=== PATIENT | male | born 1975 | race Caucasian/White ===

== ENCOUNTER 2016-11-26 16:53 | Inpatient (IN) ==
[2016-11-26] MEDS ORDERED: methylPREDNISolone SOD SUC 125 MG/2 ML VIAL IV STA (19:00)
[2016-11-26] MEDS ORDERED: ALBUTEROL 2.5 MG/3 ML NEB RESP TX SCH (19:00)
[2016-11-26] MEDS ORDERED: FUROSEMIDE 100 MG/10 ML VIAL IV STA (19:00)
--- NOTE | 2016-11-26 19:11 | Emergency Department Note ---
IHenrry Kasabria, am scribing for, and in the presence of, Terry Arana MD 19:08. Yasmeen Gutierrez Charles R, MD, personally performed the services described in this documentation, ascribed by Jo Sales in my presence, and it is both accurate and complete 911 . Arrival - Arrival Chief Complaint: Upper Respiratory Stated Complaint: head and coughing up blood ED Nursing Triage Note: C/o shortness of breath, wheezing, cough, congestion- onset three weeks ago. Reports that he noticed some blood streaks in his sputum also. Mode of Arrival: Ambulatory Limitations: No Limitations Source: Patient Time Seen by Provider: 11/26/16 18:41 - History of Present Illness HPI Narrative: Pt is a 41 y/o white male presenting to the ED with c/o cough, congestion, blood streaks in nasal drainage that onset three weeks ago. He states he was taking an antibiotic which cleared the congestion but one day later the congestion came back. He sees Dr. Avalos for his heart and is currently taking Lasix daily. He does have edema bilaterally to his lower extremities. Pt has a PMHx of HTN, CHF, COPD, and bronchitis. Pt was hospitalized three weeks ago and states his symptoms worsened when he was discharged. He denies fever, chills, nausea, vomiting, diarrhea, abdominal pain, and dysuria. Consistency: constant Severity: moderate Allergies/Adverse Reactions: Allergies Allergy/AdvReac Type Severity Reaction Status Date / Time levofloxacin [From Levaquin] AdvReac Cramping Verified 10/25/16 07:43 of the Muscles Home Medications: Home Medications Medication Instructions Recorded Confirmed Type Oxycodone HCl/Acetaminophen 10 mg PO QID PRN #30 tablet 03/24/15 11/26/16 Rx [Percocet 10-325 mg Tablet] Montelukast Tab [Singulair Tab] 10 mg PO DAILY 04/15/15 11/26/16 History Furosemide Tab [Lasix Tab] 80 mg PO BID PRN 02/01/16 11/26/16 History Temazepam [Restoril] 30 mg PO BEDTIME 02/01/16 11/26/16 History Potassium Chloride Cap/Tab [K Dur] 20 meq PO DAILY #100 tablet 09/23/16 Rx predniSONE TAB [PredniSONE] 5 mg PO BEDTIME tablet 09/23/16 11/26/16 Rx predniSONE TAB [PredniSONE] 10 mg PO DAILY tablet 09/23/16 11/26/16 Rx Lisinopril [Prinivil] 2.5 mg PO DAILY 10/25/16 11/26/16 History Azithromycin [Azithromycin Z Pack] 250 mg PO DIRECTED #1 tablet 10/27/16 Rx Cefdinir 300 mg PO Q12HR #12 capsule 10/27/16 11/26/16 Rx Metoprolol Tartrate 25 mg PO TID #90 tablet 10/27/16 11/26/16 Rx Spironolactone [Aldactone] 25 mg PO BID #60 tablet 10/27/16 11/26/16 Rx Review of System - Review of System 12 point system: reviewed and no additional remarkable complaints except as stated - Review of System Constitutional: Absent: chills, fever, weakness Eyes: Absent: vision change Head/Ears/Nose/Throat: Present: nasal drainage. Absent: earache, sore throat Respiratory: Present: cough Cardiovascular: Present: edema (pedal edema to BLE ). Absent: chest pain, dyspnea on exertion, syncope Gastrointestinal: Absent: abdominal pain, nausea, vomiting, diarrhea Genitourinary male: Absent: dysuria Musculoskeletal: Absent: arm pain, back pain, leg pain Skin: Absent: rash Neurological: Absent: headache, weakness, confusion, abnormal gait, vertigo Psychiatric: Absent: anxiety Endocrine: Absent: fatigue Allergic/Immunologic: Absent: facial swelling Medical,Surgical,& Family Hx - Medical History Cardio: History of: CHF, Hypertension, Valvular Heart Disease (3+ MR), Cardiovascular Problems No history of: Cerebrovascular Disease Psychological: History of: Anxiety Disorders No history of: Behavior Problems, Bipolar Disorder, Depression, Previous Suicide Attempt, Psychiatric/Substance Abuse Tx, Schizophrenia, Violent Behavior , Psychiatric Problems Endocrine: No history of: Diabetes Mellitus (IDDM), Diabetes Mellitus (NIDDM) Respiratory: History of: Asthma, Bronchitis, COPD, Pneumonia, Respiratory Problems Renal: No history of: Renal Failure, Renal Problems Gastrointestinal: No history of: Gastrointestinal Bleed, GI Problems Musculoskeletal: History of: Back/Neck Problems (herniated and bulging disks), Degenerative Disk Disease No history of: Amputation Hematology: No history of: Blood Transfusion Reaction Other: No history of: Anesthesia Reactions, Cancer, Skin Problems - Surgical History Cardiac Surgeries: Sugical HX of: Cardiac Catheterization Patient Denies: Femoral-Popliteal Bypass Graft, Cardiac Surgery, Carotid Endarterectomy, Internal Defibrillator, Vascular Access Devices Thoracic Surgeries: Patient denies;: Lobectomy Neurologic Surgeries: Patient denies: Neurologic Surgery HEENT Surgeries: Surgical HX of: Tonsilectomy & Adenoidectomy Patient denies: Carotid Endarterectomy, Eye Surgery, Thyroid Surgery Abdominal Surgeries: Surgical HX of: Abdominal Surgery, Appendectomy Patient denies: Splenectomy Orthopedic Surgeries: Surgical HX of;: Orthopedic Surgery (left knee/foot surgery), Spinal Surgery (nerve blocks and buchanan) - Family History Family History: Reports;: Family Anesthesia Reaction, Family Cancer (grandparent ), Family Diabetes (mother), Family Hypertension (father) Denies;: Family Heart Disease, Family Psychiatric Problems, Family Stroke - Social History Smoking Status: Former smoker Frequency of Alcohol Use: None Type of Drug Use: None Exam Vital Signs: Vital Signs Temperature 97.1 F L 11/26/16 17:28 Pulse Rate 134 H 11/26/16 20:23 Respiratory Rate 24 11/26/16 20:23 Blood Pressure 135/81 11/26/16 17:28 O2 Sat by Pulse Oximetry 96 11/26/16 20:23 - General General appearance: alert, in no apparent distress - Head Head exam: Present: atraumatic, normocephalic - Eye Eye exam: Present: normal appearance, PERRL, EOMI - ENT ENT exam: Present: mucous membranes moist, TM's normal bilaterally, normal external ear exam - Expanded ENT Exam Nose exam: other (boggy nasal ) Throat exam: Present: tonsillar erythema - Neck Neck exam: Present: normal inspection, full ROM, trachea midline. Absent: tenderness - Chest Chest inspection: Present: normal inspection, symmetric chest wall rise. Absent : tenderness - Respiratory Respiratory exam: Present: rales (at the bases bilaterally ), wheezes ( bilaterally ) - Cardiovascular Cardiovascular exam: Present: regular rate, normal heart sounds, murmur (4/6 systolic injection ) - Abdominal Exam Abdominal exam: Present: soft, normal bowel sounds. Absent: distention, tenderness - Extremities Exam Extremities exam: Present: full ROM, normal capillary refill, pedal edema (+2 pedal edema bilaterally ). Absent: tenderness, calf tenderness - Back Exam Back exam: Present: normal inspection, full ROM. Absent: tenderness - Neurological Exam Neurological exam: Present: alert, oriented X3, CN II-XII intact, normal gait, reflexes normal - Psychiatric Psychiatric exam: Present: normal affect, normal mood - Skin Skin exam: Present: warm, dry, intact, normal color. Absent: rash, diaphoresis Course - Consultations Consultation #1: Dr. Izaguirre will admit patient Time: 22:55 Results - Labs CBC & BMP: 11/26/16 19:18 11/26/16 19:18 Lab Results: I have reviewed the patients labs Critical Care Time Critical Care Time: Yes Total Critical Care Time: 90 Disposition Clinical Impression: Hypokalemia, Congestive heart failure, Acute on chronic diastolic CHF ( congestive heart failure), NYHA class 3, Elevated troponin, Acute dyspnea, Exertional dyspnea Case discussed with: patient Disposition: Still a Patient Condition: Guarded Time of Disposition: 22:56
[2016-11-26 19:32] LABS: Basophils % 0.2 % (0.0-0.8); Eosinophils # 0.2 10*3/uL (0.0-0.87); Eosinophils % 0.8 % (0.00-10.9); Hematocrit 33.9 VOL% (42.0-52.0); Hemoglobin 10.7 GM/DL (14.0-18.0); Immature Granulocytes % 0.4 %; Immature Granulocytes Absolute 0.08 #; Lymphocytes % 5.5 % (21.2-54.2); Mean Corpuscular HGB Conc 31.6 GM/DL (32-36); Mean Corpuscular Hemoglobin 27 PG (27-34); Mean Corpuscular Volume 84.5 FL (87-102); Mean Platelet Volume 9.3 FL (9.6-12.0); Monocytes % 5.6 % (1.7-12.7); Neutrophils # 15.6 10*3/uL (1.4-7.4); Neutrophils % 87.5 % (38.7-73.9); Platelet Count 350 T/CUMM (130-400); Red Blood Count 4.01 MC/CUMM (3.8-5.5); Red Cell Distribution Width 14.4 % (9.3-17.3); White Blood Count 17.9 T/CUMM (4-12)
[2016-11-26] MEDS ORDERED: FUROSEMIDE 40 MG/4 ML VIAL ONE (19:42)
[2016-11-26 19:43] LABS: PT Patient Result 10.4 SECS
[2016-11-26] MEDS ORDERED: methylPREDNISolone SOD SUC 125 MG/2 ML VIAL ONE (19:43)
--- NOTE | 2016-11-26 19:43 | XRay Report ---
Exam: XR chest 1V portable Indication: Shortness of breath, Cardiomegaly Comparison study: October 27, 2016 Findings: Cardiac silhouette is enlarged, similar to prior. Mediastinal contours appear within normal limits. There is mild central perihilar interstitial prominence as well as slight prominence of the upper lobe pulmonary vasculature suggestive of pulmonary edema changes. Minimal basilar opacities are also noted, prior may represent atelectasis or interstitial edema. There is no pneumothorax. There is no focal consolidation. Impression: Cardiomegaly with findings suggestive of interstitial pulmonary edema with probable basilar atelectasis. PROCEDURE INTERPRETED AT [facility] DEPARTMENT OF RADIOLOGY Final Report Signed by: Antonio Bradley
--- NOTE | 2016-11-26 19:52 | EKG Report ---
Stationary ECG Study [facility] ER Test Date: 11/26/2016 7:51:44 PM Pat Name: EMILY MEDELLIN Department: Room: Gender: M Roofer Apprentice: : 1975 Requested by: Terry Mckinley Order Number: [id number] Reading MD: FRANK TOLENTINO Intervals [place] Rate: 115 P: 57 MT: 166 QRS: 35 QRSD: 98 T: 209 QT: 350 QTc: 418 Interpretive Statements SINUS TACHYCARDIA POSSIBLE LEFT ATRIAL ENLARGEMENT LEFT VENTRICULAR HYPERTROPHY AND ST-T CHANGE Electronically Signed On 11-30-16 06:05:36 FINANCIAL ANALYSIS CONSULTANT by FRANK TOLENTINO [email or web address]
[2016-11-26 19:54] LABS: Albumin 3.8 G/DL (3.4-5.0); Bilirubin,Total 0.5 MG/DL (0.2-1.0); Calcium 8.6 MG/DL (8.5-10.1); Magnesium 2.5 MG/DL (1.8-2.4); Osmolality,Calculated 282.3 MOS/KG (273-304); Potassium 2.9 MMOL/L (3.5-5.1); Total Protein 7.6 G/DL (6.4-8.3)
[2016-11-26 19:57] LABS: Troponin I Only 0.094 NG/ML (0.00-0.045)
[2016-11-26] MEDS ORDERED: ONDANSETRON 4 MG/2 ML VIAL IV STA (21:00)
[2016-11-26] MEDS ORDERED: ONDANSETRON 4 MG/2 ML VIAL ONE (21:01)
[2016-11-26] MEDS ORDERED: POTASSIUM CHLORIDE 20 MEQ TABLET PO STA (21:19)
[2016-11-26] MEDS ORDERED: POTASSIUM CHLORIDE 20 MEQ TABLET PO ONE (21:36)
[2016-11-26] MEDS ORDERED: oxyCODONE/ACETAMINOPHEN 5-325 MG TABLET PO PRN (23:19)
[2016-11-26] MEDS ORDERED: BISACODYL 5 MG TABLET PO PRN (23:20)
[2016-11-26] MEDS ORDERED: ACETAMINOPHEN 325 MG TABLET PO PRN (23:20)
[2016-11-26] MEDS ORDERED: ONDANSETRON 4 MG/2 ML VIAL IV PRN (23:20)
--- NOTE | 2016-11-26 23:23 | Hospitalist History & Physical ---
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 Otherwise supportive care. Replete potassium, check magnesium Current Visit: No History of Present Illness Chief complaint: shortness of breath 1 week History of present illness: Mr. Ireland is a 41 year old male with hypertension, IHSS, chronic diastolic CHF, COPD, who is here with approximately 1 week of progressively worsening shortness of breath. He reports compliance with diuretics however this is been an issue for him in the past. He states he took Augmentin at home for about 5 days or so without much relief. He's had no fever or chills nausea vomiting or diarrhea. He denies chest pain. His symptoms are constant and progressive. He was recently discharged within the last month or 2 for roughly the same issue. Home Medications Medication Instructions Recorded Confirmed Type Oxycodone HCl/Acetaminophen 10 mg PO QID PRN #30 tablet 03/24/15 11/26/16 Rx [Percocet 10-325 mg Tablet] Montelukast Tab [Singulair Tab] 10 mg PO DAILY 04/15/15 11/26/16 History Furosemide Tab [Lasix Tab] 80 mg PO BID PRN 02/01/16 11/26/16 History Temazepam [Restoril] 30 mg PO BEDTIME 02/01/16 11/26/16 History Potassium Chloride Cap/Tab [K Dur] 20 meq PO DAILY #100 tablet 09/23/16 Rx predniSONE TAB [PredniSONE] 5 mg PO BEDTIME tablet 09/23/16 11/26/16 Rx predniSONE TAB [PredniSONE] 10 mg PO DAILY tablet 09/23/16 11/26/16 Rx Lisinopril [Prinivil] 2.5 mg PO DAILY 10/25/16 11/26/16 History Azithromycin [Azithromycin Z Pack] 250 mg PO DIRECTED #1 tablet 10/27/16 Rx Cefdinir 300 mg PO Q12HR #12 capsule 10/27/16 11/26/16 Rx Metoprolol Tartrate 25 mg PO TID #90 tablet 10/27/16 11/26/16 Rx Spironolactone [Aldactone] 25 mg PO BID #60 tablet 10/27/16 11/26/16 Rx Allergies Allergy/AdvReac Type Severity Reaction Status Date / Time levofloxacin [From Levaquin] AdvReac Cramping Verified 10/25/16 07:43 of the Muscles Medical,Surgical,& Family Hx - Medical History Cardio: History of: CHF, Hypertension, Valvular Heart Disease (3+ MR) No history of: Cerebrovascular Disease Psychological: History of: Anxiety Disorders No history of: Behavior Problems, Bipolar Disorder, Depression, Previous Suicide Attempt, Psychiatric/Substance Abuse Tx, Schizophrenia, Violent Behavior , Psychiatric Problems Endocrine: No history of: Diabetes Mellitus (IDDM), Diabetes Mellitus (NIDDM) Respiratory: History of: Asthma, Bronchitis, COPD, Pneumonia, Respiratory Problems Renal: No history of: Renal Failure, Renal Problems Gastrointestinal: No history of: Gastrointestinal Bleed, GI Problems Musculoskeletal: History of: Back/Neck Problems (herniated and bulging disks), Degenerative Disk Disease No history of: Amputation Hematology: No history of: Blood Transfusion Reaction Other: No history of: Anesthesia Reactions, Cancer, Skin Problems - Surgical History Cardiac Surgeries: Sugical HX of: Cardiac Catheterization Patient Denies: Femoral-Popliteal Bypass Graft, Cardiac Surgery, Carotid Endarterectomy, Internal Defibrillator, Vascular Access Devices Thoracic Surgeries: Patient denies;: Lobectomy Neurologic Surgeries: Patient denies: Neurologic Surgery HEENT Surgeries: Surgical HX of: Tonsilectomy & Adenoidectomy Patient denies: Carotid Endarterectomy, Eye Surgery, Thyroid Surgery Abdominal Surgeries: Surgical HX of: Abdominal Surgery, Appendectomy Patient denies: Splenectomy Orthopedic Surgeries: Surgical HX of;: Orthopedic Surgery (left knee/foot surgery), Spinal Surgery (nerve blocks and buchanan) - Family History Family History: Reports;: Family Anesthesia Reaction, Family Cancer (grandparent ), Family Diabetes (mother), Family Hypertension (father) Denies;: Family Heart Disease, Family Psychiatric Problems, Family Stroke - Social History Smoking Status: Former smoker Frequency of Alcohol Use: None Type of Drug Use: None Marital Status: Unknown Functional capacity: independent ambulation Review of systems: A 12 point review of systems is negative except as specified in the HPI Exam - Constitutional Vitals: Period Temp Pulse Resp BP Sys/Mackey Pulse Ox Last 24 Hr 97.1 F 99-134 20-26 135/81 93-96 Exam: EXAM: CONSTITUTIONAL: non toxic, NAD HEENT: NC, AT, OP benign, [place], EOMI CV: RRR + loud holosystolic murmur at the apex RESP: Scattered rales bilaterally, no wheezes GI: abd soft, NT, ND, +bowel sounds INTEGUMENTARY: no lesions or rash EXTREMITIES: Trace bilateral lower extremity edema NEURO: no focal deficits PSYCH: unremarkable, A/O x3 Results - Labs CBC & BMP: 11/27/16 01:56 11/27/16 01:56 Lab Results: I have reviewed the past 24 hour labs - EKG EKG shows: sinus rhythm - Diagnostic Findings Procedure: Chest x-ray: image reviewed by me, report reviewed by me
[2016-11-27] MEDS: oxyCODONE/ACETAMINOPHEN 5-325 MG TABLET PO PRN ×4 (01:40→20:56)
[2016-11-27 02:49] LABS: Basophils % 0.1 % (0.0-0.8); Hematocrit 30.7 VOL% (42.0-52.0); Hemoglobin 9.9 GM/DL (14.0-18.0); Immature Granulocytes % 0.5 %; Immature Granulocytes Absolute 0.07 #; Lymphocytes # 0.2 10*3/uL (1.4-4.0); Lymphocytes % 1.1 % (21.2-54.2); Mean Corpuscular HGB Conc 32.2 GM/DL (32-36); Mean Corpuscular Hemoglobin 27 PG (27-34); Mean Corpuscular Volume 82.5 FL (87-102); Monocytes # 0.2 10*3/uL (0.11-0.8); Monocytes % 1.2 % (1.7-12.7); Neutrophils % 97.1 % (38.7-73.9); Platelet Count 312 T/CUMM (130-400); Red Blood Count 3.72 MC/CUMM (3.8-5.5); Red Cell Distribution Width 14.6 % (9.3-17.3); White Blood Count 15.5 T/CUMM (4-12)
[2016-11-27 02:51] LABS: Albumin 3.4 G/DL (3.4-5.0); Bilirubin,Total 0.4 MG/DL (0.2-1.0); Calcium 8.7 MG/DL (8.5-10.1); Magnesium 2.2 MG/DL (1.8-2.4); Osmolality,Calculated 284.4 MOS/KG (273-304); Potassium 3.1 MMOL/L (3.5-5.1); Total Protein 6.6 G/DL (6.4-8.3)
[2016-11-27 04:28] LABS: Lymphocytes 2 % (20-55); Segmented Neutrophils 97 % (50-85); Total Cells Counted 100
[2016-11-27 04:29] LABS: Hypochromasia 1+; Platelet Estimate Normal
[2016-11-27 05:33] LABS: Troponin I Only 0.369 NG/ML (0.00-0.045)
[2016-11-27] MEDS: MONTELUKAST 10 MG TABLET PO SCH (08:39)
[2016-11-27] MEDS: LISINOPRIL 2.5 MG TABLET PO SCH (08:39)
[2016-11-27] MEDS: PANTOPRAZOLE 40 MG TABLET PO SCH (08:39)
[2016-11-27] MEDS: predniSONE 10 MG TABLET PO SCH (08:39)
[2016-11-27] MEDS: SPIRONOLACTONE 25 MG TABLET PO SCH ×2 (08:40→20:56)
[2016-11-27] MEDS: METOPROLOL TARTRATE 25 MG TABLET PO SCH ×3 (08:40→20:55)
[2016-11-27] MEDS: FUROSEMIDE 40 MG/4 ML VIAL IV SCH ×2 (08:40→16:38)
[2016-11-27] MEDS ORDERED: INFLUENZA VIRUS VACCINE 0.5 ML SYRINGE IM ONE (09:00)
[2016-11-27] MEDS ORDERED: POTASSIUM CHLORIDE 20 MEQ TABLET PO SCH (09:00)
[2016-11-27] MEDS ORDERED: ENOXAPARIN 40 MG/0.4 ML SYRINGE SUBCUT SCH (09:00)
--- NOTE | 2016-11-27 09:03 | XRay Report ---
Exam: XR chest 1V portable Indication: Shortness of breath, Cardiomegaly Comparison study: 11/26/2016 Findings: Cardiac silhouette is enlarged, similar to prior. Mild diffuse interstitial opacities appear similar to prior and may represent a degree of underlying scarring or interstitial edema changes. Basilar atelectasis is also suspected. There is no pneumothorax or focal consolidation. Impression: Cardiomegaly. Otherwise, no significant change. PROCEDURE INTERPRETED AT [facility] DEPARTMENT OF RADIOLOGY Final Report Signed by: Antonio Bradley
--- NOTE | 2016-11-27 13:43 | Hospitalist Progress Note ---
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 He has history of IHSS and has had hemoptysis in the past secondary to pulmonary hemorrhage. He was taking some Augmentin which apparently had for little while and then his symptoms got worse again many stop using it. He denies any significant chest pain but his troponin has bumped up after his first level was borderline. Assessment and plan for 11/27/2016: Hemoptysis probably from pulmonary hemorrhage from IHSS Congestive heart failure Hypokalemia Elevated troponin I'm consulting cardiology for his elevated troponin. We will also consult pulmonary and he normally follows with Dr. Aaron Martines. His potassium will be supplemented. Continue with diuresis. He did receive some steroids in the ER and we will continue his home dose of prednisone for now. Exam - Constitutional Vitals: Period Temp Pulse Resp BP Sys/Mackey Pulse Ox Last 24 Hr 97.2 F-98.1 F 84-108 16-20 98-128/43-77 90-98 Exam: Gen.: In no acute distress Head and neck: Pupils are reactive neck is supple Cardiovascular: S1-S2 with regular rate and rhythm Respiratory: Lungs are clear to auscultation and percussion Abdomen: Soft, bowel sounds are positive Extremities: mild edema Neuro: Grossly intact Results - Labs CBC & BMP: 11/27/16 01:56 11/27/16 01:56 Lab Results: I have reviewed the past 24 hour labs
[2016-11-27] MEDS: TEMAZEPAM 15 MG CAPSULE PO SCH (20:54)
[2016-11-27] MEDS: POTASSIUM CHLORIDE 20 MEQ TABLET PO SCH (20:55)
[2016-11-27] MEDS: predniSONE 5 MG TABLET PO SCH (20:55)
[2016-11-28] MEDS: oxyCODONE/ACETAMINOPHEN 5-325 MG TABLET PO PRN ×4 (02:52→21:35)
[2016-11-28 04:14] LABS: Basophils % 0.2 % (0.0-0.8); Eosinophils # 0.1 10*3/uL (0.0-0.87); Eosinophils % 0.6 % (0.00-10.9); Hematocrit 30.1 VOL% (42.0-52.0); Hemoglobin 9.7 GM/DL (14.0-18.0); Immature Granulocytes % 0.5 %; Immature Granulocytes Absolute 0.07 #; Mean Corpuscular HGB Conc 32.2 GM/DL (32-36); Mean Corpuscular Hemoglobin 27 PG (27-34); Mean Corpuscular Volume 83.4 FL (87-102); Mean Platelet Volume 9.3 FL (9.6-12.0); Monocytes # 0.9 10*3/uL (0.11-0.8); Neutrophils % 76.7 % (38.7-73.9); Platelet Count 293 T/CUMM (130-400); Red Blood Count 3.61 MC/CUMM (3.8-5.5); Red Cell Distribution Width 14.7 % (9.3-17.3); White Blood Count 13.1 T/CUMM (4-12)
[2016-11-28 04:20] LABS: Calcium 8.6 MG/DL (8.5-10.1); Magnesium 2.5 MG/DL (1.8-2.4); Potassium 3.4 MMOL/L (3.5-5.1)
--- NOTE | 2016-11-28 08:08 | Pulmonology Consult Note ---
Assessment and Plan (1) Acute on chronic diastolic CHF (congestive heart failure) Problem details: EF 60% by ECHO 09/19/16 Status: Acute Assessment and plan: Seems to have improved with Lasix. He's not had any further hemoptysis since admission. Current Visit: No (2) Hemoptysis Status: Acute Assessment and plan: This is felt to be due to pulmonary hypertension secondary to his heart failure. He's had multiple evaluations before. He reports blood coming from his nose. It may be worthwhile to have ENT evaluate that. 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 Current Visit: No History of Present Illness Chief complaint: dyspnea and hemoptysis History of present illness: Mr. Ireland is a 41 year old male has a history of idiopathic hypertrophic subaortic stenosis and chronic congestive heart failure. He's had multiple episodes of hemoptysis. He's had a full workup including multiple bronchoscopies and studies for vasculitis all of which is been negative. He was here last month having hemoptysis. He went home and then started back having bleeding from his nose as well as coughing up blood. He was admitted day before yesterday and has not had any further hemoptysis since here. He reportedly is taking his medication regularly including a beta sedrick and a diuretic. He's not on any anticoagulants at home. He has been evaluated in [facility] for this and he does not know if a specific finding. Dr. Martines follows him regularly and will see him tomorrow. At the present time he is not coughing up blood. Home Medications Medication Instructions Recorded Confirmed Type Oxycodone HCl/Acetaminophen 10 mg PO QID PRN #30 tablet 03/24/15 11/26/16 Rx [Percocet 10-325 mg Tablet] Montelukast Tab [Singulair Tab] 10 mg PO DAILY 04/15/15 11/26/16 History Furosemide Tab [Lasix Tab] 80 mg PO BID PRN 02/01/16 11/26/16 History Temazepam [Restoril] 30 mg PO BEDTIME 02/01/16 11/26/16 History Potassium Chloride Cap/Tab [K Dur] 20 meq PO DAILY #100 tablet 09/23/16 Rx predniSONE TAB [PredniSONE] 5 mg PO BEDTIME tablet 09/23/16 11/26/16 Rx predniSONE TAB [PredniSONE] 10 mg PO DAILY tablet 09/23/16 11/26/16 Rx Lisinopril [Prinivil] 2.5 mg PO DAILY 10/25/16 11/26/16 History Azithromycin [Azithromycin Z Pack] 250 mg PO DIRECTED #1 tablet 10/27/16 Rx Cefdinir 300 mg PO Q12HR #12 capsule 10/27/16 11/26/16 Rx Metoprolol Tartrate 25 mg PO TID #90 tablet 10/27/16 11/26/16 Rx Spironolactone [Aldactone] 25 mg PO BID #60 tablet 10/27/16 11/26/16 Rx Allergies Allergy/AdvReac Type Severity Reaction Status Date / Time levofloxacin [From Levaquin] AdvReac Cramping Verified 10/25/16 07:43 of the Muscles 12 point system: reviewed and no additional remarkable complaints except as stated - EENT Nose, mouth and throat: Present: epistaxis - Cardiovascular Cardiovascular: Present: dyspnea, dyspnea on exertion - Respiratory Respiratory: Present: cough, dyspnea, hemoptysis, dyspnea on exertion - Gastrointestinal Gastrointestinal: Present: dyspepsia - Genitourinary Genitourinary: Present: urinary frequency - Musculoskeletal Musculoskeletal: Present: arthralgias, back pain Exam (Pulmonay) H&P - Constitutional Vitals: Period Temp Pulse Resp BP Sys/Mackey Pulse Ox Last 24 Hr 96.7 F-97.9 F 61-96 16-20 101-131/51-60 95-99 Exam: Vital signs normal. HEENT: Pupils react to light. No blood in his nose or throat. Neck supple no bruits. Chest reveals minimal bibasilar crackles. Heart shows a grade 1/6 systolic murmur at the right base and left sternal border. Abdomen soft nontender no masses. Bowel sounds present. Extremities no clubbing cyanosis or edema. Calves nontender. Medical,Surgical,& Family Hx - Medical History Cardio: History of: CHF, Hypertension, Valvular Heart Disease (3+ MR), Cardiovascular Problems No history of: Cerebrovascular Disease Psychological: History of: Anxiety Disorders No history of: Behavior Problems, Bipolar Disorder, Depression, Previous Suicide Attempt, Psychiatric/Substance Abuse Tx, Schizophrenia, Violent Behavior , Psychiatric Problems Endocrine: No history of: Diabetes Mellitus (IDDM), Diabetes Mellitus (NIDDM) Respiratory: History of: Asthma, Bronchitis, COPD, Pneumonia, Respiratory Problems Renal: No history of: Renal Failure, Renal Problems Gastrointestinal: No history of: Gastrointestinal Bleed, GI Problems Musculoskeletal: History of: Back/Neck Problems (herniated and bulging disks), Degenerative Disk Disease No history of: Amputation Hematology: No history of: Blood Transfusion Reaction Other: No history of: Anesthesia Reactions, Cancer, Skin Problems - Surgical History Cardiac Surgeries: Sugical HX of: Cardiac Catheterization Patient Denies: Femoral-Popliteal Bypass Graft, Cardiac Surgery, Carotid Endarterectomy, Internal Defibrillator, Vascular Access Devices Thoracic Surgeries: Patient denies;: Lobectomy Neurologic Surgeries: Patient denies: Neurologic Surgery HEENT Surgeries: Surgical HX of: Tonsilectomy & Adenoidectomy Patient denies: Carotid Endarterectomy, Eye Surgery, Thyroid Surgery Abdominal Surgeries: Surgical HX of: Abdominal Surgery, Appendectomy Patient denies: Splenectomy Orthopedic Surgeries: Surgical HX of;: Orthopedic Surgery (left knee/foot surgery), Spinal Surgery (nerve blocks and buchanan) - Family History Family History: Reports;: Family Anesthesia Reaction, Family Cancer (grandparent ), Family Diabetes (mother), Family Hypertension (father) Denies;: Family Heart Disease, Family Psychiatric Problems, Family Stroke - Social History Smoking Status: Former smoker Frequency of Alcohol Use: None Type of Drug Use: None Results - Labs CBC & BMP: 11/28/16 03:41 11/28/16 03:41 Lab Results: I have reviewed the past 24 hour labs - Diagnostic Findings Procedure: Chest x-ray: image reviewed by me (cardiomegaly. Slightly increased interstitial markings and thickening of the right minor fissure. X-ray looks a little better today than yesterday after diuresis.)
[2016-11-28] MEDS: predniSONE 10 MG TABLET PO SCH (08:34)
[2016-11-28] MEDS: METOPROLOL TARTRATE 25 MG TABLET PO SCH ×3 (08:35→21:12)
[2016-11-28] MEDS: POTASSIUM CHLORIDE 20 MEQ TABLET PO SCH ×2 (08:35→21:12)
[2016-11-28] MEDS: SPIRONOLACTONE 25 MG TABLET PO SCH ×2 (08:36→21:12)
[2016-11-28] MEDS: MONTELUKAST 10 MG TABLET PO SCH (08:36)
[2016-11-28] MEDS: PANTOPRAZOLE 40 MG TABLET PO SCH (08:36)
[2016-11-28] MEDS: LISINOPRIL 2.5 MG TABLET PO SCH (08:36)
[2016-11-28] MEDS: FUROSEMIDE 40 MG/4 ML VIAL IV SCH ×2 (08:37→15:00)
--- NOTE | 2016-11-28 10:22 | Hospitalist Progress Note ---
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 Patient has history of recurrent pulmonary hemorrhage. No further epistaxis. He has lost 5 pounds and IV diuresis. Assessment and plan for 11/28/2016: Volume overload with congestive heart failure next Pulmonary hemorrhage IHSS Elevated troponin Still awaiting cardiology consultation. Continue Lasix intravenously today and switch to oral Lasix. He's had no further hemoptysis. Dr. Martines from pulmonary routinely follows him and will see him again tomorrow. Hopefully can be discharged home by Tuesday. Exam - Constitutional Vitals: Period Temp Pulse Resp BP Sys/Mackey Pulse Ox Last 24 Hr 96.7 F-99.3 F 61-96 16-20 101-131/51-60 95-99 Exam: Gen.: In no acute distress Head and neck: Pupils are reactive neck is supple Cardiovascular: S1-S2 with regular rate and rhythm Respiratory: Lungs are clear to auscultation and percussion Abdomen: Soft, bowel sounds are positive Extremities: mild edema Neuro: Grossly intact Results - Labs CBC & BMP: 11/28/16 03:41 11/28/16 03:41 Lab Results: I have reviewed the past 24 hour labs
--- NOTE | 2016-11-28 11:48 | Cardiology Consult Note ---
Assessment and Plan (1) Acute on chronic diastolic CHF (congestive heart failure), NYHA class 3 Status: Acute Assessment and plan: 1. 41-year-old overweight WF with hypertension, hypertrophic cardiomyopathy, who reports one week of increased dyspnea on exertion, with several mild episodes of hemoptysis, noted to have mildly elevated troponin at 0.3 despite having no chest pain 2. Multiple admissions noted in the last couple of years with similar complaints (shortness of breath and hemoptysis); his troponin was greater than 0.7 in 2015 during one admission 3. Last echocardiogram September 2016 showed severe hypertrophy with 80 mmHg LVOT gradient, and mild to moderate mitral regurgitation, and PAP of 50 mmHg 4. Reportedly turned down for surgery by [place]; he is clinically improving , but at some point may need to consider second opinion regarding surgery? Dr. Liam Avalos is his primary product safety coordinator, who has followed him; he is also been followed and seen many times by Dr. Aaron Martines 5. I do not suspect acute coronary syndrome, although he denies ever having a heart catheterization; his EKG is quite abnormal with LVH and LVO, but is unchanged from previous tracings. 6. Would continue beta sedrick and diuretic therapy 7. Resume and at 120 mg twice a day 8. 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 Ireland is a 41 year old male who is followed Dr. michael and Dr. Martines, with hypertrophic cardiomyopathy, has had several admissions in the last 2 years and several other ER visits with similar symptoms. He reports one week increased dyspnea on exertion, and then several episodes of mild hemoptysis as he's had in the past. He reports when he lays flat his oxygen level drops but he is "fine if he sits up". He was evaluated in [place] and apparently turned down for surgery. He is not had any chest pain. He had a mild troponin elevation to 0.3, nose consult to do evaluate. In reviewing his chart he had a troponin of greater than 0.7 and 2015. He reported that he briefly passed out in the emergency room. He reports his oxygen level drops with a "70s" when he lays flat sometimes. CC: Abelardo Shoemaker MD - Home Medications and Allergies Home Medications: Home Medications Medication Instructions Recorded Confirmed Type Oxycodone HCl/Acetaminophen 10 mg PO QID PRN #30 tablet 03/24/15 11/26/16 Rx [Percocet 10-325 mg Tablet] Montelukast Tab [Singulair Tab] 10 mg PO DAILY 04/15/15 11/26/16 History Furosemide Tab [Lasix Tab] 80 mg PO BID PRN 02/01/16 11/26/16 History Temazepam [Restoril] 30 mg PO BEDTIME 02/01/16 11/26/16 History Potassium Chloride Cap/Tab [K Dur] 20 meq PO DAILY #100 tablet 09/23/16 Rx predniSONE TAB [PredniSONE] 5 mg PO BEDTIME tablet 09/23/16 11/26/16 Rx predniSONE TAB [PredniSONE] 10 mg PO DAILY tablet 09/23/16 11/26/16 Rx Lisinopril [Prinivil] 2.5 mg PO DAILY 10/25/16 11/26/16 History Azithromycin [Azithromycin Z Pack] 250 mg PO DIRECTED #1 tablet 10/27/16 Rx Cefdinir 300 mg PO Q12HR #12 capsule 10/27/16 11/26/16 Rx Metoprolol Tartrate 25 mg PO TID #90 tablet 10/27/16 11/26/16 Rx Spironolactone [Aldactone] 25 mg PO BID #60 tablet 10/27/16 11/26/16 Rx Allergies/Adverse Reactions: Allergies Allergy/AdvReac Type Severity Reaction Status Date / Time levofloxacin [From Levaquin] AdvReac Cramping Verified 10/25/16 07:43 of the Muscles - Cardiovascular Cardiovascular: Present: as per HPI - Respiratory Respiratory: Present: as per HPI - Gastrointestinal Gastrointestinal: Absent: abdominal pain, diarrhea Medical,Surgical,& Family Hx - Medical History Cardio: History of: CHF, Hypertension, Valvular Heart Disease (3+ MR), Cardiovascular Problems No history of: Cerebrovascular Disease Psychological: History of: Anxiety Disorders No history of: Behavior Problems, Bipolar Disorder, Depression, Previous Suicide Attempt, Psychiatric/Substance Abuse Tx, Schizophrenia, Violent Behavior , Psychiatric Problems Endocrine: No history of: Diabetes Mellitus (IDDM), Diabetes Mellitus (NIDDM) Respiratory: History of: Asthma, Bronchitis, COPD, Pneumonia, Respiratory Problems Renal: No history of: Renal Failure, Renal Problems Gastrointestinal: No history of: Gastrointestinal Bleed, GI Problems Musculoskeletal: History of: Back/Neck Problems (herniated and bulging disks), Degenerative Disk Disease No history of: Amputation Hematology: No history of: Blood Transfusion Reaction Other: No history of: Anesthesia Reactions, Cancer, Skin Problems - Surgical History Cardiac Surgeries: Sugical HX of: Cardiac Catheterization Patient Denies: Femoral-Popliteal Bypass Graft, Cardiac Surgery, Carotid Endarterectomy, Internal Defibrillator, Vascular Access Devices Thoracic Surgeries: Patient denies;: Lobectomy Neurologic Surgeries: Patient denies: Neurologic Surgery HEENT Surgeries: Surgical HX of: Tonsilectomy & Adenoidectomy Patient denies: Carotid Endarterectomy, Eye Surgery, Thyroid Surgery Abdominal Surgeries: Surgical HX of: Abdominal Surgery, Appendectomy Patient denies: Splenectomy Orthopedic Surgeries: Surgical HX of;: Orthopedic Surgery (left knee/foot surgery), Spinal Surgery (nerve blocks and buchanan) - Family History Family History: Reports;: Family Anesthesia Reaction, Family Cancer (grandparent ), Family Diabetes (mother), Family Hypertension (father) Denies;: Family Heart Disease, Family Psychiatric Problems, Family Stroke - Social History Smoking Status: Former smoker Frequency of Alcohol Use: None Type of Drug Use: None Physical Examination Vital Signs Temp Pulse Resp BP Pulse Ox 97.1 F L 121 H 20 135/81 93 L 11/26/16 17:28 11/26/16 17:28 11/26/16 17:28 11/26/16 17:28 11/26/16 17:28 Result/EKG - Labs CBC & BMP: 11/28/16 03:41 11/28/16 03:41 Labs: Laboratory Results - last 24 hr 11/28/16 11/28/16 03:41 03:41 WBC 13.1 H RBC 3.61 L Hgb 9.7 L Hct 30.1 L MCV 83.4 L MCH 27 MCHC 32.2 RDW 14.7 Plt Count 293 MPV 9.3 L Neut % (Auto) 76.7 H Lymph % (Auto) 15.0 L [place] % (Auto) 7.0 Eos % (Auto) 0.6 Baso % (Auto) 0.2 Neut # (Auto) 10.0 H Lymph # (Auto) 2.0 [place] # (Auto) 0.9 H Eos # (Auto) 0.1 Baso # (Auto) 0.0 Immature Gran % 0.5 Nucleated RBC % 0.0 Immature Gran # 0.07 Nucleated RBCs # 0.00 Sodium 143 Potassium 3.4 L Chloride 102 Carbon Dioxide 30 Anion Gap 14.4 BUN 16 Creatinine 0.80 GFR Calculation 157 BUN/Creatinine Ratio 20.00 Glucose 100 Calculated Osmolality 285.0 Calcium 8.6 Magnesium 2.5 H
[2016-11-28] MEDS: VERAPAMIL SR 120 MG TABLET PO SCH ×2 (12:57→21:13)
[2016-11-28] MEDS: predniSONE 5 MG TABLET PO SCH (21:12)
[2016-11-28] MEDS: TEMAZEPAM 15 MG CAPSULE PO SCH (21:12)
[2016-11-29] MEDS: oxyCODONE/ACETAMINOPHEN 5-325 MG TABLET PO PRN ×2 (03:57→10:08)
[2016-11-29 05:57] LABS: Basophils # 0.1 10*3/uL (0.0-0.2); Basophils % 0.5 % (0.0-0.8); Eosinophils # 0.1 10*3/uL (0.0-0.87); Eosinophils % 1.3 % (0.00-10.9); Hematocrit 34.3 VOL% (42.0-52.0); Hemoglobin 10.7 GM/DL (14.0-18.0); Immature Granulocytes % 0.5 %; Immature Granulocytes Absolute 0.05 #; Lymphocytes # 1.8 10*3/uL (1.4-4.0); Lymphocytes % 16.5 % (21.2-54.2); Mean Corpuscular HGB Conc 31.2 GM/DL (32-36); Mean Corpuscular Hemoglobin 26 PG (27-34); Mean Corpuscular Volume 84.3 FL (87-102); Mean Platelet Volume 9.3 FL (9.6-12.0); Monocytes # 0.9 10*3/uL (0.11-0.8); Monocytes % 8.3 % (1.7-12.7); Neutrophils # 8.1 10*3/uL (1.4-7.4); Neutrophils % 72.9 % (38.7-73.9); Platelet Count 347 T/CUMM (130-400); Red Blood Count 4.07 MC/CUMM (3.8-5.5); Red Cell Distribution Width 14.3 % (9.3-17.3)
[2016-11-29 06:39] LABS: Calcium 8.8 MG/DL (8.5-10.1); Magnesium 2.6 MG/DL (1.8-2.4); Osmolality,Calculated 282.3 MOS/KG (273-304); Potassium 3.6 MMOL/L (3.5-5.1)
--- NOTE | 2016-11-29 08:08 | Pulmonology Progress Note ---
Pulmonary - PN: Subj Interval history: Sundeep is a 41-year-old white man that has a hypertrophic obstructive cardiomyopathy with chronic congestive heart failure. He said he was feeling a little worse last week and feels a little congested so he came in early. He felt like he couldn't go home from the emergency room but his O2 saturations dropped some. He has had some dark secretions but his shortness of breath is better. He says he is breathing comfortably now and feels like he is much better. Otherwise he's not having any new problems. Exam (Progress Note) - Constitutional Vitals: Period Temp Pulse Resp BP Sys/Mackey Pulse Ox Last 24 Hr 96.7 F-98.1 F 60-83 17-20 104-140/51-75 96-100 General appearance: no acute distress, over weight, other (he looks comfortable lying in bed now.) - Head Head exam: Present: normal inspection, normocephalic - Eye Eye exam: Present: EOMI. Absent: scleral icterus Pupils: Present: [place] - ENT ENT exam: Present: normal exam - Neck Neck exam: Present: normal inspection. Absent: lymphadenopathy, thyromegaly - Respiratory Respiratory exam: Present: clear to auscultation bilaterally, other (his lungs sound fairly clear now.). Absent: rales, wheezes - Cardiovascular Cardiovascular exam: Present: regular rate and rhythm, systolic murmur (he does have a 3-4/6 systolic murmur.). Absent: gallop - GI/Abdominal GI/Abdominal exam: Present: normal bowel sounds, soft. Absent: organomegaly, tenderness - Extremities Exam Extremities exam: Absent: calf tenderness, edema - Neurological Exam Neurological exam: Present: alert, oriented X3, CN II-XII intact - Psychiatric Psychiatric exam: Present: normal affect - Skin Skin exam: Present: warm, dry Results - Labs CBC & BMP: 11/29/16 05:13 11/29/16 05:13 - Diagnostic Findings Procedure: Chest x-ray: image reviewed by me, report reviewed by me (chest x- ray had minimal CHF.) Assessment and Plan (1) Pulmonary edema Status: Resolved Assessment and plan: The patient had mild pulmonary edema and is doing better now. He has diuresed fairly well. 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 Current Visit: No (3) Hemoptysis Status: Acute Assessment and plan: This is usually due to pulmonary edema and clears quickly. He is stable and can go home any time. Current Visit: No
[2016-11-29 08:28] VITALS: BP 104/56
--- NOTE | 2016-11-29 10:00 | Discharge Summary ---
Hospital Course - Hospital Course Hospital Course: 41-year-old white male with history of congestive heart failure hypertrophic cardiomyopathy and pulmonary edema and pulmonary hemorrhage in the past who presents with some hemoptysis and worsening heart failure with increasing weight. He was diuresed. He had no further hemoptysis during hospitalization. He was seen in consultation by Dr. Martines who is his regular student admissions clerk and he feels patient stable and at baseline and can be discharged home. He was also seen by cardiology. He has elevated troponin which sometimes have been chronic for him and he's had previously elevated troponin of 2.7. Cardiology does not feel any further intervention is needed they have recommended low-dose beta sedrick and actually patient is already on metoprolol 3 times a day.. Tolerate much beta blockers. Overall he's doing well and is being discharged home today. He'll continue to see Dr. Avalos from cardiology who is his regular channeler outsole. 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 (2) Hemoptysis Status: Acute (3) Lower extremity edema Status: Acute Discharge Plan - Discharge Data Condition at Discharge: Stable Discharge Diet: advance to your usual diet - Discharge Medications New Azithromycin Tab [Zithromax Tab] 500 mg PO DAILY #3 tablet Furosemide Tab [Lasix Tab] 40 mg PO BID DIURETIC #60 tablet Continue Oxycodone HCl/Acetaminophen [Percocet 10-325 mg Tablet] 10 mg PO QID PRN #30 tablet PRN Reason: Pain Montelukast Tab [Singulair Tab] 10 mg PO DAILY Temazepam [Restoril] 30 mg PO BEDTIME predniSONE TAB [PredniSONE] 5 mg PO BEDTIME tablet Potassium Chloride Cap/Tab [K Dur] 20 meq PO DAILY #100 tablet Spironolactone [Aldactone] 25 mg PO BID #60 tablet Metoprolol Tartrate 25 mg PO TID #90 tablet predniSONE TAB [PredniSONE] 10 mg PO DAILY tablet Lisinopril [Prinivil] 2.5 mg PO DAILY Discontinued Furosemide Tab [Lasix Tab] 80 mg PO BID PRN PRN Reason: Wheezing Azithromycin [Azithromycin Z Pack] 250 mg PO DIRECTED #1 tablet Cefdinir 300 mg PO Q12HR #12 capsule - Follow Up or Referral Follow Up: Danna obrien [Other] - 1 Week (Follow-up labs) - Forms/Instructions Additional Discharge Instructions: Keep appointment for Dr. Avalos and Dr. Aaron Martines as previously Exam - Constitutional Vitals: Period Temp Pulse Resp BP Sys/Mackey Pulse Ox Last 24 Hr 96.7 F-98.1 F 60-83 17-20 104-140/51-75 94-100 Discharge Results Procedures and tests throughout hospitalization: Pending Orders 11/30/16 04:00 Basic Metabolic Panel w/Mg IN AM 12/01/16 04:00 Basic Metabolic Panel w/Mg IN AM Labs on day of discharge: Labs from last 24 hours 11/29/16 11/29/16 05:13 05:13 WBC 11.0 RBC 4.07 Hgb 10.7 L Hct 34.3 L MCV 84.3 L MCH 26 L MCHC 31.2 L RDW 14.3 Plt Count 347 MPV 9.3 L Neut % (Auto) 72.9 Lymph % (Auto) 16.5 L [place] % (Auto) 8.3 Eos % (Auto) 1.3 Baso % (Auto) 0.5 Neut # (Auto) 8.1 H Lymph # (Auto) 1.8 [place] # (Auto) 0.9 H Eos # (Auto) 0.1 Baso # (Auto) 0.1 Immature Gran % 0.5 Nucleated RBC % 0.0 Immature Gran # 0.05 Nucleated RBCs # 0.00 Sodium 141 Potassium 3.6 Chloride 102 Carbon Dioxide 29 Anion Gap 13.6 BUN 17 Creatinine 0.80 GFR Calculation 155 BUN/Creatinine Ratio 21.00 H Glucose 95 Calculated Osmolality 282.3 Calcium 8.8 Magnesium 2.6 H DS: Provider Date of admission: 11/26/16 23:20 Primary care physician: . No PCP Attending physician on admission: Abelardo Shoemaker MD Consults: 11/27/16 13:33 Consult to Physician [CONS] Routine Comment: Consulting Provider: When should Consulting Provider be notified: In am Consult to Specialist Group: Cardiology When should Consulting Provider be notified: Now Consult Notification Comment: elevated cardiac enzymes with chf and IHSS 11/27/16 13:34 Consult to Physician [CONS] Routine Comment: Consulting Provider: When should Consulting Provider be notified: In am Consult to Specialist Group: Pulmonology When should Consulting Provider be notified: Now Consult Notification Comment: hemoptysis with hx of IHSS Discharging clinician: Abelardo Shoemaker MD
[2016-11-29] MEDS: FUROSEMIDE 40 MG/4 ML VIAL IV SCH (10:02)
[2016-11-29] MEDS: VERAPAMIL SR 120 MG TABLET PO SCH (10:11)
[2016-11-29] MEDS: POTASSIUM CHLORIDE 20 MEQ TABLET PO SCH (10:12)
[2016-11-29] MEDS: LISINOPRIL 2.5 MG TABLET PO SCH (10:12)
[2016-11-29] MEDS: PANTOPRAZOLE 40 MG TABLET PO SCH (10:12)
[2016-11-29] MEDS: METOPROLOL TARTRATE 25 MG TABLET PO SCH (10:12)
[2016-11-29] MEDS: predniSONE 10 MG TABLET PO SCH (10:13)
[2016-11-29] MEDS: MONTELUKAST 10 MG TABLET PO SCH (10:13)
[2016-11-29] MEDS: SPIRONOLACTONE 25 MG TABLET PO SCH (10:13)
--- NOTE | 2016-11-29 14:24 | Event Note ---
Dr. Barry contacted Dr. Yusuf Shukla at [facility], Congenital Heart. Dr. Shukla is agreeable to see patient in consult for evaluation/treatment of Hypertrophic Cardiomyopathy. Patient was discharged at the time of this note. I tried to contact the patient at the telephone number [email or web address] but no answer. I contacted RN for Dr. Avalos via email to S to assist with arranging this referral. (Patient is known to Dr. Avalos)
== END 2016-11-29 11:18 | disposition home or self-care (01) | DRG 292 ==
LOC: N.ED 16:53 → N.EDINP 23:20 → N.TELES 11-27 00:55
PROVIDERS: ADMIT Internal Medicine; ATTEND Internal Medicine

== ENCOUNTER 2017-05-24 20:22 | Inpatient (IN) ==
[2017-05-24] MEDS ORDERED: ONDANSETRON 4 MG/2 ML VIAL IV STA (21:54)
[2017-05-24] MEDS ORDERED: FUROSEMIDE 100 MG/10 ML VIAL IV STA (21:54)
[2017-05-24] MEDS ORDERED: MORPHINE 2 MG/1 ML SYRINGE IV STA (21:54)
[2017-05-24] MEDS ORDERED: methylPREDNISolone SOD SUC 125 MG/2 ML VIAL IV STA (21:54)
[2017-05-24] MEDS ORDERED: cefTRIAXone 1,000 MG in SODIUM CHLORIDE 0.9% 100 ML IV STA (21:54)
[2017-05-24] MEDS ORDERED: SODIUM CHLORIDE 0.9% 500 ML IV STA (21:54)
[2017-05-24] MEDS ORDERED: ALBUTEROL 2.5 MG/3 ML NEB RESP TX SCH (22:00)
--- NOTE | 2017-05-24 22:02 | Emergency Department Note ---
Elton Gutierrez Brooke, am scribing for, and in the presence of, Terry Arana MD 22 :01. Yasmeen Gutierrez Charles R, MD, personally performed the services described in this documentation, ascribed by Mya Conde in my presence, and it is both accurate and complete . Arrival - Arrival Chief Complaint: Upper Respiratory Stated Complaint: coughing and throwing up blood ED Nursing Triage Note: c/o coughing up blood since yesterday. pt states that he has been taking prednisone every two hours. pmhx chf. bilateral lower ext edema. denies sob. Mode of Arrival: Ambulatory Limitations: No Limitations Source: Patient, Family, RN Notes Reviewed Time Seen by Provider: 05/24/17 21:22 - History of Present Illness HPI Narrative: Patient is a 42 year old male who presents to the ED with c/o hematemesis that started around 1200 today. Patient has been seen several times with same complaint. He says the last time he came in with hematemesis, he was sent to [facility]. Family member states he was admitted to [facility] for two week and "they ran every test possible and couldn't find anything wrong." Patient says he has been taking Prednisone since being at [facility]. Patient has also had lower extremity edema and erythema. Family says he hasn't been able to walk because of the edema. Patient denies any current fever but Family says he did have fever "two days ago." He is not taking any blood thinners. Patient is not a smoker but does dip and vape. Patient says he has been vaping for he past "six or seven months." Patient has PMHx of CHF, HTN, valvular heart disease, anxiety, asthma, bronchitis, COPD, pneumonia, herniated/bulging disks, and degenerative disk disease. Patient does not have a Primary Care Provider. Patient has seen Dr. Martines, Machine Filler Shredder, and has another appointment next month. Onset (ago): hour(s) (10) Allergies/Adverse Reactions: Allergies Allergy/AdvReac Type Severity Reaction Status Date / Time levofloxacin [From Levaquin] AdvReac Cramping Verified 10/25/16 07:43 of the Muscles Home Medications: Home Medications Medication Instructions Recorded Confirmed Type Oxycodone HCl/Acetaminophen 10 mg PO QID PRN #30 tablet 03/24/15 05/24/17 Rx [Percocet 10-325 mg Tablet] Montelukast Tab [Singulair Tab] 10 mg PO DAILY 04/15/15 05/24/17 History Temazepam [Restoril] 30 mg PO BEDTIME 02/01/16 05/24/17 History Potassium Chloride Cap/Tab [K Dur] 20 meq PO DAILY #100 tablet 09/23/16 Rx predniSONE TAB [PredniSONE] 5 mg PO BEDTIME tablet 09/23/16 05/24/17 Rx predniSONE TAB [PredniSONE] 10 mg PO DAILY tablet 09/23/16 05/24/17 Rx Lisinopril [Prinivil] 2.5 mg PO DAILY 10/25/16 05/24/17 History Metoprolol Tartrate 25 mg PO TID #90 tablet 10/27/16 05/24/17 Rx Spironolactone [Aldactone] 25 mg PO BID #60 tablet 10/27/16 05/24/17 Rx Azithromycin Tab [Zithromax Tab] 500 mg PO DAILY #3 tablet 11/29/16 05/24/17 Rx Furosemide Tab [Lasix Tab] 40 mg PO BID DIURETIC #60 tablet 11/29/16 05/24/17 Rx Ondansetron Odt Tab [Zofran Odt] 4 mg PO Q8H #20 tablet 01/07/17 05/24/17 Rx Review of System - Review of System 12 point system: reviewed and no additional remarkable complaints except as stated - Review of System Constitutional: Absent: fever (2 days ago) Respiratory: Absent: respiratory distress Gastrointestinal: Present: hematemesis Skin: Absent: rash Medical,Surgical,& Family Hx - Medical History Cardio: History of: CHF, Hypertension, Valvular Heart Disease (3+ MR), 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) No history of: Cerebrovascular Disease Psychological: History of: Anxiety Disorders No history of: Behavior Problems, Bipolar Disorder, Depression, Previous Suicide Attempt, Psychiatric/Substance Abuse Tx, Schizophrenia, Violent Behavior , Psychiatric Problems Endocrine: No history of: Diabetes Mellitus (IDDM), Diabetes Mellitus (NIDDM) Respiratory: History of: Asthma, Bronchitis, COPD, Pneumonia, Respiratory Problems Renal: No history of: Renal Failure, Renal Problems Gastrointestinal: No history of: Gastrointestinal Bleed, GI Problems Musculoskeletal: History of: Back/Neck Problems (herniated and bulging disks), Degenerative Disk Disease No history of: Amputation Hematology: No history of: Blood Transfusion Reaction Other: No history of: Anesthesia Reactions, Cancer, Skin Problems - Surgical History Cardiac Surgeries: Sugical HX of: Cardiac Catheterization Patient Denies: Femoral-Popliteal Bypass Graft, Cardiac Surgery, Carotid Endarterectomy, Internal Defibrillator, Vascular Access Devices Thoracic Surgeries: Patient denies;: Lobectomy Neurologic Surgeries: Patient denies: Neurologic Surgery HEENT Surgeries: Surgical HX of: Tonsilectomy & Adenoidectomy Patient denies: Carotid Endarterectomy, Eye Surgery, Thyroid Surgery Abdominal Surgeries: Surgical HX of: Abdominal Surgery, Appendectomy Patient denies: Splenectomy Orthopedic Surgeries: Surgical HX of;: Orthopedic Surgery (left knee/foot surgery), Spinal Surgery (nerve blocks and buchanan) - Family History Family History: Reports;: Family Anesthesia Reaction, Family Cancer (grandparent ), Family Diabetes (mother), Family Hypertension (father) Denies;: Family Heart Disease, Family Psychiatric Problems, Family Stroke - Social History Smoking Status: Former smoker Frequency of Alcohol Use: None Type of Drug Use: None Exam Vital Signs: Vital Signs Temperature 98.3 F 05/24/17 22:42 Pulse Rate 90 05/24/17 22:42 Respiratory Rate 18 05/24/17 22:42 Blood Pressure 100/61 05/24/17 22:42 O2 Sat by Pulse Oximetry 90 L 05/24/17 22:15 - General General appearance: alert, in no apparent distress, other (Poor hygiene) - Head Head exam: Present: atraumatic, normocephalic - Eye Eye exam: Present: normal appearance, PERRL, EOMI - ENT ENT exam: Present: other (Actively spitting up blood.) - Neck Neck exam: Present: normal inspection - Chest Chest inspection: Present: normal inspection, symmetric chest wall rise - Respiratory Respiratory exam: Present: rales (bilateral bases), rhonchi (bilateral), wheezes (bilateral) - Cardiovascular Cardiovascular exam: Present: regular rate, normal rhythm, murmur (3 out of 6) - Abdominal Exam Abdominal exam: Present: distention, hypoactive bowel sounds. Absent: soft, tenderness - Extremities Exam Extremities exam: Present: pedal edema (1+ bilateral lower extremity edema), other (neurovascularly intact.) - Back Exam Back exam: Present: normal inspection - Neurological Exam Neurological exam: Present: alert, oriented X3 - Psychiatric Psychiatric exam: Present: normal affect, normal mood - Skin Skin exam: Present: warm, dry, intact. Absent: normal color (Lower left leg to forefoot erythema that blanches.) Course - Consultations Consultation #1: Hospitalist will admit patient Time: 22:59 Results - Labs CBC & BMP: 05/24/17 21:21 05/24/17 22:13 Lab Results: I have reviewed the patients labs Labs: Laboratory Tests 05/24/17 21:21 WBC 26.1 H RBC 4.18 Hgb 11.9 L Hct 33.7 L MCV 80.6 L MCH 29 MCHC 35.3 RDW 14.0 Plt Count 332 MPV 9.7 Neut % (Auto) 93.5 H Lymph % (Auto) 1.8 L [place] % (Auto) 3.9 Eos % (Auto) 0.1 Baso % (Auto) 0.1 Neut # (Auto) 24.4 H Lymph # (Auto) 0.5 L [place] # (Auto) 1.0 H Eos # (Auto) 0.0 Baso # (Auto) 0.0 Total Counted Pending Immature Gran % 0.6 Nucleated RBC % 0.0 Immature Gran # 0.15 Nucleated RBCs # 0.00 Immature Plt Fraction 0.0 Laboratory Tests 05/24/17 21:21 INR 1.0 PT Patient/Control Mix 11.1 D-Dimer, Quantitative 0.6 Laboratory Tests 05/24/17 05/24/17 05/24/17 21:21 21:21 22:13 Total Counted 100 Segmented Neutrophils 96 H Lymphocytes 3 L Eosinophils 1 Platelet Estimate Normal Sodium 125 L Potassium 2.7 L Chloride 83 L Carbon Dioxide 35 H Anion Gap 9.7 BUN 43 H Creatinine 1.60 H GFR Calculation 70 BUN/Creatinine Ratio 26.00 H Glucose 153 H Calculated Osmolality 264.5 L Calcium 9.1 Magnesium 2.2 Total Bilirubin 0.50 AST 37 ALT 46 Alkaline Phosphatase 106 Troponin I 0.309 H B-Natriuretic Peptide 557 H Total Protein 7.8 Albumin 3.6 Globulin 4.2 H Albumin/Globulin Ratio 0.8 L Critical Care Time Critical Care Time: Yes Total Critical Care Time: 60 Disposition Clinical Impression: Acute on chronic diastolic CHF (congestive heart failure), NYHA class 3, COPD with bronchitis, Obesity, IHSS (idiopathic hypertrophic subaortic stenosis), Hypertrophic obstructive cardiomyopathy with diastolic heart failure, Elevated troponin, Hypokalemia, Pulmonary edema, Acute dyspnea, Lower extremity edema, Congestive heart failure, Hyponatremia, Hemoptysis, unspecified, Renal insufficiency, Leukocytosis Case discussed with: patient, patient's family Disposition: Still a Patient Condition: Guarded Time of Disposition: 23:13
[2017-05-24 22:03] LABS: Basophils % 0.1 % (0.0-0.8); Eosinophils % 0.1 % (0.00-10.9); Hematocrit 33.7 VOL% (42.0-52.0); Hemoglobin 11.9 GM/DL (14.0-18.0); Immature Granulocytes % 0.6 %; Immature Granulocytes Absolute 0.15 #; Lymphocytes # 0.5 10*3/uL (1.4-4.0); Lymphocytes % 1.8 % (21.2-54.2); Mean Corpuscular HGB Conc 35.3 GM/DL (32-36); Mean Corpuscular Hemoglobin 29 PG (27-34); Mean Corpuscular Volume 80.6 FL (87-102); Mean Platelet Volume 9.7 FL (9.6-12.0); Monocytes % 3.9 % (1.7-12.7); Neutrophils # 24.4 10*3/uL (1.4-7.4); Neutrophils % 93.5 % (38.7-73.9); Platelet Count 332 T/CUMM (130-400); Red Blood Count 4.18 MC/CUMM (3.8-5.5); White Blood Count 26.1 T/CUMM (4-12)
[2017-05-24 22:16] LABS: D-Dimer 0.6 MG/L FEU; PT Patient Result 11.1 SECS
[2017-05-24] MEDS ORDERED: FUROSEMIDE 100 MG/10 ML VIAL ONE (22:21)
[2017-05-24] MEDS ORDERED: methylPREDNISolone SOD SUC 125 MG/2 ML VIAL ONE (22:21)
[2017-05-24] MEDS ORDERED: cefTRIAXone 1,000 MG VIAL ONE (22:21)
[2017-05-24] MEDS ORDERED: SODIUM CHLORIDE 0.9% 100 ML IV ONE (22:21)
[2017-05-24] MEDS ORDERED: ONDANSETRON 4 MG/2 ML VIAL ONE (22:21)
[2017-05-24] MEDS ORDERED: MORPHINE 2 MG/1 ML SYRINGE ONE (22:21)
[2017-05-24 22:27] LABS: Albumin 3.6 G/DL (3.4-5.0); Bilirubin,Total 0.5 MG/DL (0.2-1.0); Calcium 9.1 MG/DL (8.5-10.1); Magnesium 2.2 MG/DL (1.8-2.4); Osmolality,Calculated 264.5 MOS/KG (273-304); Potassium 2.7 MMOL/L (3.5-5.1); Total Protein 7.8 G/DL (6.4-8.3)
[2017-05-24 22:28] LABS: Troponin I Only 0.309 NG/ML (0.00-0.045)
[2017-05-24 22:52] LABS: Eosinophils 1 % (0-10); Lymphocytes 3 % (20-55); Platelet Estimate Normal; Segmented Neutrophils 96 % (50-85); Total Cells Counted 100
[2017-05-24] MEDS ORDERED: POTASSIUM CHLORIDE 20 MEQ TABLET PO STA (22:58)
[2017-05-24] MEDS ORDERED: POTASSIUM CHLORIDE 20 MEQ TABLET PO ONE (23:17)
[2017-05-24 23:35] LABS: ABG Base Excess 7.8 MMOL/L (-2.5-2.5); ABG HCO3 31.1 MMOL/L (20-26); ABG Oxygen Saturation 78.4 % (95-100); ABG PCO2 41.7 MM HG (35-48); ABG PH 7.491 (7.35-7.45); ABG TCO2 27.8 MMOL/L (23-27); Allen Test Positive
[2017-05-24 23:48] LABS: Apearance,Urine CLEAR (Clear); Bilirubin,Urine Negative (Negative); Blood, Urine Negative (Negative); Glucose,Urine (UA) Negative (Negative); Ketones,Urine Negative (Negative); Nitrite,Urine Negative (Negative); Protein,Urine Negative; RBC,Urine <1 /HPF (0-4); Urine Color Straw (Yellow); Urine Specific Gravity 1.006 (1.001-1.035); Urine Urobilinogen < 2.0 EU/DL (0.2-1.0); WBC,Urine 1 /HPF (0-6)
[2017-05-24 23:54] LABS: Barbiturates Screen,Urine Negative (Negative); Benzodiazepines Screen,Urine Positive (Negative); Cannabinoid Screen,Urine Positive (Negative); Opiate Screen,Urine Positive (Negative); Phencyclidine Screen,Urine Negative (Negative)
[2017-05-25] MEDS ORDERED: ALBUTEROL 2.5 MG/3 ML NEB RESP TX PRN (00:12)
[2017-05-25] MEDS ORDERED: ACETAMINOPHEN 325 MG TABLET PO PRN (00:12)
[2017-05-25] MEDS ORDERED: MAGNESIUM SULF RIDER 4 GM in PREMIX 1 EACH IV PRN (00:19)
[2017-05-25] MEDS ORDERED: MAGNESIUM SULF RIDER 2 GM in PREMIX 1 EACH IV PRN (00:19)
--- NOTE | 2017-05-25 00:33 | Hospitalist History & Physical ---
Assessment and Plan (1) Acute dyspnea Status: Acute Current Visit: Yes (2) Acute on chronic diastolic CHF (congestive heart failure), NYHA class 3 Status: Acute Current Visit: Yes (3) Elevated troponin Status: Acute Current Visit: Yes (4) Hemoptysis, unspecified Status: Acute Current Visit: Yes (5) Hypokalemia Status: Acute Current Visit: Yes (6) Hyponatremia Status: Acute Current Visit: Yes (7) Leukocytosis Status: Acute Current Visit: Yes (8) Lower extremity edema Status: Acute Current Visit: Yes (9) Pulmonary edema Status: Acute Current Visit: Yes (10) COPD with bronchitis Status: Chronic Current Visit: Yes (11) Diastolic dysfunction Status: Chronic Assessment and plan: We will admit patient our service. Patient has significant hemoptysis. My opinion patient should be monitored closely in the ICU. He periodically drops his O2 saturations. Since his x-ray looks like both pneumonia and congestive heart failure I am going to diurese him and treat him with antibiotics. Patient has hyponatremia, evaluate this with some urine studies and fluid restriction. Going to monitor his labs and repeat them in the morning. We will repeat and monitor some troponins. Will consult both pulmonary and cardiology for their evaluation of this patient. Continue home meds as appropriate. Current Visit: No History of Present Illness Chief complaint: Hemoptysis and lower extremity edema History of present illness: Mr. Ireland is a 42 year old male past medical history significant for recurrent hemoptysis, congestive heart failure and chronic back pain who reports a generally he is running himself down for the past 2 months. He started noticing that time ankle swelling that would go up and down. He said for the last few days it seems like the swelling has not gone down. He has had decreased urine output. Seems like his back is been hurting him more. Yesterday he started coughing up blood. He reports that he just feels really bad and really drained. He said previously when he was evaluated for home his hemoptysis he was transferred to [facility] and they were not able to determine a source. Patient sees Dr. Aaron Martines for pulmonology and Dr. Avalos for cardiology Home Medications Medication Instructions Recorded Confirmed Type Oxycodone HCl/Acetaminophen 10 mg PO QID PRN #30 tablet 03/24/15 05/24/17 Rx [Percocet 10-325 mg Tablet] Montelukast Tab [Singulair Tab] 10 mg PO DAILY 04/15/15 05/24/17 History Temazepam [Restoril] 30 mg PO BEDTIME 02/01/16 05/24/17 History Potassium Chloride Cap/Tab [K Dur] 20 meq PO DAILY #100 tablet 09/23/16 Rx predniSONE TAB [PredniSONE] 5 mg PO BEDTIME tablet 09/23/16 05/24/17 Rx predniSONE TAB [PredniSONE] 10 mg PO DAILY tablet 09/23/16 05/24/17 Rx Lisinopril [Prinivil] 2.5 mg PO DAILY 10/25/16 05/24/17 History Metoprolol Tartrate 25 mg PO TID #90 tablet 10/27/16 05/24/17 Rx Spironolactone [Aldactone] 25 mg PO BID #60 tablet 10/27/16 05/24/17 Rx Azithromycin Tab [Zithromax Tab] 500 mg PO DAILY #3 tablet 11/29/16 05/24/17 Rx Furosemide Tab [Lasix Tab] 40 mg PO BID DIURETIC #60 tablet 11/29/16 05/24/17 Rx Ondansetron Odt Tab [Zofran Odt] 4 mg PO Q8H #20 tablet 01/07/17 05/24/17 Rx Allergies Allergy/AdvReac Type Severity Reaction Status Date / Time levofloxacin [From Levaquin] AdvReac Cramping Verified 10/25/16 07:43 of the Muscles Medical,Surgical,& Family Hx - Medical History Cardio: History of: CHF, Hypertension, Valvular Heart Disease (3+ MR), 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) No history of: Cerebrovascular Disease Psychological: History of: Anxiety Disorders No history of: Behavior Problems, Bipolar Disorder, Depression, Previous Suicide Attempt, Psychiatric/Substance Abuse Tx, Schizophrenia, Violent Behavior , Psychiatric Problems Endocrine: No history of: Diabetes Mellitus (IDDM), Diabetes Mellitus (NIDDM) Respiratory: History of: Asthma, Bronchitis, COPD, Pneumonia, Respiratory Problems Renal: No history of: Renal Failure, Renal Problems Gastrointestinal: No history of: Gastrointestinal Bleed, GI Problems Musculoskeletal: History of: Back/Neck Problems (herniated and bulging disks), Degenerative Disk Disease No history of: Amputation Hematology: No history of: Blood Transfusion Reaction Other: No history of: Anesthesia Reactions, Cancer, Skin Problems - Surgical History Cardiac Surgeries: Sugical HX of: Cardiac Catheterization Patient Denies: Femoral-Popliteal Bypass Graft, Cardiac Surgery, Carotid Endarterectomy, Internal Defibrillator, Vascular Access Devices Thoracic Surgeries: Patient denies;: Lobectomy Neurologic Surgeries: Patient denies: Neurologic Surgery HEENT Surgeries: Surgical HX of: Tonsilectomy & Adenoidectomy Patient denies: Carotid Endarterectomy, Eye Surgery, Thyroid Surgery Abdominal Surgeries: Surgical HX of: Abdominal Surgery, Appendectomy Patient denies: Splenectomy Orthopedic Surgeries: Surgical HX of;: Orthopedic Surgery (left knee/foot surgery), Spinal Surgery (nerve blocks and buchanan) - Family History Family History: Reports;: Family Anesthesia Reaction, Family Cancer (grandparent ), Family Diabetes (mother), Family Hypertension (father) Denies;: Family Heart Disease, Family Psychiatric Problems, Family Stroke - Social History Smoking Status: Former smoker Frequency of Alcohol Use: None Type of Drug Use: None 12 point system: reviewed and no additional remarkable complaints except as stated Exam - Constitutional Vitals: Period Temp Pulse Resp BP Sys/Mackey Pulse Ox Last 24 Hr 98.3 F-98.4 F 90-112 18-28 100-131/61-71 89-94 General appearance: no acute distress, disheveled - Head Head exam: Present: normal inspection - Eye Eye exam: Present: EOMI Pupils: Present: [place] - ENT ENT exam: Present: normal exam - Neck Neck exam: Present: normal inspection - Respiratory Respiratory exam: Present: rales, rhonchi, wheezes - Cardiovascular Cardiovascular exam: Present: systolic murmur - GI/Abdominal GI/Abdominal exam: Present: distended, hypoactive bowel sounds - Extremities Exam Extremities exam: Present: edema - Neurological Exam Neurological exam: Present: alert, oriented X3 - Psychiatric Psychiatric exam: Present: flat affect - Skin Skin exam: Present: other (Has some erythema in his lower extremities) Results - Labs CBC & BMP: 05/24/17 21:21 05/24/17 22:13 Labs: Per my review of the x-ray it looks like he has both a congestive heart failure picture and a pneumonia.
[2017-05-25] MEDS: AZITHROMYCIN INJ 500 MG in SODIUM CHLORIDE 0.9% 250 ML IV SCH (01:32)
[2017-05-25] MEDS: predniSONE 5 MG TABLET PO SCH ×2 (01:34→20:39)
[2017-05-25] MEDS: ONDANSETRON 4 MG/2 ML VIAL IV PRN ×2 (01:35→17:29)
[2017-05-25] MEDS: ONDANSETRON ODT 4 MG TABLET PO SCH ×3 (01:35→17:30)
[2017-05-25 02:41] LABS: Protein/Creatinine Ratio,Urine 0.1 RATIO
[2017-05-25] MEDS: MORPHINE 2 MG/1 ML SYRINGE IV PRN (03:15)
[2017-05-25 06:53] LABS: Basophils % 0.1 % (0.0-0.8); Hematocrit 33.9 VOL% (42.0-52.0); Immature Granulocytes % 0.7 %; Immature Granulocytes Absolute 0.15 #; Lymphocytes # 0.3 10*3/uL (1.4-4.0); Lymphocytes % 1.6 % (21.2-54.2); Mean Corpuscular HGB Conc 35.4 GM/DL (32-36); Mean Corpuscular Hemoglobin 29 PG (27-34); Mean Corpuscular Volume 81.5 FL (87-102); Mean Platelet Volume 9.8 FL (9.6-12.0); Monocytes # 0.2 10*3/uL (0.11-0.8); Monocytes % 1.2 % (1.7-12.7); Neutrophils # 19.9 10*3/uL (1.4-7.4); Neutrophils % 96.4 % (38.7-73.9); Platelet Count 305 T/CUMM (130-400); Red Blood Count 4.16 MC/CUMM (3.8-5.5); Red Cell Distribution Width 13.9 % (9.3-17.3); White Blood Count 20.6 T/CUMM (4-12)
[2017-05-25 07:21] LABS: Band Neutrophils 1 % (0-10); Hypochromasia 1+; Lymphocytes 1 % (20-55); Microcytosis Slight; Platelet Estimate Adequate; Segmented Neutrophils 95 % (50-85); Total Cells Counted 100
[2017-05-25 07:33] LABS: Bilirubin,Total 0.5 MG/DL (0.2-1.0); Calcium 8.5 MG/DL (8.5-10.1); Osmolality,Calculated 272.9 MOS/KG (273-304); Total Protein 6.4 G/DL (6.4-8.3)
[2017-05-25 07:34] LABS: Troponin I Only 0.236 NG/ML (0.00-0.045)
--- NOTE | 2017-05-25 07:38 | XRay Report ---
XR chest 1V portable Indication: Shortness of breath. Chest one view: Comparison 11/27/2016. Multiple areas of alveolar consolidation are now present in both upper lobes and both lung bases. This represents progression of disease since prior examination. Cardiomegaly and normal mediastinal contour stable. Pleural spaces appear relatively clear. Obesity noted. Impression: Multilobar alveolar consolidation, either multifocal pneumonia, edema or ARDS. PROCEDURE INTERPRETED AT [facility] DEPARTMENT OF RADIOLOGY Final Report Signed by: Keith Thayer M.D.
[2017-05-25 07:42] LABS: Free T4 (Free Thyroxine) 1.22 NG/DL (0.76-1.46); Thyroid Stimulating Hormone 0.118 uIU/ml (0.358-3.74)
--- NOTE | 2017-05-25 07:57 | Pulmonology Consult Note ---
Assessment and Plan (1) Pulmonary edema Status: Resolved Assessment and plan: The patient comes in with hemoptysis and shortness of breath and has acute pulmonary edema. He is getting IV diuretics. He is comfortable on oxygen. 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 Current Visit: Yes (3) Hemoptysis Status: Acute Assessment and plan: His hemoptysis occurs when he has congestive heart failure. This usually clears fairly easily. He has had several negative bronchoscopies in the past. Current Visit: No (4) Acute respiratory failure with hypoxia Status: Acute Assessment and plan: The patient comes in hypoxemic and does require oxygen. This will improve when his heart failure improves. Current Visit: No (5) COPD with bronchitis Status: Chronic Assessment and plan: The patient probably does have a component of COPD and usually feels better when he is on steroids. Current Visit: Yes History of Present Illness Chief complaint: Shortness of breath History of present illness: Mr. Ireland is a 42 year old white male that has a long history of chronic cardiac and pulmonary problems. He has a history of having IHSS and goes into heart failure quite easily. He has been a smoker and may have a component of COPD. He does complain of bronchitis frequently. He actually has not been in in 6 months. He states that recently he has been having a little more ankle swelling and he feels rundown. He apparently has been taking care of his father that has been ill. Not sure about his weight. He says that he started coughing up some blood-tinged sputum and has developed much more shortness of breath. Now his x-ray looks like pulmonary edema. He is comfortable on a high FiO2. Home Medications Medication Instructions Recorded Confirmed Type Oxycodone HCl/Acetaminophen 10 mg PO QID PRN #30 tablet 03/24/15 05/24/17 Rx [Percocet 10-325 mg Tablet] Montelukast Tab [Singulair Tab] 10 mg PO DAILY 04/15/15 05/24/17 History Temazepam [Restoril] 30 mg PO BEDTIME 02/01/16 05/24/17 History Potassium Chloride Cap/Tab [K Dur] 20 meq PO DAILY #100 tablet 09/23/16 Rx predniSONE TAB [PredniSONE] 5 mg PO BEDTIME tablet 09/23/16 05/24/17 Rx predniSONE TAB [PredniSONE] 10 mg PO DAILY tablet 09/23/16 05/24/17 Rx Lisinopril [Prinivil] 2.5 mg PO DAILY 10/25/16 05/24/17 History Metoprolol Tartrate 25 mg PO TID #90 tablet 10/27/16 05/24/17 Rx Spironolactone [Aldactone] 25 mg PO BID #60 tablet 10/27/16 05/24/17 Rx Azithromycin Tab [Zithromax Tab] 500 mg PO DAILY #3 tablet 11/29/16 05/24/17 Rx Furosemide Tab [Lasix Tab] 40 mg PO BID DIURETIC #60 tablet 11/29/16 05/24/17 Rx Ondansetron Odt Tab [Zofran Odt] 4 mg PO Q8H #20 tablet 01/07/17 05/24/17 Rx Allergies Allergy/AdvReac Type Severity Reaction Status Date / Time [facility] [[facility]] AdvReac Cramping Verified 10/25/16 07:43 of the Muscles - Constitutional Constitutional: Present: fatigue, weight gain. Absent: chills, fever(s) - EENT Eyes: Absent: loss of vision Ears: Absent: decreased hearing Nose, mouth and throat: Absent: dysphagia, headache(s), sinus pressure, sore throat - Cardiovascular Cardiovascular: Present: dyspnea, edema, orthopnea, PND. Absent: chest pain at rest, chest pain with activity - Respiratory Respiratory: Present: cough, dyspnea, hemoptysis. Absent: pain on inspiration, change in phlegm color - Gastrointestinal Gastrointestinal: Absent: abdominal pain, change in bowel habits, dysphagia, heartburn, nausea, vomiting - Genitourinary Genitourinary: Absent: difficulty urinating, dysuria, hematuria, urinary frequency - Musculoskeletal Musculoskeletal: Present: arthralgias, back pain - Neurological Neurological: Absent: abnormal speech, focal weakness, paresthesias Exam (Pulmonay) H&P - Constitutional Vitals: Period Temp Pulse Resp BP Sys/Mackey Pulse Ox Last 24 Hr 97.3 F-98.4 F 77-112 18-28 100-153/61-87 89-100 General appearance: mild distress (He is comfortable on a nonrebreather at present.), over weight - Head Head exam: Present: normal inspection, normocephalic - Eye Eye exam: Present: EOMI. Absent: scleral icterus Pupils: Present: [place] - ENT ENT exam: Present: normal exam, other (No oral lesions) - Neck Neck exam: Present: normal inspection. Absent: lymphadenopathy, thyromegaly - Respiratory Respiratory exam: Present: rales, rhonchi - Cardiovascular Cardiovascular exam: Present: gallop, regular rate and rhythm, systolic murmur - GI/Abdominal GI/Abdominal exam: Present: normal bowel sounds, soft. Absent: organomegaly, tenderness - Extremities Exam Extremities exam: Present: edema (He does have mild ankle edema). 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) No history of: Cerebrovascular Disease Psychological: History of: Anxiety Disorders No history of: Behavior Problems, Bipolar Disorder, Depression, Previous Suicide Attempt, Psychiatric/Substance Abuse Tx, Schizophrenia, Violent Behavior , Psychiatric Problems Endocrine: No history of: Diabetes Mellitus (IDDM), Diabetes Mellitus (NIDDM) Respiratory: History of: Asthma, Bronchitis, COPD, Pneumonia, Respiratory Problems No history of: Intubation Renal: No history of: Renal Failure, Renal Problems Gastrointestinal: No history of: Gastrointestinal Bleed, GI Problems Musculoskeletal: History of: Back/Neck Problems (herniated and bulging disks), Degenerative Disk Disease No history of: Amputation Hematology: No history of: Blood Transfusion Reaction Other: No history of: Anesthesia Reactions, Cancer, Skin Problems - Surgical History Cardiac Surgeries: Sugical HX of: Cardiac Catheterization Patient Denies: Femoral-Popliteal Bypass Graft, Cardiac Surgery, Carotid Endarterectomy, Internal Defibrillator, Vascular Access Devices Thoracic Surgeries: Patient denies;: Lobectomy Neurologic Surgeries: Patient denies: Neurologic Surgery HEENT Surgeries: Surgical HX of: Tonsilectomy & Adenoidectomy Patient denies: Carotid Endarterectomy, Eye Surgery, Thyroid Surgery Abdominal Surgeries: Surgical HX of: Abdominal Surgery, Appendectomy Patient denies: Splenectomy Orthopedic Surgeries: Surgical HX of;: Orthopedic Surgery (left knee/foot surgery), Spinal Surgery (nerve blocks and buchanan) - Family History Family History: Reports;: Family Anesthesia Reaction, Family Cancer (grandparent ), Family Diabetes (mother), Family Hypertension (father) Denies;: Family Heart Disease, Family Psychiatric Problems, Family Stroke - Social History Smoking Status: Former smoker Frequency of Alcohol Use: None Type of Drug Use: None Results - Labs CBC & BMP: 05/25/17 06:48 05/25/17 06:48 Labs: His PO2 is 45 with a PCO2 of 41 and pH of 7.49 - Diagnostic Findings Procedure: Chest x-ray: image reviewed by me, report reviewed by me (Chest x- ray does suggest pulmonary edema)
[2017-05-25] MEDS ORDERED: predniSONE 10 MG TABLET PO SCH (09:00)
[2017-05-25] MEDS: FUROSEMIDE 40 MG/4 ML VIAL IV SCH ×2 (09:31→17:28)
[2017-05-25] MEDS: LISINOPRIL 2.5 MG TABLET PO SCH (09:32)
[2017-05-25] MEDS: SPIRONOLACTONE 25 MG TABLET PO SCH ×2 (09:32→20:38)
[2017-05-25] MEDS: MONTELUKAST 10 MG TABLET PO SCH (09:32)
[2017-05-25] MEDS: PANTOPRAZOLE 40 MG TABLET PO SCH (09:32)
[2017-05-25] MEDS: METOPROLOL TARTRATE 25 MG TABLET PO SCH ×3 (09:32→20:38)
[2017-05-25] MEDS: POTASSIUM CHLORIDE 20 MEQ TABLET PO PRN (09:32)
[2017-05-25] MEDS: oxyCODONE/ACETAMINOPHEN 5-325 MG TABLET PO PRN ×2 (09:43→19:18)
--- NOTE | 2017-05-25 10:44 | Cardiology Consult Note ---
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 Assessment and plan: SEE PLAN OF CARE LISTED BELOW Current Visit: Yes (6) Hemoptysis Status: Acute Assessment and plan: SEE PLAN OF CARE LISTED BELOW Current Visit: No (7) Pneumonia Status: Acute Assessment and plan: SEE PLAN OF CARE LISTED BELOW Current Visit: No (8) Lower extremity edema Status: Acute Assessment and plan: SEE PLAN OF CARE LISTED BELOW Current Visit: Yes (9) Acute on chronic diastolic CHF (congestive heart failure), NYHA class 3 Status: Acute Assessment and plan: SEE PLAN OF CARE LISTED BELOW Current Visit: Yes (10) COPD with bronchitis Status: Chronic Assessment and plan: SEE PLAN OF CARE LISTED BELOW Current Visit: Yes (11) History of noncompliance with medical treatment Status: Chronic Assessment and plan: SEE PLAN OF CARE LISTED BELOW Current Visit: No (12) Hypokalemia Status: Acute Assessment and plan: SEE PLAN OF CARE LISTED BELOW Current Visit: No (13) Elevated troponin Status: Chronic Assessment and plan: SEE PLAN OF CARE LISTED BELOW Current Visit: Yes (14) Leukocytosis Status: Acute Assessment and plan: SEE PLAN OF CARE LISTED BELOW Current Visit: Yes (15) Mitral regurgitation Status: Chronic Assessment and plan: SEE PLAN OF CARE LISTED BELOW Current Visit: Yes History of Present Illness - Data of Consult Patient: known to practice within the last 3 years Consult date: 05/25/17 Requesting Physician: Keith Candelaria - Consult Narrative Reason for consult: SOB, History of present illness: TELEVISION PRODUCER: DR. GUO PROFESSOR OF VIOLIN: DR. FOUZIA AYALA PCP: NONE Mr. Ireland, 42WM, with history of hypertrophic cardiomyopathy, recurrent bronchitis with frequent hemoptysis and diastolic CHF. Last seen in cardiology clinic February 03, 2017. Most recent echo September 18, 2016: EF 60%, grade 1 diastolic dysfunction, moderate MR with normal RV function and moderate TR PA pressure 50. There was an 80 mm gradient across the LVOT at rest. He has been sent to [place] for cardiac MRI twice but both times the procedure had to be canceled due to emergencies. He has been referred to Dr. Yusuf Shukla. He may benefit from a septal ablation. Patient has a history of long-standing cocaine abuse last using 2 weeks ago. Drug screen is positive for methamphetamines, marijuana and prescription drugs. Ironically, negative for cocaine. Patient presented to the ED of [facility] May 24, 2017 with complaints of hemoptysis, shortness of breath. He has been diagnosed with CAP, acute on chronic diastolic congestive heart failure (NYHA CLASS III). He is found to be tachycardic heart rate in the 110s. Troponins mildly elevated at 0.302-0.236, however, Patient has chronically elevated troponins in prior hospitalizations and the results remain flat. Patient denies chest pain, heaviness, tightness. He tells me he abruptly became short of breath with lower extremity swelling occurring yesterday. He has 2-3 pillow orthopnea which is improved overnight. On arrival, creatinine was elevated at 1.6 and this has improved to 1.3 overnight. Patient does have a leukocytosis with a left shift. Patient denies using methamphetamines and cannot understand why his drug test is positive. At first, he admitted to using cocaine approximately 2 weeks ago but then recounts his statement telling me he does not use drugs. Patient will be diuresed, closely monitoring his electrolytes. He is hypokalemic and I will verify he is on the potassium replacement protocol. May consider outpatient repeating of echocardiogram to evaluate his IHHS. Continue antibiotics. Continue follow his cardiac biomarkers. The troponin is mildly elevated, it is flat over the past several admissions. I will add CPK and CK- MB to future draws. I do not see an official EKG, therefore I will order for today. Reiterated the importance of abstaining from cocaine, methamphetamines and marijuana. Continue low-dose lisinopril, beta-blockade. Will further discuss with Dr. Summers and await additional recommendations. ASSESSMENT/PLAN: 1. ACUTE DIASTOLIC CHF - NYHA CLASS III. Prior Ef 60%. Continue diuresing, strict I&O and daily weights 2. IHHS - continue with beta blockade and MANAS inhibitor. In the past, patient has been referred to Dr. Yusuf Taylor for possible septal ablation but has not yet attended appointment 3. HYPERTENSION - continue beta-sedrick, MANAS inhibitor 4. CAP - continue current treatment with antibiotics 5. BRONCHITIS WITH HEMOPTYSIS - continue current treatment. When stable and no more hemoptysis, consider Lovenox. TEDs 6. COCAINE USE - greater than 5 minutes was spent today discussing the merits of cocaine cessation. 7. METHAMPHETAMINE, MARIJUANA USE - greater than 5 minutes was spent today discussing the merits of methamphetamine and marijuana cessation 8. HYPOKALEMIA - replace per protocol 9. MODERATE MR - echo outpatient 10. NON-COMPLIANCE - reiterated the importance of compliance CC: Anu Jacobson MD - Home Medications and Allergies Home Medications: Home Medications Medication Instructions Recorded Confirmed Type Oxycodone HCl/Acetaminophen 10 mg PO QID PRN #30 tablet 03/24/15 05/24/17 Rx [Percocet 10-325 mg Tablet] Montelukast Tab [Singulair Tab] 10 mg PO DAILY 04/15/15 05/24/17 History Temazepam [Restoril] 30 mg PO BEDTIME 02/01/16 05/24/17 History Potassium Chloride Cap/Tab [K Dur] 20 meq PO DAILY #100 tablet 09/23/16 Rx predniSONE TAB [PredniSONE] 5 mg PO BEDTIME tablet 09/23/16 05/24/17 Rx predniSONE TAB [PredniSONE] 10 mg PO DAILY tablet 09/23/16 05/24/17 Rx Lisinopril [Prinivil] 2.5 mg PO DAILY 10/25/16 05/24/17 History Metoprolol Tartrate 25 mg PO TID #90 tablet 10/27/16 05/24/17 Rx Spironolactone [Aldactone] 25 mg PO BID #60 tablet 10/27/16 05/24/17 Rx Azithromycin Tab [Zithromax Tab] 500 mg PO DAILY #3 tablet 11/29/16 05/24/17 Rx Furosemide Tab [Lasix Tab] 40 mg PO BID DIURETIC #60 tablet 11/29/16 05/24/17 Rx Ondansetron Odt Tab [Zofran Odt] 4 mg PO Q8H #20 tablet 01/07/17 05/24/17 Rx Allergies/Adverse Reactions: Allergies Allergy/AdvReac Type Severity Reaction Status Date / Time levofloxacin [From Levaquin] AdvReac Cramping Verified 10/25/16 07:43 of the Muscles Review of systems: REVIEW OF SYSTEMS: - Constitutional Constitutional: Present: Fatigue. Absent: syncope, anorexia, night sweats - EENT Eyes: Absent: blurry vision, loss of vision, diplopia Ears: Absent: decreased hearing, ear pain, ear discharge - Cardiovascular Cardiovascular: Denies chest pain with exertion or at rest. Acknowledges bilateral lower extremity edema. Denies palpitations. Absent: chest pain with deep breath, claudication - Respiratory Respiratory: Present: CUMMINGS, cough, hemoptysis, orthopnea. Absent: wheezing, change in phlegm color - Gastrointestinal Gastrointestinal: Denies: constipation. Absent: abdominal pain, hematemesis, hematochezia, melena, change in bowel habits, nausea - Genitourinary Genitourinary: Absent: difficulty urinating, dysuria, urinary hesitancy, flank pain - Musculoskeletal Musculoskeletal: Present: back pain Absent: joint swelling, muscle cramps, muscle weakness - Neurological Neurological: Present: normal gait without frequent falls. Absent: dizziness, hemiparesis - Psychiatric Psychiatric: Absent: anxiety, depression, difficulty concentrating - Endocrine Endocrine: Present: fatigue. Absent: cold intolerance, heat intolerance, polyuria, polyphagia, polydipsia - Hematologic/Lymphatic Hematologic/Lymphatic: Present: easy bruising. Absent: easy bleeding -Integumentary Integumentary: Absent: lesions, rashes, skin breakdown Medical,Surgical,& Family Hx - Medical History Cardio: History of: CHF, Hypertension, Valvular Heart Disease (3+ MR), 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) No history of: Cerebrovascular Disease, CAD Psychological: History of: Anxiety Disorders No history of: Behavior Problems, Bipolar Disorder, Depression, Previous Suicide Attempt, Psychiatric/Substance Abuse Tx, Schizophrenia, Violent Behavior , Psychiatric Problems Endocrine: No history of: Diabetes Mellitus (IDDM), Diabetes Mellitus (NIDDM) Respiratory: History of: Asthma, Bronchitis, COPD, Pneumonia, Respiratory Problems No history of: Intubation Renal: No history of: Renal Failure, Renal Problems Gastrointestinal: No history of: Gastrointestinal Bleed, GI Problems Musculoskeletal: History of: Back/Neck Problems (herniated and bulging disks), Degenerative Disk Disease No history of: Amputation Hematology: No history of: Blood Transfusion Reaction Other: No history of: Anesthesia Reactions, Cancer, Skin Problems - Surgical History Cardiac Surgeries: Sugical HX of: Cardiac Catheterization Patient Denies: Femoral-Popliteal Bypass Graft, Cardiac Surgery, Carotid Endarterectomy, Internal Defibrillator, Vascular Access Devices Thoracic Surgeries: Patient denies;: Lobectomy Neurologic Surgeries: Patient denies: Neurologic Surgery HEENT Surgeries: Surgical HX of: Tonsilectomy & Adenoidectomy Patient denies: Carotid Endarterectomy, Eye Surgery, Thyroid Surgery Abdominal Surgeries: Surgical HX of: Abdominal Surgery, Appendectomy Patient denies: Splenectomy Orthopedic Surgeries: Surgical HX of;: Orthopedic Surgery (left knee/foot surgery), Spinal Surgery (nerve blocks and buchanan) - Family History Family History: Reports;: Family Anesthesia Reaction, Family Cancer (grandparent ), Family Diabetes (mother), Family Hypertension (father) Denies;: Family Heart Disease, Family Psychiatric Problems, Family Stroke - Social History Smoking Status: Former smoker Frequency of Alcohol Use: None Type of Drug Use: None Physical Examination Vital Signs Temp Pulse Resp BP Pulse Ox 98.4 F 93 H 18 100/61 91 L 05/24/17 20:47 05/24/17 20:47 05/24/17 20:47 05/24/17 20:47 05/24/17 20:47 Exam: General: [Appears well with no apparent distress.] [Pleasant and cooperative. ] [Appears comfortable.] HEENT: [Poor dentition noted. PERRL, normocephalic, atraumatic. Mucous membranes moist. No jaundice noted. Conjunctiva moist and clear, sclerae anicteric] Neck: Difficult to assess for JVD due to habitus. No thyromegaly or lymphadenopathy noted. No carotid bruit appreciated Cardiac: [Regular rate and rhythm.] [II/ holosystolic murmur heard best at fifth intercostal space left] heave noted. Lungs: [Inspiratory crackles in the posterior and the bases. Oxygen in use via nasal cannula Abdomen: Soft, bowel sounds normoactive. Nontender and nondistended. No abdominal bruit or thrill noted. No masses noted. Musculoskeletal: No fluid collection. Decreased range of motion is noted. Extremities: No clubbing, cyanosis noted. [1+ bilateral lower extremity edema. ] Upper extremity pulses 2+. Lower extremity pulses 1+. Capillary refill less than 3 seconds. Skin: Cellulitis type changes of bilateral lower extremity. No skin breakdown appreciated. Neuro: Awake, alert and oriented 3. Moves all extremities well without hemiparesis or paralysis. No essential tremor is appreciated. Result/EKG - Labs CBC & BMP: 05/25/17 06:48 05/25/17 06:48 Lab Results: I have reviewed the past 24 hour labs Labs: Laboratory Results - last 24 hr 05/24/17 05/24/17 05/24/17 21:21 21:21 21:21 WBC 26.1 H RBC 4.18 Hgb 11.9 L Hct 33.7 L MCV 80.6 L MCH 29 MCHC 35.3 RDW 14.0 Plt Count 332 MPV 9.7 Neut % (Auto) 93.5 H Lymph % (Auto) 1.8 L [place] % (Auto) 3.9 Eos % (Auto) 0.1 Baso % (Auto) 0.1 Neut # (Auto) 24.4 H Lymph # (Auto) 0.5 L [place] # (Auto) 1.0 H Eos # (Auto) 0.0 Baso # (Auto) 0.0 Total Counted 100 Immature Gran % 0.6 Nucleated RBC % 0.0 Immature Gran # 0.15 Segmented Neutrophils 96 H Band Neutrophils Lymphocytes 3 L Monocytes Eosinophils 1 Nucleated RBCs # 0.00 Platelet Estimate Normal Immature Plt Fraction 0.0 Hypochromasia Microcytosis INR 1.0 PT Patient/Control Mix 11.1 D-Dimer, Quantitative 0.6 ABG pH ABG pCO2 ABG pO2 ABG HCO3 ABG Total CO2 ABG O2 Saturation ABG Base Excess FiO2 Sodium Potassium Chloride Carbon Dioxide Anion Gap BUN Creatinine GFR Calculation BUN/Creatinine Ratio Glucose Calculated Osmolality Calcium Magnesium Total Bilirubin AST ALT Alkaline Phosphatase Troponin I B-Natriuretic Peptide 557 H Total Protein Albumin Globulin Albumin/Globulin Ratio Free T4 TSH 3rd Generation Urine Color Urine Appearance Urine pH Ur Specific [place] Urine Protein Urine Glucose (UA) Urine Ketones Urine Blood Urine Nitrate Urine Bilirubin Urine Urobilinogen Urine Leukocytes Urine RBC Urine WBC Ur Culture Indicated? Urine Osmolality Ur Random Sodium Protein/Creatinin Ratio Urine Opiates Screen Ur Barbiturates Screen Ur Phencyclidine Scrn U Amphetamine/Methamph U Benzodiazepines Scrn U Cocaine Metab Screen U Cannabinoids Screen 05/24/17 05/24/17 05/24/17 21:45 21:45 22:13 WBC RBC Hgb Hct MCV MCH MCHC RDW Plt Count MPV Neut % (Auto) Lymph % (Auto) [place] % (Auto) Eos % (Auto) Baso % (Auto) Neut # (Auto) Lymph # (Auto) [place] # (Auto) Eos # (Auto) Baso # (Auto) Total Counted Immature Gran % Nucleated RBC % Immature Gran # Segmented Neutrophils Band Neutrophils Lymphocytes Monocytes Eosinophils Nucleated RBCs # Platelet Estimate Immature Plt Fraction Hypochromasia Microcytosis INR PT Patient/Control Mix D-Dimer, Quantitative ABG pH ABG pCO2 ABG pO2 ABG HCO3 ABG Total CO2 ABG O2 Saturation ABG Base Excess FiO2 Sodium 125 L Potassium 2.7 L Chloride 83 L Carbon Dioxide 35 H Anion Gap 9.7 BUN 43 H Creatinine 1.60 H GFR Calculation 70 BUN/Creatinine Ratio 26.00 H Glucose 153 H Calculated Osmolality 264.5 L Calcium 9.1 Magnesium 2.2 Total Bilirubin 0.50 AST 37 ALT 46 Alkaline Phosphatase 106 Troponin I 0.309 H B-Natriuretic Peptide Total Protein 7.8 Albumin 3.6 Globulin 4.2 H Albumin/Globulin Ratio 0.8 L Free T4 TSH 3rd Generation Urine Color Straw Urine Appearance Clear Urine pH 5.0 Ur Specific [place] 1.006 Urine Protein Negative Urine Glucose (UA) Negative Urine Ketones Negative Urine Blood Negative Urine Nitrate Negative Urine Bilirubin Negative Urine Urobilinogen < 2.0 H Urine Leukocytes Negative Urine RBC <1 Urine WBC 1 Ur Culture Indicated? Not indicated Urine Osmolality Ur Random Sodium Protein/Creatinin Ratio Urine Opiates Screen Positive H Ur Barbiturates Screen Negative Ur Phencyclidine Scrn Negative U Amphetamine/Methamph Positive H U Benzodiazepines Scrn Positive H U Cocaine Metab Screen Negative U Cannabinoids Screen Positive H 05/24/17 05/25/17 05/25/17 23:25 00:00 01:58 WBC RBC Hgb Hct MCV MCH MCHC RDW Plt Count MPV Neut % (Auto) Lymph % (Auto) [place] % (Auto) Eos % (Auto) Baso % (Auto) Neut # (Auto) Lymph # (Auto) [place] # (Auto) Eos # (Auto) Baso # (Auto) Total Counted Immature Gran % Nucleated RBC % Immature Gran # Segmented Neutrophils Band Neutrophils Lymphocytes Monocytes Eosinophils Nucleated RBCs # Platelet Estimate Immature Plt Fraction Hypochromasia Microcytosis INR PT Patient/Control Mix D-Dimer, Quantitative ABG pH 7.491 H ABG pCO2 41.7 ABG pO2 45.0 L ABG HCO3 31.1 H ABG Total CO2 27.8 H ABG O2 Saturation 78.4 L ABG Base Excess 7.8 H FiO2 28.00 Sodium Potassium Chloride Carbon Dioxide Anion Gap BUN Creatinine GFR Calculation BUN/Creatinine Ratio Glucose Calculated Osmolality Calcium Magnesium Total Bilirubin AST ALT Alkaline Phosphatase Troponin I B-Natriuretic Peptide Total Protein Albumin Globulin Albumin/Globulin Ratio Free T4 TSH 3rd Generation Urine Color Urine Appearance Urine pH Ur Specific [place] Urine Protein Urine Glucose (UA) Urine Ketones Urine Blood Urine Nitrate Urine Bilirubin Urine Urobilinogen Urine Leukocytes Urine RBC Urine WBC Ur Culture Indicated? Urine Osmolality 367 Ur Random Sodium 50.0 Protein/Creatinin Ratio 0.1 Urine Opiates Screen Ur Barbiturates Screen Ur Phencyclidine Scrn U Amphetamine/Methamph U Benzodiazepines Scrn U Cocaine Metab Screen U Cannabinoids Screen 05/25/17 05/25/17 05/25/17 04:22 06:48 06:48 WBC 20.6 H RBC 4.16 Hgb 12.0 L Hct 33.9 L MCV 81.5 L MCH 29 MCHC 35.4 RDW 13.9 Plt Count 305 MPV 9.8 Neut % (Auto) 96.4 H Lymph % (Auto) 1.6 L [place] % (Auto) 1.2 L Eos % (Auto) 0.0 Baso % (Auto) 0.1 Neut # (Auto) 19.9 H Lymph # (Auto) 0.3 L [place] # (Auto) 0.2 Eos # (Auto) 0.0 Baso # (Auto) 0.0 Total Counted 100 Immature Gran % 0.7 Nucleated RBC % 0.0 Immature Gran # 0.15 Segmented Neutrophils 95 H Band Neutrophils 1 Lymphocytes 1 L Monocytes 3 Eosinophils Nucleated RBCs # 0.00 Platelet Estimate Adequate Immature Plt Fraction 0.0 Hypochromasia 1+ Microcytosis Slight INR PT Patient/Control Mix D-Dimer, Quantitative ABG pH ABG pCO2 ABG pO2 ABG HCO3 ABG Total CO2 ABG O2 Saturation ABG Base Excess FiO2 Sodium 129 L Potassium 3.0 L Chloride 87 L Carbon Dioxide 32 Anion Gap 13.0 BUN 38 H Creatinine 1.30 GFR Calculation 91 BUN/Creatinine Ratio 29.00 H Glucose 212 H Calculated Osmolality 272.9 L Calcium 8.5 Magnesium Total Bilirubin 0.50 AST 27 ALT 39 Alkaline Phosphatase 104 Troponin I 0.258 H 0.236 H B-Natriuretic Peptide Total Protein 6.4 Albumin 3.0 L Globulin 3.4 Albumin/Globulin Ratio 0.8 L Free T4 TSH 3rd Generation Urine Color Urine Appearance Urine pH Ur Specific [place] Urine Protein Urine Glucose (UA) Urine Ketones Urine Blood Urine Nitrate Urine Bilirubin Urine Urobilinogen Urine Leukocytes Urine RBC Urine WBC Ur Culture Indicated? Urine Osmolality Ur Random Sodium Protein/Creatinin Ratio Urine Opiates Screen Ur Barbiturates Screen Ur Phencyclidine Scrn U Amphetamine/Methamph U Benzodiazepines Scrn U Cocaine Metab Screen U Cannabinoids Screen 05/25/17 06:48 WBC RBC Hgb Hct MCV MCH MCHC RDW Plt Count MPV Neut % (Auto) Lymph % (Auto) [place] % (Auto) Eos % (Auto) Baso % (Auto) Neut # (Auto) Lymph # (Auto) [place] # (Auto) Eos # (Auto) Baso # (Auto) Total Counted Immature Gran % Nucleated RBC % Immature Gran # Segmented Neutrophils Band Neutrophils Lymphocytes Monocytes Eosinophils Nucleated RBCs # Platelet Estimate Immature Plt Fraction Hypochromasia Microcytosis INR PT Patient/Control Mix D-Dimer, Quantitative ABG pH ABG pCO2 ABG pO2 ABG HCO3 ABG Total CO2 ABG O2 Saturation ABG Base Excess FiO2 Sodium Potassium Chloride Carbon Dioxide Anion Gap BUN Creatinine GFR Calculation BUN/Creatinine Ratio Glucose Calculated Osmolality Calcium Magnesium Total Bilirubin AST ALT Alkaline Phosphatase Troponin I B-Natriuretic Peptide Total Protein Albumin Globulin Albumin/Globulin Ratio Free T4 1.22 TSH 3rd Generation 0.118 L Urine Color Urine Appearance Urine pH Ur Specific [place] Urine Protein Urine Glucose (UA) Urine Ketones Urine Blood Urine Nitrate Urine Bilirubin Urine Urobilinogen Urine Leukocytes Urine RBC Urine WBC Ur Culture Indicated? Urine Osmolality Ur Random Sodium Protein/Creatinin Ratio Urine Opiates Screen Ur Barbiturates Screen Ur Phencyclidine Scrn U Amphetamine/Methamph U Benzodiazepines Scrn U Cocaine Metab Screen U Cannabinoids Screen - Diagnostic Findings Procedure: Chest x-ray: report reviewed by me - EKG EKG results: interpreted by me EKG shows: tachycardia, sinus rhythm
--- NOTE | 2017-05-25 12:58 | EKG Report ---
Stationary ECG Study [facility] Test Date: 05/25/2017 12:58:15 PM Pat Name: EMILY MEDELLIN Department: Room: 119 Gender: M [employer]: ANNA MARIE : 1975 Requested by: Carley Anna Order Number: [id number] Reading MD: CUCA TALAMANTES Intervals [place] Rate: 93 P: 66 [place]: 164 QRS: 48 QRSD: 100 T: 235 QT: 358 QTc: 409 Interpretive Statements SINUS RHYTHM LEFT VENTRICULAR HYPERTROPHY AND ST-T CHANGE Electronically Signed On 05-25-17 13:26:12 CDT by CUCA TALAMANTES [email or web address]
--- NOTE | 2017-05-25 14:34 | Hospitalist Progress Note ---
Assessment and Plan (1) Pulmonary edema Status: Acute Assessment and plan: Continue IV Lasix. Cardiology following. 2D echo pending. Current Visit: Yes Qualifiers: Chronicity: acute Qualified Code(s): J81.0 - Acute pulmonary edema (2) IHSS (idiopathic hypertrophic subaortic stenosis) Status: Chronic Current Visit: Yes (3) Hemoptysis Status: Acute Assessment and plan: Stable at this time. Monitor H&H. Current Visit: Yes (4) Diastolic dysfunction Status: Chronic Assessment and plan: Related to IHSS. Echo pending. Current Visit: Yes (5) Obesity Status: Chronic Current Visit: Yes Qualifiers: Obesity type: due to excess calories Hospitalist: Subjective Interval history: 42-year-old male admitted to the hospital last night with hypoxia and hemoptysis with evidence of congestive heart failure and questionable pneumonia. Patient seen and examined. No acute events overnight. Case discussed with nursing staff. Labs reviewed. Exam - Constitutional Vitals: Period Temp Pulse Resp BP Sys/Mackey Pulse Ox Last 24 Hr 97.3 F-98.4 F 76-112 16-28 100-153/61-87 89-100 Exam: Constitutional System: Mild distress. No tremulousness. Head: Normocephalic, atraumatic. Ears, Nose and Throat System: No pain or tenderness. No epistaxis or discharge Eyes System: Pupils equal, round, and reactive. Extraocular muscles intact. Neck: Supple, without adenopathy, No jugular venous distention. No thyromegaly, neck mass, or prior surgery apparent. Respiratory System: Chest rales bilaterally to auscultation. Cardiovascular System: Heart with regular rate and rhythm. Systolic murmur. GI System: Abdomen soft, nontender. Normo active bowel sounds present. Musculoskeletal System: limbs with no pedal edema. Full distal pulses. Neurological System: No discernable sensory deficit. No aphasia Psychiatric System: Conversation is rational Results - Labs CBC & BMP: 05/25/17 06:48 05/25/17 06:48 Lab Results: I have reviewed the past 24 hour labs - Diagnostic Findings Procedure: Chest x-ray: report reviewed by me, image reviewed by me
[2017-05-25] MEDS: cefTRIAXone 1,000 MG in SODIUM CHLORIDE 0.9% 100 ML IV SCH (21:33)
[2017-05-26] MEDS: ONDANSETRON 4 MG/2 ML VIAL IV PRN ×3 (00:30→22:01)
[2017-05-26] MEDS: ONDANSETRON ODT 4 MG TABLET PO SCH ×3 (00:31→16:23)
[2017-05-26] MEDS: AZITHROMYCIN INJ 500 MG in SODIUM CHLORIDE 0.9% 250 ML IV SCH (00:35)
[2017-05-26] MEDS: MORPHINE 2 MG/1 ML SYRINGE IV PRN ×2 (01:54→10:04)
[2017-05-26 05:35] LABS: Basophils % 0.1 % (0.0-0.8); Hemoglobin 11.4 GM/DL (14.0-18.0); Immature Granulocytes % 0.7 %; Immature Granulocytes Absolute 0.16 #; Lymphocytes # 0.8 10*3/uL (1.4-4.0); Lymphocytes % 3.4 % (21.2-54.2); Mean Corpuscular HGB Conc 34.5 GM/DL (32-36); Mean Corpuscular Hemoglobin 29 PG (27-34); Mean Corpuscular Volume 82.9 FL (87-102); Monocytes # 1.4 10*3/uL (0.11-0.8); Monocytes % 5.8 % (1.7-12.7); Neutrophils # 21.2 10*3/uL (1.4-7.4); Platelet Count 331 T/CUMM (130-400); Red Blood Count 3.98 MC/CUMM (3.8-5.5); White Blood Count 23.6 T/CUMM (4-12)
[2017-05-26 06:01] LABS: Magnesium 2.5 MG/DL (1.8-2.4); Osmolality,Calculated 273.2 MOS/KG (273-304)
[2017-05-26 06:20] LABS: Hypochromasia 1+; Lymphocytes 4 % (20-55); Platelet Estimate Adequate; Polychromasia Slight; Segmented Neutrophils 88 % (50-85); Total Cells Counted 100
--- NOTE | 2017-05-26 07:18 | XRay Report ---
XR chest 1V portable Indication: CHF. Chest one view: Comparison 2 days ago shows persistent cardiomegaly and fluffy bilateral alveolar opacifications diffusely. No new infiltrates are shown. Lung volumes are low. Impression: Continued CHF. PROCEDURE INTERPRETED AT [facility] DEPARTMENT OF RADIOLOGY Final Report Signed by: Keith Thayer M.D.
--- NOTE | 2017-05-26 07:50 | Pulmonology Progress Note ---
Pulmonary - PN: Subj Interval history: Sundeep is a 42-year-old white man with a hypertrophic cardiomyopathy and diastolic congestive heart failure. He also has been a smoker and has used multiple substances. He comes in with diffuse infiltrates and hemoptysis. He says he is diuresing fairly well although his weight went up. His O2 saturation is adequate on oxygen. He is still coughing up some blood-tinged sputum. He is not having any chest pain now. His chest x-ray may be slightly better but still has extensive bilateral changes. Exam (Progress Note) - Constitutional Vitals: Period Temp Pulse Resp BP Sys/Mackey Pulse Ox Last 24 Hr 97.5 F-97.8 F 71-98 16-24 124-147/63-89 92-100 Exam: General appearance: no distress (He is comfortable on a nonrebreather at present. He seems to be breathing comfortably with oxygen.), over weight - Head Head exam: Present: normal inspection, normocephalic - Eye Eye exam: Present: EOMI. Absent: scleral icterus Pupils: Present: [place] - ENT ENT exam: Present: normal exam, other (No oral lesions) - Neck Neck exam: Present: normal inspection. Absent: lymphadenopathy, thyromegaly - Respiratory Respiratory exam: Present: He has good breath sounds bilaterally but he does have some rhonchi and rales present. - Cardiovascular Cardiovascular exam: Present: gallop, regular rate and rhythm, systolic murmur - GI/Abdominal GI/Abdominal exam: Present: normal bowel sounds, soft. Absent: organomegaly, tenderness - Extremities Exam Extremities exam: Present: edema (He does have mild ankle edema). Absent: calf tenderness - Neurological Exam Neurological exam: Present: alert, oriented X3, CN II-XII intact - Psychiatric Psychiatric exam: Present: anxious - Skin Skin exam: Present: warm, dry Results - Labs CBC & BMP: 05/26/17 04:58 05/26/17 04:58 - Diagnostic Findings Procedure: Chest x-ray: image reviewed by me, report reviewed by me (Chest x- ray shows cardiomegaly with diffuse infiltrates consistent with pulmonary edema. ) Assessment and Plan (1) Pulmonary edema Status: Acute Assessment and plan: The patient comes in with hemoptysis and shortness of breath and has acute pulmonary edema. He is getting IV diuretics. He is comfortable on oxygen. He says he is voiding a good bit. 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 Current Visit: Yes (3) Hemoptysis Status: Acute Assessment and plan: His hemoptysis occurs when he has congestive heart failure. This usually clears fairly easily. He has had several negative bronchoscopies in the past. He does not appear toxic now. He has been checked for vasculitis and other problems. His hemoptysis clears when his pulmonary edema clears. Current Visit: Yes (4) Acute respiratory failure with hypoxia Status: Acute Assessment and plan: The patient comes in hypoxemic and does require oxygen. He says he is voiding frequently but we do not have accurate I's and O's. We will continue with diuresis. Current Visit: No (5) COPD with bronchitis Status: Chronic Assessment and plan: The patient probably does have a component of COPD and usually feels better when he is on steroids. Current Visit: Yes
[2017-05-26] MEDS: POTASSIUM CHLORIDE 20 MEQ TABLET PO PRN ×4 (07:57→14:51)
[2017-05-26] MEDS: FUROSEMIDE 40 MG/4 ML VIAL IV SCH ×2 (08:00→16:23)
[2017-05-26] MEDS: methylPREDNISolone SOD SUC 40 MG/1 ML VIAL IV SCH ×2 (08:03→16:26)
[2017-05-26 08:17] LABS: Troponin I Only 0.116 NG/ML (0.00-0.045)
[2017-05-26] MEDS: LISINOPRIL 2.5 MG TABLET PO SCH (09:02)
[2017-05-26] MEDS: AZITHROMYCIN 250 MG TABLET PO SCH (09:02)
[2017-05-26] MEDS: PANTOPRAZOLE 40 MG TABLET PO SCH (09:03)
[2017-05-26] MEDS: SPIRONOLACTONE 25 MG TABLET PO SCH ×2 (09:03→21:10)
[2017-05-26] MEDS: MONTELUKAST 10 MG TABLET PO SCH (09:03)
[2017-05-26] MEDS: oxyCODONE/ACETAMINOPHEN 5-325 MG TABLET PO PRN ×3 (09:03→21:10)
[2017-05-26] MEDS: METOPROLOL TARTRATE 25 MG TABLET PO SCH ×3 (09:03→21:10)
--- NOTE | 2017-05-26 10:37 | Physician Query Form ---
CLICK EDIT DOCUMENT TO SELECT QUERY ANSWER --> OK --> SIGN Anayeli Vergara RN Clinical Java Lead W) [phone] (f) [phone] [email or web address]: Make your selection(s) from the choices in EACH section by typing an "x" and enter comments in the comment section. Please use your independent medical judgment in providing your response. This request does not imply that any particular answer is desired or expected. CLINICAL INDICATORS: (Providers should not edit this section) Based on documentation of serum creatinine from 1.6 to 0.8. GFR form 70 to 148. Treated with NS bolus. Clarify which of the following most accurately represents the patient's renal status: (X ) Acute kidney injury (non-traumatic) ( ) Acute renal failure ( ) Acute renal failure with underlying Chronic Kidney Disease (CKD) - please provide stage below ( ) Acute renal failure with pathological renal lesion ( ) Acute renal failure with necrosis ( ) tubular ( ) medullary ( ) cortical ( ) CKD - please provide stage below ( ) End Stage Renal Disease ( ) Acute interstitial nephritis ( ) Hepatorenal syndrome ( ) Other, please specify: ( ) Clinically unable to determine Chronic Kidney Disease Stages Source: National Kidney Disease Foundation ( ) Stage I (eGFR > or = 90) ( ) Stage II (eGFR 60 - 89) ( ) Stage III (eGFR 30 - 59) ( ) Stage IV (eGFR 15 - 29) ( ) Stage V (eGFR < 15 or dialysis) COMMENTS: PLEASE ALSO DOCUMENT RESPONSE IN PROGRESS NOTES AND/OR DISCHARGE SUMMARY Use of terms such as suspected, likely, or probable (associated with a specific diagnosis that is being evaluated, monitored, or treated as if it exists) are acceptable and can be restated in the discharge summary if not ruled out. MTDD
--- NOTE | 2017-05-26 10:46 | Cardiology Progress Note ---
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 Assessment and plan: SEE PLAN OF CARE LISTED BELOW Current Visit: Yes (6) Hemoptysis Status: Acute Assessment and plan: SEE PLAN OF CARE LISTED BELOW Current Visit: Yes (7) Pneumonia Status: Acute Assessment and plan: SEE PLAN OF CARE LISTED BELOW Current Visit: No (8) Lower extremity edema Status: Acute Assessment and plan: SEE PLAN OF CARE LISTED BELOW Current Visit: Yes (9) Acute on chronic diastolic CHF (congestive heart failure), NYHA class 3 Status: Acute Assessment and plan: SEE PLAN OF CARE LISTED BELOW Current Visit: Yes (10) COPD with bronchitis Status: Chronic Assessment and plan: SEE PLAN OF CARE LISTED BELOW Current Visit: Yes (11) History of noncompliance with medical treatment Status: Chronic Assessment and plan: SEE PLAN OF CARE LISTED BELOW Current Visit: No (12) Hypokalemia Status: Acute Assessment and plan: SEE PLAN OF CARE LISTED BELOW Current Visit: No (13) Elevated troponin Status: Chronic Assessment and plan: SEE PLAN OF CARE LISTED BELOW Current Visit: Yes (14) Leukocytosis Status: Acute Assessment and plan: SEE PLAN OF CARE LISTED BELOW Current Visit: Yes (15) Mitral regurgitation Status: Chronic Assessment and plan: SEE PLAN OF CARE LISTED BELOW Current Visit: Yes Cardiology - PN: Subj Interval history: CONING MACHINE OPERATOR: DR. GUO HUMAN INTELLIGENCE: DR. FOUZIA AYALA PCP: NONE Mr. Ireland, 42WM, with history of hypertrophic cardiomyopathy, recurrent bronchitis with frequent hemoptysis and diastolic CHF. Last seen in cardiology clinic February 03, 2017. Most recent echo September 18, 2016: EF 60%, grade 1 diastolic dysfunction, moderate MR with normal RV function and moderate TR PA pressure 50. There was an 80 mm gradient across the LVOT at rest. He has been sent to [place] for cardiac MRI twice but both times the procedure had to be canceled due to emergencies. He has been referred to Dr. Yusuf Shukla. He may benefit from a septal ablation. Patient has a history of long-standing cocaine abuse last using 2 weeks ago. Drug screen is positive for methamphetamines, marijuana and prescription drugs. Ironically, negative for cocaine. Patient presented to the ED of [facility] May 24, 2017 with complaints of hemoptysis, shortness of breath. He has been diagnosed with CAP, acute on chronic diastolic congestive heart failure (NYHA CLASS III). He is found to be tachycardic heart rate in the 110s. Troponins mildly elevated at 0.302-0.236, however, Patient has chronically elevated troponins in prior hospitalizations and the results remain flat. Patient denies chest pain, heaviness, tightness. He tells me he abruptly became short of breath with lower extremity swelling occurring yesterday. He has 2-3 pillow orthopnea which is improved overnight. On arrival, creatinine was elevated at 1.6 and this has improved to 1.3 overnight. Patient does have a leukocytosis with a left shift. Patient denies using methamphetamines and cannot understand why his drug test is positive. At first, he admitted to using cocaine approximately 2 weeks ago but then recounts his statement telling me he does not use drugs. Patient will be diuresed, closely monitoring his electrolytes. He is hypokalemic and I will verify he is on the potassium replacement protocol. May consider outpatient repeating of echocardiogram to evaluate his IHHS. Continue antibiotics. Continue follow his cardiac biomarkers. The troponin is mildly elevated, it is flat over the past several admissions. I will add CPK and CK- MB to future draws. I do not see an official EKG, therefore I will order for today. Reiterated the importance of abstaining from cocaine, methamphetamines and marijuana. Continue low-dose lisinopril, beta-blockade. Will further discuss with Dr. Summers and await additional recommendations. MAY 26, 2017: Patient continues to be short of breath, WBCs elevated, neutrophils elevated. Not afebrile. Significant wheezing noted. He continues to produce frequent bloody sputum. Patient reports he is diuresing a significant amount though his output has not been reported well as he is emptying the urinal frequently. O2 saturations are stable. Denies chest pain. Vital signs are stable. Tolerating MANAS inhibitor, beta-blockade without difficulty. Will introduce Aspirin and/or Lovenox when his hemoptysis resolves. Hyponatremia has much improved as his sodium is 134 today. He is hypokalemic and we will replace additionally monitoring this closely. Will further discuss with Dr. Summers and await additional recommendations ASSESSMENT/PLAN: 1. ACUTE DIASTOLIC CHF - NYHA CLASS III. Prior EF 60%, no need to repeat echo at this time. Continue diuresing, strict I&O and daily weights 2. IHHS - continue with beta blockade and MANAS inhibitor. In the past, patient has been referred to Dr. Yusuf Doshi for possible septal ablation but has not yet attended appointment 3. HYPERTENSION - continue beta-sedrick, MANAS inhibitor 4. CAP - continue current treatment with antibiotics 5. BRONCHITIS WITH HEMOPTYSIS - continue current treatment. When stable and no more hemoptysis, consider Lovenox. TEDs 6. COCAINE USE - greater than 5 minutes was spent today discussing the merits of cocaine cessation. 7. METHAMPHETAMINE, MARIJUANA USE - greater than 5 minutes was spent today discussing the merits of methamphetamine and marijuana cessation 8. HYPOKALEMIA - replace per protocol 9. MODERATE MR - echo outpatient at discharge 10. NON-COMPLIANCE - reiterated the importance of compliance Exam (Progress Note) - Constitutional Vitals: Period Temp Pulse Resp BP Sys/Mackey Pulse Ox Last 24 Hr 97.5 F-97.8 F 71-98 16-24 124-147/63-89 92-100 Exam: General: [] [Pleasant and cooperative. ] [Appears comfortable.] HEENT: [PERRL, normocephalic, atraumatic. Mucous membranes moist. No jaundice noted. Conjunctiva moist and clear, sclerae anicteric] Neck: Unable to assess for JVD due to habitus. No thyromegaly or lymphadenopathy noted. No carotid bruit appreciated Cardiac: [Regular rate and rhythm.] [No obvious murmur rub or gallop.] Lungs: [Rhonchi noted throughout, wearing facemask at this time. No accessory muscle use to assist the respiratory pattern.] Abdomen: Soft, bowel sounds normoactive. Nondistended. No abdominal bruit or thrill noted. No masses noted. Musculoskeletal: No fluid collection. Decreased range of motion is noted. Extremities: No clubbing, cyanosis noted. [Trace bilateral lower extremity edema noted.] Upper extremity pulses 2+. Lower extremity pulses 2+. Capillary refill less than 3 seconds. Skin: Bilateral lower extremity reveals cellulitis type changes. No skin breakdown appreciated. Neuro: Awake, alert and oriented 3. Moves all extremities well without hemiparesis or paralysis. No essential tremor is appreciated. Result/EKG - Labs CBC & BMP: 05/26/17 04:58 05/26/17 04:58 Lab Results: I have reviewed the past 24 hour labs Labs: Laboratory Results - last 24 hr 05/26/17 05/26/17 05/26/17 04:58 04:58 07:06 WBC 23.6 H RBC 3.98 Hgb 11.4 L Hct 33.0 L MCV 82.9 L MCH 29 MCHC 34.5 RDW 14.0 Plt Count 331 MPV 10.0 Neut % (Auto) 90.0 H Lymph % (Auto) 3.4 L Polk % (Auto) 5.8 Eos % (Auto) 0.0 Baso % (Auto) 0.1 Neut # (Auto) 21.2 H Lymph # (Auto) 0.8 L [place]k # (Auto) 1.4 H Eos # (Auto) 0.0 Baso # (Auto) 0.0 Total Counted 100 Immature Gran % 0.7 Nucleated RBC % 0.0 Immature Gran # 0.16 Segmented Neutrophils 88 H Lymphocytes 4 L Monocytes 8 Nucleated RBCs # 0.00 Platelet Estimate Adequate Immature Plt Fraction 0.0 Polychromasia Slight Hypochromasia 1+ Sodium 134 L Potassium 3.0 L Chloride 89 L Carbon Dioxide 37 H Anion Gap 11.0 BUN 21 H D Creatinine 0.80 GFR Calculation 148 BUN/Creatinine Ratio 26.00 H Glucose 147 H Calculated Osmolality 273.2 Calcium 9.0 Magnesium 2.5 H Total Creatine Kinase 68 CK-MB (CK-2) 1.1 Troponin I 0.116 H D - Diagnostic Findings Procedure: Chest x-ray: report reviewed by me - EKG EKG results: interpreted by me EKG shows: sinus rhythm
--- NOTE | 2017-05-26 14:04 | Hospitalist Progress Note ---
Assessment and Plan (1) Pulmonary edema Status: Acute Assessment and plan: Continue IV Lasix. Cardiology following. 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 Monitor H&H. Current Visit: Yes (4) Diastolic dysfunction Status: Chronic Assessment and plan: Related to IHSS. Echo pending. Current Visit: Yes (5) Obesity Status: Chronic Current Visit: Yes Qualifiers: Obesity type: due to excess calories (6) Pneumonia Status: Acute Assessment and plan: Continue antibiotics. Pulmonary following. Current Visit: Yes Qualifiers: Laterality: unspecified laterality Lung location: unspecified part of lung Hospitalist: Subjective Interval history: Patient seen and examined. No acute events overnight. Case discussed with nursing staff. Labs reviewed. Continues to have hemoptysis. Breathing a little easier. 1. ACUTE DIASTOLIC CHF - NYHA CLASS III. Prior EF 60%, no need to repeat echo at this time. Continue diuresing, strict I&O and daily weights 2. IHHS - continue with beta blockade and MANAS inhibitor. In the past, patient has been referred to Dr. Yusuf Doshi for possible septal ablation but has not yet attended appointment 3. HYPERTENSION - continue beta-sedrick, MANAS inhibitor 4. CAP - continue current treatment with antibiotics 5. BRONCHITIS WITH HEMOPTYSIS - continue current treatment. When stable and no more hemoptysis, consider Lovenox. TEDs 6. COCAINE USE - greater than 5 minutes was spent today discussing the merits of cocaine cessation. 7. METHAMPHETAMINE, MARIJUANA USE - greater than 5 minutes was spent today discussing the merits of methamphetamine and marijuana cessation 8. HYPOKALEMIA - replace per protocol 9. MODERATE MR - echo outpatient at discharge 10. NON-COMPLIANCE - reiterated the importance of compliance Exam - Constitutional Vitals: Period Temp Pulse Resp BP Sys/Mackey Pulse Ox Last 24 Hr 97.5 F-97.8 F 71-98 16-24 124-147/63-89 95-100 Exam: Constitutional System: Mild distress. No tremulousness. Head: Normocephalic, atraumatic. Ears, Nose and Throat System: No pain or tenderness. No epistaxis or discharge Eyes System: Pupils equal, round, and reactive. Extraocular muscles intact. Neck: Supple, without adenopathy, No jugular venous distention. Respiratory System: Chest with rhonchi bilaterally to auscultation. Cardiovascular System: Heart with regular rate and rhythm. Systolic murmur. GI System: Abdomen soft, nontender. Normo active bowel sounds present. Musculoskeletal System: limbs with no pedal edema. Full distal pulses. Neurological System: No discernable sensory deficit. No aphasia Psychiatric System: Conversation is rational Results - Labs CBC & BMP: 05/26/17 04:58 05/26/17 04:58 Lab Results: I have reviewed the past 24 hour labs
[2017-05-26] MEDS ORDERED: ZALEPLON 5 MG CAPSULE PO PRN (16:46)
[2017-05-26] MEDS: BACITRACIN OINT 0.9 GM PACK TOP SCH (21:09)
[2017-05-26] MEDS: cefTRIAXone 1,000 MG in SODIUM CHLORIDE 0.9% 100 ML IV SCH (21:17)
[2017-05-27] MEDS: methylPREDNISolone SOD SUC 40 MG/1 ML VIAL IV SCH ×3 (01:44→15:42)
[2017-05-27] MEDS: POTASSIUM CHLORIDE 20 MEQ TABLET PO PRN (01:44)
[2017-05-27] MEDS: FUROSEMIDE 40 MG/4 ML VIAL IV SCH ×3 (01:44→15:45)
[2017-05-27] MEDS: ONDANSETRON ODT 4 MG TABLET PO SCH ×4 (01:45→23:39)
[2017-05-27] MEDS: MORPHINE 2 MG/1 ML SYRINGE IV PRN (04:07)
[2017-05-27] MEDS: ONDANSETRON 4 MG/2 ML VIAL IV PRN ×3 (04:07→15:40)
[2017-05-27 07:02] LABS: Basophils % 0.1 % (0.0-0.8); Hemoglobin 13.7 GM/DL (14.0-18.0); Immature Granulocytes % 0.9 %; Lymphocytes # 0.7 10*3/uL (1.4-4.0); Lymphocytes % 3.2 % (21.2-54.2); Mean Corpuscular HGB Conc 35.1 GM/DL (32-36); Mean Corpuscular Hemoglobin 29 PG (27-34); Mean Corpuscular Volume 82.5 FL (87-102); Mean Platelet Volume 10.9 FL (9.6-12.0); Monocytes # 1.2 10*3/uL (0.11-0.8); Monocytes % 5.1 % (1.7-12.7); NRBC # 0.02 10*3/uL; Neutrophils # 20.8 10*3/uL (1.4-7.4); Neutrophils % 90.7 % (38.7-73.9); Platelet Count 349 T/CUMM (130-400); Red Blood Count 4.73 MC/CUMM (3.8-5.5); Red Cell Distribution Width 13.6 % (9.3-17.3); White Blood Count 22.9 T/CUMM (4-12)
[2017-05-27 07:07] LABS: Calcium 9.3 MG/DL (8.5-10.1); Magnesium 2.3 MG/DL (1.8-2.4); Osmolality,Calculated 265.8 MOS/KG (273-304); Potassium 4.6 MMOL/L (3.5-5.1)
[2017-05-27 07:26] LABS: Lymphocytes 4 % (20-55); Segmented Neutrophils 91 % (50-85); Total Cells Counted 100
[2017-05-27 07:27] LABS: Giant Platelets Few; Hypochromasia Slight; Microcytosis Slight; Platelet Estimate Adequate
--- NOTE | 2017-05-27 07:35 | Pulmonology Progress Note ---
Pulmonary - PN: Subj Interval history: Sundeep is a 42-year-old white man with a hypertrophic cardiomyopathy and diastolic congestive heart failure. He also has been a smoker and has used multiple substances. He comes in with diffuse infiltrates and hemoptysis. His chest x-ray is consistent with heart failure. He has diuresed fairly well through the night and is feeling much better today. His hemoptysis is resolving and shortness of breath is better. He did have very good urine output. He has no fever. His blood pressure has been stable. His heart rate is better, down in the 60s. His chest x-ray is much improved. He can probably go to a regular room today. Exam (Progress Note) - Constitutional Vitals: Period Temp Pulse Resp BP Sys/Mackey Pulse Ox Last 24 Hr 97.5 F-98.2 F 63-100 10-29 120-163/47-92 90-100 Exam: General appearance: no distress (He is comfortable on facemask O2 and is breathing much better.), over weight - Head Head exam: Present: normal inspection, normocephalic - Eye Eye exam: Present: EOMI. Absent: scleral icterus Pupils: Present: [place] - ENT ENT exam: Present: normal exam, other (No oral lesions) - Neck Neck exam: Present: normal inspection. Absent: lymphadenopathy, thyromegaly - Respiratory Respiratory exam: Present: He has good breath sounds bilaterally and his lungs are much clearer with much less rhonchi and crackles. - Cardiovascular Cardiovascular exam: Present: gallop, regular rate and rhythm, systolic murmur - GI/Abdominal GI/Abdominal exam: Present: normal bowel sounds, soft. Absent: organomegaly, tenderness - Extremities Exam Extremities exam: Present: His leg swelling is going down he has no calf tenderness. - Neurological Exam Neurological exam: Present: alert, oriented X3, CN II-XII intact - Psychiatric Psychiatric exam: Present: He seems much more comfortable. - Skin Skin exam: Present: warm, dry Results - Labs CBC & BMP: 05/27/17 05:37 05/27/17 05:37 - Diagnostic Findings Procedure: Chest x-ray: image reviewed by me, report reviewed by me (Chest x- ray is much better with almost complete resolution of the pulmonary edema.) Assessment and Plan (1) Pulmonary edema Status: Acute Assessment and plan: The patient comes in with hemoptysis and shortness of breath and has acute pulmonary edema. He has diuresed well and his chest x-ray is much improved. His breathing is much better today. 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 CHF is clearing. Current Visit: Yes (3) Hemoptysis Status: Acute Assessment and plan: His hemoptysis occurs when he has congestive heart failure. This usually clears fairly easily. He has had several negative bronchoscopies in the past. He does not appear toxic now. He has been checked for vasculitis and other problems. His hemoptysis is about resolved now. Current Visit: Yes (4) Acute respiratory failure with hypoxia Status: Acute Assessment and plan: The patient comes in hypoxemic and does require oxygen. He is feeling much better after treatment and his breathing is much improved. He can move to telemetry from my standpoint. Current Visit: No (5) COPD with bronchitis Status: Chronic Assessment and plan: The patient probably does have a component of COPD and usually feels better when he is on steroids. His breathing is much better today. Current Visit: Yes
[2017-05-27] MEDS: AZITHROMYCIN 250 MG TABLET PO SCH (08:10)
[2017-05-27] MEDS: PANTOPRAZOLE 40 MG TABLET PO SCH (08:11)
[2017-05-27] MEDS: MONTELUKAST 10 MG TABLET PO SCH (08:11)
[2017-05-27] MEDS: oxyCODONE/ACETAMINOPHEN 5-325 MG TABLET PO PRN ×3 (08:11→22:50)
[2017-05-27] MEDS: SPIRONOLACTONE 25 MG TABLET PO SCH ×2 (08:11→20:44)
[2017-05-27] MEDS: LISINOPRIL 2.5 MG TABLET PO SCH (08:11)
[2017-05-27] MEDS: METOPROLOL TARTRATE 25 MG TABLET PO SCH ×3 (08:11→20:43)
--- NOTE | 2017-05-27 08:17 | Cardiology Progress Note ---
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 Assessment and plan: SEE PLAN OF CARE LISTED BELOW Current Visit: Yes (6) Hemoptysis Status: Acute Assessment and plan: SEE PLAN OF CARE LISTED BELOW Current Visit: Yes (7) Pneumonia Status: Acute Assessment and plan: SEE PLAN OF CARE LISTED BELOW Current Visit: Yes Qualifiers: Laterality: unspecified laterality Lung location: unspecified part of lung (8) Lower extremity edema Status: Acute Assessment and plan: SEE PLAN OF CARE LISTED BELOW Current Visit: Yes (9) Acute on chronic diastolic CHF (congestive heart failure), NYHA class 3 Status: Acute Assessment and plan: SEE PLAN OF CARE LISTED BELOW Current Visit: Yes (10) COPD with bronchitis Status: Chronic Assessment and plan: SEE PLAN OF CARE LISTED BELOW Current Visit: Yes (11) History of noncompliance with medical treatment Status: Chronic Assessment and plan: SEE PLAN OF CARE LISTED BELOW Current Visit: No (12) Hypokalemia Status: Acute Assessment and plan: SEE PLAN OF CARE LISTED BELOW Current Visit: No (13) Elevated troponin Status: Chronic Assessment and plan: SEE PLAN OF CARE LISTED BELOW Current Visit: Yes (14) Leukocytosis Status: Acute Assessment and plan: SEE PLAN OF CARE LISTED BELOW Current Visit: Yes (15) Mitral regurgitation Status: Chronic Assessment and plan: SEE PLAN OF CARE LISTED BELOW Current Visit: Yes Cardiology - PN: Subj Interval history: SCENE PAINTER: DR. GUO TROMBONE SLIDE ASSEMBLER: DR. FOUZIA AYALA PCP: NONE Mr. Ireland, 42WM, with history of hypertrophic cardiomyopathy, recurrent bronchitis with frequent hemoptysis and diastolic CHF. Last seen in cardiology clinic February 03, 2017. Most recent echo September 18, 2016: EF 60%, grade 1 diastolic dysfunction, moderate MR with normal RV function and moderate TR PA pressure 50. There was an 80 mm gradient across the LVOT at rest. He has been sent to [place] for cardiac MRI twice but both times the procedure had to be canceled due to emergencies. He has been referred to Dr. Yusuf Shukla. He may benefit from a septal ablation. Patient has a history of long-standing cocaine abuse last using 2 weeks ago. Drug screen is positive for methamphetamines, marijuana and prescription drugs. Ironically, negative for cocaine. Patient presented to the ED of [facility] May 24, 2017 with complaints of hemoptysis, shortness of breath. He has been diagnosed with CAP, acute on chronic diastolic congestive heart failure (NYHA CLASS III). He is found to be tachycardic heart rate in the 110s. Troponins mildly elevated at 0.302-0.236, however, Patient has chronically elevated troponins in prior hospitalizations and the results remain flat. Patient denies chest pain, heaviness, tightness. He tells me he abruptly became short of breath with lower extremity swelling occurring yesterday. He has 2-3 pillow orthopnea which is improved overnight. On arrival, creatinine was elevated at 1.6 and this has improved to 1.3 overnight. Patient does have a leukocytosis with a left shift. Patient denies using methamphetamines and cannot understand why his drug test is positive. At first, he admitted to using cocaine approximately 2 weeks ago but then recounts his statement telling me he does not use drugs. Patient will be diuresed, closely monitoring his electrolytes. He is hypokalemic and I will verify he is on the potassium replacement protocol. May consider outpatient repeating of echocardiogram to evaluate his IHHS. Continue antibiotics. Continue follow his cardiac biomarkers. The troponin is mildly elevated, it is flat over the past several admissions. I will add CPK and CK- MB to future draws. I do not see an official EKG, therefore I will order for today. Reiterated the importance of abstaining from cocaine, methamphetamines and marijuana. Continue low-dose lisinopril, beta-blockade. Will further discuss with Dr. Summers and await additional recommendations. MAY 26, 2017: Patient continues to be short of breath, WBCs elevated, neutrophils elevated. Not afebrile. Significant wheezing noted. He continues to produce frequent bloody sputum. Patient reports he is diuresing a significant amount though his output has not been reported well as he is emptying the urinal frequently. O2 saturations are stable. Denies chest pain. Vital signs are stable. Tolerating MANAS inhibitor, beta-blockade without difficulty. Will introduce Aspirin and/or Lovenox when his hemoptysis resolves. Hyponatremia has much improved as his sodium is 134 today. He is hypokalemic and we will replace additionally monitoring this closely. Will further discuss with Dr. Summers and await additional recommendations. MAY 27, 2017: This morning, patient appears to be improved. He is less orthopneic, oxygen concentration has been decreased this morning. Lungs sound better and he seems to be breathing easier. Denies chest pain, heaviness or tightness. Overnight, he has lost 2 kg according to daily weights. No arrhythmias noted. Will increase his MANAS inhibitor today as his blood pressure will allow for such. Continue diuresing. Will further discuss with Dr. Summers and await additional recommendations. ASSESSMENT/PLAN: 1. ACUTE DIASTOLIC CHF - NYHA CLASS III. Prior EF 60%, no need to repeat echo at this time. Continue diuresing, strict I&O and daily weights 2. IHHS - continue with beta blockade and MANAS inhibitor. In the past, patient has been referred to Dr. Yusuf Doshi for possible septal ablation but has not yet attended appointment 3. HYPERTENSION - continue beta-sedrick, MANAS inhibitor being increased today 4. CAP - continue current treatment with antibiotics 5. BRONCHITIS WITH HEMOPTYSIS - continue current treatment. When stable and no more hemoptysis, consider Lovenox. TEDs 6. COCAINE USE - greater than 5 minutes was spent today discussing the merits of cocaine cessation. 7. METHAMPHETAMINE, MARIJUANA USE - greater than 5 minutes was spent today discussing the merits of methamphetamine and marijuana cessation 8. HYPOKALEMIA - resolved. 9. MODERATE MR - echo outpatient at discharge 10. NON-COMPLIANCE - reiterated the importance of compliance Exam (Progress Note) - Constitutional Vitals: Period Temp Pulse Resp BP Sys/Mackey Pulse Ox Last 24 Hr 97.5 F-98.2 F 63-100 10- 120-163/47-92 90-100 Exam: General: [] [Pleasant and cooperative. ] [Appears comfortable.] HEENT: [PERRL, normocephalic, atraumatic. Mucous membranes moist. No jaundice noted. Conjunctiva moist and clear, sclerae anicteric] Neck: Unable to assess for JVD due to habitus. No thyromegaly or lymphadenopathy noted. No carotid bruit appreciated Cardiac: [Regular rate and rhythm.] [No obvious murmur rub or gallop.] Lungs: [Rhonchi noted throughout, wearing facemask at this time. No accessory muscle use to assist the respiratory pattern.] Abdomen: Soft, bowel sounds normoactive. Nondistended. No abdominal bruit or thrill noted. No masses noted. Musculoskeletal: No fluid collection. Decreased range of motion is noted. Extremities: No clubbing, cyanosis noted. [Trace bilateral lower extremity edema noted.] Upper extremity pulses 2+. Lower extremity pulses 2+. Capillary refill less than 3 seconds. Skin: Bilateral lower extremity reveals cellulitis type changes. No skin breakdown appreciated. Neuro: Awake, alert and oriented 3. Moves all extremities well without hemiparesis or paralysis. No essential tremor is appreciated. Result/EKG - Labs CBC & BMP: 05/27/17 05:37 05/27/17 05:37 Lab Results: I have reviewed the past 24 hour labs Labs: Laboratory Results - last 24 hr 05/26/17 05/26/17 05/27/17 07:06 21:38 05:37 WBC 22.9 H RBC 4.73 Hgb 13.7 L D Hct 39.0 L MCV 82.5 L MCH 29 MCHC 35.1 RDW 13.6 Plt Count 349 MPV 10.9 Neut % (Auto) 90.7 H Lymph % (Auto) 3.2 L Allen % (Auto) 5.1 Eos % (Auto) 0.0 Baso % (Auto) 0.1 Neut # (Auto) 20.8 H Lymph # (Auto) 0.7 L Allen # (Auto) 1.2 H Eos # (Auto) 0.0 Baso # (Auto) 0.0 Total Counted 100 Immature Gran % 0.9 Nucleated RBC % 0.1 Immature Gran # 0.20 Segmented Neutrophils 91 H Lymphocytes 4 L Monocytes 5 Nucleated RBCs # 0.02 Platelet Estimate Adequate Giant Platelets Few Immature Plt Fraction 4.1 Hypochromasia Slight Microcytosis Slight Sodium Potassium 3.5 Chloride Carbon Dioxide Anion Gap BUN Creatinine GFR Calculation BUN/Creatinine Ratio Glucose Calculated Osmolality Calcium Magnesium Total Creatine Kinase 68 CK-MB (CK-2) 1.1 Troponin I 0.116 H D 05/27/17 05:37 WBC RBC Hgb Hct MCV MCH MCHC RDW Plt Count MPV Neut % (Auto) Lymph % (Auto) Allen % (Auto) Eos % (Auto) Baso % (Auto) Neut # (Auto) Lymph # (Auto) Allen # (Auto) Eos # (Auto) Baso # (Auto) Total Counted Immature Gran % Nucleated RBC % Immature Gran # Segmented Neutrophils Lymphocytes Monocytes Nucleated RBCs # Platelet Estimate Giant Platelets Immature Plt Fraction Hypochromasia Microcytosis Sodium 130 L Potassium 4.6 Chloride 88 L Carbon Dioxide 31 Anion Gap 15.6 H BUN 26 H Creatinine 0.80 GFR Calculation 148 BUN/Creatinine Ratio 32.00 H Glucose 109 H Calculated Osmolality 265.8 L Calcium 9.3 Magnesium 2.3 Total Creatine Kinase CK-MB (CK-2) Troponin I - Diagnostic Findings Procedure: Chest x-ray: report reviewed by me - EKG EKG results: interpreted by me EKG shows: sinus rhythm
--- NOTE | 2017-05-27 08:18 | XRay Report ---
XR chest 1V portable Indication: Congestive heart failure Comparison: Chest x-ray dated May 26, 2017 Technique: Single frontal view of the chest. Findings: Continued cardiomegaly. Interval improved bilateral pulmonary edema. Visualized osseous and surrounding soft tissue structures appear grossly unchanged. IMPRESSION: As above. PROCEDURE INTERPRETED AT [facility] DEPARTMENT OF RADIOLOGY Final Report Signed by: Dr Luis Allison
[2017-05-27] MEDS: LISINOPRIL 5 MG TABLET PO SCH (09:34)
[2017-05-27] MEDS: BACITRACIN OINT 0.9 GM PACK TOP SCH (09:41)
--- NOTE | 2017-05-27 11:36 | Hospitalist Progress Note ---
Hospitalist: Subjective Interval history: 42-year-old WM with h/o hypertrophic cardiomyopathy and diastolic congestive heart failure was admitted with shortness of breath due to CHF exacerbation. He also has is a smoker and has problems with substance abuse. He also had hemoptysis that is mild and improving. He is feeling much better today. Exam - Constitutional Vitals: Period Temp Pulse Resp BP Sys/Mackey Pulse Ox Last 24 Hr 97.4 F-98.2 F 60-100 10-29 120-163/47-92 90-100 Exam: General: No Acute Distress HEENT: Normocephalic, atraumatic, Extra ocular movements intact Neck: Supple, No JVD Chest: Clear to auscultation B/L CV: S1 + S2 ejection systolic murmur Abd: soft, NT, Non-distended, BS + Ext: Mild edema Skin: No purpura, bruising or rash Rheumatologic: No Joint deformities Neurologic: Strength 5/5 all extremities, no gross sensory deficits Results - Labs CBC & BMP: 05/27/17 05:37 05/27/17 05:37 - Impressions Assessment and Plan (1) Pulmonary edema with mild hemoptysis Status: Acute Assessment and plan: Continue IV Lasix. Cardiology following. 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 Current Visit: Yes (4) Acute on chronic diastolic congestive heart failure Status: Acute Assessment and plan: Related to IHSS. Echo pending. Current Visit: Yes (5) Obesity Status: Chronic Current Visit: Yes Qualifiers: Obesity type: due to excess calories (6) Chronic COPD with bronchitis Status: Chronic Assessment and plan: The patient probably does have a component of COPD and usually feels better when he is on steroids. His breathing is much better today. Current Visit: Yes He is overall improved we will transfer to the floor today.
[2017-05-27] MEDS: cefTRIAXone 1,000 MG in SODIUM CHLORIDE 0.9% 100 ML IV SCH (22:54)
[2017-05-28] MEDS: BACITRACIN OINT 28.35 GM TUBE TOP SCH ×3 (00:11→20:11)
[2017-05-28] MEDS: methylPREDNISolone SOD SUC 40 MG/1 ML VIAL IV SCH ×4 (00:12→23:25)
[2017-05-28] MEDS: BACITRACIN OINT 0.9 GM PACK TOP SCH (01:15)
[2017-05-28 03:05] LABS: Hematocrit 36.8 VOL% (42.0-52.0); Immature Granulocytes % 0.6 %; Immature Granulocytes Absolute 0.13 #; Lymphocytes # 0.9 10*3/uL (1.4-4.0); Lymphocytes % 4.1 % (21.2-54.2); Mean Corpuscular HGB Conc 35.3 GM/DL (32-36); Mean Corpuscular Hemoglobin 29 PG (27-34); Mean Corpuscular Volume 80.9 FL (87-102); Mean Platelet Volume 9.8 FL (9.6-12.0); Monocytes # 1.1 10*3/uL (0.11-0.8); Monocytes % 5.2 % (1.7-12.7); Neutrophils % 90.1 % (38.7-73.9); Platelet Count 438 T/CUMM (130-400); Red Blood Count 4.55 MC/CUMM (3.8-5.5); Red Cell Distribution Width 13.5 % (9.3-17.3); White Blood Count 21.1 T/CUMM (4-12)
[2017-05-28 03:30] LABS: Band Neutrophils 1 % (0-10); Eosinophils 1 % (0-10); Lymphocytes 2 % (20-55); Platelet Estimate Normal; Segmented Neutrophils 93 % (50-85); Total Cells Counted 100
[2017-05-28 03:40] LABS: Calcium 9.8 MG/DL (8.5-10.1); Magnesium 2.5 MG/DL (1.8-2.4); Osmolality,Calculated 264.9 MOS/KG (273-304); Potassium 3.7 MMOL/L (3.5-5.1)
[2017-05-28] MEDS: ONDANSETRON 4 MG/2 ML VIAL IV PRN ×3 (05:26→18:13)
[2017-05-28] MEDS: oxyCODONE/ACETAMINOPHEN 5-325 MG TABLET PO PRN ×4 (05:29→23:24)
[2017-05-28] MEDS: SPIRONOLACTONE 25 MG TABLET PO SCH ×2 (08:25→20:12)
[2017-05-28] MEDS: LISINOPRIL 5 MG TABLET PO SCH (08:25)
[2017-05-28] MEDS: AZITHROMYCIN 250 MG TABLET PO SCH (08:25)
[2017-05-28] MEDS: PANTOPRAZOLE 40 MG TABLET PO SCH (08:25)
[2017-05-28] MEDS: MONTELUKAST 10 MG TABLET PO SCH (08:25)
[2017-05-28] MEDS: METOPROLOL TARTRATE 25 MG TABLET PO SCH ×3 (08:26→20:12)
[2017-05-28] MEDS: FUROSEMIDE 40 MG/4 ML VIAL IV SCH ×2 (08:26→15:53)
[2017-05-28] MEDS: ONDANSETRON ODT 4 MG TABLET PO SCH ×3 (08:26→23:30)
--- NOTE | 2017-05-28 12:28 | Cardiology Progress Note ---
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 Assessment and plan: SEE PLAN OF CARE LISTED BELOW Current Visit: Yes (6) Hemoptysis Status: Acute Assessment and plan: SEE PLAN OF CARE LISTED BELOW Current Visit: Yes (7) Pneumonia Status: Acute Assessment and plan: SEE PLAN OF CARE LISTED BELOW Current Visit: Yes Qualifiers: Laterality: unspecified laterality Lung location: unspecified part of lung (8) Lower extremity edema Status: Acute Assessment and plan: SEE PLAN OF CARE LISTED BELOW Current Visit: Yes (9) Acute on chronic diastolic CHF (congestive heart failure), NYHA class 3 Status: Acute Assessment and plan: SEE PLAN OF CARE LISTED BELOW Current Visit: Yes (10) COPD with bronchitis Status: Chronic Assessment and plan: SEE PLAN OF CARE LISTED BELOW Current Visit: Yes (11) History of noncompliance with medical treatment Status: Chronic Assessment and plan: SEE PLAN OF CARE LISTED BELOW Current Visit: No (12) Hypokalemia Status: Acute Assessment and plan: SEE PLAN OF CARE LISTED BELOW Current Visit: No (13) Elevated troponin Status: Chronic Assessment and plan: SEE PLAN OF CARE LISTED BELOW Current Visit: Yes (14) Leukocytosis Status: Acute Assessment and plan: SEE PLAN OF CARE LISTED BELOW Current Visit: Yes (15) Mitral regurgitation Status: Chronic Assessment and plan: SEE PLAN OF CARE LISTED BELOW Current Visit: Yes Cardiology - PN: Subj Interval history: TRADE EMBALMER: DR. GUO TRAFFIC WAREHOUSE SUPERVISOR: DR. FOUZIA AYALA PCP: NONE Mr. Ireland, 42WM, with history of hypertrophic cardiomyopathy, recurrent bronchitis with frequent hemoptysis and diastolic CHF. Last seen in cardiology clinic February 03, 2017. Most recent echo September 18, 2016: EF 60%, grade 1 diastolic dysfunction, moderate MR with normal RV function and moderate TR PA pressure 50. There was an 80 mm gradient across the LVOT at rest. He has been sent to [place] for cardiac MRI twice but both times the procedure had to be canceled due to emergencies. He has been referred to Dr. Yusuf Shukla. He may benefit from a septal ablation. Patient has a history of long-standing cocaine abuse last using 2 weeks ago. Drug screen is positive for methamphetamines, marijuana and prescription drugs. Ironically, negative for cocaine. Patient presented to the ED of [facility] May 24, 2017 with complaints of hemoptysis, shortness of breath. He has been diagnosed with CAP, acute on chronic diastolic congestive heart failure (NYHA CLASS III). He is found to be tachycardic heart rate in the 110s. Troponins mildly elevated at 0.302-0.236, however, Patient has chronically elevated troponins in prior hospitalizations and the results remain flat. Patient denies chest pain, heaviness, tightness. He tells me he abruptly became short of breath with lower extremity swelling occurring yesterday. He has 2-3 pillow orthopnea which is improved overnight. On arrival, creatinine was elevated at 1.6 and this has improved to 1.3 overnight. Patient does have a leukocytosis with a left shift. Patient denies using methamphetamines and cannot understand why his drug test is positive. At first, he admitted to using cocaine approximately 2 weeks ago but then recounts his statement telling me he does not use drugs. Patient will be diuresed, closely monitoring his electrolytes. He is hypokalemic and I will verify he is on the potassium replacement protocol. May consider outpatient repeating of echocardiogram to evaluate his IHHS. Continue antibiotics. Continue follow his cardiac biomarkers. The troponin is mildly elevated, it is flat over the past several admissions. I will add CPK and CK- MB to future draws. I do not see an official EKG, therefore I will order for today. Reiterated the importance of abstaining from cocaine, methamphetamines and marijuana. Continue low-dose lisinopril, beta-blockade. Will further discuss with Dr. Summers and await additional recommendations. MAY 26, 2017: Patient continues to be short of breath, WBCs elevated, neutrophils elevated. Not afebrile. Significant wheezing noted. He continues to produce frequent bloody sputum. Patient reports he is diuresing a significant amount though his output has not been reported well as he is emptying the urinal frequently. O2 saturations are stable. Denies chest pain. Vital signs are stable. Tolerating MANAS inhibitor, beta-blockade without difficulty. Will introduce Aspirin and/or Lovenox when his hemoptysis resolves. Hyponatremia has much improved as his sodium is 134 today. He is hypokalemic and we will replace additionally monitoring this closely. Will further discuss with Dr. Summers and await additional recommendations. MAY 27, 2017: This morning, patient appears to be improved. He is less orthopneic, oxygen concentration has been decreased this morning. Lungs sound better and he seems to be breathing easier. Denies chest pain, heaviness or tightness. Overnight, he has lost 2 kg according to daily weights. No arrhythmias noted. Will increase his MANAS inhibitor today as his blood pressure will allow for such. Continue diuresing. Will further discuss with Dr. Summers and await additional recommendations. MAY 28, 2017: Slow improvement noted. Breathing has improved. Blood pressure better controlled with increase of his MANAS inhibitor yesterday. Weight minimally changed overnight. At this time will continue her current plan of care. Will further discuss with Dr. Summers and await additional recommendations. ASSESSMENT/PLAN: 1. ACUTE DIASTOLIC CHF - NYHA CLASS III. Prior EF 60%, no need to repeat echo at this time. Continue diuresing, strict I&O and daily weights 2. IHHS - continue with beta blockade and MANAS inhibitor. In the past, patient has been referred to Dr. Yusuf Doshi for possible septal ablation but has not yet attended appointment 3. HYPERTENSION - continue beta-sedrick, MANAS inhibitor being increased yesterday and tolerating well. 4. CAP - continue current treatment with antibiotics 5. BRONCHITIS WITH HEMOPTYSIS - continue current treatment. When stable and no more hemoptysis, consider Lovenox. TEDs 6. COCAINE USE - greater than 5 minutes was spent today discussing the merits of cocaine cessation. 7. METHAMPHETAMINE, MARIJUANA USE - greater than 5 minutes was spent today discussing the merits of methamphetamine and marijuana cessation 8. HYPOKALEMIA - resolved. 9. MODERATE MR - echo outpatient at discharge 10. NON-COMPLIANCE - reiterated the importance of compliance Exam (Progress Note) - Constitutional Vitals: Period Temp Pulse Resp BP Sys/Mackey Pulse Ox Last 24 Hr 97.3 F-99.8 F 71-91 14-100 124-158/67-89 93-100 Exam: General: [] [Pleasant and cooperative. ] [Appears comfortable.] HEENT: [PERRL, normocephalic, atraumatic. Mucous membranes moist. No jaundice noted. Conjunctiva moist and clear, sclerae anicteric] Neck: Unable to assess for JVD due to habitus. No thyromegaly or lymphadenopathy noted. No carotid bruit appreciated Cardiac: [Regular rate and rhythm.] [No obvious murmur rub or gallop.] Lungs: [Rhonchi noted throughout, wearing facemask at this time. No accessory muscle use to assist the respiratory pattern.] Abdomen: Soft, bowel sounds normoactive. Nondistended. No abdominal bruit or thrill noted. No masses noted. Musculoskeletal: No fluid collection. Decreased range of motion is noted. Extremities: No clubbing, cyanosis noted. [Trace bilateral lower extremity edema noted.] Upper extremity pulses 2+. Lower extremity pulses 2+. Capillary refill less than 3 seconds. Skin: Bilateral lower extremity reveals cellulitis type changes. No skin breakdown appreciated. Neuro: Awake, alert and oriented 3. Moves all extremities well without hemiparesis or paralysis. No essential tremor is appreciated. Result/EKG - Labs CBC & BMP: 05/28/17 02:27 05/28/17 02:27 Lab Results: I have reviewed the past 24 hour labs Labs: Laboratory Results - last 24 hr 05/28/17 05/28/17 02:27 02:27 WBC 21.1 H RBC 4.55 Hgb 13.0 L Hct 36.8 L MCV 80.9 L MCH 29 MCHC 35.3 RDW 13.5 Plt Count 438 H D MPV 9.8 Neut % (Auto) 90.1 H Lymph % (Auto) 4.1 L Wake % (Auto) 5.2 Eos % (Auto) 0.0 Baso % (Auto) 0.0 Neut # (Auto) 19.0 H Lymph # (Auto) 0.9 L Wake # (Auto) 1.1 H Eos # (Auto) 0.0 Baso # (Auto) 0.0 Total Counted 100 Immature Gran % 0.6 Nucleated RBC % 0.0 Immature Gran # 0.13 Segmented Neutrophils 93 H Band Neutrophils 1 Lymphocytes 2 L Monocytes 3 Eosinophils 1 Nucleated RBCs # 0.00 Platelet Estimate Normal Immature Plt Fraction 0.0 Pappenheimer Bodies Adult Health Clinical Nurse Specialist Sodium 129 L Potassium 3.7 Chloride 86 L Carbon Dioxide 34 H Anion Gap 12.7 BUN 27 H Creatinine 0.90 GFR Calculation 141 BUN/Creatinine Ratio 30.00 H Glucose 129 H Calculated Osmolality 264.9 L Calcium 9.8 Magnesium 2.5 H - EKG EKG results: interpreted by me EKG shows: sinus rhythm
--- NOTE | 2017-05-28 14:10 | Hospitalist Progress Note ---
Assessment and Plan (1) Acute respiratory failure with hypoxia Status: Acute Assessment and plan: Due to diastolic heart failure and COPD with bronchitis. 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 Current Visit: Yes Hospitalist: Subjective Interval history: Patient is on too much oxygen today and needs to be titrated down. He does have a history of drug abuse and his drug screen on admission was positive for marijuana, benzos, amphetamines, opiates. Dr. Martines does not feel that he has pneumonia bit more COPD with bronchitis. I have DC'd his monitoring tech Exam - Constitutional Vitals: Period Temp Pulse Resp BP Sys/Mackey Pulse Ox Last 24 Hr 97.3 F-99.8 F 71-91 14-22 124-158/67-89 93-100 Exam: Heart Rate-[RRR] Lungs-[diminished with few crackles at bases ] GI-[+bs soft, NT] Ext-[some edema] Neuro [Motor 5/5], [alert and oriented times 3] psych [normal mood and affect] General [no acute distress] Results - Labs CBC & BMP: 05/28/17 02:27 05/28/17 02:27 Lab Results: I have reviewed the past 24 hour labs Labs: Blood cultures 2 negative no growth. - Diagnostic Findings Procedure: Chest x-ray: report reviewed by me (Cardiomegaly with improving pulmonary edema)
[2017-05-28] MEDS: ALBUTEROL/IPRATROPIUM 3 ML NEB RESP TX SCH (20:28)
[2017-05-28] MEDS: cefTRIAXone 1,000 MG in SODIUM CHLORIDE 0.9% 100 ML IV SCH (23:22)
[2017-05-29] MEDS: ALBUTEROL/IPRATROPIUM 3 ML NEB RESP TX SCH (01:24)
[2017-05-29] MEDS: oxyCODONE/ACETAMINOPHEN 5-325 MG TABLET PO PRN ×4 (05:41→23:44)
[2017-05-29 07:43] LABS: Basophils % 0.1 % (0.0-0.8); Hematocrit 41.4 VOL% (42.0-52.0); Hemoglobin 14.7 GM/DL (14.0-18.0); Immature Granulocytes Absolute 0.22 #; Lymphocytes # 1.2 10*3/uL (1.4-4.0); Lymphocytes % 5.1 % (21.2-54.2); Mean Corpuscular HGB Conc 35.5 GM/DL (32-36); Mean Corpuscular Hemoglobin 28 PG (27-34); Mean Corpuscular Volume 79.2 FL (87-102); Mean Platelet Volume 9.8 FL (9.6-12.0); Monocytes # 1.5 10*3/uL (0.11-0.8); Monocytes % 6.5 % (1.7-12.7); Neutrophils # 20.2 10*3/uL (1.4-7.4); Neutrophils % 87.3 % (38.7-73.9); Platelet Count 507 T/CUMM (130-400); Red Blood Count 5.23 MC/CUMM (3.8-5.5); Red Cell Distribution Width 13.2 % (9.3-17.3); White Blood Count 23.1 T/CUMM (4-12)
[2017-05-29] MEDS: ALBUTEROL 2.5 MG/3 ML NEB RESP TX SCH ×3 (07:50→19:22)
[2017-05-29 08:12] LABS: Calcium 9.5 MG/DL (8.5-10.1); Magnesium 2.5 MG/DL (1.8-2.4); Osmolality,Calculated 260.2 MOS/KG (273-304); Potassium 3.6 MMOL/L (3.5-5.1)
[2017-05-29] MEDS: METOPROLOL TARTRATE 25 MG TABLET PO SCH ×3 (08:37→20:29)
[2017-05-29] MEDS: MONTELUKAST 10 MG TABLET PO SCH (08:37)
[2017-05-29] MEDS: PANTOPRAZOLE 40 MG TABLET PO SCH (08:37)
[2017-05-29] MEDS: methylPREDNISolone SOD SUC 40 MG/1 ML VIAL IV SCH (08:37)
[2017-05-29] MEDS: ONDANSETRON ODT 4 MG TABLET PO SCH ×3 (08:37→23:45)
[2017-05-29] MEDS: AZITHROMYCIN 250 MG TABLET PO SCH (08:37)
[2017-05-29] MEDS: SPIRONOLACTONE 25 MG TABLET PO SCH (08:37)
[2017-05-29] MEDS: LISINOPRIL 5 MG TABLET PO SCH (08:37)
[2017-05-29] MEDS: FUROSEMIDE 40 MG/4 ML VIAL IV SCH (08:38)
[2017-05-29] MEDS: BACITRACIN OINT 28.35 GM TUBE TOP SCH ×2 (08:38→20:29)
[2017-05-29 08:59] LABS: Hypochromasia 1+; Lymphocytes 11 % (20-55); Microcytosis 1+; Platelet Estimate Increased; Segmented Neutrophils 84 % (50-85); Total Cells Counted 100
--- NOTE | 2017-05-29 09:37 | Pulmonology Progress Note ---
Pulmonary - PN: Subj Interval history: Patient previously with pulmonary edema from heart failure and substance abuse. Dr Martines was following last week. Patient reports that he is "100% better" today. Breathing is back to baseline. He is still couging up some sputum which has a little dark blood tinged to it, consistent with old blood. No other new pulmonary complaints Exam (Progress Note) - Constitutional Vitals: Period Temp Pulse Resp BP Sys/Mackey Pulse Ox Last 24 Hr 97.0 F-98.4 F 80-103 18-20 126-148/61-85 94-100 General appearance: normal weight, no acute distress - Head Head exam: Present: normal inspection - Respiratory Respiratory exam: Present: clear to auscultation bilaterally. Absent: accessory muscle use, chest wall tenderness, wheezes Results - Labs CBC & BMP: 05/29/17 06:37 05/29/17 06:37 Lab Results: I have reviewed the past 24 hour labs Assessment and Plan (1) Pulmonary edema Status: Acute Assessment and plan: Clinically appears improved. No recs at this time. Continue current treatments. Dr martines to resume care tomorrow Current Visit: Yes Qualifiers: Chronicity: acute Qualified Code(s): J81.0 - Acute pulmonary edema
--- NOTE | 2017-05-29 11:31 | Hospitalist Progress Note ---
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 Current Visit: Yes (6) Hyponatremia Status: Acute Assessment and plan: worsening due to lasix and spironolactone, which I have discontinued. free water restriction, check serum osmo,urine osmo Current Visit: Yes Hospitalist: Subjective Interval history: Patient continues to be in denial about his drug use. He reports not taking amphetamines despite his positive drug screen. I also have told him that Dr. Martines feels that he had more of a COPD exacerbation due to bronchitis but patient says that he believes he had pneumonia. Patient is down to a nasal cannula today and should be stable for discharge tomorrow Exam - Constitutional Vitals: Period Temp Pulse Resp BP Sys/Mackey Pulse Ox Last 24 Hr 97.0 F-98.4 F 80-103 18-20 126-148/61-85 94-100 Exam: Heart Rate-[RRR] Lungs-[clear] GI-[+bs soft, NT] Ext-[some edema] Neuro [Motor 5/5], [alert and oriented times 3] psych [normal mood and affect] General [no acute distress] Results - Labs CBC & BMP: 05/29/17 06:37 05/29/17 06:37 Lab Results: I have reviewed the past 24 hour labs
[2017-05-29] MEDS: ENOXAPARIN 40 MG/0.4 ML SYRINGE SUBCUT SCH (12:13)
[2017-05-29] MEDS: ONDANSETRON 4 MG/2 ML VIAL IV PRN (12:13)
--- NOTE | 2017-05-29 21:18 | Cardiology Progress Note ---
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 Exam (Progress Note) - Constitutional Vitals: Period Temp Pulse Resp BP Sys/Mackey Pulse Ox Last 24 Hr 97.0 F-98.4 F 60-96 16-20 116-149/51-85 95-100 Exam: no JVD or neck bruit. Lungs are clear to auscultation Cardiac: Regular rhythm and rate with normal S2 and S2. 3/6 systolic ejection murmur along the left lower sternal border. Abdomen: Without organomegaly Spine/extremities: No clubbing, cyanosis, or edema. Neurononfocal Psychno vegetative signs of depression or anxiety. Result/EKG - Labs CBC & BMP: 05/29/17 06:37 05/29/17 06:37 Lab Results: I have reviewed the past 24 hour labs Labs: Laboratory Results - last 24 hr 05/29/17 05/29/17 06:37 06:37 WBC 23.1 H RBC 5.23 Hgb 14.7 Hct 41.4 L MCV 79.2 L MCH 28 MCHC 35.5 RDW 13.2 Plt Count 507 H MPV 9.8 Neut % (Auto) 87.3 H Lymph % (Auto) 5.1 L [place] % (Auto) 6.5 Eos % (Auto) 0.0 Baso % (Auto) 0.1 Neut # (Auto) 20.2 H Lymph # (Auto) 1.2 L [place] # (Auto) 1.5 H Eos # (Auto) 0.0 Baso # (Auto) 0.0 Total Counted 100 Immature Gran % 1.0 Nucleated RBC % 0.0 Immature Gran # 0.22 Segmented Neutrophils 84 Lymphocytes 11 L Monocytes 5 Nucleated RBCs # 0.00 Platelet Estimate Increased Immature Plt Fraction 0.0 Hypochromasia 1+ Microcytosis 1+ Sodium 127 L Potassium 3.6 Chloride 86 L Carbon Dioxide 31 Anion Gap 13.6 BUN 25 H Creatinine 0.80 GFR Calculation 149 BUN/Creatinine Ratio 31.00 H Glucose 127 H Calculated Osmolality 260.2 L Calcium 9.5 Magnesium 2.5 H
[2017-05-29] MEDS: cefTRIAXone 1,000 MG in SODIUM CHLORIDE 0.9% 100 ML IV SCH (22:44)
[2017-05-30] MEDS: ALBUTEROL 2.5 MG/3 ML NEB RESP TX SCH ×4 (00:20→19:08)
[2017-05-30] MEDS: oxyCODONE/ACETAMINOPHEN 5-325 MG TABLET PO PRN ×3 (06:12→18:20)
[2017-05-30 06:13] LABS: Basophils # 0.1 10*3/uL (0.0-0.2); Basophils % 0.3 % (0.0-0.8); Eosinophils # 0.2 10*3/uL (0.0-0.87); Eosinophils % 0.5 % (0.00-10.9); Hematocrit 44.3 VOL% (42.0-52.0); Immature Granulocytes % 2.3 %; Immature Granulocytes Absolute 0.76 #; Lymphocytes % 12.2 % (21.2-54.2); Mean Corpuscular HGB Conc 36.1 GM/DL (32-36); Mean Corpuscular Hemoglobin 28 PG (27-34); Mean Corpuscular Volume 78.1 FL (87-102); Mean Platelet Volume 9.6 FL (9.6-12.0); Monocytes % 12.2 % (1.7-12.7); Neutrophils % 72.5 % (38.7-73.9); Platelet Count 564 T/CUMM (130-400); Red Blood Count 5.67 MC/CUMM (3.8-5.5); Red Cell Distribution Width 13.3 % (9.3-17.3)
[2017-05-30 06:42] LABS: Hypochromasia Slight; Lymphocytes 10 % (20-55); Platelet Estimate Increased; Segmented Neutrophils 69 % (50-85); Total Cells Counted 100
[2017-05-30 06:44] LABS: Calcium 9.7 MG/DL (8.5-10.1); Magnesium 2.8 MG/DL (1.8-2.4); Osmolality,Calculated 256.5 MOS/KG (273-304); Potassium 3.2 MMOL/L (3.5-5.1)
[2017-05-30] MEDS ORDERED: predniSONE 20 MG TABLET PO SCH (09:00)
[2017-05-30] MEDS: ONDANSETRON ODT 4 MG TABLET PO SCH ×2 (09:50→18:14)
[2017-05-30] MEDS: BACITRACIN OINT 28.35 GM TUBE TOP SCH ×2 (09:50→20:37)
--- NOTE | 2017-05-30 10:32 | Hospitalist Progress Note ---
Assessment and Plan (1) Hyponatremia Status: Acute Assessment and plan: Impression: 1. Hyponatremia, likely SIADH. May be exacerbated by water-drinking and/or steroids 2. Chronic bronchitis, improving 3. Nausea, etiology not known Plan: Fluid restriction. Recheck lab in the morning. Defer steroid adjustment to pulmonary. Home when his sodium is back up toward normal. This note was completed using shopp voice recognition software. There may be soap slabber errors as a result. Current Visit: Yes Hospitalist: Subjective Interval history: Follow-up COPD with bronchitis and hyponatremia. The patient denies any dyspnea. He reports some nausea, and says that he cannot keep anything down. He has impressive leukocytosis, but may be steroid related. His sodium continues to trend downward. Lab work earlier in the hospitalization suggest SIADH. He also appears to be drinking lots of water. Exam - Constitutional Vitals: Period Temp Pulse Resp BP Sys/Mackey Pulse Ox Last 24 Hr 97.0 F-98.3 F 60-100 16-20 97-149/51-82 95-99 Vital signs are noted above. Heart is regular with distant tones and a 2/6 systolic ejection murmur. Chest is fairly clear. Abdomen is soft without any significant tenderness. He is awake and alert Results - Labs CBC & BMP: 05/30/17 05:43 05/30/17 05:43 Lab Results: I have reviewed the past 24 hour labs (White count is trending up, possibly steroid related)
[2017-05-30] MEDS ORDERED: PROMETHAZINE INJ 12.5 MG in SODIUM CHLORIDE 0.9% 50 ML IV PRN (10:33)
[2017-05-30] MEDS: METOPROLOL TARTRATE 25 MG TABLET PO SCH ×3 (12:05→20:38)
[2017-05-30] MEDS: LISINOPRIL 5 MG TABLET PO SCH (12:05)
[2017-05-30] MEDS: AZITHROMYCIN 250 MG TABLET PO SCH (12:14)
[2017-05-30] MEDS: POTASSIUM CHLORIDE 20 MEQ TABLET PO PRN ×4 (12:18→20:38)
[2017-05-30] MEDS: PANTOPRAZOLE 40 MG TABLET PO SCH (12:20)
[2017-05-30] MEDS: MONTELUKAST 10 MG TABLET PO SCH (12:21)
[2017-05-30] MEDS: ENOXAPARIN 40 MG/0.4 ML SYRINGE SUBCUT SCH (12:30)
--- NOTE | 2017-05-30 16:37 | Cardiology Progress Note ---
Nuvia Gutierrez April RN, am scribing for, and in the presence of, Jessy Guajardo MD 16:37. 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 Current Visit: Yes (3) Hypertension Status: Chronic Current Visit: Yes (4) Community acquired pneumonia Status: Acute Current Visit: Yes (5) Hemoptysis Status: Acute Current Visit: Yes (6) Marijuana abuse Status: Chronic Current Visit: Yes (7) Methamphetamine abuse Status: Chronic Current Visit: Yes (8) Hypokalemia Status: Acute Current Visit: Yes (9) Mitral regurgitation Status: Chronic Current Visit: Yes (10) History of noncompliance with medical treatment Status: Chronic Current Visit: No (11) Hyponatremia Status: Acute Current Visit: Yes Cardiology - PN: Subj Interval history: Drier Tender: Dr. Avalos Software Test Analyst: Dr. Martines PCP: None Summary: Mr. Ireland, 42WM, with history of hypertrophic cardiomyopathy, recurrent bronchitis with frequent hemoptysis and diastolic CHF. Last seen in cardiology clinic February 03, 2017. Most recent echo September 18, 2016: EF 60%, grade 1 diastolic dysfunction, moderate MR with normal RV function and moderate TR PA pressure 50. There was an 80 mm gradient across the LVOT at rest. He has been sent to [place] for cardiac MRI twice but both times the procedure had to be canceled due to emergencies. He has been referred to Dr. Yusuf Shukla. He may benefit from a septal ablation. Patient has a history of long -standing cocaine abuse last using 2 weeks ago. Drug screen is positive for methamphetamines, marijuana and prescription drugs. Ironically, negative for cocaine. Patient presented to the ED of [facility] May 24, 2017 with complaints of hemoptysis, shortness of breath. He has been diagnosed with CAP, acute on chronic diastolic congestive heart failure (NYHA CLASS III). He is found to be tachycardic heart rate in the 110s. Troponins mildly elevated at 0.302-0.236, however, patient has chronically elevated troponins in prior hospitalizations and the results remain flat. Patient denies chest pain, heaviness, tightness. He tells me he abruptly became short of breath with lower extremity swelling occurring yesterday. He has 2-3 pillow orthopnea which is improved overnight. On arrival, creatinine was elevated at 1.6 and this has improved to 1.3 overnight. Patient does have a leukocytosis with a left shift. Patient denies using methamphetamines and cannot understand why his drug test is positive. At first, he admitted to using cocaine approximately 2 weeks ago but then recounts his statement telling me he does not use drugs. May 30, 2017: Mr. Ireland is seen resting in bed no acute distress. He does report feeling weak this morning. He denies any chest pain, shortness of breath , or hemoptysis. Oxygen is in use via nasal cannula. His blood pressures little lower this morning and they have been running at 94/61. His white count is elevated to 33 today. Sodium has continued to drop, this morning is 125. Potassium is 3.2, he has potassium ordered per protocol. Assessment/plan: 1. ACUTE DIASTOLIC CHF - NYHA CLASS III. Prior EF 60%, no need to repeat echo at this time. Continue diuresing, strict I&O and daily weights 2. IHSS - continue with beta blockade. In the past, patient has been referred to Dr. Yusuf Doshi for possible septal ablation but has not yet attended appointment. He will be sensitive to any volume depletion. I am going to hold his MANAS inhibitor for now because of his hypotension. 3. HYPERTENSION - continue beta-sedrick, but I am going to hold his MANAS inhibitor since he has become hypotensive. 4. CAP - continue current treatment with antibiotics 5. BRONCHITIS WITH HEMOPTYSIS - continue current treatment. When stable and no more hemoptysis, consider Lovenox. TEDs 6. COCAINE USE 7. METHAMPHETAMINE, MARIJUANA USE 8. HYPOKALEMIA -potassium today is 3.2. He has potassium p.o. ordered per protocol 9. MODERATE MR - echo outpatient at discharge 10. NON-COMPLIANCE - reiterated the importance of compliance 11. Hyponatremia-sodium is 125 this morning Exam (Progress Note) - Constitutional Vitals: Period Temp Pulse Resp BP Sys/Mackey Pulse Ox Last 24 Hr 97.0 F-98.3 F 60-100 16-20 97-149/51-82 95-99 General appearance: no acute distress, morbidly obese - Head Head exam: Absent: abrasion, hematoma - Eye Eye exam: Absent: periorbital swelling, laceration to eyelids Pupils: Present: [place]. Absent: dilated, fixed, irregular - ENT ENT exam: Present: normal exam, normal external ear exam - Neck Neck exam: Absent: lymphadenopathy, tenderness - Respiratory Respiratory exam: Present: clear to auscultation bilaterally, other (Oxygen use via nasal cannula). Absent: accessory muscle use, chest wall tenderness - Cardiovascular Cardiovascular exam: Present: regular rate and rhythm, systolic murmur, tachycardia - GI/Abdominal GI/Abdominal exam: Present: normal bowel sounds, soft. Absent: distended, tenderness - Extremities Exam Extremities exam: Present: normal inspection, normal capillary refill, edema ( Trace to bilateral lower extremities). Absent: calf tenderness - Back Exam Back exam: Present: normal inspection. Absent: muscle spasm, vertebral tenderness - Neurological Exam Neurological exam: Present: alert, oriented X3 - Psychiatric Psychiatric exam: Present: normal affect, normal mood - Skin Skin exam: Present: warm, dry Result/EKG - Labs CBC & BMP: 05/30/17 05:43 05/30/17 05:43 Lab Results: I have reviewed the past 24 hour labs Labs: Laboratory Results - last 24 hr 05/30/17 05/30/17 05:43 05:43 WBC 33.0 H D RBC 5.67 H Hgb 16.0 Hct 44.3 MCV 78.1 L MCH 28 MCHC 36.1 H RDW 13.3 Plt Count 564 H MPV 9.6 Neut % (Auto) 72.5 Lymph % (Auto) 12.2 L [place] % (Auto) 12.2 Eos % (Auto) 0.5 Baso % (Auto) 0.3 Neut # (Auto) 24.0 H Lymph # (Auto) 4.0 [place] # (Auto) 4.0 H Eos # (Auto) 0.2 Baso # (Auto) 0.1 Total Counted 100 Immature Gran % 2.3 Nucleated RBC % 0.0 Immature Gran # 0.76 Segmented Neutrophils 69 Lymphocytes 10 L Monocytes 21 H Nucleated RBCs # 0.00 Platelet Estimate Increased Immature Plt Fraction 0.0 Hypochromasia Slight Sodium 125 L Potassium 3.2 L Chloride 83 L Carbon Dioxide 30 Anion Gap 15.2 H BUN 27 H Creatinine 0.80 GFR Calculation 149 BUN/Creatinine Ratio 33.00 H Glucose 117 H Calculated Osmolality 256.5 L Calcium 9.7 Magnesium 2.8 H IBennett Jennifer, MD, personally performed the services described in this documentation, ascribed by Lorene Pedersen RN in my presence, and it is both accurate and complete .
--- NOTE | 2017-05-30 16:56 | Pulmonology Progress Note ---
Pulmonary - PN: Subj Interval history: Sundeep is a 42-year-old white man with a hypertrophic cardiomyopathy and diastolic congestive heart failure. He also has been a smoker and has used multiple substances. He comes in with diffuse infiltrates and hemoptysis. His chest x-ray is consistent with heart failure. He has diuresed fairly well through the night and is feeling much better today. His cough and shortness of breath have resolved. He says he is feeling much better and wants to go home soon. His sodium is down to 125. Will leave him on low-dose prednisone since he has been on this for a while. Otherwise he seems stable. Exam (Progress Note) - Constitutional Vitals: Period Temp Pulse Resp BP Sys/Mackey Pulse Ox Last 24 Hr 97.0 F-98.3 F 76-110 18-20 94-129/58-78 95-98 Exam: General appearance: no distress (He is comfortable on low-flow oxygen.) - Head Head exam: Present: normal inspection, normocephalic - Eye Eye exam: Present: EOMI. Absent: scleral icterus Pupils: Present: [place] - ENT ENT exam: Present: normal exam, other (No oral lesions) - Neck Neck exam: Present: normal inspection. Absent: lymphadenopathy, thyromegaly - Respiratory Respiratory exam: Present: He has good breath sounds bilaterally and his lungs are basically clear now. - Cardiovascular Cardiovascular exam: Present: gallop, regular rate and rhythm, systolic murmur - GI/Abdominal GI/Abdominal exam: Present: normal bowel sounds, soft. Absent: organomegaly, tenderness - Extremities Exam Extremities exam: Present: His leg swelling is going down he has no calf tenderness. - Neurological Exam Neurological exam: Present: alert, oriented X3, CN II-XII intact - Psychiatric Psychiatric exam: Present: He seems much more comfortable. - Skin Skin exam: Present: warm, dry Results - Labs CBC & BMP: 05/30/17 05:43 05/30/17 05:43 Assessment and Plan (1) Pulmonary edema Status: Acute Assessment and plan: The patient comes in with hemoptysis and shortness of breath and has acute pulmonary edema. He has diuresed well and his chest x-ray is much improved. He continues to feel better and feels like his breathing is much better. 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 CHF is clearing. Clinically he is doing much better. Current Visit: Yes (3) Hemoptysis Status: Acute Assessment and plan: His hemoptysis occurs when he has congestive heart failure. This usually clears fairly easily. He has had several negative bronchoscopies in the past. He does not appear toxic now. He has been checked for vasculitis and other problems. He looks like he is back to his baseline now. Current Visit: Yes (4) Acute respiratory failure with hypoxia Status: Acute Assessment and plan: The patient is improved nicely and his lungs are clear now. He can probably go home soon. Current Visit: No (5) COPD with bronchitis Status: Chronic Assessment and plan: The patient probably does have a component of COPD and usually feels better when he is on steroids. His breathing is much better today. We will start him on his low-dose prednisone. Current Visit: Yes
[2017-05-30] MEDS: cefTRIAXone 1,000 MG in SODIUM CHLORIDE 0.9% 100 ML IV SCH (23:13)
[2017-05-31] MEDS: oxyCODONE/ACETAMINOPHEN 5-325 MG TABLET PO PRN ×3 (00:17→17:26)
[2017-05-31] MEDS: ALBUTEROL 2.5 MG/3 ML NEB RESP TX SCH ×2 (01:12→07:23)
[2017-05-31] MEDS: ONDANSETRON ODT 4 MG TABLET PO SCH ×3 (01:16→17:26)
[2017-05-31 06:46] LABS: Calcium 9.1 MG/DL (8.5-10.1); Magnesium 2.5 MG/DL (1.8-2.4); Osmolality,Calculated 248.9 MOS/KG (273-304); Potassium 3.8 MMOL/L (3.5-5.1)
[2017-05-31] MEDS: ONDANSETRON 4 MG/2 ML VIAL IV PRN (08:01)
[2017-05-31 08:05] LABS: Basophils % 0.2 % (0.0-0.8); Monocytes % 9.6 % (1.7-12.7)
[2017-05-31] MEDS: BACITRACIN OINT 28.35 GM TUBE TOP SCH ×2 (08:05→21:30)
[2017-05-31 08:39] LABS: Basophils # 0.1 10*3/uL (0.0-0.2); Eosinophils # 0.2 10*3/uL (0.0-0.87); Eosinophils % 0.5 % (0.00-10.9); Immature Granulocytes Absolute 1.17 #; Lymphocytes # 3.3 10*3/uL (1.4-4.0); Lymphocytes % 8.4 % (21.2-54.2); Mean Corpuscular Hemoglobin 29 PG (27-34); Mean Corpuscular Volume 77.2 FL (87-102); Mean Platelet Volume 9.8 FL (9.6-12.0); Monocytes # 3.8 10*3/uL (0.11-0.8); Neutrophils # 30.9 10*3/uL (1.4-7.4); Neutrophils % 78.3 % (38.7-73.9); Platelet Count 450 T/CUMM (130-400); Red Blood Count 5.18 MC/CUMM (3.8-5.5); Red Cell Distribution Width 13.3 % (9.3-17.3); White Blood Count 39.5 T/CUMM (4-12)
[2017-05-31 08:41] LABS: Hemoglobin 14.8 GM/DL (14.0-18.0)
[2017-05-31 08:46] LABS: Eosinophils 1 % (0-10); Hypochromasia 1+; Lymphocytes 6 % (20-55); Microcytosis 1+; Platelet Estimate Increased; Segmented Neutrophils 84 % (50-85); Total Cells Counted 100
--- NOTE | 2017-05-31 08:48 | Pulmonology Progress Note ---
Pulmonary - PN: Subj Interval history: Sundeep is a 42-year-old white man with a hypertrophic cardiomyopathy and diastolic congestive heart failure. He also has been a smoker and has used multiple substances. He comes in with diffuse infiltrates and hemoptysis. His chest x-ray is consistent with heart failure. He has diuresed fairly well through the night and is feeling much better today. His cough and shortness of breath have resolved. He is having some nervousness on the prednisone. Will adjust the dose. His sodium is down to 122 but he is supposed to be on fluid restriction. His breathing is much better and will hold his diuretics for now. His weight is down a good bit now. Exam (Progress Note) - Constitutional Vitals: Period Temp Pulse Resp BP Sys/Mackey Pulse Ox Last 24 Hr 97.0 F-99.0 F 86-110 18-20 94-132/61-79 95-98 Exam: General appearance: no distress (He is comfortable on low-flow oxygen. He is sitting up in a chair) - Head Head exam: Present: normal inspection, normocephalic - Eye Eye exam: Present: EOMI. Absent: scleral icterus Pupils: Present: [place] - ENT ENT exam: Present: normal exam, other (No oral lesions) - Neck Neck exam: Present: normal inspection. Absent: lymphadenopathy, thyromegaly - Respiratory Respiratory exam: Present: He has good breath sounds bilaterally and his lungs are basically clear now. - Cardiovascular Cardiovascular exam: Present: gallop, regular rate and rhythm, systolic murmur - GI/Abdominal GI/Abdominal exam: Present: normal bowel sounds, soft. Absent: organomegaly, tenderness - Extremities Exam Extremities exam: Present: His leg swelling has resolved now. - Neurological Exam Neurological exam: Present: alert, oriented X3, CN II-XII intact - Psychiatric Psychiatric exam: Present: He seems much more comfortable. - Skin Skin exam: Present: warm, dry Results - Labs CBC & BMP: 05/31/17 07:33 05/31/17 06:11 Assessment and Plan (1) Pulmonary edema Status: Acute Assessment and plan: The patient comes in with hemoptysis and shortness of breath and has acute pulmonary edema. He has diuresed well and his chest x-ray is much improved. His weight is down now. Will hold his Lasix since his sodium is low. He is supposed to be on a fluid restriction. 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 CHF is clearing. Clinically he is doing much better. Current Visit: Yes (3) Hemoptysis Status: Acute Assessment and plan: His hemoptysis occurs when he has congestive heart failure. His hemoptysis has resolved now. Current Visit: Yes (4) Acute respiratory failure with hypoxia Status: Acute Assessment and plan: The patient is improved nicely and his lungs are clear now. He can probably go home soon. Current Visit: No (5) COPD with bronchitis Status: Chronic Assessment and plan: The patient probably does have a component of COPD and usually feels better when he is on steroids. His breathing is much better today. Will adjust his prednisone dose. Current Visit: Yes
[2017-05-31] MEDS ORDERED: FUROSEMIDE 40 MG TABLET PO SCH (09:00)
[2017-05-31] MEDS: METOPROLOL TARTRATE 25 MG TABLET PO SCH ×3 (10:12→21:30)
[2017-05-31] MEDS: AZITHROMYCIN 250 MG TABLET PO SCH (10:23)
[2017-05-31] MEDS: PANTOPRAZOLE 40 MG TABLET PO SCH (10:23)
[2017-05-31] MEDS: predniSONE 10 MG TABLET PO SCH (10:24)
[2017-05-31] MEDS: MONTELUKAST 10 MG TABLET PO SCH (10:24)
--- NOTE | 2017-05-31 11:33 | Hospitalist Progress Note ---
Assessment and Plan (1) Hyponatremia Status: Acute Assessment and plan: Impression: 1. Hyponatremia, likely SIADH. May be exacerbated by water-drinking and/or steroids 2. Chronic bronchitis, improving 3. Nausea, etiology not known Plan: Continue fluid restriction. Recheck lab in the morning. Pulmonary has reduced his steroids and discontinued his diuretics. Hope to discharge soon.. This note was completed using Music Messenger (MM) voice recognition software. There may be cpc coder errors as a result. Current Visit: Yes Hospitalist: Subjective Interval history: Follow-up hyponatremia and bronchitis. The patient's sodium continues to trend downward. Pulmonary has already reduced his steroids and discontinued his diuretic. I think that this will likely help the hyponatremia. I am not sure how compliant he is with fluid restriction. The patient has apparently been on steroids at home for at least 3 years. He looks like he feels better. Unfortunately, we cannot let him go home with the sodium level is low as it is. Exam - Constitutional Vitals: Period Temp Pulse Resp BP Sys/Mackey Pulse Ox Last 24 Hr 97.0 F-99.0 F 86-106 18-20 105-132/61-79 95-98 Vital signs are noted above. Heart is regular with no murmur or gallop. Lungs are clear with no rales or wheezes. Abdomen is soft without any mass or tenderness. He is awake and alert Results - Labs CBC & BMP: 05/31/17 07:33 05/31/17 06:11 Lab Results: I have reviewed the past 24 hour labs (Sodium continues on a downward trend)
[2017-05-31] MEDS: ENOXAPARIN 40 MG/0.4 ML SYRINGE SUBCUT SCH (12:28)
--- NOTE | 2017-05-31 17:55 | Cardiology Progress Note ---
Nuvia Gutierrez April RN, am scribing for, and in the presence of, Jessy Guajardo MD 17:55. 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 Current Visit: Yes (3) Hypertension Status: Chronic Current Visit: Yes (4) Community acquired pneumonia Status: Acute Current Visit: Yes (5) Hemoptysis Status: Acute Current Visit: Yes (6) Marijuana abuse Status: Chronic Current Visit: Yes (7) Methamphetamine abuse Status: Chronic Current Visit: Yes (8) Hypokalemia Status: Acute Current Visit: Yes (9) Mitral regurgitation Status: Chronic Current Visit: Yes (10) History of noncompliance with medical treatment Status: Chronic Current Visit: No (11) Hyponatremia Status: Acute Current Visit: Yes Cardiology - PN: Subj Interval history: Teachers Aide: Dr. Avalos Yard Worker: Dr. Martines PCP: None Summary: Mr. Ireland, 42WM, with history of hypertrophic cardiomyopathy, recurrent bronchitis with frequent hemoptysis and diastolic CHF. Last seen in cardiology clinic February 03, 2017. Most recent echo September 18, 2016: EF 60%, grade 1 diastolic dysfunction, moderate MR with normal RV function and moderate TR PA pressure 50. There was an 80 mm gradient across the LVOT at rest. He has been sent to [place] for cardiac MRI twice but both times the procedure had to be canceled due to emergencies. He has been referred to Dr. Yusuf Shukla. He may benefit from a septal ablation. Patient has a history of long -standing cocaine abuse last using 2 weeks ago. Drug screen is positive for methamphetamines, marijuana and prescription drugs. Ironically, negative for cocaine. Patient presented to the ED of [facility] May 24, 2017 with complaints of hemoptysis, shortness of breath. He has been diagnosed with CAP, acute on chronic diastolic congestive heart failure (NYHA CLASS III). He is found to be tachycardic heart rate in the 110s. Troponins mildly elevated at 0.302-0.236, however, patient has chronically elevated troponins in prior hospitalizations and the results remain flat. Patient denies chest pain, heaviness, tightness. He tells me he abruptly became short of breath with lower extremity swelling occurring yesterday. He has 2-3 pillow orthopnea which is improved overnight. On arrival, creatinine was elevated at 1.6 and this has improved to 1.3 overnight. Patient does have a leukocytosis with a left shift. Patient denies using methamphetamines and cannot understand why his drug test is positive. At first, he admitted to using cocaine approximately 2 weeks ago but then recounts his statement telling me he does not use drugs. May 30, 2017: Mr. Ireland is seen resting in bed no acute distress. He does report feeling weak this morning. He denies any chest pain, shortness of breath , or hemoptysis. Oxygen is in use via nasal cannula. His blood pressures little lower this morning and they have been running at 94/61. His white count is elevated to 33 today. Sodium has continued to drop, this morning is 125. Potassium is 3.2, he has potassium ordered per protocol. May 31, 2017: Mr. Ireland is seen resting in bed. He says he feels much better this morning. He denies any chest pain, shortness of breath, or hemoptysis. Oxygen is in use via nasal cannula. Blood pressures been stable throughout the night. His heart rate has been little more elevated than usual, ranging from 80-110. He diuresed greater than 2 L of fluid yesterday and his weight is down 10 pounds. Sodium is down to 122. His Lasix on hold at this time. His white count continues to increase, this morning it is 39.5. His potassium was repleted yesterday, this morning it is 3.8. Assessment/plan: 1. ACUTE DIASTOLIC CHF - NYHA CLASS III. Prior EF 60%, no need to repeat echo at this time. Continue diuresing, strict I&O and daily weights 2. IHSS - continue with beta blockade. In the past, patient has been referred to Dr. Yusuf Doshi for possible septal ablation but has not yet attended appointment. He will be sensitive to any volume depletion. Vicente is on hold due to hypotension. 3. HYPERTENSION -his antihypertensive agents on hold since he has become hypotensive. 4. CAP - continue current treatment with antibiotics 5. BRONCHITIS WITH HEMOPTYSIS - continue current treatment. When stable and no more hemoptysis, consider Lovenox. TEDs 6. COCAINE USE 7. METHAMPHETAMINE, MARIJUANA USE 8. HYPOKALEMIA -potassium today is 3.8 9. MODERATE MR - echo outpatient at discharge 10. NON-COMPLIANCE - reiterated the importance of compliance 11. Hyponatremia-sodium is 122 this morning. This has worsened despite not receiving Lasix yesterday. Defer to the primary team. Exam (Progress Note) - Constitutional Vitals: Period Temp Pulse Resp BP Sys/Mackey Pulse Ox Last 24 Hr 97.0 F-99.0 F 86-110 18-20 94-132/61-79 95-98 Exam: General appearance: no acute distress, morbidly obese - Head Head exam: Absent: abrasion, hematoma - Eye Eye exam: Absent: periorbital swelling, laceration to eyelids Pupils: Present: [place]. Absent: dilated, fixed, irregular - ENT ENT exam: Present: normal exam, normal external ear exam - Neck Neck exam: Absent: lymphadenopathy, tenderness - Respiratory Respiratory exam: Present: clear to auscultation bilaterally, other (Oxygen use via nasal cannula). Absent: accessory muscle use, chest wall tenderness - Cardiovascular Cardiovascular exam: Present: regular rate and rhythm, 4/6 holosystolic murmur, tachycardia - GI/Abdominal GI/Abdominal exam: Present: normal bowel sounds, soft. Absent: distended, tenderness - Extremities Exam Extremities exam: Present: normal inspection, normal capillary refill. Absent: calf tenderness, edema - Back Exam Back exam: Present: normal inspection. Absent: muscle spasm, vertebral tenderness - Neurological Exam Neurological exam: Present: alert, oriented X3 - Psychiatric Psychiatric exam: Present: normal affect, normal mood - Skin Skin exam: Present: warm, dry Result/EKG - Labs CBC & BMP: 05/31/17 07:33 05/31/17 06:11 Lab Results: I have reviewed the past 24 hour labs Labs: Laboratory Results - last 24 hr 05/31/17 05/31/17 06:11 07:33 WBC 39.5 H RBC 5.18 Hgb 14.8 Hct 40.0 L MCV 77.2 L MCH 29 MCHC 37.0 H RDW 13.3 Plt Count 450 H D MPV 9.8 Neut % (Auto) 78.3 H Lymph % (Auto) 8.4 L [place] % (Auto) 9.6 Eos % (Auto) 0.5 Baso % (Auto) 0.2 Neut # (Auto) 30.9 H Lymph # (Auto) 3.3 [place] # (Auto) 3.8 H Eos # (Auto) 0.2 Baso # (Auto) 0.1 Total Counted 100 Immature Gran % 3.0 Nucleated RBC % 0.0 Immature Gran # 1.17 Segmented Neutrophils 84 Lymphocytes 6 L Monocytes 9 Eosinophils 1 Nucleated RBCs # 0.00 Platelet Estimate Increased Immature Plt Fraction 0.0 Hypochromasia 1+ Microcytosis 1+ Morphology Comment Sodium 122 L Potassium 3.8 Chloride 85 L Carbon Dioxide 24 Anion Gap 16.8 H BUN 21 H Creatinine 0.60 L GFR Calculation 165 BUN/Creatinine Ratio 35.00 H Glucose 124 H Calculated Osmolality 248.9 L Calcium 9.1 Magnesium 2.5 H Bennett Gutierrez Jennifer, MD, personally performed the services described in this documentation, ascribed by Lorene Pedersen RN in my presence, and it is both accurate and complete [id number] .
[2017-05-31] MEDS: predniSONE 5 MG TABLET PO SCH (21:30)
[2017-06-01] MEDS: oxyCODONE/ACETAMINOPHEN 5-325 MG TABLET PO PRN ×4 (00:06→19:57)
[2017-06-01] MEDS: ONDANSETRON ODT 4 MG TABLET PO SCH ×3 (00:06→16:48)
[2017-06-01 06:08] LABS: Calcium 9.1 MG/DL (8.5-10.1); Osmolality,Calculated 252.5 MOS/KG (273-304); Potassium 3.2 MMOL/L (3.5-5.1)
[2017-06-01] MEDS ORDERED: POTASSIUM CHLORIDE 20 MEQ TABLET PO ONE (07:45)
--- NOTE | 2017-06-01 08:05 | Cardiology Progress Note ---
<Carley Wellington E - Last Filed: 06/01/17 07:55> Assessment and Plan - Time spent with patient Time spent with patient: Greater than 30 minutes Time spent discussing smoking cessation with patient: 3 to 10 minutes (1) Community acquired pneumonia Status: Acute Assessment and plan: SEE PLAN OF CARE LISTED BELOW Current Visit: Yes (2) Cocaine use Status: Acute Assessment and plan: SEE PLAN OF CARE LISTED BELOW Current Visit: Yes (3) Methamphetamine abuse Status: Chronic Assessment and plan: SEE PLAN OF CARE LISTED BELOW Current Visit: Yes (4) Marijuana abuse Status: Chronic Assessment and plan: SEE PLAN OF CARE LISTED BELOW Current Visit: Yes (5) IHSS (idiopathic hypertrophic subaortic stenosis) Status: Chronic Assessment and plan: SEE PLAN OF CARE LISTED BELOW Current Visit: Yes (6) Hemoptysis Status: Acute Assessment and plan: SEE PLAN OF CARE LISTED BELOW Current Visit: Yes (7) Pneumonia Status: Acute Assessment and plan: SEE PLAN OF CARE LISTED BELOW Current Visit: Yes Qualifiers: Laterality: unspecified laterality Lung location: unspecified part of lung (8) Lower extremity edema Status: Acute Assessment and plan: SEE PLAN OF CARE LISTED BELOW Current Visit: Yes (9) Acute on chronic diastolic CHF (congestive heart failure), NYHA class 3 Status: Acute Assessment and plan: SEE PLAN OF CARE LISTED BELOW Current Visit: Yes (10) COPD with bronchitis Status: Chronic Assessment and plan: SEE PLAN OF CARE LISTED BELOW Current Visit: Yes (11) History of noncompliance with medical treatment Status: Chronic Assessment and plan: SEE PLAN OF CARE LISTED BELOW Current Visit: No (12) Hypokalemia Status: Acute Assessment and plan: SEE PLAN OF CARE LISTED BELOW Current Visit: No (13) Elevated troponin Status: Chronic Assessment and plan: SEE PLAN OF CARE LISTED BELOW Current Visit: Yes (14) Leukocytosis Status: Acute Assessment and plan: SEE PLAN OF CARE LISTED BELOW Current Visit: Yes (15) Mitral regurgitation Status: Chronic Assessment and plan: SEE PLAN OF CARE LISTED BELOW Current Visit: Yes (16) Hyponatremia Status: Acute Assessment and plan: SEE PLAN OF CARE LISTED BELOW Current Visit: Yes Cardiology - PN: Subj Interval history: Operations And Maintenance Supervisor: Dr. Avalos Cnc Machinist 2Nd Shift: Dr. Martines PCP: None Summary: Mr. Ireland, 42WM, with history of hypertrophic cardiomyopathy, recurrent bronchitis with frequent hemoptysis and diastolic CHF. Last seen in cardiology clinic February 03, 2017. Most recent echo September 18, 2016: EF 60%, grade 1 diastolic dysfunction, moderate MR with normal RV function and moderate TR PA pressure 50. There was an 80 mm gradient across the LVOT at rest. He has been sent to [place] for cardiac MRI twice but both times the procedure had to be canceled due to emergencies. He has been referred to Dr. Yusuf Shukla. He may benefit from a septal ablation. Patient has a history of long -standing cocaine abuse last using 2 weeks ago. Drug screen is positive for methamphetamines, marijuana and prescription drugs. Ironically, negative for cocaine. Patient presented to the ED of [facility] May 24, 2017 with complaints of hemoptysis, shortness of breath. He has been diagnosed with CAP, acute on chronic diastolic congestive heart failure (NYHA CLASS III). He is found to be tachycardic heart rate in the 110s. Troponins mildly elevated at 0.302-0.236, however, patient has chronically elevated troponins in prior hospitalizations and the results remain flat. Patient denies chest pain, heaviness, tightness. He tells me he abruptly became short of breath with lower extremity swelling occurring yesterday. He has 2-3 pillow orthopnea which is improved overnight. On arrival, creatinine was elevated at 1.6 and this has improved to 1.3 overnight. Patient does have a leukocytosis with a left shift. Patient denies using methamphetamines and cannot understand why his drug test is positive. At first, he admitted to using cocaine approximately 2 weeks ago but then recounts his statement telling me he does not use drugs. May 30, 2017: Mr. Ireland is seen resting in bed no acute distress. He does report feeling weak this morning. He denies any chest pain, shortness of breath , or hemoptysis. Oxygen is in use via nasal cannula. His blood pressures little lower this morning and they have been running at 94/61. His white count is elevated to 33 today. Sodium has continued to drop, this morning is 125. Potassium is 3.2, he has potassium ordered per protocol. May 31, 2017: Mr. Ireland is seen resting in bed. He says he feels much better this morning. He denies any chest pain, shortness of breath, or hemoptysis. Oxygen is in use via nasal cannula. Blood pressures been stable throughout the night. His heart rate has been little more elevated than usual, ranging from 80-110. He diuresed greater than 2 L of fluid yesterday and his weight is down 10 pounds. Sodium is down to 122. His Lasix on hold at this time. His white count continues to increase, this morning it is 39.5. His potassium was repleted yesterday, this morning it is 3.8. June 01, 2017: This morning, Mr. Ireland states he is feeling better. He has not required oxygen in 2 days he tells me. Denies chest pain, heaviness or tightness. Hyponatremia has slightly improved at 125. Consider use of Samsca. No significant weight loss overnight per daily weights. Primary complaint is of lower back pain. We spent greater than 10 minutes performing stretches which does help alleviate the discomfort. White blood cell count elevated yesterday, steroid dosing has been decreased recently. No CBC this morning and I will go ahead and order that. Continue MANAS inhibitor, beta-sedrick. Hopefully, patient is eligible for discharge home soon. Assessment/plan: 1. ACUTE DIASTOLIC CHF - NYHA CLASS III. Prior EF 60%, no need to repeat echo at this time. Continue diuresing, strict I&O and daily weights. Consider Samsca. 2. IHSS - continue with beta blockade. In the past, patient has been referred to Dr. Yusuf Doshi for possible septal ablation but has not yet attended appointment. He will be sensitive to any volume depletion. Tolerating MANAS now. 3. HYPERTENSION - Metoprolol, Lisinopril continues. 4. CAP - continue current treatment with antibiotics 5. BRONCHITIS WITH HEMOPTYSIS - continue current treatment. Continue TEDs rather than Lovenox, ASA. 6. COCAINE USE - the merits of cocaine cessation was discussed for greater than 5 minutes 7. METHAMPHETAMINE, MARIJUANA USE - the merits of meth/marijuana cessation was discussed for greater than 5 minutes 8. HYPOKALEMIA - 3.2 today. Continue replacement per protocol. 9. MODERATE MR - echo outpatient at discharge 10. NON-COMPLIANCE - reiterated the importance of compliance 11. HYPONATREMIA - Na+ 125 this morning. Consider Samsca. Exam (Progress Note) - Constitutional Vitals: Period Temp Pulse Resp BP Sys/Mackey Pulse Ox Last 24 Hr 96.9 F-98.6 F 67-135 18-20 132-140/64-79 94-100 Exam: General: [] [Pleasant and cooperative. ] [Appears comfortable.] HEENT: [PERRL, normocephalic, atraumatic. Mucous membranes moist. No jaundice noted. Conjunctiva moist and clear, sclerae anicteric] Neck: Unable to assess for JVD due to habitus. No thyromegaly or lymphadenopathy noted. No carotid bruit appreciated Cardiac: [Regular rate and rhythm.] [No obvious murmur rub or gallop.] Lungs: [Relatively clear. No accessory muscle use to assist the respiratory pattern. Not requiring oxygen. ] Abdomen: Soft, bowel sounds normoactive. Nondistended. No abdominal bruit or thrill noted. No masses noted. Musculoskeletal: No fluid collection. Decreased range of motion is noted. Extremities: No clubbing, cyanosis noted. [No bilateral lower extremity edema noted.] Upper extremity pulses 2+. Lower extremity pulses 2+. Capillary refill less than 3 seconds. Skin: Bilateral lower extremity reveals cellulitis type changes. No skin breakdown appreciated. Neuro: Awake, alert and oriented 3. Moves all extremities well without hemiparesis or paralysis. No essential tremor is appreciated. Result/EKG - Labs CBC & BMP: 05/31/17 07:33 06/01/17 04:50 Lab Results: I have reviewed the past 24 hour labs Labs: Laboratory Results - last 24 hr 05/31/17 06/01/17 07:33 04:50 WBC 39.5 H RBC 5.18 Hgb 14.8 Hct 40.0 L MCV 77.2 L MCH 29 MCHC 37.0 H RDW 13.3 Plt Count 450 H D MPV 9.8 Neut % (Auto) 78.3 H Lymph % (Auto) 8.4 L [place] % (Auto) 9.6 Eos % (Auto) 0.5 Baso % (Auto) 0.2 Neut # (Auto) 30.9 H Lymph # (Auto) 3.3 [place] # (Auto) 3.8 H Eos # (Auto) 0.2 Baso # (Auto) 0.1 Total Counted 100 Immature Gran % 3.0 Nucleated RBC % 0.0 Immature Gran # 1.17 Segmented Neutrophils 84 Lymphocytes 6 L Monocytes 9 Eosinophils 1 Nucleated RBCs # 0.00 Platelet Estimate Increased Immature Plt Fraction 0.0 Hypochromasia 1+ Microcytosis 1+ Morphology Comment Sodium 125 L Potassium 3.2 L Chloride 86 L Carbon Dioxide 28 Anion Gap 14.2 BUN 15 Creatinine 0.70 GFR Calculation 154 BUN/Creatinine Ratio 21.00 H Glucose 111 H Calculated Osmolality 252.5 L Calcium 9.1 - Diagnostic Findings Procedure: Chest x-ray: report reviewed by me - EKG EKG results: interpreted by me EKG shows: tachycardia, sinus rhythm <Jessy Guajardo - Last Filed: 06/01/17 17:37> 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 Current Visit: Yes (3) Hypertension Status: Chronic Current Visit: Yes (4) Community acquired pneumonia Status: Acute Current Visit: Yes (5) Hemoptysis Status: Acute Current Visit: Yes (6) Marijuana abuse Status: Chronic Current Visit: Yes (7) Methamphetamine abuse Status: Chronic Current Visit: Yes (8) Hypokalemia Status: Acute Current Visit: Yes (9) Mitral regurgitation Status: Chronic Current Visit: Yes (10) History of noncompliance with medical treatment Status: Chronic Current Visit: No (11) Hyponatremia Status: Acute Current Visit: Yes Cardiology - PN: Subj Interval history: I have personally interviewed and evaluated the patient, reviewed the chart and discussed medical decision-making with Practitioner Eliz. I have read this note and agree with her documentation here in. Exam (Progress Note) - Constitutional Vitals: Period Temp Pulse Resp BP Sys/Mackey Pulse Ox Last 24 Hr 96.9 F-98.6 F 67-135 18-20 116-145/54-79 92-99 Result/EKG - Labs CBC & BMP: 06/01/17 08:18 06/01/17 04:50 Labs: Laboratory Results - last 24 hr 06/01/17 06/01/17 04:50 08:18 WBC 26.6 H D RBC 5.00 Hgb 14.2 Hct 39.4 L MCV 78.8 L MCH 28 MCHC 36.0 RDW 13.2 Plt Count 430 H MPV 9.1 L Neut % (Auto) 78.0 H Lymph % (Auto) 9.1 L [place] % (Auto) 8.9 Eos % (Auto) 0.4 Baso % (Auto) 0.2 Neut # (Auto) 20.8 H Lymph # (Auto) 2.4 [place] # (Auto) 2.4 H Eos # (Auto) 0.1 Baso # (Auto) 0.0 Total Counted 100 Immature Gran % 3.4 Nucleated RBC % 0.0 Immature Gran # 0.90 Segmented Neutrophils 77 Band Neutrophils 1 Lymphocytes 11 L Monocytes 11 Nucleated RBCs # 0.00 Platelet Estimate Adequate Immature Plt Fraction 0.0 Hypochromasia 1+ Microcytosis 1+ Morphology Comment Sodium 125 L Potassium 3.2 L Chloride 86 L Carbon Dioxide 28 Anion Gap 14.2 BUN 15 Creatinine 0.70 GFR Calculation 154 BUN/Creatinine Ratio 21.00 H Glucose 111 H Calculated Osmolality 252.5 L Calcium 9.1
[2017-06-01] MEDS: AZITHROMYCIN 250 MG TABLET PO SCH (08:08)
[2017-06-01] MEDS: METOPROLOL TARTRATE 25 MG TABLET PO SCH ×3 (08:08→20:10)
[2017-06-01] MEDS: BACITRACIN OINT 28.35 GM TUBE TOP SCH ×2 (08:09→20:10)
[2017-06-01] MEDS: MONTELUKAST 10 MG TABLET PO SCH (08:09)
[2017-06-01] MEDS: PANTOPRAZOLE 40 MG TABLET PO SCH (08:09)
[2017-06-01] MEDS: predniSONE 10 MG TABLET PO SCH (08:09)
[2017-06-01 08:34] LABS: Basophils % 0.2 % (0.0-0.8); Eosinophils # 0.1 10*3/uL (0.0-0.87); Eosinophils % 0.4 % (0.00-10.9); Hematocrit 39.4 VOL% (42.0-52.0); Hemoglobin 14.2 GM/DL (14.0-18.0); Immature Granulocytes % 3.4 %; Lymphocytes # 2.4 10*3/uL (1.4-4.0); Lymphocytes % 9.1 % (21.2-54.2); Mean Corpuscular Hemoglobin 28 PG (27-34); Mean Corpuscular Volume 78.8 FL (87-102); Mean Platelet Volume 9.1 FL (9.6-12.0); Monocytes # 2.4 10*3/uL (0.11-0.8); Monocytes % 8.9 % (1.7-12.7); Neutrophils # 20.8 10*3/uL (1.4-7.4); Platelet Count 430 T/CUMM (130-400); Red Cell Distribution Width 13.2 % (9.3-17.3); White Blood Count 26.6 T/CUMM (4-12)
[2017-06-01 08:56] LABS: Band Neutrophils 1 % (0-10); Lymphocytes 11 % (20-55); Segmented Neutrophils 77 % (50-85); Total Cells Counted 100
[2017-06-01 08:57] LABS: Hypochromasia 1+; Microcytosis 1+; Platelet Estimate Adequate
--- NOTE | 2017-06-01 09:05 | Hospitalist Progress Note ---
Assessment and Plan (1) Hyponatremia Status: Acute Assessment and plan: Impression: 1. Hyponatremia, likely SIADH. This is improving with medication revision. He may need a vaptan 2. Chronic bronchitis, improving 3. Nausea, etiology not known 4. Asymmetric septal hypertrophy Plan: Continue fluid restriction. Recheck lab in the morning. Hope to discharge soon. This note was completed using [employer] voice recognition software. There may be applications programmer errors as a result. Current Visit: Yes Hospitalist: Subjective Interval history: Follow-up hyponatremia, bronchitis, asymmetric septal hypertrophy. The patient's sodium is slowly trending up. I suspect this is due to medication revision, with the discontinuation of diuretics and reduction of his steroids. He offers no complaints at this time. Exam - Constitutional Vitals: Period Temp Pulse Resp BP Sys/Mackey Pulse Ox Last 24 Hr 96.9 F-98.6 F 67-135 18-20 132-140/64-79 94-100 Vital signs are noted above. Heart is regular with a 3/6 systolic ejection murmur loudest at the left sternal border, and audible over the entire precordium. Lungs are clear with no rales or wheezes. Abdomen is protuberant with no mass. He does not have significant edema. He is awake and alert Results - Labs CBC & BMP: 06/01/17 08:18 06/01/17 04:50 Lab Results: I have reviewed the past 24 hour labs (Sodium is up slightly. Potassium is down slightly. White count is trending down.)
--- NOTE | 2017-06-01 10:08 | Pulmonology Progress Note ---
Pulmonary - PN: Subj Interval history: Sundeep is a 42-year-old white man with a hypertrophic cardiomyopathy and diastolic congestive heart failure. He also has been a smoker and has used multiple substances. He comes in with diffuse infiltrates and hemoptysis. His chest x-ray is consistent with heart failure. He has diuresed fairly well through the night and is feeling much better today. His cough and shortness of breath have resolved. He is having some nervousness on the prednisone. His sodium was up to 125 today and he does not feel overloaded at all. He says he woke up early and cannot sleep. He does look a little strung-out as he is coming off multiple meds. He is not having any respiratory distress at all. His lungs have been reasonably clear. Exam (Progress Note) - Constitutional Vitals: Period Temp Pulse Resp BP Sys/Mackey Pulse Ox Last 24 Hr 96.9 F-98.6 F 67-135 18-20 132-140/64-79 94-100 Exam: General appearance: no distress (He is comfortable off of oxygen and is in no distress.) - Head Head exam: Present: normal inspection, normocephalic - Eye Eye exam: Present: EOMI. Absent: scleral icterus Pupils: Present: [place] - ENT ENT exam: Present: normal exam, other (No oral lesions) - Neck Neck exam: Present: normal inspection. Absent: lymphadenopathy, thyromegaly - Respiratory Respiratory exam: Present: He has good breath sounds bilaterally and his lungs are basically clear now. He has good air movement. - Cardiovascular Cardiovascular exam: Present: gallop, regular rate and rhythm, systolic murmur. His murmur is unchanged. - GI/Abdominal GI/Abdominal exam: Present: normal bowel sounds, soft. Absent: organomegaly, tenderness - Extremities Exam Extremities exam: Present: His leg swelling has resolved now. - Neurological Exam Neurological exam: Present: alert, oriented X3, CN II-XII intact - Psychiatric Psychiatric exam: Present: He seems much more comfortable. - Skin Skin exam: Present: warm, dry Results - Labs CBC & BMP: 06/01/17 08:18 06/01/17 04:50 Assessment and Plan (1) Pulmonary edema Status: Acute Assessment and plan: The patient comes in with hemoptysis and shortness of breath and has acute pulmonary edema. He has diuresed well and his chest x-ray is much improved. His weight is down now. Will hold his Lasix since his sodium is low. He is supposed to be on a fluid restriction. His sodium is up to 125 today. 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 CHF is clearing. Clinically he is doing much better. Current Visit: Yes (3) Hemoptysis Status: Acute Assessment and plan: His hemoptysis occurs when he has congestive heart failure. His hemoptysis has resolved now. Current Visit: Yes (4) Acute respiratory failure with hypoxia Status: Acute Assessment and plan: The patient is improved nicely and his lungs are clear now. He can go home from a pulmonary standpoint. Current Visit: No (5) COPD with bronchitis Status: Chronic Assessment and plan: The patient probably does have a component of COPD and usually feels better when he is on steroids. His breathing is much better today. Will adjust his prednisone dose. Current Visit: Yes
[2017-06-01] MEDS: ENOXAPARIN 40 MG/0.4 ML SYRINGE SUBCUT SCH (11:15)
[2017-06-01] MEDS: predniSONE 5 MG TABLET PO SCH (20:10)
[2017-06-02] MEDS: ONDANSETRON ODT 4 MG TABLET PO SCH ×3 (01:15→15:53)
[2017-06-02 05:33] LABS: Basophils % 0.2 % (0.0-0.8); Eosinophils # 0.1 10*3/uL (0.0-0.87); Eosinophils % 0.7 % (0.00-10.9); Hematocrit 36.5 VOL% (42.0-52.0); Immature Granulocytes % 3.2 %; Immature Granulocytes Absolute 0.66 #; Lymphocytes # 2.7 10*3/uL (1.4-4.0); Lymphocytes % 13.2 % (21.2-54.2); Mean Corpuscular HGB Conc 35.6 GM/DL (32-36); Mean Corpuscular Hemoglobin 28 PG (27-34); Mean Corpuscular Volume 78.8 FL (87-102); Mean Platelet Volume 9.4 FL (9.6-12.0); Monocytes # 1.6 10*3/uL (0.11-0.8); Monocytes % 7.6 % (1.7-12.7); Neutrophils # 15.5 10*3/uL (1.4-7.4); Neutrophils % 75.1 % (38.7-73.9); Platelet Count 393 T/CUMM (130-400); Red Blood Count 4.63 MC/CUMM (3.8-5.5); Red Cell Distribution Width 13.2 % (9.3-17.3); White Blood Count 20.6 T/CUMM (4-12)
[2017-06-02 05:54] LABS: Eosinophils 1 % (0-10); Hypochromasia 1+; Lymphocytes 20 % (20-55); Microcytosis 1+; Ovalocytes Slight; Platelet Estimate Adequate; Segmented Neutrophils 75 % (50-85); Total Cells Counted 100
[2017-06-02 06:01] LABS: Calcium 8.6 MG/DL (8.5-10.1); Magnesium 2.5 MG/DL (1.8-2.4); Osmolality,Calculated 258.4 MOS/KG (273-304); Potassium 3.1 MMOL/L (3.5-5.1)
[2017-06-02] MEDS ORDERED: POTASSIUM CHLORIDE 20 MEQ TABLET PO ONE (08:20)
[2017-06-02] MEDS: AZITHROMYCIN 250 MG TABLET PO SCH (08:28)
[2017-06-02] MEDS: MONTELUKAST 10 MG TABLET PO SCH (08:28)
[2017-06-02] MEDS: predniSONE 10 MG TABLET PO SCH (08:28)
[2017-06-02] MEDS: METOPROLOL TARTRATE 25 MG TABLET PO SCH (08:28)
[2017-06-02] MEDS: oxyCODONE/ACETAMINOPHEN 5-325 MG TABLET PO PRN ×4 (08:28→22:21)
[2017-06-02] MEDS: PANTOPRAZOLE 40 MG TABLET PO SCH (08:28)
[2017-06-02] MEDS: BACITRACIN OINT 28.35 GM TUBE TOP SCH ×2 (08:31→20:29)
--- NOTE | 2017-06-02 08:52 | Cardiology Progress Note ---
<Carley Wellington E - Last Filed: 06/02/17 08:41> Assessment and Plan - Time spent with patient Time spent with patient: Greater than 30 minutes Time spent discussing smoking cessation with patient: 3 to 10 minutes (1) Community acquired pneumonia Status: Acute Assessment and plan: SEE PLAN OF CARE LISTED BELOW Current Visit: Yes (2) Cocaine use Status: Chronic Assessment and plan: SEE PLAN OF CARE LISTED BELOW Current Visit: Yes (3) Methamphetamine abuse Status: Chronic Assessment and plan: SEE PLAN OF CARE LISTED BELOW Current Visit: Yes (4) Marijuana abuse Status: Chronic Assessment and plan: SEE PLAN OF CARE LISTED BELOW Current Visit: Yes (5) IHSS (idiopathic hypertrophic subaortic stenosis) Status: Chronic Assessment and plan: SEE PLAN OF CARE LISTED BELOW Current Visit: Yes (6) Hemoptysis Status: Resolved Assessment and plan: SEE PLAN OF CARE LISTED BELOW Current Visit: Yes (7) Lower extremity edema Status: Acute Assessment and plan: SEE PLAN OF CARE LISTED BELOW Current Visit: Yes (8) Acute on chronic diastolic CHF (congestive heart failure), NYHA class 3 Status: Resolved Assessment and plan: SEE PLAN OF CARE LISTED BELOW Current Visit: Yes (9) COPD with bronchitis Status: Chronic Assessment and plan: SEE PLAN OF CARE LISTED BELOW Current Visit: Yes (10) History of noncompliance with medical treatment Status: Chronic Assessment and plan: SEE PLAN OF CARE LISTED BELOW Current Visit: No (11) Hypokalemia Status: Acute Assessment and plan: SEE PLAN OF CARE LISTED BELOW Current Visit: No (12) Elevated troponin Status: Resolved Assessment and plan: SEE PLAN OF CARE LISTED BELOW Current Visit: Yes (13) Leukocytosis Status: Acute Assessment and plan: SEE PLAN OF CARE LISTED BELOW Current Visit: Yes (14) Mitral regurgitation Status: Chronic Assessment and plan: SEE PLAN OF CARE LISTED BELOW Current Visit: Yes Cardiology - PN: Subj Interval history: General Office Dispatcher: Dr. Avalos Plastic Welding Machine Operator: Dr. Martines PCP: None Summary: Mr. Ireland, 42WM, with history of hypertrophic cardiomyopathy, recurrent bronchitis with frequent hemoptysis and diastolic CHF. Last seen in cardiology clinic February 03, 2017. Most recent echo September 18, 2016: EF 60%, grade 1 diastolic dysfunction, moderate MR with normal RV function and moderate TR PA pressure 50. There was an 80 mm gradient across the LVOT at rest. He has been sent to [facility] for cardiac MRI twice but both times the procedure had to be canceled due to emergencies. He has been referred to Dr. Yusuf Shukla. He may benefit from a septal ablation. Patient has a history of long -standing cocaine abuse last using 2 weeks ago. Drug screen is positive for methamphetamines, marijuana and prescription drugs. Ironically, negative for cocaine. Patient presented to the ED of [facility] May 24, 2017 with complaints of hemoptysis, shortness of breath. He has been diagnosed with CAP, acute on chronic diastolic congestive heart failure (NYHA CLASS III). He is found to be tachycardic heart rate in the 110s. Troponins mildly elevated at 0.302-0.236, however, patient has chronically elevated troponins in prior hospitalizations and the results remain flat. Patient denies chest pain, heaviness, tightness. He tells me he abruptly became short of breath with lower extremity swelling occurring yesterday. He has 2-3 pillow orthopnea which is improved overnight. On arrival, creatinine was elevated at 1.6 and this has improved to 1.3 overnight. Patient does have a leukocytosis with a left shift. Patient denies using methamphetamines and cannot understand why his drug test is positive. At first, he admitted to using cocaine approximately 2 weeks ago but then recounts his statement telling me he does not use drugs. May 30, 2017: Mr. Ireland is seen resting in bed no acute distress. He does report feeling weak this morning. He denies any chest pain, shortness of breath , or hemoptysis. Oxygen is in use via nasal cannula. His blood pressures little lower this morning and they have been running at 94/61. His white count is elevated to 33 today. Sodium has continued to drop, this morning is 125. Potassium is 3.2, he has potassium ordered per protocol. May 31, 2017: Mr. Ireland is seen resting in bed. He says he feels much better this morning. He denies any chest pain, shortness of breath, or hemoptysis. Oxygen is in use via nasal cannula. Blood pressures been stable throughout the night. His heart rate has been little more elevated than usual, ranging from 80-110. He diuresed greater than 2 L of fluid yesterday and his weight is down 10 pounds. Sodium is down to 122. His Lasix on hold at this time. His white count continues to increase, this morning it is 39.5. His potassium was repleted yesterday, this morning it is 3.8. June 01, 2017: This morning, Mr. Ireland states he is feeling better. He has not required oxygen in 2 days he tells me. Denies chest pain, heaviness or tightness. Hyponatremia has slightly improved at 125. Consider use of Samsca. No significant weight loss overnight per daily weights. Primary complaint is of lower back pain. We spent greater than 10 minutes performing stretches which does help alleviate the discomfort. White blood cell count elevated yesterday, steroid dosing has been decreased recently. No CBC this morning and I will go ahead and order that. Continue MANAS inhibitor, beta-sedrick. Hopefully, patient is eligible for discharge home soon. JUNE 02, 2017: He continues to improve. Sodium minimally increased to 126. Denies chest pain, heaviness or tightness. White blood cell count improving as steroids are weaned. This morning of added routine replacement of his potassium as his potassium is 3.1 this morning and consistently low. Starting tomorrow, will transition his short-term beta-sedrick to a long-term beta- sedrick. Blood pressures suboptimally controlled today and I will transitione to long acting Metoprolol at a higher dose starting this morning. Hopefully, he will be eligible for discharge soon. Assessment/plan: 1. ACUTE DIASTOLIC CHF - NYHA CLASS III. Prior EF 60%, no need to repeat echo at this time but will schedule for outpatient study at discharge. Continue diuresing, strict I&O and daily weights. Could consider the use of Samsca if hyponatremia does not improve 2. IHSS - continue with beta blockade, increasing dose and transitioning to long-acting beta sedrick beginning now. In the past, patient has been referred to Dr. Yusuf Doshi for possible septal ablation but has not yet attended appointment. He will be sensitive to any volume depletion. Tolerating MANAS now. 3. HYPERTENSION - Metoprolol, Lisinopril continues. Follow creatinine in am ( 1.2 this morning) 4. CAP - continue current treatment with antibiotics 5. BRONCHITIS WITH HEMOPTYSIS - continue current treatment. Continue TEDs rather than Lovenox, ASA. 6. COCAINE USE - the merits of cocaine cessation was discussed for greater than 5 minutes 7. METHAMPHETAMINE, MARIJUANA USE - the merits of meth/marijuana cessation was discussed for greater than 5 minutes 8. HYPOKALEMIA - 3.2 today. Continue replacement per protocol. 9. MODERATE MR - echo outpatient at discharge 10. NON-COMPLIANCE - reiterated the importance of compliance 11. HYPONATREMIA - Na+ 126 this morning. Samsca may be considered if no improvement in Na+. Exam (Progress Note) - Constitutional Vitals: Period Temp Pulse Resp BP Sys/Mackey Pulse Ox Last 24 Hr 96.9 F-97.9 F 70-104 16-20 116-165/54-89 92-99 Exam: General: [] [Pleasant and cooperative. ] [Appears comfortable.] HEENT: [PERRL, normocephalic, atraumatic. Mucous membranes moist. No jaundice noted. Conjunctiva moist and clear, sclerae anicteric] Neck: Unable to assess for JVD due to habitus. No thyromegaly or lymphadenopathy noted. No carotid bruit appreciated Cardiac: [Regular rate and rhythm.] [No obvious murmur rub or gallop.] Lungs: [Relatively clear. No accessory muscle use to assist the respiratory pattern. Not requiring oxygen. ] Abdomen: Soft, bowel sounds normoactive. Nondistended. No abdominal bruit or thrill noted. No masses noted. Musculoskeletal: No fluid collection. Decreased range of motion is noted. Extremities: No clubbing, cyanosis noted. [No bilateral lower extremity edema noted.] Upper extremity pulses 2+. Lower extremity pulses 2+. Capillary refill less than 3 seconds. Skin: Bilateral lower extremity reveals cellulitis type changes. No skin breakdown appreciated. Neuro: Awake, alert and oriented 3. Moves all extremities well without hemiparesis or paralysis. No essential tremor is appreciated. Result/EKG - Labs CBC & BMP: 06/02/17 05:19 06/02/17 05:19 Lab Results: I have reviewed the past 24 hour labs Labs: Laboratory Results - last 24 hr 06/01/17 06/02/17 06/02/17 08:18 05:19 05:19 WBC 20.6 H RBC 4.63 Hgb 13.0 L Hct 36.5 L MCV 78.8 L MCH 28 MCHC 35.6 RDW 13.2 Plt Count 393 MPV 9.4 L Neut % (Auto) 75.1 H Lymph % (Auto) 13.2 L [place] % (Auto) 7.6 Eos % (Auto) 0.7 Baso % (Auto) 0.2 Neut # (Auto) 15.5 H Lymph # (Auto) 2.7 [place] # (Auto) 1.6 H Eos # (Auto) 0.1 Baso # (Auto) 0.0 Total Counted 100 100 Immature Gran % 3.2 Nucleated RBC % 0.0 Immature Gran # 0.66 Segmented Neutrophils 77 75 Band Neutrophils 1 Lymphocytes 11 L 20 Monocytes 11 4 Eosinophils 1 Nucleated RBCs # 0.00 Platelet Estimate Adequate Adequate Immature Plt Fraction 0.0 Hypochromasia 1+ 1+ Microcytosis 1+ 1+ Ovalocytes Slight Morphology Comment Sodium 126 L Potassium 3.1 L Chloride 88 L Carbon Dioxide 25 Anion Gap 16.1 H BUN 15 Creatinine 1.20 GFR Calculation 98 BUN/Creatinine Ratio 12.00 Glucose 191 H Calculated Osmolality 258.4 L Calcium 8.6 Magnesium 2.5 H - Diagnostic Findings Procedure: Chest x-ray: report reviewed by me - EKG EKG results: interpreted by tn EKG shows: sinus rhythm <Jessy Guajardo - Last Filed: 06/02/17 18:19> Assessment and Plan (1) Acute on chronic diastolic CHF (congestive heart failure), NYHA class 3 Status: Resolved Current Visit: Yes (2) IHSS (idiopathic hypertrophic subaortic stenosis) Status: Chronic Current Visit: Yes (3) Hypertension Status: Chronic Current Visit: Yes (4) Community acquired pneumonia Status: Acute Current Visit: Yes (5) Hemoptysis Status: Resolved Current Visit: Yes (6) Marijuana abuse Status: Chronic Current Visit: Yes (7) Methamphetamine abuse Status: Chronic Current Visit: Yes (8) Hypokalemia Status: Acute Current Visit: Yes (9) Mitral regurgitation Status: Chronic Current Visit: Yes (10) History of noncompliance with medical treatment Status: Chronic Current Visit: No (11) Hyponatremia Status: Acute Current Visit: Yes Cardiology - PN: Subj Interval history: I have personally interviewed and evaluated the patient, reviewed the chart and discussed medical decision-making with Practitioner Eliz. I have read this note and agree with her documentation here in. The patient is anticipating discharge tomorrow. We will sign off as his hemodynamic status has been stable. Please reconsult for any acute or dynamic cardiac condition. Exam (Progress Note) - Constitutional Vitals: Period Temp Pulse Resp BP Sys/Mackey Pulse Ox Last 24 Hr 96.5 F-99.1 F 70-104 16-20 105-165/75-89 94-98 Result/EKG - Labs CBC & BMP: 06/02/17 05:19 06/02/17 05:19 Labs: Laboratory Results - last 24 hr 06/02/17 06/02/17 05:19 05:19 WBC 20.6 H RBC 4.63 Hgb 13.0 L Hct 36.5 L MCV 78.8 L MCH 28 MCHC 35.6 RDW 13.2 Plt Count 393 MPV 9.4 L Neut % (Auto) 75.1 H Lymph % (Auto) 13.2 L [place] % (Auto) 7.6 Eos % (Auto) 0.7 Baso % (Auto) 0.2 Neut # (Auto) 15.5 H Lymph # (Auto) 2.7 [place] # (Auto) 1.6 H Eos # (Auto) 0.1 Baso # (Auto) 0.0 Total Counted 100 Immature Gran % 3.2 Nucleated RBC % 0.0 Immature Gran # 0.66 Segmented Neutrophils 75 Lymphocytes 20 Monocytes 4 Eosinophils 1 Nucleated RBCs # 0.00 Platelet Estimate Adequate Immature Plt Fraction 0.0 Hypochromasia 1+ Microcytosis 1+ Ovalocytes Slight Sodium 126 L Potassium 3.1 L Chloride 88 L Carbon Dioxide 25 Anion Gap 16.1 H BUN 15 Creatinine 1.20 GFR Calculation 98 BUN/Creatinine Ratio 12.00 Glucose 191 H Calculated Osmolality 258.4 L Calcium 8.6 Magnesium 2.5 H
[2017-06-02] MEDS: METOPROLOL SUCCINATE XL 100 MG TABLET PO SCH (09:00)
--- NOTE | 2017-06-02 09:43 | Pulmonology Progress Note ---
Pulmonary - PN: Subj Interval history: Sundeep is a 42-year-old white man with a hypertrophic cardiomyopathy and diastolic congestive heart failure. He also has been a smoker and has used multiple substances. He comes in with diffuse infiltrates and hemoptysis. His chest x-ray is consistent with heart failure. He has diuresed fairly well through the night and is feeling much better today. His cough and shortness of breath have resolved. He said he had a good night and is starting to walk around better. He is eating okay. He does not feel short of breath now. His sodium was up to 126. Overall he is stable from pulmonary standpoint. Exam (Progress Note) - Constitutional Vitals: Period Temp Pulse Resp BP Sys/Mackey Pulse Ox Last 24 Hr 96.9 F-97.9 F 70-104 16-20 116-165/54-89 92-99 Exam: General appearance: no distress (He is comfortable off of oxygen and is in no distress. He looks like he feels better today.) - Head Head exam: Present: normal inspection, normocephalic - Eye Eye exam: Present: EOMI. Absent: scleral icterus Pupils: Present: [place] - ENT ENT exam: Present: normal exam, other (No oral lesions) - Neck Neck exam: Present: normal inspection. Absent: lymphadenopathy, thyromegaly - Respiratory Respiratory exam: Present: He has good breath sounds bilaterally and his lungs are basically clear now. He has good air movement. I do not hear any rales or wheezing. - Cardiovascular Cardiovascular exam: Present: gallop, regular rate and rhythm, systolic murmur. His murmur is unchanged. - GI/Abdominal GI/Abdominal exam: Present: normal bowel sounds, soft. Absent: organomegaly, tenderness - Extremities Exam Extremities exam: Present: His leg swelling has resolved now. - Neurological Exam Neurological exam: Present: alert, oriented X3, CN II-XII intact - Psychiatric Psychiatric exam: Present: He seems much more comfortable. - Skin Skin exam: Present: warm, dry Results - Labs CBC & BMP: 06/02/17 05:19 06/02/17 05:19 Assessment and Plan (1) Pulmonary edema Status: Acute Assessment and plan: The patient comes in with hemoptysis and shortness of breath and has acute pulmonary edema. He has diuresed well and his chest x-ray is much improved. His weight is down now. Will hold his Lasix since his sodium is low. He is supposed to be on a fluid restriction. His sodium is up to 126. He will need diuretics restarted in the future. He is stable from my standpoint and can go home. Please call if we can help over the weekend. 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 CHF is clearing. Clinically he is doing much better. Current Visit: Yes (3) Hemoptysis Status: Resolved Assessment and plan: His hemoptysis occurs when he has congestive heart failure. His hemoptysis has resolved now. Current Visit: Yes (4) Acute respiratory failure with hypoxia Status: Acute Assessment and plan: The patient is improved nicely and his lungs are clear now. He can go home from a pulmonary standpoint. Current Visit: No (5) COPD with bronchitis Status: Chronic Assessment and plan: The patient probably does have a component of COPD and usually feels better when he is on steroids. Overall he is tolerating his medicines and is stable. Current Visit: Yes
--- NOTE | 2017-06-02 10:18 | Hospitalist Progress Note ---
Assessment and Plan (1) Hyponatremia Status: Acute Assessment and plan: Impression: 1. Hyponatremia, likely SIADH. He is slowly improved. 2. Chronic bronchitis continuing to improve 3. Nausea, continuing to improve 4. Asymmetric septal hypertrophy Plan: Continue fluid restriction. Recheck lab in the morning. Hope to discharge soon. This note was completed using [employer] voice recognition software. There may be sample maker original errors as a result. Current Visit: Yes Hospitalist: Subjective Interval history: Follow-up hyponatremia. The patient looks a little better. His sodium is slowly trending up. White count is trending down off of the high dose steroids. I hope he will be ready for discharge in the morning. Exam - Constitutional Vitals: Period Temp Pulse Resp BP Sys/Mackey Pulse Ox Last 24 Hr 96.9 F-97.9 F 70-104 16-20 116-165/54-89 92-99 Vital signs are noted above. Heart is regular with a 3/6 systolic ejection murmur unchanged. Lungs are fairly clear with no rales or wheezes. Abdomen is soft without any mass. He is awake and alert. Results - Labs CBC & BMP: 06/02/17 05:19 06/02/17 05:19 Lab Results: I have reviewed the past 24 hour labs
[2017-06-02] MEDS: ENOXAPARIN 40 MG/0.4 ML SYRINGE SUBCUT SCH (11:24)
[2017-06-02] MEDS: POTASSIUM CHLORIDE 20 MEQ TABLET PO PRN ×4 (15:50→22:21)
[2017-06-02] MEDS: predniSONE 5 MG TABLET PO SCH (20:28)
[2017-06-03] MEDS: ONDANSETRON ODT 4 MG TABLET PO SCH ×2 (01:12→08:24)
[2017-06-03] MEDS: oxyCODONE/ACETAMINOPHEN 5-325 MG TABLET PO PRN (04:16)
[2017-06-03 05:59] LABS: Basophils % 0.2 % (0.0-0.8); Eosinophils # 0.2 10*3/uL (0.0-0.87); Eosinophils % 0.8 % (0.00-10.9); Hematocrit 34.1 VOL% (42.0-52.0); Immature Granulocytes % 2.9 %; Immature Granulocytes Absolute 0.56 #; Lymphocytes # 2.8 10*3/uL (1.4-4.0); Lymphocytes % 14.7 % (21.2-54.2); Mean Corpuscular HGB Conc 35.2 GM/DL (32-36); Mean Corpuscular Hemoglobin 28 PG (27-34); Mean Platelet Volume 9.4 FL (9.6-12.0); Monocytes # 1.9 10*3/uL (0.11-0.8); Monocytes % 9.7 % (1.7-12.7); Neutrophils # 13.8 10*3/uL (1.4-7.4); Neutrophils % 71.7 % (38.7-73.9); Platelet Count 385 T/CUMM (130-400); Red Blood Count 4.26 MC/CUMM (3.8-5.5); Red Cell Distribution Width 13.3 % (9.3-17.3); White Blood Count 19.2 T/CUMM (4-12)
[2017-06-03 06:22] LABS: Eosinophils 1 % (0-10); Giant Platelets Few; Hypochromasia 1+; Lymphocytes 6 % (20-55); Microcytosis Slight; Platelet Estimate Adequate; Segmented Neutrophils 82 % (50-85); Total Cells Counted 100
[2017-06-03 06:23] LABS: Magnesium 2.5 MG/DL (1.8-2.4); Osmolality,Calculated 260.8 MOS/KG (273-304)
[2017-06-03] MEDS: METOPROLOL SUCCINATE XL 100 MG TABLET PO SCH (08:24)
[2017-06-03] MEDS: predniSONE 10 MG TABLET PO SCH (08:24)
[2017-06-03] MEDS: PANTOPRAZOLE 40 MG TABLET PO SCH (08:24)
[2017-06-03] MEDS: MONTELUKAST 10 MG TABLET PO SCH (08:24)
[2017-06-03] MEDS: AZITHROMYCIN 250 MG TABLET PO SCH (08:24)
[2017-06-03] MEDS: BACITRACIN OINT 28.35 GM TUBE TOP SCH (08:27)
--- NOTE | 2017-06-03 10:25 | Discharge Summary ---
Hospital Course - Hospital Course Hospital Course: Discharge diagnosis: 1. Hemoptysis, probably due to acute bronchitis 2. Asymmetric septal hypertrophy 3. Chronic diastolic congestive heart failure 4. Hyponatremia, probable SIADH 5. Polysubstance abuse The patient presented to the hospital for evaluation of hemoptysis. He was seen in consultation by pulmonary and cardiology. He has known asymmetric septal hypertrophy. He also has a diagnosis of what sounds like chronic bronchitis, and is on daily steroids for this 3 years. His medications were revised. He ended up developing hyponatremia. Lab studies were consistent with SIADH. He was treated with fluid restriction and medication revision, and the hyponatremia slowly resolved. On the day of discharge, his sodium level was 130. He was awake and alert. He felt much better. We discussed ongoing fluid restriction at home for the next few days, with follow-up with 1 of his clinicians next week to repeat a sodium level. Medication reconciliation has been performed. Regular diet. Activity as tolerated. Follow-up with local physicians. This note was completed using [employer] voice recognition software. There may be sales representative supervisor errors as a result. Diagnosis - Discharge Diagnosis (1) Hyponatremia Status: Acute Discharge Plan - Discharge Data Disposition: Disch To Home/Self Care Condition at Discharge: Stable Discharge Diet: advance to your usual diet (Continue fluid restriction) Activity: resume usual activities as tolerated Hygiene: no restrictions Weight Bearing at Discharge: full weight bearing Driving: no restrictions - Discharge Medications Continue Oxycodone HCl/Acetaminophen [Percocet 10-325 mg Tablet] 10 mg PO QID PRN #30 tablet PRN Reason: Pain Montelukast Tab [Singulair Tab] 10 mg PO DAILY Temazepam [Restoril] 30 mg PO BEDTIME predniSONE TAB [PredniSONE] 5 mg PO BEDTIME tablet Spironolactone [Aldactone] 25 mg PO BID #60 tablet Metoprolol Tartrate 25 mg PO TID #90 tablet Verapamil HCl [Verapamil ER Cap] 240 mg PO DAILY predniSONE TAB [PredniSONE] 10 mg PO DAILY tablet Lisinopril [Prinivil] 2.5 mg PO DAILY Ondansetron Odt Tab [Zofran Odt] 4 mg PO Q8H #20 tablet Discontinued Potassium Chloride Cap/Tab [K Dur] 20 meq PO DAILY #100 tablet Azithromycin Tab [Zithromax Tab] 500 mg PO DAILY #3 tablet Furosemide Tab [Lasix Tab] 40 mg PO BID DIURETIC #60 tablet - Follow Up or Referral - Forms/Instructions Exam - Constitutional Vitals: Period Temp Pulse Resp BP Sys/Mackey Pulse Ox Last 24 Hr 96.4 F-99.4 F 80-104 18-20 105-153/72-84 94-99 Vital signs are noted above. Heart is regular with distant tones. Chest is fairly clear. He has a few expiratory wheezes. He has a few millimeters of edema. He is awake and alert. Discharge Results Labs on day of discharge: Labs from last 24 hours 06/03/17 06/03/17 06/03/17 05:24 05:24 05:24 WBC 19.2 H RBC 4.26 Hgb 12.0 L Hct 34.1 L MCV 80.0 L MCH 28 MCHC 35.2 RDW 13.3 Plt Count 385 MPV 9.4 L Neut % (Auto) 71.7 Lymph % (Auto) 14.7 L [place] % (Auto) 9.7 Eos % (Auto) 0.8 Baso % (Auto) 0.2 Neut # (Auto) 13.8 H Lymph # (Auto) 2.8 [place] # (Auto) 1.9 H Eos # (Auto) 0.2 Baso # (Auto) 0.0 Total Counted 100 Immature Gran % 2.9 Nucleated RBC % 0.0 Immature Gran # 0.56 Segmented Neutrophils 82 Lymphocytes 6 L Monocytes 11 Eosinophils 1 Nucleated RBCs # 0.00 Platelet Estimate Adequate Giant Platelets Few Immature Plt Fraction 0.0 Hypochromasia 1+ Microcytosis Slight Sodium 130 L Potassium 4.0 4.0 Chloride 95 L Carbon Dioxide 27 Anion Gap 12.0 BUN 16 Creatinine 0.80 GFR Calculation 146 BUN/Creatinine Ratio 20.00 Glucose 104 Calculated Osmolality 260.8 L Calcium 9.0 Magnesium 2.5 H DS: Provider Date of admission: 05/25/17 00:12 Primary care physician: . No PCP Attending physician on admission: Keith Candelaria MD Consults: 05/25/17 00:16 Consult to Physician [CONS] Routine Comment: Consulting Provider: Cj Martines Consult to Physician [CONS] Routine Comment: patient of renay Consulting Provider: Cardiology - [facility] Consulting Provider Notified: Yes Consult to Specialist Group: Cardiology Person Notified: Leon Date Notified: 05/25/17 Time Notified: 10:20 Discharging clinician: Oscar Meyer MD Expected date of discharge: 06/03/17
[2017-06-03] MEDS: ENOXAPARIN 40 MG/0.4 ML SYRINGE SUBCUT SCH (11:19)
[2017-06-03 11:46] VITALS: BP 162/82
== END 2017-06-03 11:55 | disposition home or self-care (01) | DRG 291 ==
LOC: N.ED 20:22 → N.EDINP 05-25 00:12 → SUATTDRO 05-25 00:12 → N.CC 05-25 00:37 → N.3E 05-27 16:24
PROVIDERS: ADMIT Internal Medicine; ATTEND Internal Medicine Geriatric Medicine

== ENCOUNTER 2018-12-07 10:19 | Inpatient (IN) ==
[2018-12-07 10:40] LABS: Basophils # 0.1 10*3/uL (0.0-0.2); Basophils % 0.6 % (0.0-0.8); Eosinophils # 0.1 10*3/uL (0.0-0.87); Eosinophils % 0.3 % (0.00-10.9); Hematocrit 34.4 VOL% (42.0-52.0); Hemoglobin 11.9 GM/DL (14.0-18.0); Immature Granulocytes % 0.6 %; Lymphocytes # 1.1 10*3/uL (1.4-4.0); Lymphocytes % 6.1 % (21.2-54.2); Mean Corpuscular HGB Conc 34.6 GM/DL (32-36); Mean Corpuscular Hemoglobin 28 PG (27-34); Mean Corpuscular Volume 82.1 FL (87-102); Mean Platelet Volume 10.3 FL (9.6-12.0); Monocytes # 1.3 10*3/uL (0.11-0.8); Monocytes % 7.3 % (1.7-12.7); Neutrophils # 15.2 10*3/uL (1.4-7.4); Neutrophils % 85.1 % (38.7-73.9); Platelet Count 265 T/CUMM (130-400); Red Blood Count 4.19 MC/CUMM (3.8-5.5); Red Cell Distribution Width 14.6 % (9.3-17.3); White Blood Count 17.8 T/CUMM (4-12)
[2018-12-07 10:49] LABS: INR 1.1; PT Patient Result 12.2 SECS; Partial Thromboplastin Time 29.2 SECS (0-40)
[2018-12-07 11:03] LABS: Albumin 3.3 G/DL (3.4-5.0); Bilirubin,Total 1.8 MG/DL (0.2-1.0); Calcium 8.4 MG/DL (8.5-10.1); Potassium 2.8 MMOL/L (3.5-5.1); Total Protein 6.6 G/DL (6.4-8.3)
[2018-12-07] MEDS ORDERED: PIPERACILLIN/TAZOBACTAM 3,375 MG in SODIUM CHLORIDE 0.9% 100 ML IV STA (11:56)
[2018-12-07] MEDS ORDERED: ONDANSETRON 4 MG/2 ML VIAL IV PRN (12:19)
[2018-12-07] MEDS ORDERED: NICOTINE 21 MG/24 HR PATCH TRANSDERM PRN (12:19)
[2018-12-07] MEDS ORDERED: traZODone 50 MG TABLET PO PRN (12:19)
[2018-12-07] MEDS ORDERED: AZITHROMYCIN INJ 500 MG in SODIUM CHLORIDE 0.9% 250 ML IV STA (12:29)
[2018-12-07] MEDS ORDERED: POTASSIUM CHLORIDE 20 MEQ TABLET PO STA (12:30)
[2018-12-07] MEDS: ALBUTEROL/IPRATROPIUM 3 ML NEB RESP TX SCH ×2 (12:50→22:58)
[2018-12-07 13:01] LABS: Barbiturates Screen,Urine Negative (Negative); Benzodiazepines Screen,Urine Negative (Negative); Cannabinoid Screen,Urine Positive (Negative); Opiate Screen,Urine Negative (Negative); Phencyclidine Screen,Urine Negative (Negative)
[2018-12-07 13:14] LABS: Apearance,Urine CLEAR (Clear); Bilirubin,Urine Negative (Negative); Blood, Urine Small mg/dL (Negative); Glucose,Urine (UA) Negative (Negative); Ketones,Urine Negative (Negative); Mucus,Urine Occasional /LPF (Occasional); Nitrite,Urine Negative (Negative); Protein,Urine 30 MG/DL; RBC,Urine 1 /HPF (0-4); Urine Color Amber (Yellow); Urine Specific Gravity 1.023 (1.001-1.035); WBC,Urine <1 /HPF (0-6)
[2018-12-07 13:23] LABS: HIV Antigen/Antibody Result Nonreactive (Nonreactive)
[2018-12-07] MEDS ORDERED: methylPREDNISolone SOD SUC 125 MG/2 ML VIAL IV STA (13:59)
[2018-12-07] MEDS ORDERED: diphenhydrAMINE 50 MG/1 ML VIAL IV STA (13:59)
[2018-12-07] MEDS ORDERED: MAGNESIUM SULF RIDER 2 GM in PREMIX 1 EACH IV ONE (15:00)
[2018-12-07] MEDS ORDERED: cefTRIAXone 1,000 MG in SYRINGE 1 EACH IV SCH (15:00)
[2018-12-07] MEDS ORDERED: POTASSIUM CHLORIDE 20 MEQ TABLET PO ONE (16:00)
[2018-12-07] MEDS: ENOXAPARIN 40 MG/0.4 ML SYRINGE SUBCUT SCH (16:56)
[2018-12-07] MEDS: guaiFENesin/DM ER 600-30 MG TABLET PO SCH ×2 (16:56→20:32)
[2018-12-07] MEDS: ACETAMINOPHEN 325 MG TABLET PO PRN ×2 (16:57→20:32)
[2018-12-07] MEDS: SODIUM CHLOR 0.9% KCL 40 MEQ 40 MEQ/1,000 ML BAG IV SCH (16:57)
[2018-12-07] MEDS ORDERED: LEVOFLOXACIN INJ 750 MG in PREMIX 1 EACH IV SCH (17:00)
[2018-12-07] MEDS: traZODone 50 MG TABLET PO SCH (20:31)
[2018-12-07] MEDS: METOPROLOL TARTRATE 50 MG TABLET PO SCH (20:32)
[2018-12-07] MEDS: LEVOFLOXACIN INJ 750 MG in PREMIX 1 EACH IV SCH (20:32)
[2018-12-08] MEDS: ALBUTEROL/IPRATROPIUM 3 ML NEB RESP TX SCH ×2 (00:15→09:55)
[2018-12-08] MEDS: SODIUM CHLOR 0.9% KCL 40 MEQ 40 MEQ/1,000 ML BAG IV SCH ×3 (04:15→20:48)
[2018-12-08] MEDS: ACETAMINOPHEN 325 MG TABLET PO PRN ×3 (05:19→18:18)
[2018-12-08 05:56] LABS: Basophils % 0.1 % (0.0-0.8); Hematocrit 30.7 VOL% (42.0-52.0); Hemoglobin 10.1 GM/DL (14.0-18.0); Immature Granulocytes % 0.7 %; Immature Granulocytes Absolute 0.09 #; Lymphocytes # 0.6 10*3/uL (1.4-4.0); Lymphocytes % 4.7 % (21.2-54.2); Mean Corpuscular HGB Conc 32.9 GM/DL (32-36); Mean Corpuscular Hemoglobin 28 PG (27-34); Mean Corpuscular Volume 84.6 FL (87-102); Mean Platelet Volume 10.8 FL (9.6-12.0); Monocytes # 0.4 10*3/uL (0.11-0.8); Neutrophils # 11.4 10*3/uL (1.4-7.4); Neutrophils % 91.5 % (38.7-73.9); Platelet Count 250 T/CUMM (130-400); Red Blood Count 3.63 MC/CUMM (3.8-5.5); Red Cell Distribution Width 14.7 % (9.3-17.3); White Blood Count 12.5 T/CUMM (4-12)
[2018-12-08 06:10] LABS: Calcium 8.4 MG/DL (8.5-10.1); Osmolality,Calculated 280.7 MOS/KG (273-304); Potassium 4.3 MMOL/L (3.5-5.1)
[2018-12-08 06:22] LABS: Lymphocytes 6 % (20-55); Platelet Estimate Adequate; Segmented Neutrophils 92 % (50-85); Total Cells Counted 100
[2018-12-08 06:23] LABS: Hypochromasia 1+; Ovalocytes Slight
[2018-12-08] MEDS ORDERED: LISINOPRIL 5 MG TABLET PO SCH (09:00)
[2018-12-08] MEDS: GABAPENTIN 300 MG CAPSULE PO SCH (10:38)
[2018-12-08] MEDS: guaiFENesin/DM ER 600-30 MG TABLET PO SCH (10:39)
[2018-12-08] MEDS: PANTOPRAZOLE 40 MG TABLET PO SCH (10:39)
[2018-12-08] MEDS: METOPROLOL TARTRATE 50 MG TABLET PO SCH ×2 (10:39→20:38)
[2018-12-08] MEDS: PHENOL 1.4% THROAT SPRAY 177 ML BOTTLE PO PRN ×2 (15:31→20:39)
[2018-12-08] MEDS: ASPIRIN EC 81 MG TABLET PO SCH (15:31)
[2018-12-08] MEDS: traZODone 50 MG TABLET PO SCH (20:38)
[2018-12-08] MEDS: ENOXAPARIN 40 MG/0.4 ML SYRINGE SUBCUT SCH (20:39)
[2018-12-08] MEDS: VERAPAMIL SR 120 MG TABLET PO SCH (20:39)
[2018-12-08] MEDS: LEVOFLOXACIN INJ 750 MG in PREMIX 1 EACH IV SCH (20:39)
[2018-12-09 04:17] LABS: Basophils % 0.3 % (0.0-0.8); Eosinophils # 0.1 10*3/uL (0.0-0.87); Eosinophils % 0.7 % (0.00-10.9); Hematocrit 28.3 VOL% (42.0-52.0); Hemoglobin 9.2 GM/DL (14.0-18.0); Immature Granulocytes % 0.4 %; Immature Granulocytes Absolute 0.04 #; Lymphocytes # 1.9 10*3/uL (1.4-4.0); Lymphocytes % 17.4 % (21.2-54.2); Mean Corpuscular HGB Conc 32.5 GM/DL (32-36); Mean Corpuscular Hemoglobin 28 PG (27-34); Mean Corpuscular Volume 86.5 FL (87-102); Monocytes # 0.6 10*3/uL (0.11-0.8); Monocytes % 5.5 % (1.7-12.7); Neutrophils # 8.5 10*3/uL (1.4-7.4); Neutrophils % 75.7 % (38.7-73.9); Platelet Count 230 T/CUMM (130-400); Red Blood Count 3.27 MC/CUMM (3.8-5.5); Red Cell Distribution Width 15.1 % (9.3-17.3); White Blood Count 11.2 T/CUMM (4-12)
[2018-12-09 04:35] LABS: Osmolality,Calculated 287.8 MOS/KG (273-304); Potassium 3.6 MMOL/L (3.5-5.1)
[2018-12-09] MEDS ORDERED: FUROSEMIDE 40 MG/4 ML VIAL IV ONE (08:03)
[2018-12-09] MEDS: METOPROLOL TARTRATE 50 MG TABLET PO SCH ×2 (09:32→20:21)
[2018-12-09] MEDS: ASPIRIN EC 81 MG TABLET PO SCH (09:33)
[2018-12-09] MEDS: PANTOPRAZOLE 40 MG TABLET PO SCH (09:33)
[2018-12-09] MEDS: ACETAMINOPHEN 325 MG TABLET PO PRN ×3 (09:33→18:25)
[2018-12-09] MEDS: GABAPENTIN 300 MG CAPSULE PO SCH (09:33)
[2018-12-09] MEDS: predniSONE 5 MG TABLET PO SCH ×2 (09:35→20:21)
[2018-12-09] MEDS: SODIUM CHLOR 0.9% KCL 40 MEQ 40 MEQ/1,000 ML BAG IV SCH (15:33)
[2018-12-09] MEDS: LEVOFLOXACIN INJ 750 MG in PREMIX 1 EACH IV SCH (20:20)
[2018-12-09] MEDS: VERAPAMIL SR 120 MG TABLET PO SCH (20:21)
[2018-12-09] MEDS: traZODone 50 MG TABLET PO SCH (20:21)
[2018-12-09] MEDS: ENOXAPARIN 40 MG/0.4 ML SYRINGE SUBCUT SCH (20:22)
[2018-12-10] MEDS ORDERED: METOPROLOL TARTRATE 50 MG TABLET PO SCH (07:26)
[2018-12-10] MEDS: PANTOPRAZOLE 40 MG TABLET PO SCH (09:07)
[2018-12-10] MEDS: predniSONE 5 MG TABLET PO SCH ×2 (09:07→21:31)
[2018-12-10] MEDS: METOPROLOL TARTRATE 50 MG TABLET PO SCH ×2 (09:08→21:31)
[2018-12-10] MEDS: GABAPENTIN 300 MG CAPSULE PO SCH (09:10)
[2018-12-10] MEDS: ASPIRIN EC 81 MG TABLET PO SCH (09:10)
[2018-12-10] MEDS: ACETAMINOPHEN 325 MG TABLET PO PRN ×2 (09:17→13:24)
[2018-12-10] MEDS: SODIUM CHLOR 0.9% KCL 40 MEQ 40 MEQ/1,000 ML BAG IV SCH (11:25)
[2018-12-10] MEDS: LEVOFLOXACIN INJ 750 MG in PREMIX 1 EACH IV SCH (21:30)
[2018-12-10] MEDS: ENOXAPARIN 40 MG/0.4 ML SYRINGE SUBCUT SCH (21:30)
[2018-12-10] MEDS: traZODone 50 MG TABLET PO SCH (21:31)
[2018-12-10] MEDS: VERAPAMIL SR 120 MG TABLET PO SCH (21:31)
[2018-12-11] MEDS: SODIUM CHLOR 0.9% KCL 40 MEQ 40 MEQ/1,000 ML BAG IV SCH (07:05)
[2018-12-11 07:52] VITALS: BP 107/49
[2018-12-11] MEDS: METOPROLOL TARTRATE 50 MG TABLET PO SCH (08:21)
[2018-12-11] MEDS: ASPIRIN EC 81 MG TABLET PO SCH (08:21)
[2018-12-11] MEDS: predniSONE 5 MG TABLET PO SCH (08:22)
[2018-12-11] MEDS: GABAPENTIN 300 MG CAPSULE PO SCH (08:22)
[2018-12-11] MEDS: PANTOPRAZOLE 40 MG TABLET PO SCH (08:22)
[2018-12-11] MEDS: ACETAMINOPHEN 325 MG TABLET PO PRN (08:25)
[2018-12-11] MEDS ORDERED: LEVOFLOXACIN 750 MG TABLET PO SCH (10:30)
== END 2018-12-11 10:20 | disposition home or self-care (01) | DRG 190 ==
LOC: EDUNIT# → N.ED 10:19 → N.EDINP 11:57 → SUATTDRO 11:57 → N.EDINP 14:57 → N.2E 15:04
PROVIDERS: ADMIT Internal Medicine; ATTEND Internal Medicine

== ENCOUNTER 2018-12-19 10:03 | Inpatient (IN) ==
[2018-12-19] MEDS ORDERED: ONDANSETRON 4 MG/2 ML VIAL IV STA (10:27)
[2018-12-19] MEDS ORDERED: LEVOFLOXACIN INJ 750 MG in PREMIX 1 EACH IV STA (10:27)
[2018-12-19] MEDS ORDERED: methylPREDNISolone SOD SUC 125 MG/2 ML VIAL IV STA (10:27)
[2018-12-19] MEDS ORDERED: ALBUTEROL 2.5 MG/3 ML NEB RESP TX SCH (10:30)
[2018-12-19] MEDS: TERBUTALINE 1 MG/1 ML VIAL SUBCUT SCH ×2 (10:51→11:27)
[2018-12-19 10:55] LABS: Basophils # 0.1 10*3/uL (0.0-0.2); Basophils % 0.2 % (0.0-0.8); Eosinophils % 0.1 % (0.00-10.9); Hematocrit 35.4 VOL% (42.0-52.0); Hemoglobin 11.5 GM/DL (14.0-18.0); Immature Granulocytes % 0.5 %; Immature Granulocytes Absolute 0.11 #; Lymphocytes # 0.8 10*3/uL (1.4-4.0); Mean Corpuscular HGB Conc 32.5 GM/DL (32-36); Mean Corpuscular Hemoglobin 28 PG (27-34); Mean Corpuscular Volume 86.3 FL (87-102); Mean Platelet Volume 9.4 FL (9.6-12.0); Monocytes # 0.6 10*3/uL (0.11-0.8); Monocytes % 3.1 % (1.7-12.7); Neutrophils # 18.6 10*3/uL (1.4-7.4); Neutrophils % 92.1 % (38.7-73.9); Platelet Count 296 T/CUMM (130-400); Red Cell Distribution Width 14.3 % (9.3-17.3); White Blood Count 20.2 T/CUMM (4-12)
[2018-12-19 11:06] LABS: PT Patient Result 10.7 SECS; Partial Thromboplastin Time 27.5 SECS (0-40)
[2018-12-19 11:14] LABS: Hypochromasia 1+; Lymphocytes 4 % (20-55); Microcytosis Slight; Segmented Neutrophils 96 % (50-85); Total Cells Counted 100
[2018-12-19 11:16] LABS: Platelet Estimate Normal
[2018-12-19 11:22] LABS: Alanine Aminotransferase 45 U/L (16-61); Albumin 3.2 G/DL (3.4-5.0); Alkaline Phosphatase 154 U/L (45-117); Aspartate Amino Transferase 23 U/L (0-37); Blood Urea Nitrogen 10 MG/DL (7-18); Calcium 8.3 MG/DL (8.5-10.1); Glucose 121 MG/DL (74-106); Osmolality,Calculated 272.8 MOS/KG (273-304); Potassium 3.4 MMOL/L (3.5-5.1); Sodium 137 MMOL/L (136-145); Total Protein 6.6 G/DL (6.4-8.3)
[2018-12-19 11:23] LABS: Troponin I 0.064 NG/ML (0.00-0.045)
[2018-12-19 12:03] LABS: Apearance,Urine CLEAR (Clear); Bilirubin,Urine Negative (Negative); Blood, Urine Negative (Negative); Glucose,Urine (UA) Negative (Negative); Ketones,Urine Negative (Negative); Mucus,Urine Occasional /LPF (Occasional); Nitrite,Urine Negative (Negative); Protein,Urine Negative; RBC,Urine 1 /HPF (0-4); Urine Color Straw (Yellow); Urine Specific Gravity 1.004 (1.001-1.035); Urine Urobilinogen < 2.0 EU/DL (0.2-1.0)
[2018-12-19] MEDS ORDERED: FUROSEMIDE 40 MG/4 ML VIAL IV STA (12:05)
[2018-12-19 12:10] LABS: Barbiturates Screen,Urine Negative (Negative); Benzodiazepines Screen,Urine Positive (Negative); Cannabinoid Screen,Urine Positive (Negative); Opiate Screen,Urine Negative (Negative); Phencyclidine Screen,Urine Negative (Negative)
[2018-12-19] MEDS ORDERED: ONDANSETRON 4 MG/2 ML VIAL IV PRN (13:09)
[2018-12-19] MEDS ORDERED: DOCUSATE SODIUM 100 MG CAPSULE PO PRN (13:09)
[2018-12-19] MEDS ORDERED: ALBUTEROL/IPRATROPIUM 3 ML NEB RESP TX PRN (13:20)
[2018-12-19 13:48] LABS: Risk Ratio 2.78; Thyroid Stimulating Hormone 0.533 uIU/ml (0.358-3.74); VLDL CHOLESTEROL 20.4 MG/DL
[2018-12-19 15:16] LABS: Troponin I 0.048 NG/ML (0.00-0.045)
[2018-12-19] MEDS: methylPREDNISolone SOD SUC 40 MG/1 ML VIAL IV SCH (17:50)
[2018-12-19 18:00] LABS: Troponin I 0.048 NG/ML (0.00-0.045)
[2018-12-19] MEDS ORDERED: ALBUTEROL/IPRATROPIUM 3 ML NEB RESP TX SCH (19:00)
[2018-12-19] MEDS: FUROSEMIDE 40 MG/4 ML VIAL IV SCH (21:36)
[2018-12-19] MEDS: VERAPAMIL SR 120 MG TABLET PO SCH (21:36)
[2018-12-19] MEDS: METOPROLOL TARTRATE 50 MG TABLET PO SCH (21:36)
[2018-12-19] MEDS: guaiFENesin/DM ER 600-30 MG TABLET PO SCH (21:36)
[2018-12-19 21:43] LABS: Troponin I 0.032 NG/ML (0.00-0.045)
[2018-12-19] MEDS: ACETAMINOPHEN 325 MG TABLET PO PRN (21:44)
[2018-12-20] MEDS: methylPREDNISolone SOD SUC 40 MG/1 ML VIAL IV SCH ×3 (02:48→18:40)
[2018-12-20 05:32] LABS: Basophils % 0.2 % (0.0-0.8); Hematocrit 34.1 VOL% (42.0-52.0); Hemoglobin 11.2 GM/DL (14.0-18.0); Immature Granulocytes % 0.6 %; Immature Granulocytes Absolute 0.07 #; Lymphocytes # 0.6 10*3/uL (1.4-4.0); Lymphocytes % 4.7 % (21.2-54.2); Mean Corpuscular HGB Conc 32.8 GM/DL (32-36); Mean Corpuscular Hemoglobin 28 PG (27-34); Mean Corpuscular Volume 85.9 FL (87-102); Mean Platelet Volume 9.6 FL (9.6-12.0); Monocytes # 0.2 10*3/uL (0.11-0.8); Monocytes % 1.4 % (1.7-12.7); Neutrophils # 11.4 10*3/uL (1.4-7.4); Neutrophils % 93.1 % (38.7-73.9); Platelet Count 286 T/CUMM (130-400); Red Blood Count 3.97 MC/CUMM (3.8-5.5); Red Cell Distribution Width 14.2 % (9.3-17.3); White Blood Count 12.2 T/CUMM (4-12)
[2018-12-20 05:57] LABS: Bilirubin,Total 0.7 MG/DL (0.2-1.0); Calcium 8.6 MG/DL (8.5-10.1); Osmolality,Calculated 280.7 MOS/KG (273-304); Potassium 3.4 MMOL/L (3.5-5.1); Total Protein 6.6 G/DL (6.4-8.3)
[2018-12-20 06:22] LABS: Band Neutrophils 1 % (0-10); Lymphocytes 2 % (20-55); Platelet Estimate Normal; Polychromasia Few; Segmented Neutrophils 97 % (50-85); Total Cells Counted 100
[2018-12-20] MEDS ORDERED: FUROSEMIDE 40 MG/4 ML VIAL IV SCH (09:00)
[2018-12-20] MEDS ORDERED: POTASSIUM CHLORIDE 20 MEQ TABLET PO ONE (09:09)
[2018-12-20] MEDS: METOPROLOL TARTRATE 50 MG TABLET PO SCH ×2 (09:57→20:53)
[2018-12-20] MEDS: guaiFENesin/DM ER 600-30 MG TABLET PO SCH ×2 (09:57→20:53)
[2018-12-20] MEDS: PANTOPRAZOLE 40 MG TABLET PO SCH (09:58)
[2018-12-20] MEDS: ACETAMINOPHEN 325 MG TABLET PO PRN (10:06)
[2018-12-20] MEDS: FUROSEMIDE 40 MG/4 ML VIAL IV SCH ×2 (10:09→20:52)
[2018-12-20] MEDS ORDERED: FUROSEMIDE 40 MG/4 ML VIAL IV ONE (10:27)
[2018-12-20] MEDS ORDERED: ACETAMINOPHEN 325 MG TABLET PO PRN (11:38)
[2018-12-20] MEDS: LEVOFLOXACIN INJ 750 MG in PREMIX 1 EACH IV SCH (12:53)
[2018-12-20] MEDS: POTASSIUM CHLORIDE 20 MEQ TABLET PO PRN ×2 (12:54→18:39)
[2018-12-20] MEDS: VERAPAMIL SR 120 MG TABLET PO SCH (20:53)
[2018-12-21] MEDS: methylPREDNISolone SOD SUC 40 MG/1 ML VIAL IV SCH (01:46)
[2018-12-21 05:34] LABS: Basophils % 0.1 % (0.0-0.8); Hematocrit 33.1 VOL% (42.0-52.0); Hemoglobin 10.8 GM/DL (14.0-18.0); Immature Granulocytes % 0.9 %; Immature Granulocytes Absolute 0.25 #; Lymphocytes # 0.6 10*3/uL (1.4-4.0); Lymphocytes % 2.3 % (21.2-54.2); Mean Corpuscular HGB Conc 32.6 GM/DL (32-36); Mean Corpuscular Hemoglobin 28 PG (27-34); Mean Corpuscular Volume 86.2 FL (87-102); Mean Platelet Volume 10.1 FL (9.6-12.0); Monocytes # 0.5 10*3/uL (0.11-0.8); Monocytes % 1.8 % (1.7-12.7); Neutrophils # 25.7 10*3/uL (1.4-7.4); Neutrophils % 94.9 % (38.7-73.9); Platelet Count 279 T/CUMM (130-400); Red Blood Count 3.84 MC/CUMM (3.8-5.5); Red Cell Distribution Width 14.8 % (9.3-17.3); White Blood Count 27.1 T/CUMM (4-12)
[2018-12-21 05:46] LABS: Calcium 8.5 MG/DL (8.5-10.1); Osmolality,Calculated 284.4 MOS/KG (273-304); Potassium 3.7 MMOL/L (3.5-5.1)
[2018-12-21 06:06] LABS: Band Neutrophils 2 % (0-10); Hypochromasia Slight; Lymphocytes 5 % (20-55); Microcytosis Slight; Platelet Estimate Adequate; Segmented Neutrophils 92 % (50-85); Total Cells Counted 100
[2018-12-21] MEDS ORDERED: methylPREDNISolone SOD SUC 40 MG/1 ML VIAL IV SCH (09:00)
[2018-12-21] MEDS ORDERED: FUROSEMIDE 40 MG TABLET PO SCH (09:00)
[2018-12-21] MEDS: METOPROLOL TARTRATE 50 MG TABLET PO SCH (09:31)
[2018-12-21] MEDS: guaiFENesin/DM ER 600-30 MG TABLET PO SCH (09:31)
[2018-12-21] MEDS: PANTOPRAZOLE 40 MG TABLET PO SCH (09:42)
[2018-12-21] MEDS: LEVOFLOXACIN INJ 750 MG in PREMIX 1 EACH IV SCH (12:01)
[2018-12-21 12:26] VITALS: BP 113/64
== END 2018-12-21 15:35 | disposition home or self-care (01) | DRG 292 ==
LOC: N.ED 10:03 → N.EDINP 10:03 → N.3E 16:08
PROVIDERS: ADMIT Internal Medicine; ATTEND Internal Medicine

== ENCOUNTER 2019-05-10 23:19 | Inpatient (IN) ==
[2019-05-11] MEDS ORDERED: cefTRIAXone 1,000 MG in SODIUM CHLORIDE 0.9% 100 ML IV STA (00:49)
[2019-05-11] MEDS ORDERED: ALBUTEROL/IPRATROPIUM 3 ML NEB RESP TX STA (00:49)
[2019-05-11] MEDS ORDERED: methylPREDNISolone SOD SUC 125 MG/2 ML VIAL IV STA (00:49)
[2019-05-11] MEDS ORDERED: SODIUM CHLORIDE 0.9% 500 ML IV STA (00:49)
[2019-05-11] MEDS ORDERED: ONDANSETRON 4 MG/2 ML VIAL IV STA (00:49)
[2019-05-11 01:07] LABS: Albumin 3.6 G/DL (3.4-5.0); Bilirubin,Total 0.7 MG/DL (0.2-1.0); Calcium 8.5 MG/DL (8.5-10.1); Osmolality,Calculated 280.3 MOS/KG (273-304)
[2019-05-11 01:19] LABS: Basophils # 0.1 10*3/uL (0.0-0.2); Basophils % 0.6 % (0.0-0.8); Eosinophils # 0.3 10*3/uL (0.0-0.87); Eosinophils % 1.8 % (0.00-10.9); Hematocrit 37.2 VOL% (42.0-52.0); Hemoglobin 12.2 GM/DL (14.0-18.0); Immature Granulocytes % 0.4 %; Immature Granulocytes Absolute 0.07 #; Lymphocytes # 1.3 10*3/uL (1.4-4.0); Lymphocytes % 8.4 % (21.2-54.2); Mean Corpuscular HGB Conc 32.8 GM/DL (32-36); Mean Corpuscular Volume 87.1 FL (87-102); Mean Platelet Volume 9.7 FL (9.6-12.0); Monocytes % 6.3 % (1.7-12.7); Neutrophils % 82.5 % (38.7-73.9); Platelet Count 339 T/CUMM (130-400); Red Blood Count 4.27 MC/CUMM (3.8-5.5); Red Cell Distribution Width 14.3 % (9.3-17.3); White Blood Count 15.8 T/CUMM (4-12)
[2019-05-11 01:26] LABS: INR 0.9; PT Patient Result 10.3 SECS
[2019-05-11 02:15] LABS: Apearance,Urine CLEAR (Clear); Bilirubin,Urine Negative (Negative); Blood, Urine Negative (Negative); Glucose,Urine (UA) Negative (Negative); Ketones,Urine Negative (Negative); Nitrite,Urine Negative (Negative); Protein,Urine Negative; Urine Color Colorless (Yellow); Urine Urobilinogen < 2.0 EU/DL (0.2-1.0); WBC,Urine <1 /HPF (0-6)
[2019-05-11 02:23] LABS: Barbiturates Screen,Urine Negative (Negative); Benzodiazepines Screen,Urine Positive (Negative); Cannabinoid Screen,Urine Positive (Negative); Opiate Screen,Urine Positive (Negative); Phencyclidine Screen,Urine Negative (Negative)
[2019-05-11] MEDS ORDERED: AZITHROMYCIN 250 MG TABLET PO STA (03:10)
[2019-05-11] MEDS ORDERED: VANCOMYCIN INJ 1,000 MG in SODIUM CHLORIDE 0.9% 250 ML IV STA (03:12)
[2019-05-11] MEDS ORDERED: guaiFENesin/CODEINE 5 ML LIQUID PO PRN (05:44)
[2019-05-11] MEDS ORDERED: ACETAMINOPHEN 325 MG TABLET PO PRN (05:44)
[2019-05-11] MEDS ORDERED: FUROSEMIDE 40 MG/4 ML VIAL IV ONE (07:43)
[2019-05-11] MEDS: PANTOPRAZOLE 40 MG TABLET PO SCH (08:38)
[2019-05-11] MEDS: methylPREDNISolone SOD SUC 40 MG/1 ML VIAL IV SCH ×2 (10:51→23:08)
[2019-05-11] MEDS: traMADol 50 MG TABLET PO PRN (16:40)
[2019-05-12] MEDS: cefTRIAXone 1,000 MG in SYRINGE 1 EACH IV SCH (04:28)
[2019-05-12 05:40] LABS: Basophils # 0.1 10*3/uL (0.0-0.2); Basophils % 0.3 % (0.0-0.8); Eosinophils % 0.1 % (0.00-10.9); Hematocrit 36.2 VOL% (42.0-52.0); Immature Granulocytes % 0.8 %; Lymphocytes # 1.4 10*3/uL (1.4-4.0); Lymphocytes % 5.6 % (21.2-54.2); Mean Corpuscular HGB Conc 33.1 GM/DL (32-36); Mean Platelet Volume 10.5 FL (9.6-12.0); Monocytes % 6.7 % (1.7-12.7); Neutrophils % 86.5 % (38.7-73.9); Platelet Count 362 T/CUMM (130-400); Red Blood Count 4.16 MC/CUMM (3.8-5.5); Red Cell Distribution Width 14.6 % (9.3-17.3); White Blood Count 24.3 T/CUMM (4-12)
[2019-05-12 06:04] LABS: Anisocytosis 1+; Lymphocytes 4 % (20-55); Platelet Estimate Adequate; Segmented Neutrophils 95 % (50-85); Total Cells Counted 100
[2019-05-12 06:06] LABS: CKMB % 10.8 %; Calcium 9.2 MG/DL (8.5-10.1)
[2019-05-12 06:08] LABS: Troponin I 0.066 NG/ML (0.00-0.045)
[2019-05-12] MEDS: AZITHROMYCIN INJ 500 MG in SODIUM CHLORIDE 0.9% 250 ML IV SCH (06:12)
[2019-05-12] MEDS: traMADol 50 MG TABLET PO PRN ×3 (06:24→21:36)
[2019-05-12] MEDS: methylPREDNISolone SOD SUC 40 MG/1 ML VIAL IV SCH ×2 (09:37→21:29)
[2019-05-12] MEDS: PANTOPRAZOLE 40 MG TABLET PO SCH (09:37)
[2019-05-13] MEDS: cefTRIAXone 1,000 MG in SYRINGE 1 EACH IV SCH (04:46)
[2019-05-13] MEDS: AZITHROMYCIN INJ 500 MG in SODIUM CHLORIDE 0.9% 250 ML IV SCH (04:59)
[2019-05-13 05:25] LABS: Basophils % 0.1 % (0.0-0.8); Hematocrit 33.7 VOL% (42.0-52.0); Hemoglobin 10.8 GM/DL (14.0-18.0); Immature Granulocytes % 0.8 %; Immature Granulocytes Absolute 0.14 #; Lymphocytes % 5.4 % (21.2-54.2); Mean Corpuscular Volume 88.7 FL (87-102); Mean Platelet Volume 10.3 FL (9.6-12.0); Monocytes % 2.8 % (1.7-12.7); Neutrophils % 90.9 % (38.7-73.9); Platelet Count 333 T/CUMM (130-400); Red Cell Distribution Width 14.6 % (9.3-17.3); White Blood Count 18.2 T/CUMM (4-12)
[2019-05-13 05:56] LABS: Calcium 8.9 MG/DL (8.5-10.1); Lymphocytes 6 % (20-55); Segmented Neutrophils 93 % (50-85); Total Cells Counted 100
[2019-05-13 05:57] LABS: Ovalocytes Few; Platelet Estimate Adequate
[2019-05-13 06:00] LABS: Troponin I 0.022 NG/ML (0.00-0.045)
[2019-05-13] MEDS: traMADol 50 MG TABLET PO PRN ×3 (08:53→21:52)
[2019-05-13] MEDS: PANTOPRAZOLE 40 MG TABLET PO SCH (08:54)
[2019-05-13] MEDS: methylPREDNISolone SOD SUC 40 MG/1 ML VIAL IV SCH ×3 (08:54→21:53)
[2019-05-14] MEDS: cefTRIAXone 1,000 MG in SYRINGE 1 EACH IV SCH (04:54)
[2019-05-14] MEDS ORDERED: AZITHROMYCIN 250 MG TABLET PO SCH (09:00)
[2019-05-14] MEDS: traMADol 50 MG TABLET PO PRN (09:29)
[2019-05-14] MEDS: PANTOPRAZOLE 40 MG TABLET PO SCH (09:29)
[2019-05-14] MEDS: methylPREDNISolone SOD SUC 40 MG/1 ML VIAL IV SCH (09:30)
[2019-05-14 12:05] VITALS: BP 152/97
== END 2019-05-14 14:05 | disposition home or self-care (01) | DRG 291 ==
LOC: N.EDINP 23:19 → N.ED 23:19 → N.5E 05-11 05:03 → SUATTDRO 05-11 14:24
PROVIDERS: ADMIT Internal Medicine Nephrology; ATTEND Internal Medicine

== ENCOUNTER 2019-08-12 06:16 | Inpatient (IN) ==
[2019-08-12] MEDS ORDERED: SODIUM CHLORIDE 0.9% 1,000 ML IV STA (06:53)
[2019-08-12] MEDS ORDERED: CEFTAROLINE 600 MG in SODIUM CHLORIDE 0.9% 100 ML IV STA (06:59)
[2019-08-12 07:09] LABS: Basophils # 0.1 10*3/uL (0.0-0.2); Basophils % 0.7 % (0.0-0.8); Eosinophils # 0.2 10*3/uL (0.0-0.87); Eosinophils % 1.4 % (0.00-10.9); Hematocrit 40.6 VOL% (42.0-52.0); Hemoglobin 13.6 GM/DL (14.0-18.0); Immature Granulocytes % 0.4 %; Immature Granulocytes Absolute 0.05 #; Lymphocytes # 1.5 10*3/uL (1.4-4.0); Lymphocytes % 11.1 % (21.2-54.2); Mean Corpuscular HGB Conc 33.5 GM/DL (32-36); Mean Corpuscular Volume 87.3 FL (87-102); Mean Platelet Volume 10.3 FL (9.6-12.0); Monocytes % 8.3 % (1.7-12.7); Neutrophils % 78.1 % (38.7-73.9); Platelet Count 324 T/CUMM (130-400); Red Blood Count 4.65 MC/CUMM (3.8-5.5); Red Cell Distribution Width 14.2 % (9.3-17.3); White Blood Count 13.7 T/CUMM (4-12)
[2019-08-12 07:17] LABS: Calcium 8.8 MG/DL (8.5-10.1); Osmolality,Calculated 280.1 MOS/KG (273-304)
[2019-08-12] MEDS ORDERED: SODIUM CHLORIDE 0.9% 3,000 ML IV ONE (07:46)
[2019-08-12] MEDS ORDERED: ACETAMINOPHEN 325 MG TABLET PO PRN (08:43)
[2019-08-12] MEDS: DOCUSATE SODIUM 100 MG CAPSULE PO SCH ×2 (11:02→21:25)
[2019-08-12] MEDS: PANTOPRAZOLE 40 MG TABLET PO SCH (11:02)
[2019-08-12] MEDS: LACTATED RINGERS 1,000 ML IV SCH ×3 (11:06→19:00)
[2019-08-12 12:34] LABS: Barbiturates Screen,Urine Negative (Negative); Benzodiazepines Screen,Urine Negative (Negative); Cannabinoid Screen,Urine Positive (Negative); Opiate Screen,Urine Positive (Negative); Phencyclidine Screen,Urine Negative (Negative)
[2019-08-12] MEDS: METOPROLOL TARTRATE 50 MG TABLET PO SCH ×2 (13:05→21:25)
[2019-08-12] MEDS: PIPERACILLIN/TAZOBACTAM 3,375 MG in SODIUM CHLORIDE 0.9% 100 ML IV SCH ×2 (13:06→20:21)
[2019-08-12] MEDS: oxyCODONE/ACETAMINOPHEN 5-325 MG TABLET PO PRN ×2 (14:46→21:26)
[2019-08-12] MEDS: VANCOMYCIN INJ 1,750 MG in SODIUM CHLORIDE 0.9% 500 ML IV SCH (16:36)
[2019-08-12] MEDS ORDERED: METOPROLOL TARTRATE 50 MG TABLET PO SCH (21:00)
[2019-08-12] MEDS ORDERED: VERAPAMIL SR 120 MG TABLET PO SCH (21:00)
[2019-08-13] MEDS: LACTATED RINGERS 1,000 ML IV SCH ×5 (00:05→21:47)
[2019-08-13] MEDS: ONDANSETRON 4 MG/2 ML VIAL IV PRN ×3 (01:48→15:48)
[2019-08-13] MEDS: VANCOMYCIN INJ 1,750 MG in SODIUM CHLORIDE 0.9% 500 ML IV SCH ×2 (03:03→15:42)
[2019-08-13] MEDS: PIPERACILLIN/TAZOBACTAM 3,375 MG in SODIUM CHLORIDE 0.9% 100 ML IV SCH ×3 (05:51→21:16)
[2019-08-13] MEDS: oxyCODONE/ACETAMINOPHEN 5-325 MG TABLET PO PRN ×4 (06:34→23:36)
[2019-08-13] MEDS: ASPIRIN EC 81 MG TABLET PO SCH (08:53)
[2019-08-13] MEDS: GABAPENTIN 100 MG CAPSULE PO SCH (08:53)
[2019-08-13] MEDS: METOPROLOL TARTRATE 50 MG TABLET PO SCH ×2 (08:54→21:16)
[2019-08-13] MEDS: PANTOPRAZOLE 40 MG TABLET PO SCH (08:54)
[2019-08-13] MEDS: DOCUSATE SODIUM 100 MG CAPSULE PO SCH ×2 (08:54→21:48)
[2019-08-13] MEDS ORDERED: LIDOCAINE 1% 20 ML VIAL MISC INJ ONE (11:30)
[2019-08-13] MEDS: VERAPAMIL SR 120 MG TABLET PO SCH (21:14)
[2019-08-14] MEDS: LACTATED RINGERS 1,000 ML IV SCH ×3 (02:05→10:01)
[2019-08-14] MEDS: VANCOMYCIN INJ 1,750 MG in SODIUM CHLORIDE 0.9% 500 ML IV SCH ×2 (03:02→17:41)
[2019-08-14 04:38] LABS: Basophils # 0.1 10*3/uL (0.0-0.2); Basophils % 0.7 % (0.0-0.8); Eosinophils # 0.3 10*3/uL (0.0-0.87); Eosinophils % 3.1 % (0.00-10.9); Immature Granulocytes % 0.3 %; Immature Granulocytes Absolute 0.03 #; Lymphocytes % 19.5 % (21.2-54.2); Mean Corpuscular HGB Conc 33.3 GM/DL (32-36); Mean Corpuscular Volume 88.2 FL (87-102); Mean Platelet Volume 10.4 FL (9.6-12.0); Monocytes % 9.2 % (1.7-12.7); Neutrophils % 67.2 % (38.7-73.9); Red Blood Count 3.74 MC/CUMM (3.8-5.5); Red Cell Distribution Width 14.2 % (9.3-17.3)
[2019-08-14 04:43] LABS: Platelet Count 250 T/CUMM (130-400)
[2019-08-14 04:44] LABS: Calcium 8.6 MG/DL (8.5-10.1); Osmolality,Calculated 281.1 MOS/KG (273-304)
[2019-08-14] MEDS: PIPERACILLIN/TAZOBACTAM 3,375 MG in SODIUM CHLORIDE 0.9% 100 ML IV SCH ×3 (05:18→20:50)
[2019-08-14] MEDS: ONDANSETRON 4 MG/2 ML VIAL IV PRN (05:19)
[2019-08-14] MEDS: oxyCODONE/ACETAMINOPHEN 5-325 MG TABLET PO PRN ×4 (06:32→21:43)
[2019-08-14] MEDS: METOPROLOL TARTRATE 50 MG TABLET PO SCH ×2 (08:51→21:30)
[2019-08-14] MEDS: VERAPAMIL SR 120 MG TABLET PO SCH ×2 (08:51→21:29)
[2019-08-14] MEDS: GABAPENTIN 100 MG CAPSULE PO SCH (10:02)
[2019-08-14] MEDS: ASPIRIN EC 81 MG TABLET PO SCH (10:02)
[2019-08-14] MEDS: DOCUSATE SODIUM 100 MG CAPSULE PO SCH ×2 (10:03→21:29)
[2019-08-14] MEDS: PANTOPRAZOLE 40 MG TABLET PO SCH (10:03)
[2019-08-14] MEDS: SODIUM HYPOCHLORITE 0.25% IRRIG 473 ML BOTTLE TOP SCH (12:54)
[2019-08-15] MEDS: oxyCODONE/ACETAMINOPHEN 5-325 MG TABLET PO PRN ×3 (01:53→10:13)
[2019-08-15] MEDS: VANCOMYCIN INJ 1,750 MG in SODIUM CHLORIDE 0.9% 500 ML IV SCH (03:55)
[2019-08-15] MEDS: ONDANSETRON 4 MG/2 ML VIAL IV PRN (03:56)
[2019-08-15 04:37] LABS: Basophils # 0.1 10*3/uL (0.0-0.2); Basophils % 0.7 % (0.0-0.8); Eosinophils # 0.4 10*3/uL (0.0-0.87); Eosinophils % 4.5 % (0.00-10.9); Hematocrit 32.6 VOL% (42.0-52.0); Hemoglobin 10.8 GM/DL (14.0-18.0); Immature Granulocytes % 0.4 %; Immature Granulocytes Absolute 0.03 #; Lymphocytes # 1.8 10*3/uL (1.4-4.0); Lymphocytes % 21.6 % (21.2-54.2); Mean Corpuscular HGB Conc 33.1 GM/DL (32-36); Mean Corpuscular Volume 87.4 FL (87-102); Mean Platelet Volume 10.2 FL (9.6-12.0); Monocytes % 9.5 % (1.7-12.7); Neutrophils % 63.3 % (38.7-73.9); Platelet Count 249 T/CUMM (130-400); Red Blood Count 3.73 MC/CUMM (3.8-5.5); Red Cell Distribution Width 13.7 % (9.3-17.3); White Blood Count 8.3 T/CUMM (4-12)
[2019-08-15] MEDS: PIPERACILLIN/TAZOBACTAM 3,375 MG in SODIUM CHLORIDE 0.9% 100 ML IV SCH ×2 (05:53→12:26)
[2019-08-15] MEDS: PANTOPRAZOLE 40 MG TABLET PO SCH (10:13)
[2019-08-15] MEDS: DOCUSATE SODIUM 100 MG CAPSULE PO SCH (10:13)
[2019-08-15] MEDS: METOPROLOL TARTRATE 50 MG TABLET PO SCH (10:13)
[2019-08-15] MEDS: GABAPENTIN 100 MG CAPSULE PO SCH (10:13)
[2019-08-15] MEDS: SODIUM HYPOCHLORITE 0.25% IRRIG 473 ML BOTTLE TOP SCH (10:14)
[2019-08-15] MEDS: ASPIRIN EC 81 MG TABLET PO SCH (10:14)
[2019-08-15] MEDS: VERAPAMIL SR 120 MG TABLET PO SCH (10:14)
[2019-08-15 11:55] VITALS: BP 105/61
== END 2019-08-15 13:23 | disposition home or self-care (01) | DRG 603 ==
LOC: N.ED 06:16 → N.EDINP 06:16 → N.2W 09:18 → N.5E 10:15 → SUATTDRO 11:36 → N.5E 14:45
PROVIDERS: ADMIT Family Medicine; ATTEND Internal Medicine

== ENCOUNTER 2020-04-03 15:11 | Inpatient (IN) ==
[2020-04-03 18:31] LABS: Basophils # 0.1 10*3/uL (0.0-0.2); Basophils % 0.4 % (0.0-0.8); Eosinophils # 0.3 10*3/uL (0.0-0.87); Eosinophils % 1.8 % (0.00-10.9); Hematocrit 30.4 VOL% (42.0-52.0); Hemoglobin 9.6 GM/DL (14.0-18.0); Immature Granulocytes % 0.4 %; Immature Granulocytes Absolute 0.08 #; Lymphocytes # 2.3 10*3/uL (1.4-4.0); Lymphocytes % 12.6 % (21.2-54.2); Mean Corpuscular HGB Conc 31.6 GM/DL (32-36); Mean Corpuscular Volume 80.6 FL (87-102); Mean Platelet Volume 9.2 FL (9.6-12.0); Monocytes % 6.4 % (1.7-12.7); Neutrophils % 78.4 % (38.7-73.9); Platelet Count 428 T/CUMM (130-400); Red Blood Count 3.77 MC/CUMM (3.8-5.5); Red Cell Distribution Width 14.7 % (9.3-17.3); White Blood Count 18.3 T/CUMM (4-12)
[2020-04-03 18:45] LABS: PT Patient Result 11.2 SECS (9.8-11.9); Partial Thromboplastin Time 32.2 SECS (23.9-33.8)
[2020-04-03 19:03] LABS: Albumin 3.2 G/DL (3.4-5.0); Bilirubin,Total 0.6 MG/DL (0.2-1.0); Calcium 8.8 MG/DL (8.5-10.1); Osmolality,Calculated 269.1 MOS/KG (273-304); Total Protein 7.6 G/DL (6.4-8.3)
[2020-04-03] MEDS ORDERED: SODIUM CHLORIDE 0.9% 500 ML IV STA (19:11)
[2020-04-03] MEDS ORDERED: methylPREDNISolone SOD SUC 125 MG/2 ML VIAL IV STA (19:11)
[2020-04-03] MEDS ORDERED: AZITHROMYCIN INJ 500 MG in SODIUM CHLORIDE 0.9% 250 ML IV STA (19:15)
[2020-04-03] MEDS ORDERED: cefTRIAXone 1,000 MG in SODIUM CHLORIDE 0.9% 100 ML IV STA (19:15)
[2020-04-03] MEDS ORDERED: DEXTROSE 5% NACL 0.45% 1,000 ML IV SCH (21:42)
[2020-04-03] MEDS ORDERED: ONDANSETRON 4 MG/2 ML VIAL IV PRN (21:42)
[2020-04-03] MEDS ORDERED: GLUCAGON 1 MG VIAL IM PRN (21:42)
[2020-04-03] MEDS ORDERED: DEXTROSE 50% 25 GM/50 ML VIAL IV PRN (21:42)
[2020-04-03] MEDS ORDERED: ACETAMINOPHEN 325 MG TABLET PO PRN (21:42)
[2020-04-04] MEDS ORDERED: FUROSEMIDE 40 MG/4 ML VIAL IV ONE (00:55)
[2020-04-04 03:58] LABS: Basophils % 0.1 % (0.0-0.8); Eosinophils % 0.1 % (0.00-10.9); Hematocrit 30.7 VOL% (42.0-52.0); Hemoglobin 9.7 GM/DL (14.0-18.0); Immature Granulocytes % 0.4 %; Immature Granulocytes Absolute 0.04 #; Lymphocytes # 0.4 10*3/uL (1.4-4.0); Lymphocytes % 4.5 % (21.2-54.2); Mean Corpuscular HGB Conc 31.6 GM/DL (32-36); Mean Corpuscular Volume 79.7 FL (87-102); Mean Platelet Volume 9.1 FL (9.6-12.0); Monocytes % 0.3 % (1.7-12.7); Neutrophils % 94.6 % (38.7-73.9); Platelet Count 410 T/CUMM (130-400); Red Blood Count 3.85 MC/CUMM (3.8-5.5); Red Cell Distribution Width 14.7 % (9.3-17.3); White Blood Count 9.7 T/CUMM (4-12)
[2020-04-04] MEDS ORDERED: methylPREDNISolone SOD SUC 40 MG/1 ML VIAL IV SCH (04:30)
[2020-04-04 04:38] LABS: Hypochromasia 1+; Lymphocytes 2 % (20-55); Microcytosis Slight; Segmented Neutrophils 97 % (50-85); Total Cells Counted 100
[2020-04-04 04:39] LABS: Hypersegmented Neutrophil SLIGHT; Platelet Estimate Increased
[2020-04-04 04:45] LABS: Albumin 3.1 G/DL (3.4-5.0); Bilirubin,Total 1.3 MG/DL (0.2-1.0); Calcium 8.7 MG/DL (8.5-10.1); Total Protein 7.5 G/DL (6.4-8.3)
[2020-04-04] MEDS: methylPREDNISolone SOD SUC 40 MG/1 ML VIAL IV SCH ×3 (04:55→21:29)
[2020-04-04] MEDS ORDERED: BENZONATATE 100 MG CAPSULE PO PRN (05:29)
[2020-04-04] MEDS ORDERED: AZITHROMYCIN INJ 250 MG in SODIUM CHLORIDE 0.9% 250 ML IV SCH (05:30)
[2020-04-04] MEDS: BUDESONIDE 0.25 MG/2 ML NEB RESP TX SCH (07:22)
[2020-04-04] MEDS ORDERED: FUROSEMIDE 40 MG/4 ML VIAL IV SCH (09:00)
[2020-04-04] MEDS ORDERED: GABAPENTIN 100 MG CAPSULE PO SCH (09:00)
[2020-04-04] MEDS: POTASSIUM CHLORIDE 20 MEQ TABLET PO SCH ×2 (09:23→21:27)
[2020-04-04] MEDS: ASPIRIN EC 81 MG TABLET PO SCH (09:23)
[2020-04-04] MEDS: PANTOPRAZOLE 40 MG TABLET PO SCH (09:23)
[2020-04-04] MEDS: AZITHROMYCIN 250 MG TABLET PO SCH (09:24)
[2020-04-04] MEDS: METOPROLOL TARTRATE 25 MG TABLET PO SCH ×3 (09:24→22:44)
[2020-04-04] MEDS: NICOTINE 7 MG/24 HR PATCH TRANSDERM SCH (09:25)
[2020-04-04] MEDS: FUROSEMIDE 40 MG/4 ML VIAL IV SCH (21:26)
[2020-04-04] MEDS: cefTRIAXone 1,000 MG in SYRINGE 1 EACH IV SCH (21:26)
[2020-04-04] MEDS: VERAPAMIL SR 120 MG TABLET PO SCH (21:29)
[2020-04-04] MEDS: GABAPENTIN 300 MG CAPSULE PO SCH (22:43)
[2020-04-05] MEDS: VERAPAMIL SR 120 MG TABLET PO SCH ×2 (00:03→22:39)
[2020-04-05] MEDS: BUDESONIDE 0.25 MG/2 ML NEB RESP TX SCH ×3 (00:12→20:30)
[2020-04-05] MEDS: methylPREDNISolone SOD SUC 40 MG/1 ML VIAL IV SCH ×3 (04:28→22:40)
[2020-04-05 06:48] LABS: Basophils % 0.1 % (0.0-0.8); Hematocrit 30.3 VOL% (42.0-52.0); Hemoglobin 9.7 GM/DL (14.0-18.0); Immature Granulocytes % 1.4 %; Immature Granulocytes Absolute 0.35 #; Lymphocytes # 1.3 10*3/uL (1.4-4.0); Mean Platelet Volume 9.7 FL (9.6-12.0); Neutrophils % 88.5 % (38.7-73.9); Platelet Count 430 T/CUMM (130-400); Red Blood Count 3.74 MC/CUMM (3.8-5.5); Red Cell Distribution Width 14.9 % (9.3-17.3); White Blood Count 24.8 T/CUMM (4-12)
[2020-04-05 07:14] LABS: Osmolality,Calculated 280.5 MOS/KG (273-304)
[2020-04-05 08:34] LABS: Hypochromasia 1+; Lymphocytes 5 % (20-55); Platelet Estimate Adequate; Segmented Neutrophils 91 % (50-85); Total Cells Counted 100
[2020-04-05 08:35] LABS: Microcytosis Slight
[2020-04-05] MEDS: GABAPENTIN 300 MG CAPSULE PO SCH ×2 (10:20→22:38)
[2020-04-05] MEDS: POTASSIUM CHLORIDE 20 MEQ TABLET PO SCH ×2 (10:20→22:40)
[2020-04-05] MEDS: NICOTINE 7 MG/24 HR PATCH TRANSDERM SCH (10:21)
[2020-04-05] MEDS: METOPROLOL TARTRATE 25 MG TABLET PO SCH (10:21)
[2020-04-05] MEDS: AZITHROMYCIN 250 MG TABLET PO SCH (10:22)
[2020-04-05] MEDS: ASPIRIN EC 81 MG TABLET PO SCH (10:22)
[2020-04-05] MEDS: PANTOPRAZOLE 40 MG TABLET PO SCH (10:22)
[2020-04-05] MEDS: FUROSEMIDE 40 MG/4 ML VIAL IV SCH ×2 (10:22→22:40)
[2020-04-05] MEDS: METOPROLOL TARTRATE 50 MG TABLET PO SCH ×2 (15:54→22:39)
[2020-04-05] MEDS: cefTRIAXone 1,000 MG in SYRINGE 1 EACH IV SCH (22:39)
[2020-04-06] MEDS: methylPREDNISolone SOD SUC 40 MG/1 ML VIAL IV SCH ×3 (04:42→21:22)
[2020-04-06 07:09] LABS: Calcium 9.1 MG/DL (8.5-10.1); Osmolality,Calculated 278.5 MOS/KG (273-304)
[2020-04-06] MEDS: BUDESONIDE 0.25 MG/2 ML NEB RESP TX SCH ×2 (08:00→20:51)
[2020-04-06] MEDS: METOPROLOL TARTRATE 50 MG TABLET PO SCH (09:43)
[2020-04-06] MEDS: AZITHROMYCIN 250 MG TABLET PO SCH (09:43)
[2020-04-06] MEDS: NICOTINE 7 MG/24 HR PATCH TRANSDERM SCH (09:43)
[2020-04-06] MEDS: POTASSIUM CHLORIDE 20 MEQ TABLET PO SCH ×2 (09:43→21:23)
[2020-04-06] MEDS: GABAPENTIN 300 MG CAPSULE PO SCH ×2 (09:44→21:23)
[2020-04-06] MEDS: FUROSEMIDE 40 MG/4 ML VIAL IV SCH ×2 (09:44→21:22)
[2020-04-06] MEDS: PANTOPRAZOLE 40 MG TABLET PO SCH (09:44)
[2020-04-06] MEDS: ASPIRIN EC 81 MG TABLET PO SCH (09:44)
[2020-04-06] MEDS: cefTRIAXone 1,000 MG in SYRINGE 1 EACH IV SCH (21:22)
[2020-04-06] MEDS: VERAPAMIL SR 120 MG TABLET PO SCH (21:23)
[2020-04-06] MEDS: METOPROLOL SUCCINATE XL 50 MG TABLET PO SCH (21:23)
[2020-04-07] MEDS: methylPREDNISolone SOD SUC 40 MG/1 ML VIAL IV SCH ×2 (03:53→13:22)
[2020-04-07] MEDS: BUDESONIDE 0.25 MG/2 ML NEB RESP TX SCH ×2 (07:25→19:22)
[2020-04-07] MEDS: ASPIRIN EC 81 MG TABLET PO SCH (09:54)
[2020-04-07] MEDS: PANTOPRAZOLE 40 MG TABLET PO SCH (09:54)
[2020-04-07] MEDS: GABAPENTIN 300 MG CAPSULE PO SCH (09:54)
[2020-04-07] MEDS: AZITHROMYCIN 250 MG TABLET PO SCH (09:54)
[2020-04-07] MEDS: POTASSIUM CHLORIDE 20 MEQ TABLET PO SCH (09:54)
[2020-04-07] MEDS: NICOTINE 7 MG/24 HR PATCH TRANSDERM SCH (09:54)
[2020-04-07] MEDS: METOPROLOL SUCCINATE XL 50 MG TABLET PO SCH (09:54)
[2020-04-07] MEDS: FUROSEMIDE 40 MG/4 ML VIAL IV SCH (09:55)
[2020-04-07 16:43] VITALS: BP 142/69
[2020-04-07] MEDS ORDERED: ALUMINUM/MAGNES/SIMETH MAX STR 30 ML UDCUP PO ONE (17:41)
== END 2020-04-07 20:45 | disposition home or self-care (01) | DRG 196 ==
LOC: N.ED 15:11 → N.EDINP 20:07 → N.TELEN 21:36
PROVIDERS: ADMIT Family Medicine; ATTEND Family Medicine

== ENCOUNTER 2020-05-11 09:50 | Inpatient (IN) ==
[2020-05-11] MEDS ORDERED: ONDANSETRON 4 MG/2 ML VIAL IV STA (10:34)
[2020-05-11 11:26] LABS: Basophils % 0.2 % (0.0-0.8); Eosinophils % 0.2 % (0.00-10.9); Hematocrit 23.3 VOL% (42.0-52.0); Hemoglobin 7.1 GM/DL (14.0-18.0); Immature Granulocytes % 0.8 %; Immature Granulocytes Absolute 0.13 #; Mean Corpuscular HGB Conc 30.5 GM/DL (32-36); Mean Corpuscular Volume 76.6 FL (87-102); Mean Platelet Volume 8.9 FL (9.6-12.0); Monocytes % 3.7 % (1.7-12.7); Neutrophils % 89.1 % (38.7-73.9); Platelet Count 336 T/CUMM (130-400); Red Blood Count 3.04 MC/CUMM (3.8-5.5); Red Cell Distribution Width 15.7 % (9.3-17.3)
[2020-05-11 11:37] LABS: Apearance,Urine Slightly Hazy (Clear); Bilirubin,Urine Negative (Negative); Blood, Urine Moderate mg/dL (Negative); Calcium Oxalate Crystals,Urine Occasional /HPF (Few); Glucose,Urine (UA) Negative (Negative); Ketones,Urine Negative (Negative); Mucus,Urine Few /LPF (Occasional); Nitrite,Urine Negative (Negative); Protein,Urine 30 MG/DL; RBC,Urine 5 /HPF (0-4); Urine Color Yellow (Yellow); Urine Specific Gravity 1.026 (1.001-1.035); Urine Urobilinogen < 2.0 EU/DL (0.2-1.0); WBC,Urine 1 /HPF (0-6)
[2020-05-11 11:45] LABS: Albumin 2.8 G/DL (3.4-5.0); Bilirubin,Total 0.6 MG/DL (0.2-1.0); Calcium 8.3 MG/DL (8.5-10.1); Osmolality,Calculated 265.2 MOS/KG (273-304); Total Protein 7.1 G/DL (6.4-8.3)
[2020-05-11 11:46] LABS: Ferritin 96.5 ng/ml (26-388)
[2020-05-11] MEDS ORDERED: POTASSIUM CHLORIDE 20 MEQ TABLET PO STA (11:50)
[2020-05-11 11:55] LABS: Barbiturates Screen,Urine Negative (Negative); Benzodiazepines Screen,Urine Negative (Negative); Cannabinoid Screen,Urine Positive (Negative); Opiate Screen,Urine Negative (Negative); Phencyclidine Screen,Urine Negative (Negative)
[2020-05-11 12:13] LABS: INR 1.1; PT Patient Result 11.9 SECS (9.8-11.9)
[2020-05-11] MEDS ORDERED: FUROSEMIDE 100 MG/10 ML VIAL IV STA (12:16)
[2020-05-11] MEDS ORDERED: FUROSEMIDE 40 MG/4 ML VIAL ONE (12:24)
[2020-05-11] MEDS ORDERED: GABAPENTIN 300 MG CAPSULE PO STA (13:09)
[2020-05-11] MEDS ORDERED: CYCLOBENZAPRINE 10 MG TABLET PO STA (13:10)
[2020-05-11] MEDS ORDERED: SODIUM CHLORIDE 0.9% 1,000 ML IV PRN (13:17)
[2020-05-11] MEDS ORDERED: ACETAMINOPHEN 500 MG TABLET ONE (16:36)
[2020-05-11] MEDS ORDERED: SODIUM CHLORIDE 0.9% 250 ML IV STA (18:53)
[2020-05-11 19:37] LABS: Hematocrit 25.6 VOL% (42.0-52.0); Hemoglobin 7.8 GM/DL (14.0-18.0)
[2020-05-11] MEDS ORDERED: MAGNESIUM SULF RIDER 2 GM in PREMIX 1 EACH IV PRN (19:54)
[2020-05-11] MEDS ORDERED: MAGNESIUM SULF RIDER 4 GM in PREMIX 1 EACH IV PRN (19:54)
[2020-05-11] MEDS: POTASSIUM CHLORIDE RIDER 10 MEQ in PREMIX 1 EACH IV PRN ×2 (20:48→21:51)
[2020-05-11] MEDS: POTASSIUM CHLORIDE 20 MEQ TABLET PO SCH (21:50)
[2020-05-11] MEDS: DOCUSATE SODIUM 100 MG CAPSULE PO SCH (21:50)
[2020-05-11 23:59] LABS: Calcium 8.1 MG/DL (8.5-10.1)
[2020-05-12] MEDS: ACETAMINOPHEN 325 MG TABLET PO PRN ×2 (03:53→20:58)
[2020-05-12 04:32] LABS: Basophils # 0.1 10*3/uL (0.0-0.2); Basophils % 0.4 % (0.0-0.8); Eosinophils # 0.1 10*3/uL (0.0-0.87); Eosinophils % 1.1 % (0.00-10.9); Hematocrit 22.7 VOL% (42.0-52.0); Immature Granulocytes % 0.4 %; Immature Granulocytes Absolute 0.05 #; Lymphocytes # 1.1 10*3/uL (1.4-4.0); Lymphocytes % 8.8 % (21.2-54.2); Mean Corpuscular HGB Conc 30.8 GM/DL (32-36); Mean Corpuscular Volume 76.7 FL (87-102); Mean Platelet Volume 9.3 FL (9.6-12.0); Monocytes % 4.2 % (1.7-12.7); Neutrophils % 85.1 % (38.7-73.9); Platelet Count 323 T/CUMM (130-400); Red Blood Count 2.96 MC/CUMM (3.8-5.5); Red Cell Distribution Width 16.1 % (9.3-17.3); White Blood Count 12.6 T/CUMM (4-12)
[2020-05-12 04:45] LABS: Albumin 2.4 G/DL (3.4-5.0); Bilirubin,Total 0.7 MG/DL (0.2-1.0); Osmolality,Calculated 268.1 MOS/KG (273-304); Total Protein 6.3 G/DL (6.4-8.3)
[2020-05-12 06:56] LABS: Hematocrit 22.8 VOL% (42.0-52.0); Hemoglobin 7.1 GM/DL (14.0-18.0)
[2020-05-12] MEDS ORDERED: BACLOFEN 10 MG TABLET PO ONE (07:35)
[2020-05-12] MEDS ORDERED: MAGNESIUM CHLORIDE 64 MG TABLET PO STA (07:36)
[2020-05-12] MEDS ORDERED: MAGNESIUM SULF RIDER 2 GM in PREMIX 1 EACH IV ONE (07:47)
[2020-05-12] MEDS ORDERED: POTASSIUM CHLORIDE 20 MEQ TABLET PO ONE (07:47)
[2020-05-12] MEDS: FUROSEMIDE 40 MG/4 ML VIAL IV SCH ×2 (08:30→15:42)
[2020-05-12] MEDS: VERAPAMIL SR 120 MG TABLET PO SCH ×2 (08:53→20:58)
[2020-05-12] MEDS: PANTOPRAZOLE 40 MG TABLET PO SCH (08:55)
[2020-05-12] MEDS: DOCUSATE SODIUM 100 MG CAPSULE PO SCH ×2 (08:55→20:58)
[2020-05-12] MEDS: METOPROLOL SUCCINATE XL 50 MG TABLET PO SCH ×2 (08:56→20:58)
[2020-05-12] MEDS ORDERED: ASPIRIN EC 81 MG TABLET PO SCH (09:00)
[2020-05-12] MEDS ORDERED: GABAPENTIN 300 MG CAPSULE PO SCH (09:00)
[2020-05-12] MEDS: POTASSIUM CHLORIDE 20 MEQ TABLET PO SCH ×2 (10:00→20:58)
[2020-05-12] MEDS ORDERED: SODIUM CHLORIDE 0.9% 1,000 ML IV PRN (10:06)
[2020-05-12] MEDS ORDERED: ALBUTEROL/IPRATROPIUM 3 ML NEB RESP TX ONE (11:42)
[2020-05-12] MEDS: ALBUTEROL/IPRATROPIUM 3 ML NEB RESP TX SCH ×3 (16:19→22:14)
[2020-05-12] MEDS: ONDANSETRON 4 MG/2 ML VIAL IV PRN (20:59)
[2020-05-12] MEDS: GABAPENTIN 300 MG CAPSULE PO SCH (23:44)
[2020-05-13 05:56] LABS: Basophils % 0.2 % (0.0-0.8); Eosinophils % 0.4 % (0.00-10.9); Hematocrit 29.1 VOL% (42.0-52.0); Immature Granulocytes % 0.5 %; Immature Granulocytes Absolute 0.06 #; Lymphocytes # 0.7 10*3/uL (1.4-4.0); Lymphocytes % 6.4 % (21.2-54.2); Mean Corpuscular HGB Conc 30.9 GM/DL (32-36); Mean Corpuscular Volume 78.4 FL (87-102); Mean Platelet Volume 8.8 FL (9.6-12.0); Monocytes % 3.3 % (1.7-12.7); Neutrophils % 89.2 % (38.7-73.9); Platelet Count 376 T/CUMM (130-400); Red Cell Distribution Width 16.6 % (9.3-17.3); White Blood Count 11.3 T/CUMM (4-12)
[2020-05-13 05:57] LABS: Red Blood Count 3.71 MC/CUMM (3.8-5.5)
[2020-05-13 06:18] LABS: Calcium 8.7 MG/DL (8.5-10.1)
[2020-05-13] MEDS: ONDANSETRON 4 MG/2 ML VIAL IV PRN ×3 (08:48→22:33)
[2020-05-13] MEDS: ALBUTEROL/IPRATROPIUM 3 ML NEB RESP TX SCH (08:49)
[2020-05-13] MEDS ORDERED: ETOMIDATE 20 MG/10 ML VIAL IV ONE (09:00)
[2020-05-13] MEDS ORDERED: LIDOCAINE 2% 5 ML VIAL ONE (09:00)
[2020-05-13] MEDS ORDERED: BACLOFEN 10 MG TABLET PO SCH (09:00)
[2020-05-13] MEDS ORDERED: propofoL 200 MG/20 ML VIAL IV ONE (09:00)
[2020-05-13] MEDS: LACTATED RINGERS 1,000 ML IV SCH (12:07)
[2020-05-13] MEDS: VERAPAMIL SR 120 MG TABLET PO SCH ×2 (15:00→21:20)
[2020-05-13] MEDS: METOPROLOL SUCCINATE XL 50 MG TABLET PO SCH ×2 (15:00→21:20)
[2020-05-13] MEDS: DOCUSATE SODIUM 100 MG CAPSULE PO SCH ×3 (15:00→21:23)
[2020-05-13] MEDS: POTASSIUM CHLORIDE 20 MEQ TABLET PO SCH ×2 (15:01→21:20)
[2020-05-13] MEDS: PANTOPRAZOLE 40 MG TABLET PO SCH (15:01)
[2020-05-13] MEDS: FUROSEMIDE 40 MG/4 ML VIAL IV SCH ×2 (15:06→17:18)
[2020-05-13] MEDS: METHOCARBAMOL 750 MG TABLET PO SCH ×2 (15:06→17:18)
[2020-05-13] MEDS: ACETAMINOPHEN 325 MG TABLET PO PRN ×2 (17:29→22:32)
[2020-05-13] MEDS: GABAPENTIN 300 MG CAPSULE PO SCH (21:20)
[2020-05-14 06:07] LABS: Calcium 9.3 MG/DL (8.5-10.1); Osmolality,Calculated 264.5 MOS/KG (273-304)
[2020-05-14 06:10] LABS: Basophils % 0.2 % (0.0-0.8); Eosinophils % 0.2 % (0.00-10.9); Hematocrit 36.1 VOL% (42.0-52.0); Hemoglobin 10.9 GM/DL (14.0-18.0); Immature Granulocytes % 0.5 %; Immature Granulocytes Absolute 0.07 #; Lymphocytes # 1.1 10*3/uL (1.4-4.0); Lymphocytes % 8.3 % (21.2-54.2); Mean Corpuscular HGB Conc 30.2 GM/DL (32-36); Mean Corpuscular Volume 78.6 FL (87-102); Mean Platelet Volume 9.3 FL (9.6-12.0); Monocytes % 4.4 % (1.7-12.7); Neutrophils % 86.4 % (38.7-73.9); Platelet Count 455 T/CUMM (130-400); Red Blood Count 4.59 MC/CUMM (3.8-5.5); Red Cell Distribution Width 16.9 % (9.3-17.3); White Blood Count 13.2 T/CUMM (4-12)
[2020-05-14] MEDS: METHOCARBAMOL 750 MG TABLET PO SCH (08:51)
[2020-05-14] MEDS: METOPROLOL SUCCINATE XL 50 MG TABLET PO SCH ×2 (08:51→21:10)
[2020-05-14] MEDS: PANTOPRAZOLE 40 MG TABLET PO SCH (08:51)
[2020-05-14] MEDS: FLUCONAZOLE 100 MG TABLET PO SCH (08:51)
[2020-05-14] MEDS: POTASSIUM CHLORIDE 20 MEQ TABLET PO SCH ×2 (08:51→21:13)
[2020-05-14] MEDS: VERAPAMIL SR 120 MG TABLET PO SCH ×2 (08:51→21:09)
[2020-05-14] MEDS: FUROSEMIDE 40 MG/4 ML VIAL IV SCH (08:54)
[2020-05-14] MEDS: DOCUSATE SODIUM 100 MG CAPSULE PO SCH ×2 (09:20→21:21)
[2020-05-14] MEDS: ACETAMINOPHEN 325 MG TABLET PO PRN ×2 (09:20→21:12)
[2020-05-14] MEDS: ONDANSETRON 4 MG/2 ML VIAL IV PRN (09:22)
[2020-05-14] MEDS: cefTRIAXone 1,000 MG in SYRINGE 1 EACH IV SCH (11:07)
[2020-05-14] MEDS: GABAPENTIN 300 MG CAPSULE PO SCH ×2 (11:07→21:09)
[2020-05-14] MEDS: LACTATED RINGERS 1,000 ML IV SCH (11:17)
[2020-05-15 04:09] LABS: Basophils % 0.3 % (0.0-0.8); Eosinophils # 0.1 10*3/uL (0.0-0.87); Eosinophils % 0.7 % (0.00-10.9); Hematocrit 28.8 VOL% (42.0-52.0); Immature Granulocytes % 0.6 %; Immature Granulocytes Absolute 0.07 #; Lymphocytes % 16.1 % (21.2-54.2); Mean Corpuscular HGB Conc 31.3 GM/DL (32-36); Mean Platelet Volume 8.7 FL (9.6-12.0); Monocytes % 9.5 % (1.7-12.7); Neutrophils % 72.8 % (38.7-73.9); Platelet Count 382 T/CUMM (130-400); Red Blood Count 3.74 MC/CUMM (3.8-5.5); Red Cell Distribution Width 16.5 % (9.3-17.3); White Blood Count 12.1 T/CUMM (4-12)
[2020-05-15 04:53] LABS: Calcium 8.8 MG/DL (8.5-10.1); Osmolality,Calculated 267.2 MOS/KG (273-304)
[2020-05-15] MEDS: ACETAMINOPHEN 325 MG TABLET PO PRN ×2 (07:28→14:23)
[2020-05-15] MEDS: DOCUSATE SODIUM 100 MG CAPSULE PO SCH (08:30)
[2020-05-15] MEDS: VERAPAMIL SR 120 MG TABLET PO SCH (08:30)
[2020-05-15] MEDS: LACTATED RINGERS 1,000 ML IV SCH (08:30)
[2020-05-15] MEDS: PANTOPRAZOLE 40 MG TABLET PO SCH (08:31)
[2020-05-15] MEDS: POTASSIUM CHLORIDE 20 MEQ TABLET PO SCH (08:31)
[2020-05-15] MEDS: METHOCARBAMOL 750 MG TABLET PO SCH (08:31)
[2020-05-15] MEDS: GABAPENTIN 300 MG CAPSULE PO SCH (08:31)
[2020-05-15] MEDS: FLUCONAZOLE 100 MG TABLET PO SCH (08:31)
[2020-05-15] MEDS: METOPROLOL SUCCINATE XL 50 MG TABLET PO SCH (08:32)
[2020-05-15] MEDS ORDERED: FUROSEMIDE 40 MG TABLET PO SCH (09:00)
[2020-05-15] MEDS: cefTRIAXone 1,000 MG in SYRINGE 1 EACH IV SCH (11:29)
[2020-05-15 15:31] LABS: Hematocrit 30.7 VOL% (42.0-52.0); Hemoglobin 9.1 GM/DL (14.0-18.0)
[2020-05-15 16:51] VITALS: BP 132/67
== END 2020-05-15 17:50 | disposition home or self-care (01) | DRG 377 ==
LOC: N.ED 09:50 → N.EDINP 14:53 → N.TELEN 05-12 11:43
PROVIDERS: ADMIT Family Medicine; ATTEND Family Medicine

== ENCOUNTER 2020-06-30 14:54 | Inpatient (IN) ==
[2020-06-30 15:28] LABS: Basophils # 0.1 10*3/uL (0.0-0.2); Basophils % 0.3 % (0.0-0.8); Eosinophils % 0.2 % (0.00-10.9); Hematocrit 23.6 VOL% (42.0-52.0); Hemoglobin 7.1 GM/DL (14.0-18.0); Immature Granulocytes % 0.9 %; Immature Granulocytes Absolute 0.15 #; Lymphocytes # 1.3 10*3/uL (1.4-4.0); Lymphocytes % 7.5 % (21.2-54.2); Mean Corpuscular HGB Conc 30.1 GM/DL (32-36); Mean Corpuscular Volume 73.5 FL (87-102); Mean Platelet Volume 9.1 FL (9.6-12.0); Monocytes % 5.3 % (1.7-12.7); Neutrophils % 85.8 % (38.7-73.9); Platelet Count 313 T/CUMM (130-400); Red Blood Count 3.21 MC/CUMM (3.8-5.5); Red Cell Distribution Width 16.8 % (9.3-17.3); White Blood Count 16.9 T/CUMM (4-12)
[2020-06-30 15:49] LABS: Bilirubin,Total 1.2 MG/DL (0.2-1.0); Calcium 8.1 MG/DL (8.5-10.1); Osmolality,Calculated 266.4 MOS/KG (273-304)
[2020-06-30] MEDS ORDERED: GLUCAGON 1 MG VIAL IM PRN (19:13)
[2020-06-30] MEDS ORDERED: DEXTROSE 50% 25 GM/50 ML VIAL IV PRN (19:13)
[2020-06-30] MEDS ORDERED: SODIUM CHLORIDE 0.9% 1,000 ML IV PRN (19:24)
[2020-06-30 20:34] LABS: Basophils % 0.3 % (0.0-0.8); Eosinophils % 0.3 % (0.00-10.9); Hematocrit 25.2 VOL% (42.0-52.0); Hemoglobin 7.5 GM/DL (14.0-18.0); Immature Granulocytes % 0.9 %; Immature Granulocytes Absolute 0.11 #; Lymphocytes # 1.1 10*3/uL (1.4-4.0); Lymphocytes % 9.3 % (21.2-54.2); Mean Corpuscular HGB Conc 29.8 GM/DL (32-36); Mean Corpuscular Volume 74.6 FL (87-102); Mean Platelet Volume 8.9 FL (9.6-12.0); Monocytes % 4.5 % (1.7-12.7); Neutrophils % 84.7 % (38.7-73.9); Platelet Count 266 T/CUMM (130-400); Red Blood Count 3.38 MC/CUMM (3.8-5.5); Red Cell Distribution Width 16.8 % (9.3-17.3); White Blood Count 11.9 T/CUMM (4-12)
[2020-06-30 20:55] LABS: Folate 15.5 NG/ML (5.4-24.0); Vitamin B12 621 PG/ML (211-911)
[2020-06-30] MEDS ORDERED: VERAPAMIL SR 120 MG TABLET PO SCH (21:00)
[2020-06-30 21:34] LABS: Sedimentation Rate-Westergren 82 MM/HR (0-15)
[2020-06-30] MEDS: PANTOPRAZOLE 40 MG VIAL IV SCH (22:49)
[2020-06-30] MEDS: GABAPENTIN 300 MG CAPSULE PO SCH (22:50)
[2020-06-30] MEDS: FUROSEMIDE 40 MG TABLET PO SCH (22:50)
[2020-06-30] MEDS: carisoprodoL 350 MG TABLET PO PRN (22:51)
[2020-06-30] MEDS: METOPROLOL SUCCINATE XL 50 MG TABLET PO SCH (22:52)
[2020-06-30] MEDS: VERAPAMIL SR 240 MG TABLET PO SCH (22:57)
[2020-07-01] MEDS ORDERED: predniSONE 10 MG TABLET PO ONE (03:09)
[2020-07-01] MEDS: POTASSIUM CHLORIDE 20 MEQ TABLET PO PRN ×2 (03:55→06:04)
[2020-07-01] MEDS: ONDANSETRON 4 MG/2 ML VIAL IV PRN (03:55)
[2020-07-01 06:04] LABS: Basophils # 0.1 10*3/uL (0.0-0.2); Basophils % 0.3 % (0.0-0.8); Eosinophils # 0.1 10*3/uL (0.0-0.87); Eosinophils % 0.5 % (0.00-10.9); Hematocrit 28.6 VOL% (42.0-52.0); Hemoglobin 8.5 GM/DL (14.0-18.0); Immature Granulocytes % 0.6 %; Immature Granulocytes Absolute 0.13 #; Lymphocytes # 1.1 10*3/uL (1.4-4.0); Lymphocytes % 5.3 % (21.2-54.2); Mean Corpuscular HGB Conc 29.7 GM/DL (32-36); Mean Corpuscular Volume 76.3 FL (87-102); Mean Platelet Volume 9.7 FL (9.6-12.0); Monocytes % 4.4 % (1.7-12.7); Neutrophils % 88.9 % (38.7-73.9); Platelet Count 368 T/CUMM (130-400); Red Blood Count 3.75 MC/CUMM (3.8-5.5); Red Cell Distribution Width 17.2 % (9.3-17.3); White Blood Count 20.5 T/CUMM (4-12)
[2020-07-01 06:28] LABS: Band Neutrophils 1 % (0-10); Lymphocytes 4 % (20-55); Platelet Estimate Adequate; Segmented Neutrophils 92 % (50-85); Total Cells Counted 100
[2020-07-01 06:29] LABS: Hypochromasia 2+; Microcytosis 1+
[2020-07-01 06:47] LABS: Calcium 8.8 MG/DL (8.5-10.1); Osmolality,Calculated 265.2 MOS/KG (273-304); Risk Ratio 4.15; Thyroid Stimulating Hormone 1.03 uIU/ml (0.358-3.74); VLDL CHOLESTEROL 18.6 MG/DL
[2020-07-01] MEDS: POTASSIUM CHLORIDE RIDER 10 MEQ in PREMIX 1 EACH IV PRN ×6 (08:42→21:51)
[2020-07-01] MEDS: PANTOPRAZOLE 40 MG VIAL IV SCH ×2 (08:52→21:53)
[2020-07-01] MEDS ORDERED: predniSONE 10 MG TABLET PO SCH ×3 (09:00)
[2020-07-01] MEDS: METOPROLOL SUCCINATE XL 50 MG TABLET PO SCH ×2 (10:57→21:54)
[2020-07-01] MEDS: FUROSEMIDE 40 MG TABLET PO SCH ×2 (10:57→21:53)
[2020-07-01] MEDS: VERAPAMIL SR 240 MG TABLET PO SCH ×2 (10:57→21:54)
[2020-07-01] MEDS: GABAPENTIN 300 MG CAPSULE PO SCH ×2 (10:57→21:53)
[2020-07-01 11:30] LABS: Hemoglobin A1 (Alkaline) 97.2 % (96.5-98.5); Hemoglobin A2 (Alkaline) 2.8 % (1.5-3.5)
[2020-07-01] MEDS ORDERED: BISACODYL 5 MG TABLET PO ONE (17:00)
[2020-07-01] MEDS ORDERED: POLYETHYLENE GLYCOL POWDER 255 GM BOTTLE PO ONE (18:00)
[2020-07-01] MEDS: predniSONE 10 MG TABLET PO SCH (21:53)
[2020-07-01] MEDS: carisoprodoL 350 MG TABLET PO PRN (22:35)
[2020-07-02 01:39] LABS: Basophils # 0.1 10*3/uL (0.0-0.2); Basophils % 0.3 % (0.0-0.8); Eosinophils # 0.1 10*3/uL (0.0-0.87); Eosinophils % 0.6 % (0.00-10.9); Hematocrit 23.8 VOL% (42.0-52.0); Hemoglobin 7.1 GM/DL (14.0-18.0); Immature Granulocytes % 0.9 %; Immature Granulocytes Absolute 0.16 #; Lymphocytes # 0.5 10*3/uL (1.4-4.0); Mean Corpuscular HGB Conc 29.8 GM/DL (32-36); Mean Corpuscular Volume 75.6 FL (87-102); Mean Platelet Volume 8.9 FL (9.6-12.0); Monocytes % 4.2 % (1.7-12.7); Platelet Count 263 T/CUMM (130-400); Red Blood Count 3.15 MC/CUMM (3.8-5.5); Red Cell Distribution Width 16.9 % (9.3-17.3); White Blood Count 17.8 T/CUMM (4-12)
[2020-07-02 01:53] LABS: Calcium 8.8 MG/DL (8.5-10.1); Osmolality,Calculated 267.2 MOS/KG (273-304)
[2020-07-02 02:11] LABS: INR 1.2; PT Patient Result 12.4 SECS (9.8-11.9)
[2020-07-02 02:24] LABS: Lymphocytes 2 % (20-55); Segmented Neutrophils 95 % (50-85); Total Cells Counted 100
[2020-07-02 02:25] LABS: Hypochromasia 1+; Ovalocytes 1+; Platelet Estimate Normal; Polychromasia Few
[2020-07-02] MEDS: POTASSIUM CHLORIDE 20 MEQ TABLET PO PRN ×3 (04:09→10:31)
[2020-07-02] MEDS ORDERED: MAGNESIUM CITRATE 300 ML BOTTLE PO ONE (06:00)
[2020-07-02] MEDS ORDERED: SODIUM CHLORIDE 0.9% 1,000 ML IV PRN ×2 (08:10→08:45)
[2020-07-02] MEDS ORDERED: FUROSEMIDE 20 MG/2 ML VIAL IV PRN (08:45)
[2020-07-02] MEDS ORDERED: ETOMIDATE 20 MG/10 ML VIAL IV ONE (09:00)
[2020-07-02] MEDS ORDERED: propofoL 200 MG/20 ML VIAL IV ONE (09:00)
[2020-07-02] MEDS ORDERED: LIDOCAINE 2% 5 ML VIAL ONE (09:00)
[2020-07-02] MEDS: VERAPAMIL SR 240 MG TABLET PO SCH ×2 (10:30→20:57)
[2020-07-02] MEDS: FUROSEMIDE 40 MG TABLET PO SCH ×2 (10:31→20:58)
[2020-07-02] MEDS: PANTOPRAZOLE 40 MG VIAL IV SCH ×2 (10:31→20:58)
[2020-07-02] MEDS: METOPROLOL SUCCINATE XL 50 MG TABLET PO SCH ×2 (10:31→20:59)
[2020-07-02] MEDS: GABAPENTIN 300 MG CAPSULE PO SCH ×2 (11:14→20:58)
[2020-07-02] MEDS: LACTATED RINGERS 1,000 ML IV SCH (12:00)
[2020-07-02 17:06] LABS: Hematocrit 30.2 VOL% (42.0-52.0)
[2020-07-02] MEDS ORDERED: FUROSEMIDE 20 MG/2 ML VIAL IV ONE (18:07)
[2020-07-02] MEDS: predniSONE 10 MG TABLET PO SCH (20:58)
[2020-07-02] MEDS: carisoprodoL 350 MG TABLET PO PRN (20:58)
[2020-07-02] MEDS: ACETAMINOPHEN 325 MG TABLET PO PRN (22:16)
[2020-07-03 00:11] LABS: Bilirubin,Urine Negative (Negative); Blood, Urine Moderate mg/dL (Negative); Glucose,Urine (UA) Negative (Negative); Ketones,Urine Negative (Negative); Mucus,Urine Occasional /LPF (Occasional); Nitrite,Urine Negative (Negative); Protein,Urine Negative; RBC,Urine 2 /HPF (0-4); Squamous Epithelial Cell,Urine Occasional /HPF (0-10); Urine Appearance CLEAR (Clear); Urine Color Yellow (Yellow); Urine Specific Gravity 1.016 (1.001-1.035); Urine Urobilinogen < 2.0 EU/DL (0.2-1.0); WBC,Urine 2 /HPF (0-6)
[2020-07-03] MEDS: POTASSIUM CHLORIDE 20 MEQ TABLET PO PRN ×3 (00:50→06:10)
[2020-07-03] MEDS: PANTOPRAZOLE 40 MG VIAL IV SCH ×2 (08:07→21:22)
[2020-07-03] MEDS: GABAPENTIN 300 MG CAPSULE PO SCH ×2 (08:09→21:22)
[2020-07-03] MEDS: METOPROLOL SUCCINATE XL 50 MG TABLET PO SCH ×2 (08:09→21:22)
[2020-07-03] MEDS: FUROSEMIDE 40 MG TABLET PO SCH ×2 (08:09→21:23)
[2020-07-03] MEDS: VERAPAMIL SR 240 MG TABLET PO SCH ×2 (08:16→22:46)
[2020-07-03 08:54] LABS: Basophils % 0.2 % (0.0-0.8); Eosinophils % 0.2 % (0.00-10.9); Hematocrit 30.4 VOL% (42.0-52.0); Immature Granulocytes % 1.6 %; Immature Granulocytes Absolute 0.27 #; Lymphocytes # 1.2 10*3/uL (1.4-4.0); Lymphocytes % 6.7 % (21.2-54.2); Mean Corpuscular HGB Conc 29.6 GM/DL (32-36); Mean Corpuscular Volume 78.1 FL (87-102); Mean Platelet Volume 9.1 FL (9.6-12.0); Monocytes % 3.5 % (1.7-12.7); Neutrophils % 87.8 % (38.7-73.9); Platelet Count 288 T/CUMM (130-400); Red Blood Count 3.89 MC/CUMM (3.8-5.5); Red Cell Distribution Width 17.6 % (9.3-17.3); White Blood Count 17.2 T/CUMM (4-12)
[2020-07-03 09:22] LABS: Osmolality,Calculated 269.1 MOS/KG (273-304)
[2020-07-03] MEDS: LACTATED RINGERS 1,000 ML IV SCH (11:10)
[2020-07-03] MEDS: predniSONE 10 MG TABLET PO SCH (21:23)
[2020-07-03] MEDS: ONDANSETRON 4 MG/2 ML VIAL IV PRN (22:46)
[2020-07-03] MEDS: carisoprodoL 350 MG TABLET PO PRN (22:58)
[2020-07-03] MEDS: ACETAMINOPHEN 325 MG TABLET PO PRN (23:43)
[2020-07-04 08:10] LABS: Basophils % 0.3 % (0.0-0.8); Eosinophils # 0.1 10*3/uL (0.0-0.87); Eosinophils % 0.4 % (0.00-10.9); Immature Granulocytes % 0.9 %; Lymphocytes # 1.1 10*3/uL (1.4-4.0); Lymphocytes % 9.9 % (21.2-54.2); Mean Corpuscular Volume 74.7 FL (87-102); Neutrophils % 83.5 % (38.7-73.9); Platelet Count 271 T/CUMM (130-400); Red Blood Count 3.88 MC/CUMM (3.8-5.5); Red Cell Distribution Width 17.8 % (9.3-17.3); White Blood Count 11.3 T/CUMM (4-12)
[2020-07-04] MEDS: GABAPENTIN 300 MG CAPSULE PO SCH ×2 (09:07→21:03)
[2020-07-04] MEDS: PANTOPRAZOLE 40 MG VIAL IV SCH ×2 (09:08→21:03)
[2020-07-04] MEDS: METOPROLOL SUCCINATE XL 50 MG TABLET PO SCH ×2 (09:08→21:02)
[2020-07-04] MEDS: VERAPAMIL SR 240 MG TABLET PO SCH ×2 (09:08→21:03)
[2020-07-04] MEDS: POTASSIUM CHLORIDE 20 MEQ TABLET PO PRN (09:08)
[2020-07-04] MEDS: FUROSEMIDE 40 MG TABLET PO SCH ×2 (09:08→21:03)
[2020-07-04] MEDS: LACTATED RINGERS 1,000 ML IV SCH (09:12)
[2020-07-04] MEDS: ACETAMINOPHEN 325 MG TABLET PO PRN (09:56)
[2020-07-04] MEDS: PENICILLIN G POTASSIUM INJ 5,000,000 UNIT in SODIUM CHLORIDE 0.9% 100 ML IV SCH ×3 (12:00→22:50)
[2020-07-04 13:50] LABS: Osmolality,Calculated 269.1 MOS/KG (273-304)
[2020-07-04] MEDS: GENTAMICIN INJ 100 MG in PREMIX 1 EACH IV SCH (18:20)
[2020-07-04] MEDS: carisoprodoL 350 MG TABLET PO PRN (21:02)
[2020-07-04] MEDS: predniSONE 10 MG TABLET PO SCH (21:03)
[2020-07-05] MEDS: GENTAMICIN INJ 100 MG in PREMIX 1 EACH IV SCH ×3 (00:39→16:48)
[2020-07-05] MEDS: ACETAMINOPHEN 325 MG TABLET PO PRN ×4 (02:27→22:40)
[2020-07-05] MEDS: PENICILLIN G POTASSIUM INJ 5,000,000 UNIT in SODIUM CHLORIDE 0.9% 100 ML IV SCH ×4 (04:32→22:41)
[2020-07-05 06:48] LABS: Basophils # 0.1 10*3/uL (0.0-0.2); Basophils % 0.4 % (0.0-0.8); Eosinophils # 0.2 10*3/uL (0.0-0.87); Eosinophils % 1.5 % (0.00-10.9); Hematocrit 31.6 VOL% (42.0-52.0); Hemoglobin 9.6 GM/DL (14.0-18.0); Immature Granulocytes Absolute 0.14 #; Lymphocytes # 0.9 10*3/uL (1.4-4.0); Lymphocytes % 6.7 % (21.2-54.2); Mean Corpuscular HGB Conc 30.4 GM/DL (32-36); Mean Corpuscular Volume 76.3 FL (87-102); Mean Platelet Volume 9.1 FL (9.6-12.0); Monocytes % 5.9 % (1.7-12.7); Neutrophils % 84.5 % (38.7-73.9); Platelet Count 290 T/CUMM (130-400); Red Blood Count 4.14 MC/CUMM (3.8-5.5); Red Cell Distribution Width 17.7 % (9.3-17.3); White Blood Count 13.7 T/CUMM (4-12)
[2020-07-05 07:13] LABS: Calcium 9.2 MG/DL (8.5-10.1); Osmolality,Calculated 269.1 MOS/KG (273-304)
[2020-07-05] MEDS: LACTATED RINGERS 1,000 ML IV SCH (07:48)
[2020-07-05] MEDS: METOPROLOL SUCCINATE XL 50 MG TABLET PO SCH ×2 (08:15→21:02)
[2020-07-05] MEDS: FUROSEMIDE 40 MG TABLET PO SCH ×2 (08:15→21:02)
[2020-07-05] MEDS: GABAPENTIN 300 MG CAPSULE PO SCH ×2 (08:15→21:03)
[2020-07-05] MEDS: PANTOPRAZOLE 40 MG VIAL IV SCH ×2 (08:16→21:02)
[2020-07-05] MEDS: VERAPAMIL SR 240 MG TABLET PO SCH ×2 (09:16→21:02)
[2020-07-05] MEDS: predniSONE 10 MG TABLET PO SCH (21:02)
[2020-07-05] MEDS: carisoprodoL 350 MG TABLET PO PRN (21:02)
[2020-07-06] MEDS: GENTAMICIN INJ 100 MG in PREMIX 1 EACH IV SCH ×3 (01:20→16:00)
[2020-07-06 05:45] LABS: Basophils # 0.1 10*3/uL (0.0-0.2); Basophils % 0.5 % (0.0-0.8); Eosinophils # 0.3 10*3/uL (0.0-0.87); Eosinophils % 2.4 % (0.00-10.9); Hematocrit 29.2 VOL% (42.0-52.0); Hemoglobin 8.9 GM/DL (14.0-18.0); Immature Granulocytes % 1.5 %; Lymphocytes # 1.1 10*3/uL (1.4-4.0); Lymphocytes % 8.2 % (21.2-54.2); Mean Corpuscular HGB Conc 30.5 GM/DL (32-36); Mean Corpuscular Volume 77.2 FL (87-102); Mean Platelet Volume 9.3 FL (9.6-12.0); Monocytes % 5.2 % (1.7-12.7); Neutrophils % 82.2 % (38.7-73.9); Platelet Count 300 T/CUMM (130-400); Red Blood Count 3.78 MC/CUMM (3.8-5.5); Red Cell Distribution Width 17.2 % (9.3-17.3)
[2020-07-06] MEDS: PENICILLIN G POTASSIUM INJ 5,000,000 UNIT in SODIUM CHLORIDE 0.9% 100 ML IV SCH ×4 (05:49→23:02)
[2020-07-06 06:10] LABS: Calcium 8.8 MG/DL (8.5-10.1); Osmolality,Calculated 274.8 MOS/KG (273-304)
[2020-07-06] MEDS: FUROSEMIDE 40 MG TABLET PO SCH ×2 (08:36→20:57)
[2020-07-06] MEDS: VERAPAMIL SR 240 MG TABLET PO SCH ×2 (08:36→20:57)
[2020-07-06] MEDS: GABAPENTIN 300 MG CAPSULE PO SCH ×2 (08:36→20:57)
[2020-07-06] MEDS: PANTOPRAZOLE 40 MG VIAL IV SCH ×2 (08:36→20:57)
[2020-07-06] MEDS: METOPROLOL SUCCINATE XL 50 MG TABLET PO SCH ×2 (08:36→20:58)
[2020-07-06] MEDS: ACETAMINOPHEN 325 MG TABLET PO PRN ×2 (12:14→17:09)
[2020-07-06] MEDS: predniSONE 10 MG TABLET PO SCH (20:57)
[2020-07-06] MEDS: carisoprodoL 350 MG TABLET PO PRN (20:57)
[2020-07-07] MEDS: GENTAMICIN INJ 100 MG in PREMIX 1 EACH IV SCH ×3 (01:55→16:59)
[2020-07-07] MEDS: ACETAMINOPHEN 325 MG TABLET PO PRN ×3 (02:33→21:32)
[2020-07-07] MEDS: PENICILLIN G POTASSIUM INJ 5,000,000 UNIT in SODIUM CHLORIDE 0.9% 100 ML IV SCH ×4 (05:03→22:29)
[2020-07-07 06:18] LABS: Basophils # 0.1 10*3/uL (0.0-0.2); Basophils % 0.5 % (0.0-0.8); Eosinophils # 0.3 10*3/uL (0.0-0.87); Eosinophils % 2.3 % (0.00-10.9); Hematocrit 30.6 VOL% (42.0-52.0); Hemoglobin 9.1 GM/DL (14.0-18.0); Immature Granulocytes % 1.4 %; Immature Granulocytes Absolute 0.18 #; Lymphocytes % 7.7 % (21.2-54.2); Mean Corpuscular HGB Conc 29.7 GM/DL (32-36); Mean Corpuscular Volume 78.3 FL (87-102); Monocytes % 5.2 % (1.7-12.7); Neutrophils % 82.9 % (38.7-73.9); Platelet Count 337 T/CUMM (130-400); Red Blood Count 3.91 MC/CUMM (3.8-5.5); Red Cell Distribution Width 17.2 % (9.3-17.3); White Blood Count 12.8 T/CUMM (4-12)
[2020-07-07 06:50] LABS: Calcium 9.4 MG/DL (8.5-10.1); Osmolality,Calculated 273.7 MOS/KG (273-304)
[2020-07-07] MEDS: GABAPENTIN 300 MG CAPSULE PO SCH ×2 (08:55→21:32)
[2020-07-07] MEDS: POTASSIUM CHLORIDE 20 MEQ TABLET PO PRN (08:56)
[2020-07-07] MEDS: VERAPAMIL SR 240 MG TABLET PO SCH ×2 (08:56→21:37)
[2020-07-07] MEDS: METOPROLOL SUCCINATE XL 50 MG TABLET PO SCH ×2 (08:56→21:36)
[2020-07-07] MEDS: FUROSEMIDE 40 MG TABLET PO SCH ×2 (08:56→21:32)
[2020-07-07] MEDS: PANTOPRAZOLE 40 MG VIAL IV SCH ×2 (08:58→21:32)
[2020-07-07] MEDS: diphenhydrAMINE CAP 25 MG CAPSULE PO PRN (10:18)
[2020-07-07] MEDS: predniSONE 10 MG TABLET PO SCH (21:32)
[2020-07-07] MEDS: carisoprodoL 350 MG TABLET PO PRN (22:28)
[2020-07-08] MEDS: GENTAMICIN INJ 100 MG in PREMIX 1 EACH IV SCH ×3 (01:29→17:37)
[2020-07-08] MEDS: ACETAMINOPHEN 325 MG TABLET PO PRN ×2 (05:00→13:23)
[2020-07-08] MEDS: PENICILLIN G POTASSIUM INJ 5,000,000 UNIT in SODIUM CHLORIDE 0.9% 100 ML IV SCH ×4 (05:32→23:20)
[2020-07-08 06:22] LABS: Basophils # 0.1 10*3/uL (0.0-0.2); Basophils % 0.6 % (0.0-0.8); Eosinophils # 0.2 10*3/uL (0.0-0.87); Eosinophils % 1.5 % (0.00-10.9); Hematocrit 30.7 VOL% (42.0-52.0); Hemoglobin 9.1 GM/DL (14.0-18.0); Immature Granulocytes % 0.8 %; Lymphocytes # 1.2 10*3/uL (1.4-4.0); Mean Corpuscular HGB Conc 29.6 GM/DL (32-36); Mean Corpuscular Volume 77.7 FL (87-102); Mean Platelet Volume 8.9 FL (9.6-12.0); Monocytes % 5.3 % (1.7-12.7); Neutrophils % 81.8 % (38.7-73.9); Platelet Count 355 T/CUMM (130-400); Red Blood Count 3.95 MC/CUMM (3.8-5.5); Red Cell Distribution Width 17.2 % (9.3-17.3); White Blood Count 12.4 T/CUMM (4-12)
[2020-07-08 06:44] LABS: Calcium 9.2 MG/DL (8.5-10.1)
[2020-07-08] MEDS: METOPROLOL SUCCINATE XL 50 MG TABLET PO SCH ×2 (08:43→21:31)
[2020-07-08] MEDS: VERAPAMIL SR 240 MG TABLET PO SCH ×2 (08:43→21:34)
[2020-07-08] MEDS: GABAPENTIN 300 MG CAPSULE PO SCH ×2 (08:43→21:31)
[2020-07-08] MEDS: FUROSEMIDE 40 MG TABLET PO SCH ×2 (08:43→21:31)
[2020-07-08] MEDS: PANTOPRAZOLE 40 MG VIAL IV SCH ×2 (08:44→21:31)
[2020-07-08] MEDS: predniSONE 10 MG TABLET PO SCH (21:31)
[2020-07-08] MEDS: diphenhydrAMINE CAP 25 MG CAPSULE PO PRN (22:18)
[2020-07-09] MEDS: GENTAMICIN INJ 100 MG in PREMIX 1 EACH IV SCH ×3 (01:25→17:32)
[2020-07-09] MEDS: PENICILLIN G POTASSIUM INJ 5,000,000 UNIT in SODIUM CHLORIDE 0.9% 100 ML IV SCH ×5 (04:55→23:01)
[2020-07-09 05:14] LABS: Basophils # 0.1 10*3/uL (0.0-0.2); Basophils % 0.7 % (0.0-0.8); Eosinophils # 0.3 10*3/uL (0.0-0.87); Eosinophils % 1.9 % (0.00-10.9); Hemoglobin 8.9 GM/DL (14.0-18.0); Immature Granulocytes % 0.7 %; Immature Granulocytes Absolute 0.11 #; Lymphocytes # 1.2 10*3/uL (1.4-4.0); Lymphocytes % 8.1 % (21.2-54.2); Mean Corpuscular HGB Conc 29.7 GM/DL (32-36); Mean Corpuscular Volume 78.1 FL (87-102); Mean Platelet Volume 8.8 FL (9.6-12.0); Neutrophils % 83.6 % (38.7-73.9); Platelet Count 428 T/CUMM (130-400); Red Blood Count 3.84 MC/CUMM (3.8-5.5); Red Cell Distribution Width 17.2 % (9.3-17.3); White Blood Count 15.1 T/CUMM (4-12)
[2020-07-09 05:58] LABS: Osmolality,Calculated 272.8 MOS/KG (273-304)
[2020-07-09] MEDS ORDERED: SODIUM CHLORIDE 0.9% 1,000 ML IV SCH (06:00)
[2020-07-09] MEDS ORDERED: MEPERIDINE 25 MG/1 ML VIAL ONE ×2 (06:43→07:15)
[2020-07-09] MEDS ORDERED: MIDAZOLAM 10 MG/2 ML VIAL ONE ×3 (06:44→07:43)
[2020-07-09] MEDS ORDERED: MIDAZOLAM 10 MG/2 ML VIAL IV ONE (07:57)
[2020-07-09] MEDS ORDERED: MEPERIDINE 25 MG/1 ML VIAL IV ONE (07:57)
[2020-07-09] MEDS: FUROSEMIDE 40 MG TABLET PO SCH ×2 (10:17→23:00)
[2020-07-09] MEDS: VERAPAMIL SR 240 MG TABLET PO SCH ×2 (10:17→23:00)
[2020-07-09] MEDS: GABAPENTIN 300 MG CAPSULE PO SCH ×2 (10:17→22:03)
[2020-07-09] MEDS: METOPROLOL SUCCINATE XL 50 MG TABLET PO SCH ×2 (10:17→22:04)
[2020-07-09] MEDS: PANTOPRAZOLE 40 MG VIAL IV SCH ×2 (12:33→22:03)
[2020-07-09] MEDS ORDERED: carisoprodoL 350 MG TABLET PO PRN (16:11)
[2020-07-09] MEDS: ACETAMINOPHEN 325 MG TABLET PO PRN (22:03)
[2020-07-09] MEDS: predniSONE 10 MG TABLET PO SCH (22:03)
[2020-07-10] MEDS: GENTAMICIN INJ 100 MG in PREMIX 1 EACH IV SCH ×2 (01:59→10:19)
[2020-07-10 04:55] LABS: Basophils # 0.1 10*3/uL (0.0-0.2); Basophils % 0.7 % (0.0-0.8); Eosinophils # 0.2 10*3/uL (0.0-0.87); Eosinophils % 1.3 % (0.00-10.9); Hematocrit 29.3 VOL% (42.0-52.0); Hemoglobin 8.7 GM/DL (14.0-18.0); Immature Granulocytes % 0.6 %; Immature Granulocytes Absolute 0.07 #; Lymphocytes % 8.5 % (21.2-54.2); Mean Corpuscular HGB Conc 29.7 GM/DL (32-36); Mean Corpuscular Volume 77.5 FL (87-102); Mean Platelet Volume 8.7 FL (9.6-12.0); Monocytes % 5.2 % (1.7-12.7); Neutrophils % 83.7 % (38.7-73.9); Platelet Count 432 T/CUMM (130-400); Red Blood Count 3.78 MC/CUMM (3.8-5.5); Red Cell Distribution Width 17.1 % (9.3-17.3); White Blood Count 11.8 T/CUMM (4-12)
[2020-07-10] MEDS: PENICILLIN G POTASSIUM INJ 5,000,000 UNIT in SODIUM CHLORIDE 0.9% 100 ML IV SCH (05:21)
[2020-07-10 05:24] LABS: Calcium 9.2 MG/DL (8.5-10.1); Osmolality,Calculated 272.8 MOS/KG (273-304)
[2020-07-10] MEDS: METOPROLOL SUCCINATE XL 50 MG TABLET PO SCH (10:10)
[2020-07-10] MEDS: ACETAMINOPHEN 325 MG TABLET PO PRN (10:10)
[2020-07-10] MEDS: VERAPAMIL SR 240 MG TABLET PO SCH (10:10)
[2020-07-10] MEDS: GABAPENTIN 300 MG CAPSULE PO SCH (10:11)
[2020-07-10] MEDS: FUROSEMIDE 40 MG TABLET PO SCH (10:11)
[2020-07-10] MEDS: PANTOPRAZOLE 40 MG VIAL IV SCH (11:49)
[2020-07-10 12:10] VITALS: BP 127/60
== END 2020-07-10 14:15 | disposition home or self-care (01) | DRG 378 ==
LOC: N.ED 14:54 → SUATTDRO 19:32 → N.EDINP 19:32 → N.TELEN 22:10
PROVIDERS: ADMIT Internal Medicine; ATTEND Internal Medicine Geriatric Medicine
PROC: COLONBX (2020-07-02 11:20)

== ENCOUNTER 2020-09-07 20:44 | Inpatient (IN) ==
[2020-09-07] MEDS ORDERED: ONDANSETRON 4 MG/2 ML VIAL IV ONE (21:09)
[2020-09-07] MEDS ORDERED: SODIUM CHLORIDE 0.9% 1,000 ML IV STA ×2 (21:09→22:06)
[2020-09-07 21:15] LABS: Basophils # 0.1 10*3/uL (0.0-0.2); Basophils % 0.2 % (0.0-0.8); Hematocrit 22.2 VOL% (42.0-52.0); Hemoglobin 6.9 GM/DL (14.0-18.0); Immature Granulocytes % 0.7 %; Immature Granulocytes Absolute 0.14 #; Lymphocytes # 1.1 10*3/uL (1.4-4.0); Lymphocytes % 5.1 % (21.2-54.2); Mean Corpuscular HGB Conc 31.1 GM/DL (32-36); Mean Corpuscular Volume 71.8 FL (87-102); Mean Platelet Volume 8.7 FL (9.6-12.0); Monocytes % 3.6 % (1.7-12.7); Neutrophils % 90.4 % (38.7-73.9); Platelet Count 444 T/CUMM (130-400); Red Blood Count 3.09 MC/CUMM (3.8-5.5); White Blood Count 20.7 T/CUMM (4-12)
[2020-09-07 21:33] LABS: Albumin 3.2 G/DL (3.4-5.0); Bilirubin,Total 0.6 MG/DL (0.2-1.0); Calcium 8.6 MG/DL (8.5-10.1); Ferritin 84.9 ng/ml (26-388); Osmolality,Calculated 257.9 MOS/KG (273-304); Total Protein 7.4 G/DL (6.4-8.3)
[2020-09-07 21:40] LABS: Anisocytosis 3+; Giant Platelets 1+; Hypochromasia 2+; Lymphocytes 5 % (20-55); Microcytosis 3+; Myelocytes 2 %; Ovalocytes Slight; Platelet Estimate Adequate; Poikilocytosis 1+; Segmented Neutrophils 92 % (50-85); Total Cells Counted 100
[2020-09-07] MEDS ORDERED: cefTRIAXone 1,000 MG in SODIUM CHLORIDE 0.9% 100 ML IV STA (22:05)
[2020-09-07] MEDS ORDERED: methylPREDNISolone SOD SUC 125 MG/2 ML VIAL IV STA (22:09)
[2020-09-08] MEDS: methylPREDNISolone SOD SUC 40 MG/1 ML VIAL IV SCH ×3 (05:13→23:08)
[2020-09-08 05:51] LABS: Basophils % 0.2 % (0.0-0.8); Eosinophils % 0.2 % (0.00-10.9); Hematocrit 18.9 VOL% (42.0-52.0); Immature Granulocytes % 0.6 %; Immature Granulocytes Absolute 0.09 #; Lymphocytes # 2.1 10*3/uL (1.4-4.0); Lymphocytes % 13.5 % (21.2-54.2); Mean Corpuscular HGB Conc 29.6 GM/DL (32-36); Mean Platelet Volume 8.6 FL (9.6-12.0); Monocytes % 5.4 % (1.7-12.7); Neutrophils % 80.1 % (38.7-73.9); Red Blood Count 2.59 MC/CUMM (3.8-5.5); White Blood Count 15.3 T/CUMM (4-12)
[2020-09-08 05:56] LABS: Platelet Count 360 T/CUMM (130-400)
[2020-09-08 05:58] LABS: Hemoglobin 5.6 GM/DL (14.0-18.0)
[2020-09-08] MEDS ORDERED: SODIUM CHLORIDE 0.9% 1,000 ML IV PRN (06:06)
[2020-09-08 06:10] LABS: Albumin 2.4 G/DL (3.4-5.0); Bilirubin,Total 0.8 MG/DL (0.2-1.0); Calcium 8.4 MG/DL (8.5-10.1); Total Protein 6.5 G/DL (6.4-8.3)
[2020-09-08 06:12] LABS: Hypochromasia 2+; Microcytosis 1+; Platelet Estimate Adequate
[2020-09-08] MEDS: ACETAMINOPHEN 325 MG TABLET PO PRN ×2 (07:39→12:45)
[2020-09-08] MEDS: cefTRIAXone 1,000 MG in SYRINGE 10 EACH IV SCH ×2 (09:13→20:48)
[2020-09-08] MEDS: PANTOPRAZOLE 40 MG TABLET PO SCH (09:13)
[2020-09-08] MEDS: SODIUM CHLORIDE 0.9% 1,000 ML IV SCH ×2 (09:14→13:28)
[2020-09-08 12:44] LABS: Hematocrit 24.5 VOL% (42.0-52.0); Hemoglobin 7.4 GM/DL (14.0-18.0)
[2020-09-08] MEDS ORDERED: PROMETHAZINE 25 MG TABLET PO PRN (13:00)
[2020-09-08 13:38] LABS: Immunoglobulin A 266 MG/DL (70-400); Immunoglobulin G 1390 MG/DL (700-1600); Immunoglobulin M 232 MG/DL (40-230)
[2020-09-08] MEDS ORDERED: FUROSEMIDE 40 MG TABLET PO SCH (16:00)
[2020-09-08] MEDS: POTASSIUM CHLORIDE 20 MEQ TABLET PO SCH (21:29)
[2020-09-08] MEDS: VERAPAMIL SR 120 MG TABLET PO SCH (21:29)
[2020-09-08] MEDS: carisoprodoL 350 MG TABLET PO PRN (21:29)
[2020-09-08] MEDS: METOPROLOL SUCCINATE XL 50 MG TABLET PO SCH (21:29)
[2020-09-08] MEDS: GABAPENTIN 300 MG CAPSULE PO SCH (21:29)
[2020-09-09 08:06] LABS: Basophils % 0.1 % (0.0-0.8); Hematocrit 24.6 VOL% (42.0-52.0); Hemoglobin 7.4 GM/DL (14.0-18.0); Immature Granulocytes % 0.7 %; Immature Granulocytes Absolute 0.11 #; Lymphocytes # 0.8 10*3/uL (1.4-4.0); Lymphocytes % 4.6 % (21.2-54.2); Mean Corpuscular HGB Conc 30.1 GM/DL (32-36); Mean Corpuscular Volume 75.5 FL (87-102); Monocytes % 2.1 % (1.7-12.7); Neutrophils % 92.5 % (38.7-73.9); Platelet Count 413 T/CUMM (130-400); Red Blood Count 3.26 MC/CUMM (3.8-5.5); Red Cell Distribution Width 16.3 % (9.3-17.3); White Blood Count 16.8 T/CUMM (4-12)
[2020-09-09] MEDS: predniSONE 5 MG TABLET PO SCH (08:15)
[2020-09-09] MEDS: GABAPENTIN 300 MG CAPSULE PO SCH ×2 (08:15→20:06)
[2020-09-09] MEDS: POTASSIUM CHLORIDE 20 MEQ TABLET PO SCH ×2 (08:16→20:04)
[2020-09-09] MEDS: PANTOPRAZOLE 40 MG TABLET PO SCH (08:16)
[2020-09-09] MEDS: VERAPAMIL SR 120 MG TABLET PO SCH ×2 (08:16→20:04)
[2020-09-09] MEDS: ASPIRIN EC 81 MG TABLET PO SCH (08:16)
[2020-09-09] MEDS: cefTRIAXone 1,000 MG in SYRINGE 10 EACH IV SCH (08:17)
[2020-09-09] MEDS: FUROSEMIDE 40 MG/4 ML VIAL IV SCH ×2 (08:17→16:31)
[2020-09-09] MEDS: METOPROLOL SUCCINATE XL 50 MG TABLET PO SCH ×2 (08:19→20:04)
[2020-09-09 08:26] LABS: Hypochromasia 2+; Lymphocytes 3 % (20-55); Microcytosis 1+; Ovalocytes Slight; Platelet Estimate Adequate; Segmented Neutrophils 94 % (50-85); Total Cells Counted 100
[2020-09-09 08:34] LABS: Folate 11.8 NG/ML (5.4-24.0); Vitamin B12 > 2000 PG/ML (211-911)
[2020-09-09] MEDS ORDERED: PANTOPRAZOLE 40 MG TABLET PO SCH (09:00)
[2020-09-09] MEDS ORDERED: predniSONE 10 MG TABLET PO SCH (09:00)
[2020-09-09 09:12] LABS: Sedimentation Rate-Westergren 104 MM/HR (0-15)
[2020-09-09 09:19] LABS: Albumin 2.9 G/DL (3.4-5.0); Bilirubin,Total 0.4 MG/DL (0.2-1.0); Calcium 9.3 MG/DL (8.5-10.1); Osmolality,Calculated 274.2 MOS/KG (273-304); Total Protein 7.7 G/DL (6.4-8.3)
[2020-09-09] MEDS ORDERED: FUROSEMIDE 20 MG/2 ML VIAL IV ONE (10:00)
[2020-09-09 10:13] LABS: Total Protein (Chem) 8.2 G/DL (6.4-8.3)
[2020-09-09 10:13] LABS: Immunoglobulin A (Chem) 266 MG/DL (70-400); Immunoglobulin G (Chem) 1390 MG/DL (700-1600); Immunoglobulin M (Chem) 232 MG/DL (40-230)
[2020-09-09 11:28] LABS: Albumin (SPE) 4.6 G/DL (3.2-5.3); Albumin (SPE) Rel % 56.3 %; Alpha 1 (SPE) 0.4 G/DL (0.1-0.4); Alpha 1 (SPE) Rel % 5.1 %; Alpha 2 (SPE) Rel % 12.2 %; Beta (SPE) 0.8 G/DL (0.5-1.1); Beta (SPE) Rel % 9.2 %; Gamma (SPE) 1.4 G/DL (0.7-1.7); Gamma (SPE) Rel % 17.2 %
[2020-09-09] MEDS: methylPREDNISolone SOD SUC 40 MG/1 ML VIAL IV SCH ×2 (12:40→23:06)
[2020-09-09] MEDS ORDERED: BISACODYL 5 MG TABLET PO ONE (15:07)
[2020-09-09 16:27] LABS: Hematocrit 25.6 VOL% (42.0-52.0); Hemoglobin 8.1 GM/DL (14.0-18.0)
[2020-09-09] MEDS: carisoprodoL 350 MG TABLET PO PRN (20:04)
[2020-09-10 09:12] LABS: Hemoglobin A1 (Alkaline) 98.1 % (96.5-98.5); Hemoglobin A2 (Alkaline) 1.9 % (1.5-3.5)
[2020-09-10] MEDS: POTASSIUM CHLORIDE 20 MEQ TABLET PO SCH ×2 (09:50→20:38)
[2020-09-10] MEDS: GABAPENTIN 300 MG CAPSULE PO SCH ×2 (09:50→20:38)
[2020-09-10] MEDS: METOPROLOL SUCCINATE XL 50 MG TABLET PO SCH ×2 (09:51→20:37)
[2020-09-10] MEDS: PANTOPRAZOLE 40 MG TABLET PO SCH (09:51)
[2020-09-10] MEDS: FUROSEMIDE 40 MG/4 ML VIAL IV SCH ×2 (09:51→17:29)
[2020-09-10] MEDS: cefTRIAXone 2,000 MG in SYRINGE 1 EACH IV SCH (09:51)
[2020-09-10] MEDS: ASPIRIN EC 81 MG TABLET PO SCH (09:51)
[2020-09-10] MEDS: VERAPAMIL SR 120 MG TABLET PO SCH ×2 (09:51→20:38)
[2020-09-10] MEDS: predniSONE 5 MG TABLET PO SCH (09:51)
[2020-09-10] MEDS: methylPREDNISolone SOD SUC 40 MG/1 ML VIAL IV SCH ×2 (12:51→23:33)
[2020-09-10] MEDS ORDERED: MAGNESIUM HYDROXIDE SUSP 30 ML UDCUP PO ONE (15:00)
[2020-09-10] MEDS ORDERED: BISACODYL 10 MG SUPP RECTAL ONE (15:00)
[2020-09-10] MEDS ORDERED: SODIUM CHLORIDE 0.9% 1,000 ML IV SCH (16:00)
[2020-09-10] MEDS ORDERED: SODIUM PHOSPHATE ENEMA 133 ML BOTTLE RECTAL PRN (16:36)
[2020-09-10] MEDS ORDERED: SODIUM PHOSPHATE ENEMA 133 ML BOTTLE RECTAL ONE (16:57)
[2020-09-10] MEDS: carisoprodoL 350 MG TABLET PO PRN (20:38)
[2020-09-11 04:46] LABS: Basophils % 0.1 % (0.0-0.8); Hemoglobin 8.8 GM/DL (14.0-18.0); Immature Granulocytes % 0.8 %; Immature Granulocytes Absolute 0.14 #; Lymphocytes # 0.8 10*3/uL (1.4-4.0); Lymphocytes % 4.1 % (21.2-54.2); Mean Corpuscular HGB Conc 30.3 GM/DL (32-36); Mean Corpuscular Volume 75.7 FL (87-102); Mean Platelet Volume 8.9 FL (9.6-12.0); Monocytes % 1.4 % (1.7-12.7); Neutrophils % 93.6 % (38.7-73.9); Platelet Count 522 T/CUMM (130-400); Red Blood Count 3.83 MC/CUMM (3.8-5.5); Red Cell Distribution Width 17.2 % (9.3-17.3); White Blood Count 18.5 T/CUMM (4-12)
[2020-09-11 05:07] LABS: Calcium 9.2 MG/DL (8.5-10.1); Osmolality,Calculated 281.8 MOS/KG (273-304)
[2020-09-11 05:14] LABS: Hypochromasia 1+; Lymphocytes 5 % (20-55); Microcytosis 1+; Nucleated Red Blood Cells 1 (0-5); Ovalocytes Slight; Platelet Estimate Adequate; Segmented Neutrophils 95 % (50-85); Total Cells Counted 100
[2020-09-11] MEDS ORDERED: ETOMIDATE 40 MG/20 ML VIAL IV ONE (08:40)
[2020-09-11] MEDS ORDERED: propofoL 200 MG/20 ML VIAL IV ONE (08:40)
[2020-09-11] MEDS ORDERED: LIDOCAINE 2% 5 ML VIAL ONE (08:40)
[2020-09-11] MEDS: methylPREDNISolone SOD SUC 40 MG/1 ML VIAL IV SCH ×2 (10:55→22:08)
[2020-09-11] MEDS: POTASSIUM CHLORIDE 20 MEQ TABLET PO SCH ×2 (10:56→22:05)
[2020-09-11] MEDS: predniSONE 5 MG TABLET PO SCH (10:56)
[2020-09-11] MEDS: GABAPENTIN 300 MG CAPSULE PO SCH ×2 (10:56→22:05)
[2020-09-11] MEDS: PANTOPRAZOLE 40 MG TABLET PO SCH (10:57)
[2020-09-11] MEDS: ASPIRIN EC 81 MG TABLET PO SCH (10:57)
[2020-09-11] MEDS: FUROSEMIDE 40 MG/4 ML VIAL IV SCH ×2 (10:57→15:50)
[2020-09-11] MEDS: VERAPAMIL SR 120 MG TABLET PO SCH ×2 (10:57→22:08)
[2020-09-11] MEDS: METOPROLOL SUCCINATE XL 50 MG TABLET PO SCH ×2 (10:57→18:05)
[2020-09-11] MEDS: PENICILLIN G POTASSIUM INJ 4,000,000 UNIT in SODIUM CHLORIDE 0.9% 100 ML IV SCH ×4 (11:08→22:05)
[2020-09-11] MEDS: cefTRIAXone 2,000 MG in SYRINGE 1 EACH IV SCH (11:25)
[2020-09-11] MEDS ORDERED: PHENYLEPHRINE 1 MG/10 ML SYRINGE IV ONE (11:34)
[2020-09-11] MEDS: GENTAMICIN INJ 120 MG in PREMIX 1 EACH IV SCH ×2 (11:52→23:30)
[2020-09-11] MEDS ORDERED: MAGNESIUM CITRATE 300 ML BOTTLE PO ONE (12:00)
[2020-09-11] MEDS ORDERED: LINACLOTIDE 145 MCG CAPSULE PO ONE (16:00)
[2020-09-11] MEDS: carisoprodoL 350 MG TABLET PO PRN (22:06)
[2020-09-12] MEDS: PENICILLIN G POTASSIUM INJ 4,000,000 UNIT in SODIUM CHLORIDE 0.9% 100 ML IV SCH ×4 (02:54→11:07)
[2020-09-12 06:18] LABS: Basophils % 0.1 % (0.0-0.8); Hematocrit 29.6 VOL% (42.0-52.0); Hemoglobin 8.8 GM/DL (14.0-18.0); Immature Granulocytes % 1.2 %; Immature Granulocytes Absolute 0.17 #; Lymphocytes # 1.1 10*3/uL (1.4-4.0); Lymphocytes % 7.7 % (21.2-54.2); Mean Corpuscular HGB Conc 29.7 GM/DL (32-36); Mean Corpuscular Volume 76.7 FL (87-102); Mean Platelet Volume 8.8 FL (9.6-12.0); Monocytes % 5.5 % (1.7-12.7); Neutrophils % 85.5 % (38.7-73.9); Platelet Count 485 T/CUMM (130-400); Red Blood Count 3.86 MC/CUMM (3.8-5.5); Red Cell Distribution Width 17.5 % (9.3-17.3); White Blood Count 14.1 T/CUMM (4-12)
[2020-09-12 06:49] LABS: Calcium 8.8 MG/DL (8.5-10.1); Osmolality,Calculated 275.1 MOS/KG (273-304)
[2020-09-12] MEDS: methylPREDNISolone SOD SUC 40 MG/1 ML VIAL IV SCH (09:26)
[2020-09-12] MEDS: ASPIRIN EC 81 MG TABLET PO SCH (09:26)
[2020-09-12] MEDS: FUROSEMIDE 40 MG/4 ML VIAL IV SCH (09:26)
[2020-09-12] MEDS: VERAPAMIL SR 120 MG TABLET PO SCH ×2 (09:27→22:04)
[2020-09-12] MEDS: predniSONE 5 MG TABLET PO SCH (09:27)
[2020-09-12] MEDS: POTASSIUM CHLORIDE 20 MEQ TABLET PO SCH ×2 (09:27→22:03)
[2020-09-12] MEDS: GABAPENTIN 300 MG CAPSULE PO SCH ×2 (09:27→22:04)
[2020-09-12] MEDS: PANTOPRAZOLE 40 MG TABLET PO SCH (09:27)
[2020-09-12] MEDS: METOPROLOL SUCCINATE XL 50 MG TABLET PO SCH ×3 (09:27→22:04)
[2020-09-12] MEDS ORDERED: FAMOTIDINE 20 MG TABLET PO SCH (17:00)
[2020-09-12] MEDS: cefTRIAXone 2,000 MG in SYRINGE 1 EACH IV SCH (17:35)
[2020-09-12] MEDS: LINACLOTIDE 145 MCG CAPSULE PO SCH (17:35)
[2020-09-12] MEDS: carisoprodoL 350 MG TABLET PO PRN (22:03)
[2020-09-12] MEDS: CHLORHEXIDINE 0.12% ORAL RINSE 60 ML BOTTLE SWISH/SPIT SCH (22:08)
[2020-09-13] MEDS: FAMOTIDINE 20 MG TABLET PO SCH (06:35)
[2020-09-13] MEDS: PANTOPRAZOLE 40 MG TABLET PO SCH (06:35)
[2020-09-13] MEDS: cefTRIAXone 2,000 MG in SYRINGE 1 EACH IV SCH (08:12)
[2020-09-13] MEDS: GABAPENTIN 300 MG CAPSULE PO SCH ×2 (08:12→20:14)
[2020-09-13] MEDS: LINACLOTIDE 145 MCG CAPSULE PO SCH (08:12)
[2020-09-13] MEDS: ASPIRIN EC 81 MG TABLET PO SCH (08:12)
[2020-09-13] MEDS: METOPROLOL SUCCINATE XL 50 MG TABLET PO SCH ×2 (08:12→20:15)
[2020-09-13] MEDS: FUROSEMIDE 40 MG TABLET PO SCH (08:13)
[2020-09-13] MEDS: CHLORHEXIDINE 0.12% ORAL RINSE 60 ML BOTTLE SWISH/SPIT SCH ×2 (08:13→20:15)
[2020-09-13] MEDS: VERAPAMIL SR 120 MG TABLET PO SCH ×2 (08:13→20:14)
[2020-09-13] MEDS: POTASSIUM CHLORIDE 20 MEQ TABLET PO SCH ×2 (08:13→20:15)
[2020-09-13] MEDS: predniSONE 5 MG TABLET PO SCH (08:13)
[2020-09-13] MEDS ORDERED: NICOTINE 21 MG/24 HR PATCH TRANSDERM PRN (10:31)
[2020-09-13] MEDS: BISACODYL 5 MG TABLET PO SCH (10:56)
[2020-09-13] MEDS: CALCIUM CARBONATE CHEW 500 MG TABLET PO SCH ×2 (10:56→17:28)
[2020-09-13] MEDS: carisoprodoL 350 MG TABLET PO PRN (20:15)
[2020-09-14] MEDS: CALCIUM CARBONATE CHEW 500 MG TABLET PO SCH ×5 (01:38→22:41)
[2020-09-14] MEDS: PANTOPRAZOLE 40 MG TABLET PO SCH (06:59)
[2020-09-14] MEDS: FAMOTIDINE 20 MG TABLET PO SCH (06:59)
[2020-09-14] MEDS: LINACLOTIDE 145 MCG CAPSULE PO SCH (08:16)
[2020-09-14] MEDS: FUROSEMIDE 40 MG TABLET PO SCH (08:16)
[2020-09-14] MEDS: cefTRIAXone 2,000 MG in SYRINGE 1 EACH IV SCH (08:17)
[2020-09-14] MEDS: predniSONE 5 MG TABLET PO SCH (08:17)
[2020-09-14] MEDS: GABAPENTIN 300 MG CAPSULE PO SCH ×2 (08:17→20:56)
[2020-09-14] MEDS: POTASSIUM CHLORIDE 20 MEQ TABLET PO SCH ×2 (08:17→20:57)
[2020-09-14] MEDS: BISACODYL 5 MG TABLET PO SCH (08:17)
[2020-09-14] MEDS: METOPROLOL SUCCINATE XL 50 MG TABLET PO SCH ×2 (08:18→20:57)
[2020-09-14] MEDS: VERAPAMIL SR 120 MG TABLET PO SCH (08:18)
[2020-09-14] MEDS: CHLORHEXIDINE 0.12% ORAL RINSE 60 ML BOTTLE SWISH/SPIT SCH ×2 (08:18→20:57)
[2020-09-14] MEDS ORDERED: METOCLOPRAMIDE 10 MG/2 ML VIAL IV ONE (12:16)
[2020-09-14] MEDS: DILTIAZEM 30 MG TABLET PO SCH ×2 (14:51→20:55)
[2020-09-14] MEDS: DIGOXIN 0.125 MG TABLET PO SCH (14:52)
[2020-09-14] MEDS: predniSONE 10 MG TABLET PO SCH (20:56)
[2020-09-14] MEDS: carisoprodoL 350 MG TABLET PO PRN (20:56)
[2020-09-14] MEDS: DOCUSATE SODIUM 100 MG CAPSULE PO SCH (22:43)
[2020-09-15] MEDS: CALCIUM CARBONATE CHEW 500 MG TABLET PO SCH ×4 (05:15→22:30)
[2020-09-15 06:35] LABS: Calcium 9.1 MG/DL (8.5-10.1)
[2020-09-15 08:17] LABS: Basophils % 0.1 % (0.0-0.8); Eosinophils # 0.3 10*3/uL (0.0-0.87); Eosinophils % 1.3 % (0.00-10.9); Immature Granulocytes % 0.8 %; Immature Granulocytes Absolute 0.16 #; Lymphocytes # 3.5 10*3/uL (1.4-4.0); Lymphocytes % 17.6 % (21.2-54.2); Mean Corpuscular Volume 76.8 FL (87-102); Mean Platelet Volume 8.8 FL (9.6-12.0); Monocytes % 6.9 % (1.7-12.7); Neutrophils % 73.3 % (38.7-73.9); Red Cell Distribution Width 17.6 % (9.3-17.3)
[2020-09-15 08:22] LABS: Hemoglobin 11.1 GM/DL (14.0-18.0); Platelet Count 722 T/CUMM (130-400); Red Blood Count 4.82 MC/CUMM (3.8-5.5); White Blood Count 19.9 T/CUMM (4-12)
[2020-09-15] MEDS: ACETAMINOPHEN 325 MG TABLET PO PRN ×3 (08:34→22:56)
[2020-09-15] MEDS: cefTRIAXone 2,000 MG in SYRINGE 1 EACH IV SCH (08:37)
[2020-09-15] MEDS: SODIUM CHLORIDE 0.9% 1,000 ML IV SCH (09:14)
[2020-09-15] MEDS: LINACLOTIDE 145 MCG CAPSULE PO SCH (10:28)
[2020-09-15] MEDS: DOCUSATE SODIUM 100 MG CAPSULE PO SCH ×2 (10:28→22:29)
[2020-09-15] MEDS: POTASSIUM CHLORIDE 20 MEQ TABLET PO SCH ×2 (10:28→22:29)
[2020-09-15] MEDS: GABAPENTIN 300 MG CAPSULE PO SCH ×2 (10:28→22:29)
[2020-09-15] MEDS: BISACODYL 5 MG TABLET PO SCH (10:28)
[2020-09-15] MEDS: FAMOTIDINE 20 MG TABLET PO SCH (10:28)
[2020-09-15] MEDS: FUROSEMIDE 40 MG TABLET PO SCH (10:28)
[2020-09-15] MEDS: PANTOPRAZOLE 40 MG TABLET PO SCH (10:28)
[2020-09-15] MEDS: CHLORHEXIDINE 0.12% ORAL RINSE 60 ML BOTTLE SWISH/SPIT SCH ×2 (10:29→22:33)
[2020-09-15] MEDS: METOPROLOL SUCCINATE XL 50 MG TABLET PO SCH ×2 (10:29→22:31)
[2020-09-15] MEDS: predniSONE 5 MG TABLET PO SCH (10:29)
[2020-09-15] MEDS ORDERED: propofoL 200 MG/20 ML VIAL IV ONE (11:48)
[2020-09-15] MEDS ORDERED: ROCURONIUM 50 MG/5 ML VIAL IV ONE (11:48)
[2020-09-15] MEDS ORDERED: fentaNYL 100 MCG/2 ML VIAL ONE (11:48)
[2020-09-15] MEDS ORDERED: LIDOCAINE 2% 5 ML VIAL ONE (11:48)
[2020-09-15] MEDS ORDERED: MIDAZOLAM 2 MG/2 ML VIAL ONE (11:48)
[2020-09-15] MEDS ORDERED: DEXAMETHASONE 4 MG/1 ML VIAL ONE (11:49)
[2020-09-15] MEDS ORDERED: ONDANSETRON 4 MG/2 ML VIAL ONE (11:49)
[2020-09-15] MEDS ORDERED: METOPROLOL TARTRATE 5 MG/5 ML VIAL IV ONE (12:37)
[2020-09-15] MEDS ORDERED: AMIODARONE INJ 150 MG in DEXTROSE 5% 100 ML IV ONE (12:58)
[2020-09-15] MEDS ORDERED: AMIODARONE INJ 450 MG in DEXTROSE 5% 241 ML IV SCH (13:30)
[2020-09-15] MEDS: DIGOXIN 0.125 MG TABLET PO SCH (14:12)
[2020-09-15] MEDS: carisoprodoL 350 MG TABLET PO PRN (19:42)
[2020-09-15] MEDS: predniSONE 10 MG TABLET PO SCH (22:30)
[2020-09-16] MEDS: SODIUM CHLORIDE 0.9% 1,000 ML IV SCH ×2 (03:19→12:13)
[2020-09-16] MEDS: CALCIUM CARBONATE CHEW 500 MG TABLET PO SCH ×4 (05:20→22:36)
[2020-09-16] MEDS: AMIODARONE INJ 450 MG in DEXTROSE 5% 241 ML IV SCH ×2 (07:44→22:37)
[2020-09-16] MEDS: LINACLOTIDE 145 MCG CAPSULE PO SCH (08:14)
[2020-09-16] MEDS: PANTOPRAZOLE 40 MG TABLET PO SCH (08:15)
[2020-09-16] MEDS: FAMOTIDINE 20 MG TABLET PO SCH (08:15)
[2020-09-16] MEDS: GABAPENTIN 300 MG CAPSULE PO SCH ×2 (08:15→21:01)
[2020-09-16] MEDS: DOCUSATE SODIUM 100 MG CAPSULE PO SCH ×2 (08:15→21:01)
[2020-09-16] MEDS: METOPROLOL SUCCINATE XL 50 MG TABLET PO SCH ×2 (08:15→21:01)
[2020-09-16] MEDS: POTASSIUM CHLORIDE 20 MEQ TABLET PO SCH ×2 (08:15→21:01)
[2020-09-16] MEDS: CHLORHEXIDINE 0.12% ORAL RINSE 60 ML BOTTLE SWISH/SPIT SCH ×2 (08:16→21:01)
[2020-09-16] MEDS: FUROSEMIDE 40 MG TABLET PO SCH (08:16)
[2020-09-16] MEDS: BISACODYL 5 MG TABLET PO SCH (08:16)
[2020-09-16] MEDS: predniSONE 5 MG TABLET PO SCH (08:17)
[2020-09-16] MEDS: cefTRIAXone 2,000 MG in SYRINGE 1 EACH IV SCH (09:36)
[2020-09-16] MEDS ORDERED: METOPROLOL TARTRATE 5 MG/5 ML VIAL IV ONE ×2 (09:50→16:14)
[2020-09-16] MEDS ORDERED: LIDOCAINE 1%/EPI INJ 20 ML VIAL ONE (11:15)
[2020-09-16] MEDS: DIGOXIN 0.125 MG TABLET PO SCH (12:12)
[2020-09-16] MEDS: ENOXAPARIN 100 MG/ML SYRINGE SUBCUT SCH ×2 (12:13→22:06)
[2020-09-16] MEDS: ACETAMINOPHEN 325 MG TABLET PO PRN ×2 (12:22→19:42)
[2020-09-16] MEDS: carisoprodoL 350 MG TABLET PO PRN (19:42)
[2020-09-16] MEDS: predniSONE 10 MG TABLET PO SCH (21:01)
[2020-09-17] MEDS: SODIUM CHLORIDE 0.9% 1,000 ML IV SCH (01:52)
[2020-09-17] MEDS: CALCIUM CARBONATE CHEW 500 MG TABLET PO SCH ×4 (05:24→22:21)
[2020-09-17 07:21] LABS: Basophils % 0.1 % (0.0-0.8); Eosinophils # 0.1 10*3/uL (0.0-0.87); Eosinophils % 0.7 % (0.00-10.9); Hematocrit 31.4 VOL% (42.0-52.0); Hemoglobin 9.5 GM/DL (14.0-18.0); Immature Granulocytes % 0.5 %; Immature Granulocytes Absolute 0.07 #; Lymphocytes # 1.5 10*3/uL (1.4-4.0); Lymphocytes % 10.5 % (21.2-54.2); Mean Corpuscular HGB Conc 30.3 GM/DL (32-36); Mean Corpuscular Volume 75.3 FL (87-102); Mean Platelet Volume 8.7 FL (9.6-12.0); Neutrophils % 79.2 % (38.7-73.9); Platelet Count 523 T/CUMM (130-400); Red Blood Count 4.17 MC/CUMM (3.8-5.5); Red Cell Distribution Width 17.5 % (9.3-17.3); White Blood Count 13.9 T/CUMM (4-12)
[2020-09-17 07:40] LABS: Calcium 8.8 MG/DL (8.5-10.1); Osmolality,Calculated 271.8 MOS/KG (273-304)
[2020-09-17] MEDS: FAMOTIDINE 20 MG TABLET PO SCH (08:53)
[2020-09-17] MEDS: DOCUSATE SODIUM 100 MG CAPSULE PO SCH ×2 (08:53→21:06)
[2020-09-17] MEDS: FUROSEMIDE 40 MG TABLET PO SCH (08:53)
[2020-09-17] MEDS: BISACODYL 5 MG TABLET PO SCH (08:54)
[2020-09-17] MEDS: POTASSIUM CHLORIDE 20 MEQ TABLET PO SCH ×2 (08:54→21:15)
[2020-09-17] MEDS: predniSONE 5 MG TABLET PO SCH (08:54)
[2020-09-17] MEDS: GABAPENTIN 300 MG CAPSULE PO SCH ×2 (08:54→21:06)
[2020-09-17] MEDS: PANTOPRAZOLE 40 MG TABLET PO SCH (08:54)
[2020-09-17] MEDS: LINACLOTIDE 145 MCG CAPSULE PO SCH (08:55)
[2020-09-17] MEDS: METOPROLOL SUCCINATE XL 50 MG TABLET PO SCH ×2 (08:55→21:23)
[2020-09-17] MEDS: CHLORHEXIDINE 0.12% ORAL RINSE 60 ML BOTTLE SWISH/SPIT SCH ×2 (08:57→22:23)
[2020-09-17] MEDS: cefTRIAXone 2,000 MG in SYRINGE 1 EACH IV SCH (08:58)
[2020-09-17] MEDS: ENOXAPARIN 100 MG/ML SYRINGE SUBCUT SCH ×2 (12:34→22:21)
[2020-09-17] MEDS: DIGOXIN 0.125 MG TABLET PO SCH (12:34)
[2020-09-17] MEDS: ACETAMINOPHEN 325 MG TABLET PO PRN ×2 (12:36→22:11)
[2020-09-17] MEDS: AMIODARONE INJ 450 MG in DEXTROSE 5% 241 ML IV SCH (13:48)
[2020-09-17] MEDS: carisoprodoL 350 MG TABLET PO PRN (21:05)
[2020-09-17] MEDS: predniSONE 10 MG TABLET PO SCH (21:06)
[2020-09-18] MEDS: ACETAMINOPHEN 325 MG TABLET PO PRN ×3 (04:32→20:29)
[2020-09-18] MEDS: CALCIUM CARBONATE CHEW 500 MG TABLET PO SCH ×4 (04:32→22:36)
[2020-09-18 05:57] LABS: Basophils % 0.1 % (0.0-0.8); Eosinophils # 0.1 10*3/uL (0.0-0.87); Eosinophils % 0.4 % (0.00-10.9); Hematocrit 29.9 VOL% (42.0-52.0); Immature Granulocytes % 0.6 %; Immature Granulocytes Absolute 0.12 #; Lymphocytes # 1.2 10*3/uL (1.4-4.0); Lymphocytes % 6.5 % (21.2-54.2); Mean Corpuscular HGB Conc 30.1 GM/DL (32-36); Mean Corpuscular Volume 76.7 FL (87-102); Mean Platelet Volume 9.3 FL (9.6-12.0); Monocytes % 5.1 % (1.7-12.7); Neutrophils % 87.3 % (38.7-73.9); Platelet Count 503 T/CUMM (130-400); Red Cell Distribution Width 17.5 % (9.3-17.3); White Blood Count 18.7 T/CUMM (4-12)
[2020-09-18 06:08] LABS: Calcium 8.6 MG/DL (8.5-10.1)
[2020-09-18 06:09] LABS: Osmolality,Calculated 276.5 MOS/KG (273-304)
[2020-09-18] MEDS: AMIODARONE INJ 450 MG in DEXTROSE 5% 241 ML IV SCH ×3 (07:20→21:38)
[2020-09-18] MEDS: FAMOTIDINE 20 MG TABLET PO SCH (08:39)
[2020-09-18] MEDS: LINACLOTIDE 145 MCG CAPSULE PO SCH (08:39)
[2020-09-18] MEDS: DOCUSATE SODIUM 100 MG CAPSULE PO SCH ×2 (08:39→20:30)
[2020-09-18] MEDS: GABAPENTIN 300 MG CAPSULE PO SCH ×2 (08:39→20:29)
[2020-09-18] MEDS: predniSONE 5 MG TABLET PO SCH (08:40)
[2020-09-18] MEDS: BISACODYL 5 MG TABLET PO SCH (08:40)
[2020-09-18] MEDS: POTASSIUM CHLORIDE 20 MEQ TABLET PO SCH ×2 (08:40→20:30)
[2020-09-18] MEDS: METOPROLOL SUCCINATE XL 50 MG TABLET PO SCH ×2 (08:41→20:29)
[2020-09-18] MEDS: cefTRIAXone 2,000 MG in SYRINGE 1 EACH IV SCH (08:41)
[2020-09-18] MEDS: PANTOPRAZOLE 40 MG TABLET PO SCH (08:41)
[2020-09-18] MEDS: SODIUM CHLORIDE 0.9% 1,000 ML IV SCH (08:46)
[2020-09-18] MEDS: FUROSEMIDE 40 MG TABLET PO SCH (08:50)
[2020-09-18] MEDS: CHLORHEXIDINE 0.12% ORAL RINSE 60 ML BOTTLE SWISH/SPIT SCH ×2 (08:51→20:40)
[2020-09-18] MEDS: ENOXAPARIN 100 MG/ML SYRINGE SUBCUT SCH ×2 (11:29→21:38)
[2020-09-18] MEDS: DIGOXIN 0.125 MG TABLET PO SCH (13:34)
[2020-09-18] MEDS: carisoprodoL 350 MG TABLET PO PRN (20:29)
[2020-09-18] MEDS: predniSONE 10 MG TABLET PO SCH (20:29)
[2020-09-18] MEDS ORDERED: METOPROLOL TARTRATE 5 MG/5 ML VIAL IV PRN (21:13)
[2020-09-19] MEDS: ACETAMINOPHEN 325 MG TABLET PO PRN ×3 (01:50→18:33)
[2020-09-19 05:49] LABS: Basophils % 0.1 % (0.0-0.8); Eosinophils % 0.1 % (0.00-10.9); Immature Granulocytes % 0.7 %; Immature Granulocytes Absolute 0.15 #; Lymphocytes # 1.3 10*3/uL (1.4-4.0); Mean Corpuscular Volume 77.1 FL (87-102); Mean Platelet Volume 9.5 FL (9.6-12.0); Monocytes % 5.2 % (1.7-12.7); Neutrophils % 87.9 % (38.7-73.9); Platelet Count 423 T/CUMM (130-400); Red Blood Count 3.89 MC/CUMM (3.8-5.5); Red Cell Distribution Width 18.1 % (9.3-17.3); White Blood Count 21.4 T/CUMM (4-12)
[2020-09-19] MEDS: SODIUM CHLORIDE 0.9% 1,000 ML IV SCH ×4 (05:57→21:43)
[2020-09-19 06:01] LABS: Calcium 8.9 MG/DL (8.5-10.1); Osmolality,Calculated 278.4 MOS/KG (273-304)
[2020-09-19] MEDS: CALCIUM CARBONATE CHEW 500 MG TABLET PO SCH ×4 (06:14→22:07)
[2020-09-19] MEDS ORDERED: MEPERIDINE 50 MG/1 ML VIAL IV ONE (07:04)
[2020-09-19] MEDS ORDERED: MIDAZOLAM 10 MG/2 ML VIAL IV ONE (07:04)
[2020-09-19] MEDS: GABAPENTIN 300 MG CAPSULE PO SCH ×2 (10:12→21:35)
[2020-09-19] MEDS: POTASSIUM CHLORIDE 20 MEQ TABLET PO SCH ×2 (10:12→21:35)
[2020-09-19] MEDS: predniSONE 5 MG TABLET PO SCH (10:12)
[2020-09-19] MEDS: FAMOTIDINE 20 MG TABLET PO SCH (10:12)
[2020-09-19] MEDS: PANTOPRAZOLE 40 MG TABLET PO SCH (10:12)
[2020-09-19] MEDS: AMIODARONE 200 MG TABLET PO SCH ×2 (10:13→21:35)
[2020-09-19] MEDS: DOCUSATE SODIUM 100 MG CAPSULE PO SCH ×2 (10:13→21:35)
[2020-09-19] MEDS: CHLORHEXIDINE 0.12% ORAL RINSE 60 ML BOTTLE SWISH/SPIT SCH ×2 (10:14→21:38)
[2020-09-19] MEDS: LINACLOTIDE 145 MCG CAPSULE PO SCH (10:14)
[2020-09-19] MEDS: FUROSEMIDE 40 MG TABLET PO SCH (10:14)
[2020-09-19] MEDS: METOPROLOL SUCCINATE XL 50 MG TABLET PO SCH ×2 (10:14→21:35)
[2020-09-19] MEDS: BISACODYL 5 MG TABLET PO SCH (10:14)
[2020-09-19] MEDS: ENOXAPARIN 100 MG/ML SYRINGE SUBCUT SCH ×2 (10:17→21:38)
[2020-09-19] MEDS: cefTRIAXone 2,000 MG in SYRINGE 1 EACH IV SCH (10:17)
[2020-09-19] MEDS: carisoprodoL 350 MG TABLET PO PRN (18:33)
[2020-09-19] MEDS: predniSONE 10 MG TABLET PO SCH (21:35)
[2020-09-19] MEDS: ONDANSETRON 4 MG/2 ML VIAL IV PRN (23:58)
[2020-09-20] MEDS: ACETAMINOPHEN 325 MG TABLET PO PRN ×3 (03:14→21:30)
[2020-09-20] MEDS: CALCIUM CARBONATE CHEW 500 MG TABLET PO SCH ×4 (05:30→23:43)
[2020-09-20] MEDS: LINACLOTIDE 145 MCG CAPSULE PO SCH (09:19)
[2020-09-20] MEDS: BISACODYL 5 MG TABLET PO SCH (09:19)
[2020-09-20] MEDS: FAMOTIDINE 20 MG TABLET PO SCH (09:20)
[2020-09-20] MEDS: DOCUSATE SODIUM 100 MG CAPSULE PO SCH ×2 (09:20→21:30)
[2020-09-20] MEDS: predniSONE 5 MG TABLET PO SCH (09:20)
[2020-09-20] MEDS: METOPROLOL SUCCINATE XL 50 MG TABLET PO SCH ×2 (09:20→21:30)
[2020-09-20] MEDS: FUROSEMIDE 40 MG TABLET PO SCH (09:21)
[2020-09-20] MEDS: AMIODARONE 200 MG TABLET PO SCH ×2 (09:21→21:35)
[2020-09-20] MEDS: GABAPENTIN 300 MG CAPSULE PO SCH ×2 (09:21→21:30)
[2020-09-20] MEDS: PANTOPRAZOLE 40 MG TABLET PO SCH (09:21)
[2020-09-20] MEDS: POTASSIUM CHLORIDE 20 MEQ TABLET PO SCH ×2 (09:21→21:30)
[2020-09-20] MEDS: ENOXAPARIN 100 MG/ML SYRINGE SUBCUT SCH ×3 (09:23→21:36)
[2020-09-20] MEDS: CHLORHEXIDINE 0.12% ORAL RINSE 60 ML BOTTLE SWISH/SPIT SCH ×2 (09:24→21:30)
[2020-09-20] MEDS: SODIUM CHLORIDE 0.9% 1,000 ML IV SCH (09:32)
[2020-09-20] MEDS ORDERED: FUROSEMIDE 40 MG/4 ML VIAL IV ONE (10:15)
[2020-09-20] MEDS ORDERED: SODIUM CHLORIDE 0.9% 100 ML IV ONE (11:39)
[2020-09-20] MEDS: cefTRIAXone 2,000 MG in SYRINGE 1 EACH IV SCH (11:43)
[2020-09-20] MEDS: carisoprodoL 350 MG TABLET PO PRN (17:47)
[2020-09-20] MEDS: predniSONE 10 MG TABLET PO SCH (21:31)
[2020-09-21] MEDS: ACETAMINOPHEN 325 MG TABLET PO PRN ×3 (04:41→22:17)
[2020-09-21] MEDS: CALCIUM CARBONATE CHEW 500 MG TABLET PO SCH ×4 (04:41→22:27)
[2020-09-21] MEDS: AMIODARONE 200 MG TABLET PO SCH ×2 (09:30→21:08)
[2020-09-21] MEDS: LINACLOTIDE 145 MCG CAPSULE PO SCH (09:30)
[2020-09-21] MEDS: DOCUSATE SODIUM 100 MG CAPSULE PO SCH ×2 (09:30→21:08)
[2020-09-21] MEDS: FAMOTIDINE 20 MG TABLET PO SCH (09:31)
[2020-09-21] MEDS: METOPROLOL SUCCINATE XL 50 MG TABLET PO SCH ×2 (09:31→21:08)
[2020-09-21] MEDS: predniSONE 5 MG TABLET PO SCH (09:31)
[2020-09-21] MEDS: POTASSIUM CHLORIDE 20 MEQ TABLET PO SCH ×2 (09:31→21:08)
[2020-09-21] MEDS: PANTOPRAZOLE 40 MG TABLET PO SCH (09:31)
[2020-09-21] MEDS: FUROSEMIDE 40 MG TABLET PO SCH (09:31)
[2020-09-21] MEDS: GABAPENTIN 300 MG CAPSULE PO SCH ×2 (09:31→21:08)
[2020-09-21] MEDS: BISACODYL 5 MG TABLET PO SCH (09:34)
[2020-09-21] MEDS: CHLORHEXIDINE 0.12% ORAL RINSE 60 ML BOTTLE SWISH/SPIT SCH ×2 (09:34→21:10)
[2020-09-21] MEDS: ENOXAPARIN 100 MG/ML SYRINGE SUBCUT SCH ×2 (09:34→22:27)
[2020-09-21] MEDS: cefTRIAXone 2,000 MG in SYRINGE 1 EACH IV SCH (10:52)
[2020-09-21] MEDS: carisoprodoL 350 MG TABLET PO PRN (17:10)
[2020-09-21] MEDS: predniSONE 10 MG TABLET PO SCH (21:08)
[2020-09-22] MEDS: CALCIUM CARBONATE CHEW 500 MG TABLET PO SCH ×4 (04:19→22:13)
[2020-09-22] MEDS: ACETAMINOPHEN 325 MG TABLET PO PRN ×3 (04:26→23:22)
[2020-09-22] MEDS: GABAPENTIN 300 MG CAPSULE PO SCH ×2 (08:21→22:14)
[2020-09-22] MEDS: AMIODARONE 200 MG TABLET PO SCH ×2 (08:21→22:14)
[2020-09-22] MEDS: POTASSIUM CHLORIDE 20 MEQ TABLET PO SCH ×2 (08:21→22:13)
[2020-09-22] MEDS: FAMOTIDINE 20 MG TABLET PO SCH (08:21)
[2020-09-22] MEDS: FUROSEMIDE 40 MG TABLET PO SCH (08:21)
[2020-09-22] MEDS: PANTOPRAZOLE 40 MG TABLET PO SCH (08:22)
[2020-09-22] MEDS: METOPROLOL SUCCINATE XL 50 MG TABLET PO SCH ×2 (08:22→22:14)
[2020-09-22] MEDS: predniSONE 5 MG TABLET PO SCH (08:22)
[2020-09-22] MEDS: DOCUSATE SODIUM 100 MG CAPSULE PO SCH ×2 (08:23→22:14)
[2020-09-22] MEDS: CHLORHEXIDINE 0.12% ORAL RINSE 60 ML BOTTLE SWISH/SPIT SCH ×2 (08:23→22:16)
[2020-09-22] MEDS: LINACLOTIDE 145 MCG CAPSULE PO SCH (08:23)
[2020-09-22] MEDS: BISACODYL 5 MG TABLET PO SCH (08:23)
[2020-09-22] MEDS: ENOXAPARIN 100 MG/ML SYRINGE SUBCUT SCH ×2 (09:53→22:21)
[2020-09-22] MEDS ORDERED: LIDOCAINE 1%/EPI INJ 20 ML VIAL ONE (11:37)
[2020-09-22] MEDS ORDERED: PHENYLEPHRINE 0.5% NASAL SPRAY 15 ML BOTTLE BOTH NARES ONE (12:01)
[2020-09-22] MEDS ORDERED: MIDAZOLAM 2 MG/2 ML VIAL ONE (12:41)
[2020-09-22] MEDS ORDERED: fentaNYL 100 MCG/2 ML VIAL ONE (12:41)
[2020-09-22] MEDS ORDERED: DEXAMETHASONE 4 MG/1 ML VIAL ONE ×2 (12:53→12:54)
[2020-09-22] MEDS ORDERED: LIDOCAINE 2% 5 ML VIAL ONE (12:53)
[2020-09-22] MEDS ORDERED: ROCURONIUM 50 MG/5 ML VIAL IV ONE (12:53)
[2020-09-22] MEDS ORDERED: propofoL 200 MG/20 ML VIAL IV ONE ×2 (12:53)
[2020-09-22] MEDS ORDERED: SEVOFLURANE 1 UNIT/15 MINUTE INH ONE ×2 (12:54→13:23)
[2020-09-22] MEDS ORDERED: ONDANSETRON 4 MG/2 ML VIAL ONE (12:54)
[2020-09-22] MEDS ORDERED: HYDROmorphone 2 MG/1 ML VIAL ONE (13:24)
[2020-09-22] MEDS: cefTRIAXone 2,000 MG in SYRINGE 1 EACH IV SCH (14:48)
[2020-09-22] MEDS: ONDANSETRON 4 MG/2 ML VIAL IV PRN (16:36)
[2020-09-22] MEDS ORDERED: PHENOL 1.4% THROAT SPRAY 177 ML BOTTLE PO PRN (21:29)
[2020-09-22] MEDS: predniSONE 10 MG TABLET PO SCH (22:14)
[2020-09-22] MEDS: carisoprodoL 350 MG TABLET PO PRN (22:15)
[2020-09-23] MEDS: CALCIUM CARBONATE CHEW 500 MG TABLET PO SCH ×2 (04:14→08:12)
[2020-09-23] MEDS: ACETAMINOPHEN 325 MG TABLET PO PRN ×2 (05:21→12:23)
[2020-09-23] MEDS: ONDANSETRON 4 MG/2 ML VIAL IV PRN (05:22)
[2020-09-23 05:54] LABS: Basophils % 0.1 % (0.0-0.8); Hematocrit 25.5 VOL% (42.0-52.0); Hemoglobin 7.7 GM/DL (14.0-18.0); Immature Granulocytes % 0.7 %; Lymphocytes # 0.9 10*3/uL (1.4-4.0); Lymphocytes % 6.5 % (21.2-54.2); Mean Corpuscular HGB Conc 30.2 GM/DL (32-36); Mean Platelet Volume 9.1 FL (9.6-12.0); Monocytes % 5.5 % (1.7-12.7); Neutrophils % 87.2 % (38.7-73.9); Platelet Count 322 T/CUMM (130-400); Red Blood Count 3.27 MC/CUMM (3.8-5.5); Red Cell Distribution Width 18.7 % (9.3-17.3); White Blood Count 14.1 T/CUMM (4-12)
[2020-09-23 06:13] LABS: Calcium 9.1 MG/DL (8.5-10.1); Osmolality,Calculated 275.8 MOS/KG (273-304)
[2020-09-23] MEDS ORDERED: SODIUM CHLORIDE 0.9% 1,000 ML IV PRN (08:06)
[2020-09-23] MEDS ORDERED: FUROSEMIDE 20 MG/2 ML VIAL IV ONE (08:08)
[2020-09-23] MEDS: METOPROLOL SUCCINATE XL 50 MG TABLET PO SCH (08:10)
[2020-09-23] MEDS: FUROSEMIDE 40 MG TABLET PO SCH (08:11)
[2020-09-23] MEDS: PANTOPRAZOLE 40 MG TABLET PO SCH (08:11)
[2020-09-23] MEDS: BISACODYL 5 MG TABLET PO SCH (08:11)
[2020-09-23] MEDS: FAMOTIDINE 20 MG TABLET PO SCH (08:11)
[2020-09-23] MEDS: GABAPENTIN 300 MG CAPSULE PO SCH (08:11)
[2020-09-23] MEDS: AMIODARONE 200 MG TABLET PO SCH (08:11)
[2020-09-23] MEDS: DOCUSATE SODIUM 100 MG CAPSULE PO SCH (08:12)
[2020-09-23] MEDS: POTASSIUM CHLORIDE 20 MEQ TABLET PO SCH (08:12)
[2020-09-23] MEDS: LINACLOTIDE 145 MCG CAPSULE PO SCH (08:12)
[2020-09-23] MEDS: CHLORHEXIDINE 0.12% ORAL RINSE 60 ML BOTTLE SWISH/SPIT SCH (08:12)
[2020-09-23] MEDS: predniSONE 5 MG TABLET PO SCH (08:13)
[2020-09-23] MEDS: cefTRIAXone 2,000 MG in SYRINGE 1 EACH IV SCH (10:19)
[2020-09-23 16:19] VITALS: BP 114/57
== END 2020-09-23 17:35 | disposition home or self-care (01) | DRG 288 ==
LOC: N.EDINP 20:44 → N.ED 20:44 → N.5E 23:09 → N.TELES 09-15 13:49
PROVIDERS: ADMIT Family Medicine; ATTEND Family Medicine

== ENCOUNTER 2020-10-17 20:38 | Observation (INO) ==
[2020-10-17 21:33] LABS: Basophils # 0.1 10*3/uL (0.0-0.2); Basophils % 0.3 % (0.0-0.8); Eosinophils % 0.1 % (0.00-10.9); Hemoglobin 9.1 GM/DL (14.0-18.0); Immature Granulocytes % 0.5 %; Immature Granulocytes Absolute 0.09 #; Lymphocytes # 0.7 10*3/uL (1.4-4.0); Lymphocytes % 4.2 % (21.2-54.2); Mean Corpuscular HGB Conc 31.4 GM/DL (32-36); Mean Corpuscular Volume 77.7 FL (87-102); Mean Platelet Volume 8.9 FL (9.6-12.0); Monocytes % 3.4 % (1.7-12.7); Neutrophils % 91.5 % (38.7-73.9); Platelet Count 336 T/CUMM (130-400); Red Blood Count 3.73 MC/CUMM (3.8-5.5); Red Cell Distribution Width 17.8 % (9.3-17.3); White Blood Count 17.3 T/CUMM (4-12)
[2020-10-17] MEDS ORDERED: THIAMINE INJ 100 MG, FOLIC ACID INJ 1 MG, MAGNESIUM SULF INJ 2 GM, MULTIVITAMIN INJ 10 ... IV ONE (21:40)
[2020-10-17 21:59] LABS: Alanine Aminotransferase 26 U/L (16-61); Albumin 3.6 G/DL (3.4-5.0); Alkaline Phosphatase 84 U/L (45-117); Aspartate Amino Transferase 24 U/L (0-37); Blood Urea Nitrogen 26 MG/DL (7-18); Calcium 8.8 MG/DL (8.5-10.1); Estimated Glom Filtration Rate 83 ML/MIN; Glucose 101 MG/DL (74-106); Osmolality,Calculated 281.5 MOS/KG (273-304)
[2020-10-17 22:02] LABS: Hypochromasia 2+; Lymphocytes 3 % (20-55); Platelet Estimate Normal; Segmented Neutrophils 93 % (50-85); Total Cells Counted 100
[2020-10-17] MEDS ORDERED: ASPIRIN EC 325 MG TABLET PO STA (23:27)
[2020-10-17 23:37] LABS: Bilirubin,Urine Negative (Negative); Blood, Urine Small mg/dL (Negative); Glucose,Urine (UA) Negative (Negative); Hyaline Casts,Urine 10 /LPF (0-3); Ketones,Urine Negative (Negative); Mucus,Urine Occasional /LPF (Occasional); Nitrite,Urine Negative (Negative); Protein,Urine 30 MG/DL; RBC,Urine 7 /HPF (0-4); Sperm,Urine Few /HPF (Negative); Urine Appearance Slightly Hazy (Clear); Urine Color Amber (Yellow); Urine Specific Gravity 1.025 (1.001-1.035); Urine Urobilinogen < 2.0 EU/DL (0.2-1.0); WBC,Urine 3 /HPF (0-6)
[2020-10-17 23:45] LABS: Barbiturates Screen,Urine Negative (Negative); Benzodiazepines Screen,Urine Positive (Negative); Cannabinoid Screen,Urine Positive (Negative); Opiate Screen,Urine Negative (Negative); Phencyclidine Screen,Urine Negative (Negative)
[2020-10-18] MEDS ORDERED: SODIUM CHLORIDE 0.9% 1,000 ML IV STA (00:11)
[2020-10-18] MEDS ORDERED: ONDANSETRON 4 MG/2 ML VIAL IV PRN (00:21)
[2020-10-18] MEDS ORDERED: ACETAMINOPHEN 325 MG TABLET PO PRN (00:21)
[2020-10-18] MEDS ORDERED: PIPERACILLIN/TAZOBACTAM 3,375 MG in SODIUM CHLORIDE 0.9% 100 ML IV SCH (01:00)
[2020-10-18] MEDS: ASPIRIN CHEW 81 MG TABLET PO SCH (01:47)
[2020-10-18] MEDS: SODIUM CHLORIDE 0.9% 1,000 ML IV SCH ×3 (01:47→15:31)
[2020-10-18 06:26] LABS: Basophils % 0.3 % (0.0-0.8); Eosinophils # 0.1 10*3/uL (0.0-0.87); Eosinophils % 0.4 % (0.00-10.9); Hematocrit 27.8 VOL% (42.0-52.0); Hemoglobin 8.7 GM/DL (14.0-18.0); Immature Granulocytes % 0.6 %; Immature Granulocytes Absolute 0.08 #; Lymphocytes # 1.9 10*3/uL (1.4-4.0); Lymphocytes % 13.8 % (21.2-54.2); Mean Corpuscular HGB Conc 31.3 GM/DL (32-36); Mean Corpuscular Volume 78.5 FL (87-102); Mean Platelet Volume 9.3 FL (9.6-12.0); Monocytes % 7.3 % (1.7-12.7); Neutrophils % 77.6 % (38.7-73.9); Platelet Count 330 T/CUMM (130-400); Red Blood Count 3.54 MC/CUMM (3.8-5.5); Red Cell Distribution Width 17.8 % (9.3-17.3); White Blood Count 13.5 T/CUMM (4-12)
[2020-10-18 06:44] LABS: Albumin 3.4 G/DL (3.4-5.0); Bilirubin,Total 0.6 MG/DL (0.2-1.0); Calcium 8.7 MG/DL (8.5-10.1); Osmolality,Calculated 280.4 MOS/KG (273-304); Total Protein 7.4 G/DL (6.4-8.3)
[2020-10-18] MEDS: PANTOPRAZOLE 40 MG VIAL IV SCH (09:21)
[2020-10-18] MEDS: ENOXAPARIN 100 MG/ML SYRINGE SUBCUT SCH ×2 (09:21→21:12)
[2020-10-18] MEDS: cefTRIAXone 2,000 MG in SYRINGE 1 EACH IV SCH (09:21)
[2020-10-18] MEDS: AMIODARONE 200 MG TABLET PO SCH ×2 (10:40→20:49)
[2020-10-18 10:49] LABS: CKMB % 1.6 %; Troponin I 0.119 NG/ML (0.00-0.045)
[2020-10-18 13:17] LABS: CKMB % 1.5 %
[2020-10-18 13:18] LABS: Troponin I 0.132 NG/ML (0.00-0.045)
[2020-10-18] MEDS: POTASSIUM CHLORIDE 20 MEQ TABLET PO SCH (20:47)
[2020-10-18] MEDS: METOPROLOL SUCCINATE XL 50 MG TABLET PO SCH (20:47)
[2020-10-18] MEDS: FUROSEMIDE 40 MG TABLET PO SCH (20:48)
[2020-10-19] MEDS: SODIUM CHLORIDE 0.9% 1,000 ML IV SCH ×3 (00:46→15:37)
[2020-10-19] MEDS: ASPIRIN CHEW 81 MG TABLET PO SCH (00:46)
[2020-10-19] MEDS ORDERED: LORazepam 2 MG/1 ML VIAL IV ONE (06:03)
[2020-10-19] MEDS ORDERED: HALOPERIDOL 5 MG/ML AMP IM PRN (06:05)
[2020-10-19] MEDS: PANTOPRAZOLE 40 MG VIAL IV SCH (09:32)
[2020-10-19] MEDS: cefTRIAXone 2,000 MG in SYRINGE 1 EACH IV SCH (09:33)
[2020-10-19] MEDS: AMIODARONE 200 MG TABLET PO SCH ×2 (12:03→21:47)
[2020-10-19] MEDS: FUROSEMIDE 40 MG TABLET PO SCH ×2 (12:03→21:47)
[2020-10-19] MEDS: POTASSIUM CHLORIDE 20 MEQ TABLET PO SCH ×2 (12:03→21:47)
[2020-10-19] MEDS: METOPROLOL SUCCINATE XL 100 MG TABLET PO SCH (12:04)
[2020-10-19] MEDS: ENOXAPARIN 100 MG/ML SYRINGE SUBCUT SCH ×2 (12:07→21:47)
[2020-10-19] MEDS: METOPROLOL SUCCINATE XL 50 MG TABLET PO SCH (21:47)
[2020-10-20] MEDS: SODIUM CHLORIDE 0.9% 1,000 ML IV SCH ×2 (03:44→09:13)
[2020-10-20] MEDS: ASPIRIN CHEW 81 MG TABLET PO SCH (03:44)
[2020-10-20 08:12] VITALS: BP 93/58
[2020-10-20] MEDS: PANTOPRAZOLE 40 MG VIAL IV SCH (09:11)
[2020-10-20] MEDS: POTASSIUM CHLORIDE 20 MEQ TABLET PO SCH (09:11)
[2020-10-20] MEDS: AMIODARONE 200 MG TABLET PO SCH (09:11)
[2020-10-20] MEDS: FUROSEMIDE 40 MG TABLET PO SCH (09:11)
[2020-10-20] MEDS: METOPROLOL SUCCINATE XL 100 MG TABLET PO SCH (09:13)
[2020-10-20] MEDS: ENOXAPARIN 100 MG/ML SYRINGE SUBCUT SCH (09:13)
[2020-10-20] MEDS: cefTRIAXone 2,000 MG in SYRINGE 1 EACH IV SCH (09:13)
== END 2020-10-20 12:05 | disposition home or self-care (01) ==
LOC: EDUNIT# → EDBD → N.EDINP 20:38 → N.ED 20:38 → N.TELEN 10-18 00:49
PROVIDERS: ADMIT Family Medicine; ATTEND Family Medicine